=== PATIENT | female | born 1960 | race Caucasian/White ===

== ENCOUNTER 2020-04-07 13:11 | Outpatient (REF) | payer MEDICARE, MEDICAID, SELFPAY ==
--- NOTE | 2020-04-07 | US_ITS ---
EXAMINATION: US RETROPERITONEAL LIMITED (RENAL ONLY) CLINICAL INFORMATION: Acute kidney failure. COMPARISON: CT abdomen and pelvis dated 07/22/2019 TECHNIQUE: Real-time imaging of the kidneys. FINDINGS: RIGHT KIDNEY: 9.0 x 3.4 x 3.2 cm (SAG x AP x TRV). The kidney is normal in size, contour, and echogenicity. Renal cortical thickness is normal. No calculi or focal parenchymal lesions. No hydronephrosis. LEFT KIDNEY: 9.8 x 5.0 x 4.8 cm (SAG x AP x TRV). The kidney is normal in size, contour, and echogenicity. Renal cortical thickness is normal. No calculi or focal parenchymal lesions. No hydronephrosis. The liver is echogenic. US/US renal BI IMPRESSION: Normal renal ultrasound..
== END 2020-04-07 13:12 | disposition home or self-care (01) ==
LOC: HO.US 13:11
PROVIDERS: PCP Internal Medicine; Visit Provider Family Medicine
DX: N17.9 Acute kidney failure, unspecified (principal)
CPT/HCPCS: 76775

== ENCOUNTER → 2020-04-10 17:00 | Outpatient (BNVA) | payer MEDICARE, MEDICAID, SELFPAY | PROVIDERS: PCP Internal Medicine; Referring Provider Internal Medicine; Visit Provider Internal Medicine Gastroenterology | DX: K21.9 Gastro-esophageal reflux disease without esophagitis (principal); K59.00 Constipation, unspecified; Z79.899 Other long term (current) drug therapy | CPT/HCPCS: Q3014 ==

== ENCOUNTER 2020-05-06 10:56 | Outpatient (REF) | payer MEDICARE, MEDICAID, SELFPAY ==
--- NOTE | 2020-05-06 | MM_ITS ---
EXAMINATION: MM SCREENING DIGITAL BREAST TOMOSYNTHESIS, BILATERAL CLINICAL INFORMATION: Screening. Asymptomatic. The lifetime risk of breast cancer based on the Tyrer-Cuzick Model is 3%. COMPARISON: Mammography: 12/26/18, 07/30/16, 03/18/13 TECHNIQUE: Digital breast tomosynthesis is performed in both the craniocaudal and mediolateral oblique views along with computer-aided detection (CAD). Synthesized 2D images are generated from the tomosynthesis. FINDINGS: There are scattered areas of fibroglandular density (ACR BI-RADS breast composition Category b). There are no significant masses, abnormal calcifications, or other abnormalities. MM/MM tomosynthesis screening BI IMPRESSION: No mammographic evidence of malignancy. No suspicious interval change ASSESSMENT: BI-RADS 1: Negative RECOMMENDATION: Routine annual mammography screening. This patient's information was entered into a reminder system with a target due date for their next mammogram.
== END 2020-05-06 10:57 | disposition home or self-care (01) ==
LOC: HO.MAMMO 10:56
PROVIDERS: Visit Provider Internal Medicine
DX: Z12.31 Encounter for screening mammogram for malignant neoplasm of breast (principal)
CPT/HCPCS: 77063; 77067

== ENCOUNTER → 2020-06-13 09:22 | Outpatient (BNVA) | payer MEDICAID, SELFPAY | PROVIDERS: PCP Internal Medicine; Visit Provider Urology | DX: Z76.89 Persons encountering health services in other specified circumstances (principal) ==

== ENCOUNTER 2020-06-16 13:37 | Outpatient (REF) | payer MEDICARE, MEDICAID, SELFPAY | END 2020-06-16 13:38 | disposition home or self-care (01) | LOC: HO.LAB 13:37 | PROVIDERS: PCP Internal Medicine; Visit Provider Internal Medicine | DX: Z20.822 Contact with and (suspected) exposure to COVID-19 (principal) | CPT/HCPCS: 36415; C9803; U0003 ==

== ENCOUNTER 2020-07-23 13:37 | Outpatient (REF) | payer MEDICARE, MEDICAID, SELFPAY | END 2020-07-23 13:38 | disposition home or self-care (01) | LOC: HO.LAB 13:37 | PROVIDERS: Visit Provider Internal Medicine | DX: Z20.822 Contact with and (suspected) exposure to COVID-19 (principal) | CPT/HCPCS: 36415; C9803; U0003; U0005 ==

== ENCOUNTER → 2020-08-18 13:39 | Outpatient (BNVA) | payer MEDICARE, MEDICAID, SELFPAY | PROVIDERS: PCP Internal Medicine; Visit Provider Internal Medicine Gastroenterology | DX: Z13.89 Encounter for screening for other disorder (principal) | CPT/HCPCS: Q3014 ==

== ENCOUNTER 2020-10-03 12:44 | Outpatient (REF) | payer MEDICARE, MEDICAID, SELFPAY ==
--- NOTE | 2020-10-03 15:46 | MHC.AU.ANO ---
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 She feels her left ear is worse than the right ear. She has also been experiencing vertigo, accompanied by nausea. When she experiences an episode of vertigo, her tinnitus increases and her hearing decreases. Her tinnitus is also perceived as worse in the left ear. She also frequently experiences a sensation that something is moving in her ears. Does patient feel they have a hearing loss?: If Yes, Which Ear?: When Was Hearing Difficulty First Noticed?: Has hearing been tested previously?: No Hearing Handicap Inventory: HHIE SCORE: 40 Based on HHIE score, patient has: Severe perceived hearing handicap Ear History: Ear Deformity: None Reported Recent Ear Drainage: None Reported Recent Ear Pain: Both Ears Recent Ear Infections: None Reported Ear Infections in Childhood: None Reported Previous Ear Surgery: None Reported Bothersome Tinnitus/Ringing/Noises in Ears: Both, but worse in the left Ear used on the phone: Right Ear Blocked/Full Sensation in Ear(s): Both Ears History of occupational noise exposure?: Yes: Construction History: No Medical History: Medical History: Sinus/allergy problems, Migraine, Chronic Kidney Disease Otoscopy: Right Ear: Unremarkable Left Ear: Unremarkable Tympanometry: Tympanometry performed due to: To assess integrity of the middle ear system Right Ear: Normal Middle Ear System (Type A) Left Ear: Normal Middle Ear System (Type A) Hearing Evaluation: Transducer(s) Used: Insert Earphones Method: Conventional Audiometry Stimuli Used: Pure Tones Right Ear: Description of Hearing: Mild to moderate sensorineural hearing loss Left Ear: Description of Hearing: Moderate sensorineural hearing loss Speech Recognition Threshold (SRT): Method Used: Recorded Lists Right Ear: 45 dBHL Left Ear: 60 dBHL Word Discrimination: Method: Recorded Lists Word Lists Used: Lista Bisil?bica (Taiwanese) Right Ear: 88% at 85 dBHL Left Ear: 84% at 90 dBHL Recommendations: Audiological re-evaluation in one year. Trial with amplification is recommended. Medical clearance from a physician is required before fitting. See Hearing Aid Evaluation report for more information. Referral to Ear, Nose, and Throat is recommended to address asymmetrical sensorineural hearing loss, as well as episodes of vertigo that are accompanied by tinnitus and nausea. Diagnosis: Primary Diagnosis: H90.3 Bilateral Sensorineural Hearing Loss Services Performed: Comprehensive Audiological Evaluation (CPT 63445), Tympanometry (CPT 34604) Signature: Provider: Eirc Rojas, CCC-A
--- NOTE | 2020-10-03 15:47 | MHC.AU.HAS ---
Hearing Aid Evaluation Date of Visit: 10/03/20 Trolley Coach Driver Used: Luxembourgish- In Person Historical Information: Description of Hearing: Right: Mild to moderate sensorineural hearing loss Left: Moderate sensorineural hearing loss Summary: Patient was seen today for audiological evaluation (see report for details). Patient is interested in amplification. Options were discussed. Hearing Aid Prescription: Based on the individual?s shared listening needs, communication environments, dexterity, desire for connectivity, and personal preferences, the following prescription for amplification has been made: Right ear: Physical Chemistry Teacher: Phonak Model: Audeo P70-R Battery Size: Rechargeable Color: P1 Crystal Inspector: 1M Left ear: Left ear prescription to be same as Right Hearing Aid above: Physical Chemistry Teacher: Phonak Model: Audeo P70-R Battery Size: Rechargeable Color: P1 Crystal Inspector: 1M Action Taken/Action Needed: Medical Clearance to be requested from PCP/ENT Hearing Fitting to be scheduled when materials arrive Primary Diagnosis: H90.3 Bilateral Sensorineural Hearing Loss Signature: Provider: Eric Rojas, MIKE-A
--- NOTE | 2020-10-03 15:48 | MHC.AU.MED ---
Medical Clearance for Hearing Instrumentation Date: 10/03/20 Patient Name: Celestina Sullivan Date of : 1960 Primary Care Provider: Referring Provider: Lisa White MD We have seen your patient on 10/03/20 and have determined that they are a candidate for amplification (See accompanying report). Specifically, they would benefit from: Hearing aid use in both ears There is a statute that addresses Medical Evaluation Requirements prior to fitting a patient with a hearing aid. According to [place] statute 265 CMR:6.03(1), (a) General. Except as provided in 265 CMR 6.03(1)(b), a director of media shall not sell a hearing aid unless the prospective user has presented to the director of media a written statement signed by a licensed physician that states that the patient's hearing loss has been medically evaluated and the patient may be considered a candidate for a hearing aid. The medical evaluation must have taken place within the preceding six months. Please note: Due to the [place] Statute referenced above, we cannot accept a signature other than that of a licensed physician. SHANK THREADER and PA signatures cannot be accepted. I am in agreement with the above recommendation. There is no medical contraindication for hearing instrumentation. Physician Signature Date Physician Name (Printed)
== END 2020-10-03 12:45 | disposition home or self-care (01) ==
LOC: HO.SH 12:44
PROVIDERS: Visit Provider Internal Medicine
DX: Z46.1 Encounter for fitting and adjustment of hearing aid (principal); H90.3 Sensorineural hearing loss, bilateral
CPT/HCPCS: 92557; 92567; 92591

== ENCOUNTER 2020-11-12 14:20 | Outpatient (REF) | payer MEDICARE, MEDICAID, SELFPAY ==
--- NOTE | 2020-11-13 11:27 | MHC.AU.HFA ---
Hearing Instrument Fitting- Adult- Binaural Date of Visit: 11/12/20 Educational Institution Curator Used: Maori- In Person Hearing Instruments Dispensed: Right Ear: Records Management Technician: Phonak Model: Audeo P70-R Serial Number: [id number] Repair Warranty: 01/21/2024 Loss and Damage Warranty: 01/21/2024 Battery Size: Rechargeable Color: P1 Funeral Limousine Driver: 1M Type of Dome: Small Vented Type of Wax Guard: CeruShield Left Ear: Records Management Technician: Phonak Model: Audeo P70-R Serial Number: [id number] Repair Warranty: 01/21/2024 Loss and Damage Warranty: 01/21/2024 Battery Size: Rechargeable Color: P1 Funeral Limousine Driver: 1M Type of Dome: Small Vented Type of Wax Guard: CeruShield Summary of Fitting: Feedback manager financial planning run. Verifit performed and levels adjusted to better reach targets. Patient initially felt the sound echoed too much and there was a slight hiss. Lowered until patient reported echo was mostly gone- at 85% target. Increased occlusion compensation to medium, and patient reported the hiss had gone away. Patient was pleased with the sound of the instruments. Hearing aid care and maintenance were discussed and practiced. Hearing aids were paired to her phone. Recommendations: A hearing instrument follow-up was scheduled. Diagnosis Code(s): Primary Diagnosis: H90.3 Bilateral Sensorineural Hearing Loss Signature: Provider: Eric Rojas, [facility]
== END 2020-11-12 14:21 | disposition home or self-care (01) ==
LOC: HO.HAP 14:20
PROVIDERS: Visit Provider Internal Medicine
DX: Z46.1 Encounter for fitting and adjustment of hearing aid (principal); H90.3 Sensorineural hearing loss, bilateral
CPT/HCPCS: V5011; V5020; V5160; V5261

== ENCOUNTER → 2020-11-14 11:33 | Outpatient (BNVA) | payer MEDICARE, MEDICAID, SELFPAY | PROVIDERS: PCP Internal Medicine; Visit Provider Internal Medicine Gastroenterology | DX: Z13.89 Encounter for screening for other disorder (principal) | CPT/HCPCS: Q3014 ==

== ENCOUNTER 2020-11-26 14:00 | Outpatient (RCR) | payer MEDICARE, MEDICAID, SELFPAY ==
--- NOTE | 2020-11-13 14:21 | MHC.PT.EP ---
[facility] [place] Office [place] Office [place] Office [address] Fadumo Forrest [address] [phone] F: [phone] F: [phone] F: [phone] F: [phone] Physical Therapy Plan of Care Date of Evaluation: Date of Surgery: NA Diagnosis: CHRONIC LOW BACK PAIN Assessment: Celestina is a pleasant 60 yo female who presents with generalized low back and lower extremity pain of non-dermatomal nor myotomal pattern. Upon exam impairments inclde decreased LE and core strength, decreased LE and trunk ROM, altered posture and positioning and muscular length and strength imbalances leading to patterned movements and increased pain. Functionall limitations include decreased ability to perform ADLS and self care tasks, decreased ability to perform homemaking tasks, decreased ability to perform reaching, lifting, pushing and pulling. she reports decreased participation in community and recreational tasks and disrupted sleep. Frequency and Duration: The patient will be seen 2 x week for 5 weeks Short Term Goals: initiate HEP and promote self management of symptoms with evidence of learning in 2 visits. Director Goals: IN 5 WEEKS: TO DEMONSTRATE FULL LE ROM, EQUAL REE TO DEMONSTRATE FULL LE STRENGTH, EQUAL ERE TO ASCEND AND DESCEND STAIRS WITHOUT PAIN GREATER THAN 2/10 TO AMBULATE AD [place]A ON LEVEL AND UNEVEN SURFACES FOR FITNESS WITHOUT PAIN GREATER THAN 2/10 INDEPENDENT HEP AND SELF MANAGEMENT OF RIDU Treatment Plan: Modalities to reduce pain, spasms and effusion. Manual therapy to restore motion and function. Therapeutic exercise to improve strength and flexibility. Neuromuscular re-education for posture and balance. Therapeutic activities to return to functional activities of daily living. Electronically signed by: NANCY MICHAEL PT, DPT Please sign and return to therapist. Thank you for your referral.
--- NOTE | 2021-01-05 08:27 | MHC.PT.DC ---
[facility] [place] Office [place] Office [place] Office [address] Fadumo Forrest [address] [phone] F: [phone] F: [phone] F: [phone] F: [phone] Physical Therapy Discharge Report Diagnosis: CHRONIC LOW BACK PAIN Date of Surgery: NA Date of Evaluation: 11/10/20 Date of Discharge: 11/26/20 Treatments to Date: 5 Cancellations to Date: 0 No Shows to Date: 0 Discharge Status: Patient Elected to Stop Discharge Summary: At last attended visit, Celestina continued to subjectivly report pain as 7 1/2 unchanged since initial eval. Pain is reported to radiate into the lower extremity (non-dermatomal pattern). She demonstrates decreased muscle length in hamstrings, quads and piriformis and would benefit from continuing her home program for same. The patient elected to not schedule further visits in PT and will follow up with MD. Electronically signed by: Daya Serrano PT, DPT Please sign and return to therapist. Thank you for your referral.
== END 2021-01-05 08:32 | disposition home or self-care (01) ==
LOC: HO.PT 14:00
PROVIDERS: PCP Internal Medicine; Visit Provider Internal Medicine
DX: M54.5 Low back pain (principal)
CPT/HCPCS: 97110; 97140; 97163

== ENCOUNTER 2021-01-09 11:12 | Emergency (ER) | payer MEDICARE, MEDICAID, SELFPAY ==
--- NOTE | ~2021-01-09 | XR_ITS ---
EXAMINATION: RIGHT ANKLE, RIGHT FOOT RIGHT TIBIA AND FIBULA AND LEFT KNEE. CLINICAL INFORMATION: Trauma. Pain. COMPARISON: None TECHNIQUE: Left knee 4 views. Right foot 3 views. Right tibia and fibula 2 views and right ankle 3 views. FINDINGS: Left knee: There is no visible acute fracture, dislocation or subluxation. No visible acute fracture, dislocation or subluxation seen. There is mild suprapatellar joint effusion. Right foot: There is no visible acute fracture, dislocation or subluxation seen. The soft tissues are normal. Right ankle: There is a nondisplaced oblique distal fibular fracture. The ankle mortise and subtalar joints are normal. There is moderate lateral malleolar soft tissue swelling. Right tibia and fibula: There is an oblique fracture distal fibula. Rest of the visualized fibula and the tibia appears unremarkable. The soft tissues are normal. XR/XR ankle RT 2V IMPRESSION: Minimally displaced oblique fracture distal right fibula. There is moderate lateral malleolar soft tissue swelling. Rest of the right tibia and fibula is unremarkable. The ankle mortise and subtalar joints are normal. Right foot and the left kidney is unremarkable.
--- NOTE | ~2021-01-09 | XR_ITS ---
EXAMINATION: RIGHT ANKLE, RIGHT FOOT RIGHT TIBIA AND FIBULA AND LEFT KNEE. CLINICAL INFORMATION: Trauma. Pain. COMPARISON: None TECHNIQUE: Left knee 4 views. Right foot 3 views. Right tibia and fibula 2 views and right ankle 3 views. FINDINGS: Left knee: There is no visible acute fracture, dislocation or subluxation. No visible acute fracture, dislocation or subluxation seen. There is mild suprapatellar joint effusion. Right foot: There is no visible acute fracture, dislocation or subluxation seen. The soft tissues are normal. Right ankle: There is a nondisplaced oblique distal fibular fracture. The ankle mortise and subtalar joints are normal. There is moderate lateral malleolar soft tissue swelling. Right tibia and fibula: There is an oblique fracture distal fibula. Rest of the visualized fibula and the tibia appears unremarkable. The soft tissues are normal. XR/XR tibia fibula RT 2V IMPRESSION: Minimally displaced oblique fracture distal right fibula. There is moderate lateral malleolar soft tissue swelling. Rest of the right tibia and fibula is unremarkable. The ankle mortise and subtalar joints are normal. Right foot and the left kidney is unremarkable.
--- NOTE | ~2021-01-09 | XR_ITS ---
EXAMINATION: RIGHT ANKLE, RIGHT FOOT RIGHT TIBIA AND FIBULA AND LEFT KNEE. CLINICAL INFORMATION: Trauma. Pain. COMPARISON: None TECHNIQUE: Left knee 4 views. Right foot 3 views. Right tibia and fibula 2 views and right ankle 3 views. FINDINGS: Left knee: There is no visible acute fracture, dislocation or subluxation. No visible acute fracture, dislocation or subluxation seen. There is mild suprapatellar joint effusion. Right foot: There is no visible acute fracture, dislocation or subluxation seen. The soft tissues are normal. Right ankle: There is a nondisplaced oblique distal fibular fracture. The ankle mortise and subtalar joints are normal. There is moderate lateral malleolar soft tissue swelling. Right tibia and fibula: There is an oblique fracture distal fibula. Rest of the visualized fibula and the tibia appears unremarkable. The soft tissues are normal. XR/XR foot RT 2V IMPRESSION: Minimally displaced oblique fracture distal right fibula. There is moderate lateral malleolar soft tissue swelling. Rest of the right tibia and fibula is unremarkable. The ankle mortise and subtalar joints are normal. Right foot and the left kidney is unremarkable.
--- NOTE | ~2021-01-09 | XR_ITS ---
EXAMINATION: RIGHT ANKLE, RIGHT FOOT RIGHT TIBIA AND FIBULA AND LEFT KNEE. CLINICAL INFORMATION: Trauma. Pain. COMPARISON: None TECHNIQUE: Left knee 4 views. Right foot 3 views. Right tibia and fibula 2 views and right ankle 3 views. FINDINGS: Left knee: There is no visible acute fracture, dislocation or subluxation. No visible acute fracture, dislocation or subluxation seen. There is mild suprapatellar joint effusion. Right foot: There is no visible acute fracture, dislocation or subluxation seen. The soft tissues are normal. Right ankle: There is a nondisplaced oblique distal fibular fracture. The ankle mortise and subtalar joints are normal. There is moderate lateral malleolar soft tissue swelling. Right tibia and fibula: There is an oblique fracture distal fibula. Rest of the visualized fibula and the tibia appears unremarkable. The soft tissues are normal. XR/XR knee LT 3V IMPRESSION: Minimally displaced oblique fracture distal right fibula. There is moderate lateral malleolar soft tissue swelling. Rest of the right tibia and fibula is unremarkable. The ankle mortise and subtalar joints are normal. Right foot and the left kidney is unremarkable.
[2021-01-09 11:19] VITALS: BP 116/65; BP 136/74; PULSE 72; PULSE 74; RESP 20; TEMP 36.4; O2SAT 96; O2SAT 98; BMI 34.7
--- NOTE | 2021-01-09 11:20 | ED.GENADULT ---
HPI - General Adult General Chief complaint: Fall Stated complaint: fall, right ankle pain Time Seen by Provider: 01/09/21 11:19 Source: EMS and engagement engineer Mode of arrival: EMS Limitations: language barrier History of Present Illness HPI narrative: 60 yo female with past medical history of anxiety, depression, asthma, osteoarthritis, PTSD, pre diabetes, migraines, chronic kidney disease here s/p fall. Patient tells me she went to stand up from her chair when her left knee twisted causing her right ankle to have an eversion injury. Now having pain in her knee and ankle. Not on any anticoagulation Related Data Previous Rx's Medication Instructions Recorded famotidine 40 mg tablet 40 mg PO BEDTIME #30 tab 10/21/20 linaclotide 290 mcg capsule 290 mcg PO DAILY #90 cap 11/14/20 pantoprazole 40 mg tablet,delayed 40 mg PO DAILY #90 tab 11/14/20 release oxybutynin chloride 15 mg 15 mg PO DAILY 30 Days #30 tab 12/19/20 tablet,extended release 24 hr ibuprofen 600 mg tablet 600 mg PO Q8H PRN #20 tab 01/09/21 oxycodone 5 mg tablet 5 mg PO Q8H PRN #5 tab 01/09/21 Allergies Allergy/AdvReac Type Severity Reaction Status Date / Time Sulfa (Sulfonamide Allergy Mild UNKNOWN Verified 11/14/20 11:34 Antibiotics) [SULFA (SULFONAMIDE ANTIBIOTICS)] Review of Systems Review of Systems: Yes all other systems are reviewed and are negative Constitutional: Constitutional: Reports no additional constitutional complaints, Denies body ache(s), Denies chills, Denies fever(s), Denies headache(s) and Denies weakness Eyes: Eyes: Reports no additional eye complaints and Denies change in vision ENT: Reports system reviewed and no additional complaints, except as documented, Denies dizziness, Denies headache(s), Denies nasal congestion, Denies nasal discharge and Denies neck pain Cardiovascular: Cardiovascular: Reports no additional cardiovascular complaints, Denies chest pain, Denies leg edema and Denies dyspnea Respiratory: Respiratory: Reports no additional respiratory complaints, Denies cough and Denies dyspnea Gastrointestinal: Gastrointestinal: Reports no additional gastrointestinal complaints, Denies abdominal pain, Denies diarrhea, Denies nausea and Denies vomiting Genitourinary: Genitourinary: Reports no additional female genitourinary complaints and Denies urinary incontinence Musculoskeletal: Musculoskeletal: Reports no additional musculoskeletal complaints, Denies back pain, Reports arthralgias, Reports joint swelling, Reports limited range of motion, Denies neck pain, Denies numbness and Denies tingling Integumentary/Breasts: Skin/Breast: Reports system reviewed and no additional complaints, except as docu and Denies rash Neurologic: Reports system reviewed and no additional complaints, except as documented, Denies Abnormal speech present, Denies dizziness, Denies headache(s), Denies numbness, Denies tingling and Denies weakness [facility] Past Medical History Attestation statement: The following information was validated with the patient. Source: old records reviewed and nursing notes reviewed Medical History Urge incontinence Surgical History H/O colonoscopy History of esophagogastroduodenoscopy (EGD) Family History Family History Father History of intestinal surgery Paternal Uncle Diabetes Paternal Uncle Diabetes Social History Social History Household Members: None Alcohol intake: never Patient Tobacco Use Status: Never used Tobacco Use of substances other than those prescribed or required for medical reasons: No Advance Directives: No Advance Directives Information Provided: No Patient : No Physical Exam Vital Signs: Vital Signs: Last Vital Signs Temp 97.5 F 01/09/21 11:19 Pulse 72 01/09/21 13:40 Resp 20 01/09/21 11:19 BP 116/65 01/09/21 13:40 Pulse Ox 98 01/09/21 13:40 Body Mass Index 34.7 Const: General: cooperative, healthy appearing, comfortable and no acute distress Orientation/consciousness: patient oriented x3 Limitations: no limitations HENMT: Head: Yes normal to inspection Ears: hearing grossly normal bilaterally General nose exam: Normal external nose present Face and sinus: Yes normal facial exam Mouth: Normal oral and palatal mucosa present Throat: Yes posterior oropharynx normal Eyes: General: appearance normal, both eyes and all related structures Pupils: Equal, round and reactive pupils present Neck: Neck: Yes normal visual inspection Chest: Chest palpation & inspection: normal inspection of the chest Resp: Effort & Inspection: normal respiratory effort Auscultation: clear to auscultation bilaterally Cardio: Rate: regular rate Rhythm: regular rhythm Peripheral pulses: Peripheral pulses 2+ throughout GI: Inspection: Yes normal to inspection Palpation (GI): Soft to palpation and nontender Auscultation: normal bowel sounds Back/Spine/Pelvis: Thoracic/Lumbar Spine: thoracic and lumbar spine normal to inspection Skin: General skin exam: no rashes or lesions noted Neuro: General: patient oriented x3, no focal motor deficits and normal sensation to monofilament Cranial nerves: Yes Equal, round and reactive pupils present Cognition (Neuro): normal cognition Speech: No Abnormal speech present Gait exam (Neuro): Normal gait present Motor exam (neuro): 5/5 motor strength present throughout Extrem: Other: Tenderness to the right lateral ankle with no obvious deformity. Mild swelling. No ecchymosis. Patient able to flex and extend the foot with no difficulty. Palpable distal pulses noted Left lateral knee tenderness with no obvious deformity or swelling. Full range of motion. No ligamental laxity General: Yes normal to inspection Course Course Course Narrative: Mechanical fall now with right ankle and left knee pain. No head strike or loss of consciousness. No anticoagulation use. Will check x-rays 1230-x-ray shows right fibula fracture. Discussed with orthopedics ([facility]). Recommended posterior splint, nonweightbearing with crutches. Follow-up outpatient 1240-discussed with patient. Reviewed worrisome signs and symptoms of when to return to the emergency department. Comfortable discharge home. 1530-concern from nursing that patient may need physical therapy and case management for safe discharge. She was seen by Physical therapy and cleared for discharge home. She does live in an apartment but has access to an elevator. Case management will arrange for VNA services to come into the home and visit her. Procedures Procedure Narrative Procedure Narrative: Posterior splint Crutches Medical Decision Making Imaging Data right tibia/fibula/foot/ankle xray: Attestation: I personally reviewed and interpreted this imaging study as follows: Radiologist's impression: Right foot: There is no visible acute fracture, dislocation or subluxation seen. The soft tissues are normal.? Right ankle: There is a nondisplaced oblique distal fibular fracture. The ankle mortise and subtalar joints are normal. There is moderate lateral malleolar soft tissue swelling. Right tibia and fibula: There is an oblique fracture distal fibula. Rest of the visualized fibula and the tibia appears unremarkable. The soft tissues are normal. left knee x-ray: Attestation: I personally reviewed and interpreted this imaging study as follows: Radiologist's impression: Left knee: There is no visible acute fracture, dislocation or subluxation. No visible acute fracture, dislocation or subluxation seen. There is mild suprapatellar joint effusion. Discharge Plan Discharge Clinical Impression: Closed fibular fracture Qualifiers: Encounter type: initial encounter Fibula location: distal Fracture morphology: other fracture Laterality: right Qualified Code(s): S82.831A - Other fracture of upper and lower end of right fibula, initial encounter for closed fracture Patient Disposition: Home, Self-Care Instructions: Leg Fracture (ED) Additional Instructions: Splint stays on at all times Nonweightbearing with crutches Call orthopedics tomorrow for follow-up Ice, elevation Prescriptions: New ibuprofen 600 mg tablet 600 mg PO Q8H PRN (Reason: pain) Qty: 20 RF: 0 oxycodone 5 mg tablet 5 mg PO Q8H PRN (Reason: pain) Qty: 5 RF: 0 No Action famotidine 40 mg tablet 40 mg PO BEDTIME Qty: 30 RF: 3 oxybutynin chloride 15 mg tablet extended release 24 hr 15 mg PO DAILY 30 Days Qty: 30 RF: 3 pantoprazole 40 mg tablet,delayed release (DR/EC) 40 mg PO DAILY Qty: 90 RF: 2 linaclotide 290 mcg capsule 290 mcg PO DAILY Qty: 90 RF: 3 Referrals: [facility] [Outside] - 2 days Kobi Pena MD [Physician] - 2 days Interventions: ED Discharge Assessment Last Done: 01/09/21 16:24 Discharge Date/Time: 01/09/21 16:24
[2021-01-09 13:40] VITALS: BP 116/65; PULSE 72; O2SAT 98
--- NOTE | 2021-01-09 15:34 | MHC.CM.ED ---
Received case management consult from Lillian NAVA. Patient came to ER after a fall. Found to have an ankle fracture. Physical therapy eval completed. Home therapy is recommended. Met with patient and supervisor grain and yeast plants in regards to d/c planning. Patient lives alone, has a ASSOCIATE DIRECTOR FINANCIAL AID through [facility] and senior care through [facility]. Patient agreeable to returning home with ASSOCIATE DIRECTOR FINANCIAL AID and VNA. [facility] has been asked to add physical therapy to her services. Patient's ASSOCIATE DIRECTOR FINANCIAL AID will transport her home. Patient's apartment building has an elevator in it. Patient received 2 Moderna vaccines. Lillian NAVA aware of d/c plan. Continue to monitor for d/c needs.
--- NOTE | 2021-01-09 16:22 | PC.NURSE ---
PT REQUESTING TO GO HOME W DAUGHTER INSTEAD OF CASE MGMT FELICIANO, PT HAS RESOURCES AT HOME, IS ABLE TO HAVE DAUGHTER ASSIST W CARE AT HOME. PT ABLE TO PIVOT TO WHEELCHAIR USING ASSISTIVE DEVICE. DAUGHTER AGREEABLE AND UNDERSTANDING OF DC INSTRUCTIONS.
== END 2021-01-09 16:24 | disposition home or self-care (01) ==
PROVIDERS: Emergency Provider Emergency Medicine; PCP Internal Medicine
DX: S82.831A Other fracture of upper and lower end of right fibula, initial encounter for closed fracture (principal); M25.561 Pain in right knee; M25.571 Pain in right ankle and joints of right foot; W01.0XXA Fall on same level from slipping, tripping and stumbling without subsequent striking against object, initial encounter; Y93.9 Activity, unspecified; Y92.9 Unspecified place or not applicable; Y99.9 Unspecified external cause status; Z79.899 Other long term (current) drug therapy
CPT/HCPCS: 29505; 73562; 73590; 73600; 73620; 97162; 99284

== ENCOUNTER → 2021-01-16 14:53 | Outpatient (BNVA) | payer MEDICARE, MEDICAID, SELFPAY | PROVIDERS: Visit Provider Physician Assistant | DX: S82.831A Other fracture of upper and lower end of right fibula, initial encounter for closed fracture (principal) | CPT/HCPCS: 99202 ==

== ENCOUNTER → 2021-01-23 14:03 | Outpatient (BNVA) | payer MEDICARE, MEDICAID, SELFPAY | PROVIDERS: PCP Internal Medicine | DX: N39.41 Urge incontinence (principal); R73.03 Prediabetes | CPT/HCPCS: 99212 ==

== ENCOUNTER 2021-02-06 14:11 | Outpatient (REF) | payer MEDICARE, MEDICAID, SELFPAY ==
--- NOTE | ~2021-02-06 | XR_ITS ---
EXAMINATION: XR ANKLE, RIGHT CLINICAL INFORMATION: Pain in right ankle and joints of right foot COMPARISON: 01/09/2021 TECHNIQUE: AP, lateral, and mortise views of the right ankle. FINDINGS: Oblique distal fibular fracture again seen. The fracture line remains visible. There is bridging fracture callus. Alignment remains near-anatomic. No widening of the ankle mortise. There is overlying lateral soft tissue swelling. Talar dome intact. XR/XR ankle RT min 3V IMPRESSION: Healing oblique distal fibular fracture.
== END 2021-02-06 14:12 | disposition home or self-care (01) ==
LOC: HO.HOSX 14:11
PROVIDERS: Visit Provider Physician Assistant
DX: S82.831D Other fracture of upper and lower end of right fibula, subsequent encounter for closed fracture with routine healing (principal)
CPT/HCPCS: 73610; 99212

== ENCOUNTER → 2021-03-04 11:58 | Outpatient (BNVA) | payer MEDICARE, MEDICAID, SELFPAY | PROVIDERS: PCP Internal Medicine | DX: N39.41 Urge incontinence (principal) | CPT/HCPCS: Q3014 ==

== ENCOUNTER 2021-03-04 15:00 | Outpatient (RCR) | payer MEDICARE, MEDICAID, SELFPAY ==
--- NOTE | 2021-02-24 15:10 | MHC.PT.EP ---
[facility] [place] Office [place] Office [place] Office [address] [phone] F: [phone] F: [phone] F: [phone] F: [phone] Physical Therapy Plan of Care Date of Evaluation: Date of Surgery: n/a Diagnosis: closed fx of distal R fibula Assessment: Patient is a 60 year old female presenting to PT with complaints of pain in her R ankle. Pt reports onset of pain began 01/09/2021 due to falling resulting in a distal fibula fx. She presents today with impairments in pain, ankle ROM, ankle strength, and balance. Pt's current occupation is none, with baseline physical activities including ambulation and ADLs. Pt expresses jail goal of getting better, and is motivated to work towards this in PT. Clinical presentation today is most consistent with signs and sx associated with x-ray findings of healing distal fib fx and pt will benefit from skilled PT to address the following problems and impairments noted upon evaluation: pain, ankle ROM, ankle strength, and balance. These problems limit the patient with the following functional activities: ambulation and ADLS. The prescribed treatment plan of care is medically necessary. Co-morbidities of none were identified and taken into considerations of plan of care. Pt was educated on HEP, role of PT, prognosis, POC. Frequency and Duration: The patient will be seen 2x week x 4 weeks Short Term Goals: Pt will demonstrate R ankle figure 8 swelling within 1 cm of LLE in 2 weeks. Pt will demonstrate R ankle strength improved by 1/3 MMT for in 2 weeks. Pt will demonstrate ability to SLS x 30 sec with min to no sway in 2 weeks for improved balance with gait. Pt will demonstrate R ankle ROM equal B in 2 weeks. Assisted Goals: Pt will demonstrate ability to ambulate with good mechanics and no boot in 4 weeks to improve access to the community. Pt will demonstrate ability to complete all her ADLs with min to no pain in 4 weeks to allow return to PLOF. Treatment Plan: Modalities to reduce pain, spasms and effusion. Manual therapy to restore motion and function. Therapeutic exercise to improve strength and flexibility. Neuromuscular re-education for posture and balance. Therapeutic activities to return to functional activities of daily living. Electronically signed by: Ana Lilia Mosley, PT, DPT, ATC Please sign and return to therapist. Thank you for your referral.
--- NOTE | 2021-03-10 16:25 | MHC.PT.DC ---
[facility] [place] Office [place] Office [place] Office [address] [phone] F: [phone] F: [phone] F: [phone] F: [phone] Physical Therapy Discharge Report Diagnosis: closed fx of distal R fibula Date of Surgery: n/a Date of Evaluation: 02/24/21 Date of Discharge: Treatments to Date: 2 Cancellations to Date: No Shows to Date: 3 Discharge Status: Visit Non-compliance Discharge Summary: Pt has failed to comply with [facility] attendance policy and no showed 3 appointments since evaluation. Current status unknown. Electronically signed by: Ana Lilia Mosley, PT, DPT, ATC Please sign and return to therapist. Thank you for your referral.
== END 2021-03-10 16:26 | disposition home or self-care (01) ==
LOC: HO.PT 15:00
PROVIDERS: PCP Internal Medicine; Visit Provider Physician Assistant
DX: S82.831A Other fracture of upper and lower end of right fibula, initial encounter for closed fracture (principal)
CPT/HCPCS: 97110; 97161

== ENCOUNTER 2021-03-06 07:27 | Outpatient (REF) | payer MEDICARE, MEDICAID, SELFPAY ==
--- NOTE | ~2021-03-06 | XR_ITS ---
EXAMINATION: XR ANKLE, RIGHT CLINICAL INFORMATION: Pain. Fracture. COMPARISON: Previous x-rays most recent January 2021 TECHNIQUE: AP, lateral, and mortise views of the right ankle. FINDINGS: There is an oblique fracture of the distal fibular shaft. Fracture line appears more indistinct and there is increased bony callus formation suggestive of healing. Alignment is unchanged. No other fracture is seen. The ankle mortise is normal. Soft tissues are normal. XR/XR ankle RT min 3V IMPRESSION: Healing right distal fibular shaft fracture.
== END 2021-03-06 07:28 | disposition home or self-care (01) ==
LOC: HO.HOSX 07:27
PROVIDERS: Visit Provider Physician Assistant
DX: S82.831D Other fracture of upper and lower end of right fibula, subsequent encounter for closed fracture with routine healing (principal); X58.XXXD Exposure to other specified factors, subsequent encounter
CPT/HCPCS: 73610; 99212

== ENCOUNTER 2021-04-14 14:17 | Outpatient (REF) | payer MEDICARE, MEDICAID, SELFPAY ==
--- NOTE | ~2021-04-14 | XR_ITS ---
EXAMINATION: XR ANKLE, RIGHT CLINICAL INFORMATION: Pain COMPARISON: 03/06/2021 TECHNIQUE: AP, lateral, and mortise views of the right ankle. FINDINGS: Progression of healing of oblique fracture in the distal fibula with progression of bony remodeling. The fracture line is still visible. Alignment remains near-anatomic. The ankle mortise is preserved. Overlying soft tissues are intact. XR/XR ankle RT min 3V IMPRESSION: Progression of healing of oblique fracture of the distal fibula in stable near anatomic alignment.
== END 2021-04-14 14:18 | disposition home or self-care (01) ==
LOC: HO.HOSX 14:17
PROVIDERS: PCP Internal Medicine; Visit Provider Physician Assistant
DX: S82.831D Other fracture of upper and lower end of right fibula, subsequent encounter for closed fracture with routine healing (principal)
CPT/HCPCS: 73610; 99212

== ENCOUNTER → 2021-05-12 13:51 | Outpatient (BNVA) | payer MEDICARE, MEDICAID, SELFPAY | PROVIDERS: PCP Internal Medicine; Referring Provider Internal Medicine; Visit Provider Internal Medicine Gastroenterology | DX: K21.9 Gastro-esophageal reflux disease without esophagitis (principal); K59.00 Constipation, unspecified | CPT/HCPCS: Q3014 ==

== ENCOUNTER 2021-05-28 13:47 | Outpatient (REF) | payer MEDICARE, MEDICAID, SELFPAY ==
--- NOTE | ~2021-05-28 | MR_ITS ---
EXAMINATION: MR BRAIN WITHOUT CONTRAST CLINICAL INFORMATION: Migraines for years. Reports daily 3 month memory impairment. COMPARISON: Head CT 02/19/2020. TECHNIQUE: Multiplanar, multisequence imaging of the brain was performed without intravenous contrast. FINDINGS: There is no acute infarction, mass, hemorrhage, or extra-axial collection. The ventricles, sulci, and basilar cisterns are normal in size and configuration. Mild patchy foci of T2/FLAIR hyperintensity are seen within the cerebral white matter, a nonspecific finding. The cerebellar tonsils are normally positioned above the foramen magnum. The flow voids of the major intracranial arteries appear intact. The bones and extracranial soft tissues are unremarkable. MR/MR head/brain wo con IMPRESSION: No acute infarct, mass lesion, intracranial hemorrhage, or evidence of hydrocephalus. Mild nonspecific T2/FLAIR hyperintensity seen in the white matter. No unexpected brain parenchymal volume loss.
== END 2021-05-28 13:48 | disposition home or self-care (01) ==
LOC: HO.MRI 13:47
PROVIDERS: PCP Internal Medicine; Visit Provider Internal Medicine
DX: G43.009 Migraine without aura, not intractable, without status migrainosus (principal); R41.3 Other amnesia; R73.01 Impaired fasting glucose
CPT/HCPCS: 70551

== ENCOUNTER 2021-08-07 07:39 | Outpatient (REF) | payer MEDICARE, MEDICAID, SELFPAY ==
--- NOTE | ~2021-08-07 | XR_ITS ---
EXAMINATION: XR ANKLE, RIGHT CLINICAL INFORMATION: Pain COMPARISON: Previous x-ray most recent March 2021 TECHNIQUE: AP, lateral, and mortise views of the right ankle. FINDINGS: There is continued healing of the distal fibular shaft fracture. Fracture line no longer seen. No other fracture is seen. The ankle mortise is normal. Soft tissues are normal. XR/XR ankle RT min 3V IMPRESSION: Continued healing of the right distal femoral shaft fracture.
== END 2021-08-07 07:40 | disposition home or self-care (01) ==
LOC: HO.HOSX 07:39
PROVIDERS: Visit Provider Physician Assistant
DX: S82.831D Other fracture of upper and lower end of right fibula, subsequent encounter for closed fracture with routine healing (principal)
CPT/HCPCS: 73610; 99212

== ENCOUNTER → 2021-10-23 10:46 | Outpatient (BNVA) | payer MEDICARE, MEDICAID, SELFPAY | PROVIDERS: PCP Internal Medicine | DX: N39.41 Urge incontinence (principal) | CPT/HCPCS: 51798; 99202 ==

== ENCOUNTER → 2021-11-06 10:52 | Outpatient (BNVA) | payer MEDICARE, MEDICAID, SELFPAY | PROVIDERS: PCP Internal Medicine; Visit Provider Internal Medicine Gastroenterology | DX: K21.9 Gastro-esophageal reflux disease without esophagitis (principal); K59.00 Constipation, unspecified; R14.0 Abdominal distension (gaseous); Z79.899 Other long term (current) drug therapy | CPT/HCPCS: 99212 ==

== ENCOUNTER 2021-12-28 14:51 | Outpatient (REF) | payer MEDICARE, MEDICAID, SELFPAY ==
--- NOTE | ~2021-12-28 | MM_ITS ---
EXAMINATION: MM SCREENING DIGITAL BREAST TOMOSYNTHESIS, BILATERAL CLINICAL INFORMATION: Screening. Asymptomatic. The lifetime risk of breast cancer based on the Tyrer-Cuzick Model is 3%. COMPARISON: Mammography: 05/06/2020, 12/26/2018, 07/30/2016 TECHNIQUE: Digital breast tomosynthesis is performed in both the craniocaudal and mediolateral oblique views along with computer-aided detection (CAD). Synthesized 2D images are generated from the tomosynthesis. Additional left MLO view is provided. FINDINGS: There are scattered areas of fibroglandular density (ACR BI-RADS breast composition Category b). There are no significant masses, abnormal calcifications, or other abnormalities. There is fine fibronodular parenchymal pattern similar to prior studies. Intramammary node is again noted mid upper outer left breast and mid upper outer right breast. The bilateral axilla and skin contours are unremarkable. MM/MM tomosynthesis screening BI IMPRESSION: There are no significant changes from prior study. ASSESSMENT: BI-RADS 2: Benign RECOMMENDATION: Routine annual mammography screening. This patient's information was entered into a reminder system with a target due date for their next mammogram.
== END 2021-12-28 14:52 | disposition home or self-care (01) ==
LOC: HO.MAMMO 14:51
PROVIDERS: PCP Registered Nurse; Visit Provider Registered Nurse
DX: Z12.31 Encounter for screening mammogram for malignant neoplasm of breast (principal)
CPT/HCPCS: 77063; 77067

== ENCOUNTER 2022-03-05 | Outpatient (REF) | payer MEDICARE, MEDICAID, SELFPAY | END 2022-03-05 00:01 | disposition home or self-care (01) | LOC: HO.HOSX | PROVIDERS: Visit Provider Physician Assistant | DX: Z13.89 Encounter for screening for other disorder (principal) ==

== ENCOUNTER → 2022-04-05 09:43 | Outpatient (BNVA) | payer MEDICARE, MEDICAID, SELFPAY | PROVIDERS: PCP Registered Nurse; Visit Provider Internal Medicine Gastroenterology | DX: Z13.89 Encounter for screening for other disorder (principal) | CPT/HCPCS: Q3014 ==

== ENCOUNTER → 2022-06-21 09:43 | Outpatient (BNVA) | payer OTHER, SELFPAY | PROVIDERS: PCP Registered Nurse; Visit Provider Urology | DX: N32.81 Overactive bladder (principal); N39.41 Urge incontinence; R35.1 Nocturia | CPT/HCPCS: 51798; 99212 ==

== ENCOUNTER 2022-07-21 08:43 | Outpatient (REF) | payer OTHER, SELFPAY ==
--- NOTE | 2022-07-21 08:57 | EMG_ITS ---
Please see scanned EMG / Nerve Conduction Report. MTDD
== END 2022-07-21 08:44 | disposition home or self-care (01) ==
LOC: HO.NEURO 08:43
PROVIDERS: PCP Registered Nurse; Visit Provider Registered Nurse
DX: R20.2 Paresthesia of skin (principal)
CPT/HCPCS: 95885; 95913

== ENCOUNTER 2022-08-06 13:04 | Outpatient (REF) | payer OTHER, SELFPAY ==
--- NOTE | ~2022-08-06 | US_ITS ---
EXAMINATION: US RETROPERITONEAL LIMITED (RENAL ONLY) CLINICAL INFORMATION: Overactive bladder. COMPARISON: Renal ultrasound 04/07/2020. CT abdomen and pelvis 07/22/2019. Ultrasound abdomen complete 05/25/2019. TECHNIQUE: Real-time imaging of the kidneys. FINDINGS: RIGHT KIDNEY: 9.2 x 3.5 x 4.7 cm (SAG x AP x TRV). The kidney is normal in size, contour, and echogenicity. Renal cortical thickness is normal. No calculi or focal parenchymal lesions. No hydronephrosis. LEFT KIDNEY: 9.9 x 4.5 x 5.1 cm (SAG x AP x TRV). The kidney is normal in size, contour, and echogenicity. Renal cortical thickness is normal. No calculi or focal parenchymal lesions. No hydronephrosis. US/US renal BI IMPRESSION: Normal-appearing kidneys.
== END 2022-08-06 13:05 | disposition home or self-care (01) ==
LOC: HO.US 13:04
PROVIDERS: PCP Registered Nurse; Visit Provider Urology
DX: N32.81 Overactive bladder (principal)
CPT/HCPCS: 76775

== ENCOUNTER 2022-08-11 12:35 | Outpatient (REF) | payer OTHER, SELFPAY ==
--- NOTE | ~2022-08-11 | XR_ITS ---
X-RAY LEFT KNEE X-RAY STRANDING AP VIEW OF BOTH KNEES CLINICAL HISTORY: Pain in the left knee. COMPARISON: Radiograph of the left knee 01/09/2021. TECHNIQUE: 2 views of the left knee. Single AP standing view of both knees. FINDINGS: No acute fractures or malalignment. Mild joint space narrowing of the medial compartment in both knees. No erosions or chondrocalcinosis. No joint effusion in the left knee. XR/XR knee LT 2V IMPRESSION: 1. No acute fractures or malalignment. 2. Mild degenerative osteoarthritis of the medial compartment of both knees.
--- NOTE | ~2022-08-11 | XR_ITS ---
X-RAY LEFT KNEE X-RAY STRANDING AP VIEW OF BOTH KNEES CLINICAL HISTORY: Pain in the left knee. COMPARISON: Radiograph of the left knee 01/09/2021. TECHNIQUE: 2 views of the left knee. Single AP standing view of both knees. FINDINGS: No acute fractures or malalignment. Mild joint space narrowing of the medial compartment in both knees. No erosions or chondrocalcinosis. No joint effusion in the left knee. XR/XR knee standing BI IMPRESSION: 1. No acute fractures or malalignment. 2. Mild degenerative osteoarthritis of the medial compartment of both knees.
== END 2022-08-11 12:36 | disposition home or self-care (01) ==
LOC: HO.HOSX 12:35
PROVIDERS: Visit Provider Physician Assistant
DX: M25.562 Pain in left knee (principal); M25.561 Pain in right knee
CPT/HCPCS: 73560; 73565; 99202

== ENCOUNTER → 2022-08-23 14:15 | Outpatient (BNVA) | payer OTHER, SELFPAY | PROVIDERS: PCP Registered Nurse; Visit Provider Urology | DX: N39.3 Stress incontinence (female) (male) (principal); N81.89 Other female genital prolapse | CPT/HCPCS: 51798; 52000; 99212 ==

== ENCOUNTER 2023-01-06 14:05 | Outpatient (AMB) | payer OTHER, SELFPAY ==
--- NOTE | 2023-01-06 12:12 | A.OFFVIS_ITS ---
Intake Intake Visit Reasons: 4m follow up Intake Note: Patient presents today for a follow-up on AIME: Meds- Vesicare Allergies to Antibiotic- Sulfa Blood Thinner- None PVR- >75 ml Development Advisor Required: No Accompanied by: Self / Same As Patient Allergies Sulfa (Sulfonamide Antibiotics) [SULFA (SULFONAMIDE ANTIBIOTICS)] Allergy (Mild, Verified 01/06/23 14:43) UNKNOWN HPI HPI Comments History of Present Illness Details Celestina is a 62-year-old female who presents to the clinic for 4 month fu. 01/06/2023? Celestina is a 62-year-old female who presents today to the office for a 4 month follow up. She was last seen by me on 08/23/2022. 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 She is on Vesicare 10 mg with benefit. She states that she ran out of Vesicare one month ago. She reports urinary lekage associated with coughing and sneezing. She also reports urinary urgency improved. I discussed further evaluation with urodynamics Review of chart: OV?06/21/2022-- She complains of urinary urgency every hour and urge incontinence she wears diapers daily. She also complains of nocturia several times at night.? Greater than 4 times In review of the chart it is documented on previous progress notes that she had been prescribed oxybutynin 10 mg and Myrbetriq with minimal improvement in symptoms. Was documented progress notes that Vesicare 10 mg was loss medication ordered for her so I will re- prescribe this medication. Evaluation today urinalysis negative.? Bladder scan PVR 0 mL Plan prescribed Vesicare 10 mg daily, check kidneys with renal ultrasound, follow-up office cystoscopy.? 08/23/2022-- The patient is a [place]ic speaking female. The presented to the clinic with COOK APPRENTICE PASTRY who interpreted for her. Had symptoms of urgency and nocturia for which the patient was prescribed with Vesicare 10 mg. States having benefits with Vesicare 10 mg. Renal US results reviewed?08/06/2022-- Kidneys: WNL, no renal calculi visualized. The patient voids after every half to one hour depending upon the amount of fluid she is consuming. States having urinary leakage while coughing and laughing. Evaluation today: Bladder scan: 218 mL. Catheter bladder drainage was performed.? 08/23/22--Cystoscopy: No suspicious bladder leasion were found. Mild trabeculations were noted. Plan: Consent to perform cystoscopy was obtained. Continue with Vesicare 10 mg. Refer to Pelvic floor physical therapy? to strengthen the pelvic floor muscles. Follow-up after 4 months. 01/06/23--Evaluation today UA: leukocytes: negative; blood: negative; bladder scan PVR: 75 mL. Plan: Mixed urinary incontinence. Continue Vesicare 10 mg daily Schedule urodynamics. 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 Review of Systems Const Reports no additional complaints Eyes Reports no additional complaints ENT Reports no additional complaints Card Denies dyspnea Resp Denies cough and Denies dyspnea GI Reports no additional complaints Reports no additional complaints Musc Reports no additional complaints Skin/Breast Denies rash and Denies unusual bruising Neuro Reports no additional complaints Psych Reports no additional complaints Endo Reports no additional complaints Matthias/Lymph Reports no additional complaints Aller/Immun Reports no additional complaints Office Procedures Post Void Residual Post Residual Void Post Void Residual (PVR): 75 80514-Firw Void Residual by ultrasound Results AMB Urinalysis, Automated UA Leukoctes 0 Lisbeth/uL Last Edit by MITCH Cote on 01/06/23 15:15 UA Nitrite Negative Last Edit by Lore Villarreal A on 01/06/23 15:15 UA Urobilinogen 0.2 mg/dL Last Edit by Lore Villarreal, A on 01/06/23 15:1 5 UA Protein 0 mg/dL Last Edit by Lore Villarreal, A on 01/06/23 15:15 UA pH 6.0 Last Edit by Lore Villarreal, A on 01/06/23 15:15 UA Blood 0 Ciro/uL Last Edit by Lore Villarreal, RMA on 01/06/23 15:15 UA Specific Starbuck 1.015 Last Edit by Lore Villarreal, A on 01/06/23 15: 15 UA Ketone Last Edit by Lore Villarreal, A on 01/06/23 15:15 UA Bilirubin 0 mg/dL Last Edit by Lore Villarreal, A on 01/06/23 15:15 UA Glucose 250 mg/dL Last Edit by Lore Villarreal, A on 01/06/23 15:15 1+ Lore Villarreal 01/06/23 15:15 Results Reviewed Results Reviewed: Laboratory Last Values Urine pH (Auto) 6.0 01/06/23 14:51 Specific Starbuck (Auto) 1.015 01/06/23 14:51 Urine Protein (Auto) 0 mg/dL 01/06/23 14:51 Glucose (UA)(Auto) 250 mg/dL 01/06/23 14:51 Urine Blood (Auto) 0 Ciro/uL 01/06/23 14:51 Urine Nitrite (Auto) Negative 01/06/23 14:51 Urine Bilirubin (Auto) 0 mg/dL 01/06/23 14:51 Urine Urobilinogen (Auto) 0.2 mg/dL 01/06/23 14:51 Leukocyte Esterase (Auto) 0 Lisbeth/uL 01/06/23 14:51 Assessment & Plan Assessment & Plan (1) Pelvic floor weakness: Code(s): N81.89 - Other female genital prolapse (2) AIME (stress urinary incontinence, female): Code(s): N39.3 - Stress incontinence (female) (male) (3) OAB (overactive bladder): Code(s): N32.81 - Overactive bladder Plan Mixed urinary incontinence. Continue Vesicare 10 mg daily Schedule urodynamics. Orders: Orders AMB Urinalysis Automated 01/06/23 Z13.9 - Encounter for screening, unspecified AMB Post Void Residual by ultrasound 01/06/23 N39.8 - Other specified disorders of urinary system Medications: Refilled solifenacin 10 mg PO DAILY 90 tabs 2RF Patient Instructions: The patient had an opportunity to ask questions regarding treatment plan. All questions were answered. Imaging, Laboratory studies and physical exam results were discussed and reviewed in detail. No major barriers to understanding were identified. The patient expressed understanding and agreement with the above treatment plan.? ? ? The patient is aware they should contact our office by phone for worsening of their current condition or the appearance of new symptoms. Compliance is encouraged with any medications and followup testing that is ordered.? ? ? It is a privilege to be allowed the opportunity to participate in the urologic care of your patient. If you have any questions or concerns regarding treatment for the above conditions please do not hesitate to contact me. The office telephone contact is [phone].? ? ? This note is constructed in part using voice recognition software. While every effort has been made to ensure accuracy pretzel cooker errors may have been included.? ? ? Yours sincerely,? ? ? Alvina Penaloza MD? Coding Level of Care Code Est Pt Level 4 (33575) Diagnoses Pelvic floor weakness N81.89 AIME (stress urinary incontinence, female) N39.3 OAB (overactive bladder) N32.81 CPT Codes Post Residual Void - PVR CPT Code: 20752-Akiu Void Residual by ultrasound ([id number])
== END 2023-01-06 15:40 | disposition home or self-care (01) ==
PROVIDERS: Visit Provider Urology
DX: N81.89 Other female genital prolapse (principal); N39.3 Stress incontinence (female) (male); N32.81 Overactive bladder
CPT/HCPCS: 99214

== ENCOUNTER → 2023-01-06 14:05 | Outpatient (BNVA) | payer OTHER, SELFPAY | PROVIDERS: Visit Provider Urology | DX: N32.81 Overactive bladder (principal); N81.89 Other female genital prolapse; N39.3 Stress incontinence (female) (male); Z79.899 Other long term (current) drug therapy | CPT/HCPCS: 51798; 99212 ==

== ENCOUNTER 2023-01-07 13:55 | Outpatient (REF) | payer OTHER, SELFPAY ==
--- NOTE | ~2023-01-07 | MM_ITS ---
EXAMINATION: MM SCREENING DIGITAL BREAST TOMOSYNTHESIS, BILATERAL CLINICAL INFORMATION: Screening. Asymptomatic. COMPARISON: Mammography: This study is compared with prior exams dating back to 2017. TECHNIQUE: Digital breast tomosynthesis is performed in both the craniocaudal and mediolateral oblique views along with computer-aided detection (CAD). Synthesized 2D images are generated from the tomosynthesis. FINDINGS: The breasts are almost entirely fatty (ACR BI-RADS breast composition Category a). There are no significant masses, abnormal calcifications, or other abnormalities. MM/MM tomosynthesis screening BI IMPRESSION: No mammographic evidence of malignancy. ASSESSMENT: BI-RADS BI-RADS 1 - Negative RECOMMENDATION: Routine annual mammography screening. 1 year F/U This examination should not preclude the clinical evaluation of a suspicious palpable abnormality. This patient's information was entered into a reminder system with a target due date for their next mammogram.
== END 2023-01-07 13:56 | disposition home or self-care (01) ==
LOC: HO.MAMMO 13:55
PROVIDERS: PCP Registered Nurse; Visit Provider Registered Nurse
DX: Z12.31 Encounter for screening mammogram for malignant neoplasm of breast (principal)
CPT/HCPCS: 77063; 77067

== ENCOUNTER → 2023-01-07 14:00 | Outpatient (BNV) | payer OTHER, SELFPAY | PROVIDERS: PCP Registered Nurse; Visit Provider Radiology Diagnostic Radiology | DX: Z12.31 Encounter for screening mammogram for malignant neoplasm of breast (principal) | CPT/HCPCS: 77063; 77067 ==

== ENCOUNTER 2023-02-11 08:21 | Outpatient (AMB) | payer OTHER, SELFPAY ==
--- NOTE | 2023-02-11 08:37 | A.OFFVIS_ITS ---
Intake Vital Signs 02/11/23 08:40 Height 4 ft 11 in Weight 171 lb 15.369 oz BMI 34.7 Blood Pressure Location Lt brachial Position Sitting Intake Visit Reasons: follow up req by pt Intake Note: Celestina presents in the office as a follow up. CC: She states that she is having lots of acid reflux that she has been dealing with. She has a lot of pains in her chest - burning when she has the acid reflux. Gps Navigation Installer Required: Yes Gps Navigation Installer Name: Jaron [id number] Allergies Sulfa (Sulfonamide Antibiotics) [SULFA (SULFONAMIDE ANTIBIOTICS)] Allergy (Mild, Verified 02/11/23 08:41) UNKNOWN HPI follow up req by pt HPI Details 62 y/o f w/ hx of asthma, hemorrhoidecto my, cholecystectomy, and depression/ PTSD/anxiety being seen for f/u ? 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 Bad home circumstances, had been living with son, apparently AN ill tem pered individual, she had a stint at [facility] and was staying with daughter ? she says she feels like a hole in epigastrium, makes her want to bend over ? worse with food ? she has nausea and reflux sx, on protonix daily 40 mg ? she did have dysphagia to solids lower chest area ? she has chronic constipation, takes linaclotide and colace which usually helps, but lately maybe not helping so much ? appetite had been poor ? weight has been going down for 1 yr--160-->120 pounds ? last colonoscopy on file 2011--poor prep ? EGD 2013- antral gastritis. ? EGD/colonoscopy: 2019-- gastritis, colon normal apart from internal hemorrhoids ? she was doing well at visit 12/2018 ? At visit 06/04/2019: ? she felt worsening pain epigastrium, like sharp, tingling and running up wards ? sometimes feels it in the back ? and runs up to her jaw wiht lots of saliva ? wakes her up from sleep ? can be resting or exertion, but does involve the chest as well ? she was in ED last week and work up neg and told it was reflux disease ? she ran out of linaclotide but it was helping, constipation was worse w ithout it ? dysphagia to solids, gets coking wiht liquids and solids ? u/s 04/2019--unremarkable, labs unremarkable incl neg trop, ECG normal ? admitted 06/2019-- with left sided colitis, close to splenic flexure, rx with cef and met ? INTERIM: She has not gotten her PPI for a long time, GERD, nausea, waterbrash with nausea, finally got her meds yesterday! her constipation has also been playing up as well as hemorrhoids appetite has been good smoking 2 cigs daily due to stress EXAM: GENERAL: The patient is well developed and nontoxic. VITAL SIGNS:see workflow HEENT: Nonicteric sclerae, PERRLA, EOMI. Oropharynx clear. Moist mucous membranes. Conjunctivae appear well perfused. No thyroid mass. CHEST: Chest wall is nontender. HEART: Regular rate and rhythm without murmurs. LUNGS: Clear to auscultation bilaterally. ABDOMEN: Soft, positive bowel sounds, nontender, no organomegaly.no flank tenderness SKIN: No rash, no excessive bruising, petechiae, or purpura. NEUROLOGIC: Cranial nerves II-XII intact without motor/sensory deficit. PSYCH: nml affect Assessment & Plan 1/ constipation- maybe from medication u se e.g vesicare, risperidone 2/ reflux - maybe also related to polyph armacy,, obesity, gastroparesis--having ongoing sx and ran out of meds, just recently refilled, omeprazole BID PLAN: 1/ cont omeprazole 40 mg BID 2/ refilled linaclotide 3/ if ongoing sx then repeat EGD 4/ proctomed for hemorrhoids, if ongoing sx then colonoscopy and surgical referral 5/ advised on smoking cessation, see PCP for NRt otherwise I will send [facility] Medical History Urinary incontinence Urge incontinence Surgical History History of esophagogastroduodenoscopy (EGD) H/O colonoscopy Family History Father History of intestinal surgery Paternal Uncle Diabetes Paternal Uncle Diabetes Social History Household Members: None Alcohol intake: never Patient Tobacco Use Status: Never used Tobacco Current occupational status: disabled 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 Physical Exam Vital Signs: BMI result Body Mass Index 34.7 Assessment & Plan Assessment & Plan (1) GERD (gastroesophageal reflux disease): Code(s): K21.9 - Gastro-esophageal reflux disease without esophagitis Qualifiers: Esophagitis presence: esophagitis presence not specified Qualified Code(s): K21.9 - Gastro-esophageal reflux disease without esophagitis (2) Constipation by delayed colonic transit: Code(s): K59.01 - Slow transit constipation (3) Smoking: Code(s): F17.200 - Nicotine dependence, unspecified, uncomplicated Medications: New hydrocortisone 2.5% (Procto-Med HC) 1 appl [place] BID-QID PRN 30 grams 0RF hemorrhoids linaclotide 290 mcg PO DAILY 30 caps 2RF Refilled sucralfate (Carafate) 10 mL PO .before bed 400 mL 1RF Discontinued famotidine Discontinued Reason: Patient Completed Course 40 mg PO BEDTIME 90 tabs 1RF Coding Level of Care Code Est Pt Level 3 (85211) Diagnoses Gastroesophageal reflux disease, unspecified whether esophagitis present K21.9 Esophagitis presence: esophagitis presence not specified Constipation by delayed colonic transit K59.01 Smoking F17.200
[2023-02-11 08:40] VITALS: BMI 34.7
== END 2023-02-11 09:38 | disposition home or self-care (01) ==
PROVIDERS: Visit Provider Internal Medicine Gastroenterology
DX: K21.9 Gastro-esophageal reflux disease without esophagitis (principal); K59.01 Slow transit constipation; F17.200 Nicotine dependence, unspecified, uncomplicated
CPT/HCPCS: 99213

== ENCOUNTER → 2023-02-11 08:21 | Outpatient (BNVA) | payer OTHER, SELFPAY | PROVIDERS: Visit Provider Internal Medicine Gastroenterology | DX: K21.9 Gastro-esophageal reflux disease without esophagitis (principal); K59.01 Slow transit constipation; F17.200 Nicotine dependence, unspecified, uncomplicated | CPT/HCPCS: 99212 ==

== ENCOUNTER 2023-07-01 11:45 | Outpatient (AMB) | payer OTHER, SELFPAY ==
--- NOTE | 2023-07-01 11:49 | MHC.OFFVIS ---
Intake Vital Signs 07/01/23 11:51 Height 4 ft 11 in Weight 167 lb 8.821 oz BMI 33.8 BP 133/71 Blood Pressure Location Lt brachial Position Sitting Pulse 80 Intake Visit Reasons: 4 month follow up RS from 06/06 Intake Note: Celestina presents in the office as a 4 month follow up. CC: She states that she is having some concerns. She is dealing with constipation. 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 Bad home circumstances, had been living with son, apparently AN ill tempered individual, she had a stint at [facility] and was staying with daughter she says she feels like a hole in epigastrium, makes her want to bend over worse with food she has nausea and reflux sx, on protonix daily 40 mg she did have dysphagia to solids lower chest area she has chronic constipation, takes linaclotide and colace which usually helps, but lately maybe not helping so much appetite had been poor weight has been going down for 1 yr--160-->120 pounds last colonoscopy on file 2011--poor prep EGD 2012- antral gastritis. EGD/colonoscopy: 2019-- gastritis, colon normal apart from internal hemorrhoids she was doing well at visit 12/2018 At visit 06/04/2019: she felt worsening pain epigastrium, like sharp, tingling and running up wards sometimes feels it in the back and runs up to her jaw wiht lots of saliva wakes her up from sleep can be resting or exertion, but does involve the chest as well she was in ED last week and work up neg and told it was reflux disease she ran out of linaclotide but it was helping, constipation was worse without it dysphagia to solids, gets coking wiht liquids and solids u/s 04/2019--unremarkable, labs unremarkable incl neg trop, ECG normal admitted 06/2019-- with left sided colitis, close to splenic flexure, rx with cef and met INTERIM: she has ongoing issues with constipation and straining having bouts of bleeding gotten worse over last 3 years or so she has tenesmus as well she has not had linaclotide for long time not sure why taking PPi which helps her reflux has occ break thru at nights, takes carafate as well at night which helps her EXAM: GENERAL: The patient is well developed and nontoxic. VITAL SIGNS:see workflow HEENT: Nonicteric sclerae, PERRLA, EOMI. Oropharynx clear. Moist mucous membranes. Conjunctivae appear well perfused. No thyroid mass. CHEST: Chest wall is nontender. HEART: Regular rate and rhythm without murmurs. LUNGS: Clear to auscultation bilaterally. ABDOMEN: Soft, positive bowel sounds, nontender, no organomegaly.no flank tenderness SKIN: No rash, no excessive bruising, petechiae, or purpura. NEUROLOGIC: Cranial nerves II-XII intact without motor/sensory deficit. PSYCH: nml affect Assessment & Plan 1/ constipation- maybe from medication use e.g vesicare, risperidone, having worsening sx with tenesmus 2/ reflux - maybe also related to polypharmacy,, obesity, gastroparesis-- omeprazole BID--carafate for break thru PLAN: 1/ cont omeprazole 40 mg BID with carafate at night 2/ refilled linaclotide 3/colonoscopy for further assessment with PEG and zofran PFSH Medical History Urinary incontinence Urge incontinence Surgical History History of esophagogastroduodenoscopy (EGD) H/O colonoscopy Family History Father History of intestinal surgery Paternal Uncle Diabetes Paternal Uncle Diabetes Social History Household Members: None Alcohol intake: never Patient Tobacco Use Status: Never used Tobacco Current occupational status: disabled 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 Physical Exam Vital Signs: Last Vital Signs Pulse 80 07/01/23 11:51 BP 133/71 07/01/23 11:51 BMI result Body Mass Index 33.8 Assessment & Plan Assessment & Plan (1) Rectal bleeding: Code(s): K62.5 - Hemorrhage of anus and rectum Plan: Assessment & Plan 1/ constipation- maybe from medication use e.g vesicare, risperidone, having worsening sx with tenesmus 2/ reflux - maybe also related to polypharmacy,, obesity, gastroparesis-- omeprazole BID--carafate for break thru PLAN: 1/ cont omeprazole 40 mg BID with carafate at night 2/ refilled linaclotide 3/colonoscopy for further assessment with PEG and zofran Medications: New ondansetron 4 mg PO Q8H PRN 7 tabs 0RF nausea and vomiting peg-electrolyte soln 420 gram until fecal effluent is clear; 240 mL PO Q10M 4,000 mL 0RF linaclotide 290 mcg PO DAILY 30 caps 2RF Refilled hydrocortisone 2.5% (Procto-Med HC) 1 appl IN BID-QID PRN 30 grams 0RF hemorrhoids Coding Level of Care Code Est Pt Level 4 (47955) Diagnoses Rectal bleeding K62.5
[2023-07-01 11:51] VITALS: BP 133/71; PULSE 80; BMI 33.8
== END 2023-07-01 12:44 | disposition home or self-care (01) ==
PROVIDERS: PCP Registered Nurse; Visit Provider Internal Medicine Gastroenterology
DX: K62.5 Hemorrhage of anus and rectum (principal)
CPT/HCPCS: 99214

== ENCOUNTER → 2023-07-01 11:45 | Outpatient (BNVA) | payer OTHER, SELFPAY | PROVIDERS: PCP Registered Nurse; Visit Provider Internal Medicine Gastroenterology | DX: K62.5 Hemorrhage of anus and rectum (principal) | CPT/HCPCS: 99212 ==

== ENCOUNTER 2023-12-02 10:56 | Outpatient (AMB) | payer OTHER, SELFPAY ==
[2023-12-02 10:59] VITALS: BP 110/59; PULSE 82; BMI 31.5
--- NOTE | 2023-12-02 10:59 | MHC.OFFVIS ---
Vital Signs 12/02/23 10:59 Height 4 ft 11 in Weight 156 lb 1.396 oz BMI 31.5 BP 110/59 L Blood Pressure Location Lt brachial Position Sitting Pulse 82 Intake Visit Reasons: follow up rec bleeding Intake Note: Celestina presents in office today in follow up of rectal bleeding. CC: Patient states that she gets a lot of abdominal pain when she needs to have a BM and she has to strain. She reports seeing blood with BMs and abdominal bloating. Patient c/o nausea, and acid reflux. 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 Bad home circumstances, had been living with son, apparently AN ill tempered individual, she had a stint at [facility] and was staying with daughter she says she feels like a hole in epigastrium, makes her want to bend over worse with food she has nausea and reflux sx, on protonix daily 40 mg she did have dysphagia to solids lower chest area she has chronic constipation, takes linaclotide and colace which usually helps, but lately maybe not helping so much appetite had been poor weight has been going down for 1 yr--160-->120 pounds last colonoscopy on file 2011--poor prep EGD 2012- antral gastritis. EGD/colonoscopy: 2019-- gastritis, colon normal apart from internal hemorrhoids she was doing well at visit 12/2018 At visit 06/04/2019: she felt worsening pain epigastrium, like sharp, tingling and running up wards sometimes feels it in the back and runs up to her jaw wiht lots of saliva wakes her up from sleep can be resting or exertion, but does involve the chest as well she was in ED last week and work up neg and told it was reflux disease she ran out of linaclotide but it was helping, constipation was worse without it dysphagia to solids, gets coking wiht liquids and solids u/s 04/2019--unremarkable, labs unremarkable incl neg trop, ECG normal admitted 06/2019-- with left sided colitis, close to splenic flexure, rx with cef and met INTERIM: she has ongoing issues with constipation and straining stool is hard and blood comes out with it she feels her abdomen gets inflammed she feels linaclotide is not helping much she felt sucralfate helped her in the apst and would like refill EXAM: GENERAL: The patient is well developed and nontoxic. VITAL SIGNS:see workflow HEENT: Nonicteric sclerae, PERRLA, EOMI. Oropharynx clear. Moist mucous membranes. Conjunctivae appear well perfused. No thyroid mass. CHEST: Chest wall is nontender. HEART: Regular rate and rhythm without murmurs. LUNGS: Clear to auscultation bilaterally. ABDOMEN: Soft, positive bowel sounds, tender epigastrium, no organomegaly.no flank tenderness SKIN: No rash, no excessive bruising, petechiae, or purpura. NEUROLOGIC: Cranial nerves II-XII intact without motor/sensory deficit. PSYCH: nml affect Assessment & Plan 1/ constipation- maybe from medication use e.g vesicare, risperidone with rectal bleeding, prob hemorrhoidal 2/ reflux - maybe also related to polypharmacy,, obesity, gastroparesis-- omeprazole BID--carafate for break thru PLAN: 1/ cont omeprazole 40 mg BID with carafate at night 2/ try trulance instead 3/EGD/colonoscopy for further assessment with [facility] Medical History Migraines IBS (irritable bowel syndrome) Chronic renal insufficiency PTSD (post-traumatic stress disorder) Anxiety Depression Asthma Type 2 diabetes mellitus Osteoarthritis GERD (gastroesophageal reflux disease) Urinary incontinence Urge incontinence Surgical History Hx of arthroscopic knee surgery Hx of cholecystectomy Hx of hemorrhoidectomy History of esophagogastroduodenoscopy (EGD) H/O colonoscopy Family History Father History of intestinal surgery Colon cancer Paternal Uncle Diabetes Paternal Uncle Diabetes Social History Household Members: None Alcohol intake: never Patient Tobacco Use Status: Never used Tobacco Current occupational status: disabled 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 Physical Exam Vital Signs: Last Vital Signs Pulse 82 12/02/23 10:59 BP 110/59 L 12/02/23 10:59 BMI result Body Mass Index 31.5 Assessment & Plan Assessment & Plan (1) Rectal bleeding: Code(s): K62.5 - Hemorrhage of anus and rectum Category: Medical Plan: see above (2) Epigastric abdominal tenderness: Code(s): R10.816 - Epigastric abdominal tenderness Category: Medical Plan: see above Medications: New plecanatide (Trulance) 3 mg PO DAILY 30 tabs 3RF sodium,potassium,mag sulfates 17.5-3.13-1.6 gram (Suprep Bowel Prep Kit) DILUTE; drink 1/2 at 6-8 pm and half at 11 PM- 1AM 354 mL 0RF Refilled hydrocortisone 2.5% (Procto-Med HC) 1 appl [place] BID-QID PRN 30 grams 0RF hemorrhoids sucralfate 10 mL PO BEDTIME 400 mL 3RF Discontinued linaclotide Discontinued Reason: Doctor's Order 290 mcg PO DAILY 30 caps 2RF Coding Level of Care Code Est Pt Level 4 (28717) Diagnoses Rectal bleeding K62.5 Epigastric abdominal tenderness R10.816
== END 2023-12-02 12:24 | disposition home or self-care (01) ==
PROVIDERS: PCP Registered Nurse; Visit Provider Internal Medicine Gastroenterology
DX: K62.5 Hemorrhage of anus and rectum (principal); R10.816 Epigastric abdominal tenderness
CPT/HCPCS: 99214

== ENCOUNTER → 2023-12-02 10:56 | Outpatient (BNVA) | payer OTHER, SELFPAY | PROVIDERS: PCP Registered Nurse; Visit Provider Internal Medicine Gastroenterology | DX: K62.5 Hemorrhage of anus and rectum (principal); R10.816 Epigastric abdominal tenderness | CPT/HCPCS: 99212 ==

== ENCOUNTER 2023-12-21 07:39 | Day surgery (SDC) | payer OTHER, SELFPAY ==
--- NOTE | 2023-12-19 14:16 | HO.ANESPROP2 ---
Documented by User: Valarie Juan NP 12/19/23 14:16 HPI - Anesthesia Eval Consult details Narrative: 63yo F for Colonoscopy PMFSH Active Problems Active Problems: All Active Problems Epigastric abdominal tenderness (Acute) Rectal bleeding (Acute) Smoking (Acute) AIME (stress urinary incontinence, female) (Acute) Pelvic floor weakness (Acute) Osteoarthritis of left knee (Acute) Nocturia more than twice per night (Acute) OAB (overactive bladder) (Acute) Closed fracture of right distal fibula (Acute) Constipation by delayed colonic transit (Acute) GERD (gastroesophageal reflux disease) (Acute) Urinary incontinence (Acute) Urge incontinence (Acute) Past Medical History Medical History Migraines IBS (irritable bowel syndrome) Chronic renal insufficiency PTSD (post-traumatic stress disorder) Anxiety Depression Asthma Type 2 diabetes mellitus Osteoarthritis GERD (gastroesophageal reflux disease) Urinary incontinence Urge incontinence Family History Family History Father History of intestinal surgery Colon cancer Paternal Uncle Diabetes Paternal Uncle Diabetes Surgical History Surgical History Hx of arthroscopic knee surgery Hx of cholecystectomy Hx of hemorrhoidectomy History of esophagogastroduodenoscopy (EGD) H/O colonoscopy Social History Social History Household Members: None Alcohol intake: never Patient Tobacco Use Status: Current everyday Tobacco user Cigarettes Per Day: 5 Use of substances other than those prescribed or required for medical reasons: No Are you DNR?: No Advance Directives: No Advance Directives Information Provided: Yes Current occupational status: disabled 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 Allergies Allergy/AdvReac Type Severity Reaction Status Date / Time Sulfa (Sulfonamide Allergy Unknown Unknown Verified 12/02/23 11:03 Antibiotics) [SULFA (SULFONAMIDE ANTIBIOTICS)] Home Medications ?Medication ?Instructions ?Recorded ?Confirmed ?Last Taken ?Type buspirone 10 mg tablet 10 mg PO BID 02/06/21 07/11/23 Unknown History docusate sodium 100 mg capsule 100 mg PO BID 02/06/21 07/11/23 Unknown History blood sugar diagnostic (OneTouch #10 ea 10/23/21 08/23/22 Unknown History Verio test strips) blood-glucose meter (G2Linkuch #1 ea 10/23/21 08/23/22 Unknown History Verio Flex Meter) fluticasone propionate 110 2 puff PO BID 10/23/21 07/11/23 Unknown History mcg/actuation HFA aerosol inhaler (Flovent HFA) fluticasone propionate 50 1 spray intranasal DAILY 10/23/21 07/11/23 Unknown History mcg/actuation nasal spray,suspension lancets 33 gauge (G2Linkuch Delica #100 ea 10/23/21 08/23/22 Unknown History Plus Lancet) simethicone 125 mg capsule (Gas 125 mg PO DAILY 10/23/21 07/11/23 Unknown History Relief Extra Strength) loratadine 10 mg tablet 10 mg PO DAILY 11/06/21 07/11/23 Unknown History gabapentin 600 mg tablet 600 mg PO BID 12/07/21 07/11/23 Unknown History metformin 500 mg tablet 500 mg PO DAILY 04/05/22 07/11/23 Unknown History albuterol sulfate 90 mcg/actuation 90 mcg inhalation Q4H PRN 06/21/22 07/11/23 Unknown History aerosol inhaler Shortness Of Breath Or Wheezing tizanidine 2 mg tablet 2 - 4 mg PO Q12H PRN muscle spasm 06/21/22 07/11/23 Unknown History ammonium lactate 12 % lotion topical 07/01/23 Unknown History clotrimazole 1 % topical cream appl topical 07/01/23 Unknown History meloxicam 15 mg tablet 15 mg PO DAILY 07/01/23 07/11/23 Unknown History risperidone 0.5 mg tablet 0.5 mg PO BEDTIME 07/01/23 07/11/23 Unknown History trazodone 100 mg tablet 200 mg PO BEDTIME PRN Insomnia 07/01/23 07/11/23 Unknown History venlafaxine 150 mg 150 mg PO DAILY 07/01/23 07/11/23 Unknown History capsule,extended release 24 hr venlafaxine 75 mg capsule,extended 75 mg PO QAM 07/11/23 07/11/23 Unknown History release 24 hr meclizine 12.5 mg tablet 12.5 mg PO TID 12/02/23 Unknown History verapamil 120 mg tablet,extended 120 mg PO DAILY 12/02/23 Unknown History release Assessment and Plan Assessment Anesthesia Assessment: Chart Reviewed Documented by User: Jada Montilla MD 12/21/23 09:03 [facility] Past Medical History Medical History Migraines IBS (irritable bowel syndrome) Chronic renal insufficiency PTSD (post-traumatic stress disorder) Anxiety Depression Asthma Type 2 diabetes mellitus Osteoarthritis GERD (gastroesophageal reflux disease) Urinary incontinence Urge incontinence Family History Family History Father History of intestinal surgery Colon cancer Paternal Uncle Diabetes Paternal Uncle Diabetes Family history of problems with anesthesia: No Surgical History Surgical History Hx of arthroscopic knee surgery Hx of cholecystectomy Hx of hemorrhoidectomy History of esophagogastroduodenoscopy (EGD) H/O colonoscopy History of Problems with Anesthesia: No Social History Social History Household Members: None Alcohol intake: never Patient Tobacco Use Status: Current everyday Tobacco user Cigarettes Per Day: 5 Use of substances other than those prescribed or required for medical reasons: No Are you DNR?: No Advance Directives: No Advance Directives Information Provided: Yes Current occupational status: disabled 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 Allergies Allergy/AdvReac Type Severity Reaction Status Date / Time Sulfa (Sulfonamide Allergy Unknown Unknown Verified 12/02/23 11:03 Antibiotics) [SULFA (SULFONAMIDE ANTIBIOTICS)] Home Medications ?Medication ?Instructions ?Recorded ?Confirmed ?Last Taken ?Type buspirone 10 mg tablet 10 mg PO BID 02/06/21 07/11/23 Unknown History docusate sodium 100 mg capsule 100 mg PO BID 02/06/21 07/11/23 Unknown History blood sugar diagnostic (OneTouch #10 ea 10/23/21 08/23/22 Unknown History Verio test strips) blood-glucose meter (G2Linkuch #1 ea 10/23/21 08/23/22 Unknown History Verio Flex Meter) fluticasone propionate 110 2 puff PO BID 10/23/21 07/11/23 Unknown History mcg/actuation HFA aerosol inhaler (Flovent HFA) fluticasone propionate 50 1 spray intranasal DAILY 10/23/21 07/11/23 Unknown History mcg/actuation nasal spray,suspension lancets 33 gauge (G2LinkTouch Delica #100 ea 10/23/21 08/23/22 Unknown History Plus Lancet) simethicone 125 mg capsule (Gas 125 mg PO DAILY 10/23/21 07/11/23 Unknown History Relief Extra Strength) loratadine 10 mg tablet 10 mg PO DAILY 11/06/21 07/11/23 Unknown History gabapentin 600 mg tablet 600 mg PO BID 12/07/21 07/11/23 Unknown History metformin 500 mg tablet 500 mg PO DAILY 04/05/22 07/11/23 Unknown History albuterol sulfate 90 mcg/actuation 90 mcg inhalation Q4H PRN 06/21/22 07/11/23 Unknown History aerosol inhaler Shortness Of Breath Or Wheezing tizanidine 2 mg tablet 2 - 4 mg PO Q12H PRN muscle spasm 06/21/22 07/11/23 Unknown History ammonium lactate 12 % lotion topical 07/01/23 Unknown History clotrimazole 1 % topical cream appl topical 07/01/23 Unknown History meloxicam 15 mg tablet 15 mg PO DAILY 07/01/23 07/11/23 Unknown History risperidone 0.5 mg tablet 0.5 mg PO BEDTIME 07/01/23 07/11/23 Unknown History trazodone 100 mg tablet 200 mg PO BEDTIME PRN Insomnia 07/01/23 07/11/23 Unknown History venlafaxine 150 mg 150 mg PO DAILY 07/01/23 07/11/23 Unknown History capsule,extended release 24 hr venlafaxine 75 mg capsule,extended 75 mg PO QAM 07/11/23 07/11/23 Unknown History release 24 hr meclizine 12.5 mg tablet 12.5 mg PO TID 12/02/23 Unknown History verapamil 120 mg tablet,extended 120 mg PO DAILY 12/02/23 Unknown History release Exam Airway Mallampati Class: II TM Dist: >3cm Neck ROM: Full Heart: rrr Lungs: cta Assessment and Plan Assessment Anesthesia Assessment: Anesthesia Plan Discussed Final Anesthetic Review Family History of Problems with Anesthesia: No History of Problems with Anesthesia: No NPO: Yes ASA Class: III Final Preanesthetic Review: No Changes in Pt Med Stat, Meds/Allgs Chart Reviewed, Consent Obtained/Reviewed and Anes Risks/Benef Reviewed Patient Risk: Intermediate Procedure Risk: Low Anesthetic Plan Anesthetic Plan: MAC: Disposition: Standard PACU
--- NOTE | 2023-12-21 05:59 | P.HPSUR_ITS ---
Pre-Procedural Eval Section A - 24 Hr Update-Section A only Date of Service: 12/21/23 Section B - Complete if H&P > 30 days Chief Complaint: Hemorrhage of anus and rectum Relevant Family History (Specify if Yes): No Relevant Social History: None Present Medications: see Short Stay Collaborative assessment Medical History: Significant History (Migraines IBS (irritable bowel syndrome) Chronic renal insufficiency PTSD (post-traumatic stress disorder) Anxiety Depression Asthma Type 2 diabetes mellitus Osteoarthritis GERD (gastroesophageal reflux disease) Urinary incontinence Urge incontinence) History of Previous Operations: Relevant previous surgery/procedure and date(s) (Hx of arthroscopic knee surgery Hx of cholecystectomy Hx of hemorrhoidectomy History of esophagogastroduodenoscopy (EGD) H/O colonoscopy) Allergies: Allergies Allergy/AdvReac Type Severity Reaction Status Date / Time Sulfa (Sulfonamide Allergy Unknown Unknown Verified 12/02/23 11:03 Antibiotics) [SULFA (SULFONAMIDE ANTIBIOTICS)] Review of Systems Sugical H&P ROS: Negative: Constitution, Cardiovascular, Respiratory, Neurological, Psychiatric, Hem-Onc, Allergic/Immunologic, Gastrointestinal, Genitourinary, Musculoskeletal, Integumentary, Endocrine and Eyes/Ea rs/Nose/Throat Exam Surgical H&P Exam: Normal: HEENT, Normal: Heart, Normal: Lungs, Normal: Extremities, Normal: Abdomen, Normal: Skin and Normal: Neurological Plan Diagnosis/Plan: Unchanged I have reviewed the history and physical and performed a pertinent physical examination on my patient. No changes have occurred unless specified. Time Spent With Patient Time: Total time managing care of this patient today ____ minutes.
[2023-12-21 08:02] VITALS: BP 122/65; PULSE 78; RESP 16; TEMP 36.6; O2SAT 94
[2023-12-21 08:10] LABS: Glucose, Whole Blood 111 mg/dL (60-115)
[2023-12-21] MEDS: Lactated Ringers 1,000 ML 100 ML IVCONT (08:16)
[2023-12-21 08:23] VITALS: BMI 30.7
--- NOTE | 2023-12-21 09:33 | HO.OPN-COLON ---
Colonoscopy Operative Note Operative Note Date of Service: 12/21/23 Narrative: Operative Information Procedure Description: Colonoscopy Indication: rectal bleeding Anesthesia: MAC COLONOSCOPY Instrument: Olympus variable stiffness pediatric scope 190L Colonoscopy Monitoring: Vital signs and clinical assessment, continuous EKG monitoring, Pulse oximetry, Carbon Dioxide monitoring and blood pressure monitoring were done throughout the procedure. Colon withdrawal time was 10 minutes. Procedure: The patient was placed in the left lateral decubitis position and pre-procedure medications were administered. After a digital rectal examination of the ano-rectum, the video colonoscope was inserted into the rectum and advanced through the colon to the cecum/TI. The colonoscope was slowly withdrawn in a retrograde panoramic fashion and the colon mucosa was carefully examined including a retroflexed view of the rectum. Findings and interventions are described below. Procedure Difficulty: easy Findings: Terminal Ileum-normal Cecum:normal Right sided retorflexion- normal Ascending Colon: normal Transverse Colon -normal Descending Colon:normal Sigmoid Colon: normal Rectum: Retroflexion with small internal hemorrhoids seen, grade I, 4-6 mm sessile polyp removed with cold forceps Anorectum - normal Intervention: cold forceps Colon preparation: [place] Bowel Preparation Scale Right colon; 2 Transverse colon: 2 Left colon; 2 (0 = Unprepared colon segment with mucosa not seen due to solid stool that cannot be cleared. 1 = Portion of mucosa of the colon segment seen, but other areas of the colon segment not well seen due to staining, residual stool and/or opaque liquid. 2 = Minor amount of residual staining, small fragments of stool and/or opaque liquid, but mucosa of colon segment seen well. 3 = Entire mucosa of colon segment seen well with no residual staining, small fragments of stool or opaque liquid) Impression and Post Procedure Diagnosis: colon polyp internal hemorrhoids Plan: High fiber diet leaflet Avoid straining at stool, epsom salts and sitz bath, anusol supps or cream Repeat Colonoscopy in 5-7 years if adenomatous, 10 yrs if hyperplastic or earlier if clinically indicated Above findings were reviewed with the patient and relevant handouts were provided if indicated.
[2023-12-21 09:38] VITALS: BP 107/53; PULSE 67; RESP 18; TEMP 36.4; O2SAT 98
[2023-12-21 09:53] VITALS: BP 130/67; PULSE 64; RESP 16; TEMP 36.4; O2SAT 95
== END 2023-12-21 10:38 | disposition home or self-care (01) ==
PROVIDERS: PCP Registered Nurse; Visit Provider Internal Medicine Gastroenterology
PROC: 0DJD8ZZ Inspection of Lower Intestinal Tract, Via Natural or Artificial Opening Endoscopic (ICD-10-PCS; CPT 45378; principal; 2023-12-21 08:30)
DX: K62.5 Hemorrhage of anus and rectum (principal); K64.0 First degree hemorrhoids; D12.8 Benign neoplasm of rectum; K21.9 Gastro-esophageal reflux disease without esophagitis; E11.9 Type 2 diabetes mellitus without complications; N39.41 Urge incontinence; F32.A Depression, unspecified; F43.10 Post-traumatic stress disorder, unspecified; J45.909 Unspecified asthma, uncomplicated; Z79.51 Long term (current) use of inhaled steroids; Z79.84 Long term (current) use of oral hypoglycemic drugs; Z79.899 Other long term (current) drug therapy; Z88.2 Allergy status to sulfonamides; F17.210 Nicotine dependence, cigarettes, uncomplicated
CPT/HCPCS: 45380; 82947; 88305; J2704

== ENCOUNTER → 2023-12-21 07:39 | Outpatient (BNV) | payer OTHER, SELFPAY | PROVIDERS: PCP Registered Nurse; Visit Provider Internal Medicine Gastroenterology | DX: K62.5 Hemorrhage of anus and rectum (principal); D12.8 Benign neoplasm of rectum; K64.0 First degree hemorrhoids | CPT/HCPCS: 45380 ==

== ENCOUNTER 2024-02-10 14:42 | Emergency (ER) | payer OTHER, SELFPAY ==
--- NOTE | ~2024-02-10 | US_ITS ---
EXAMINATION: US TRIPLEX LOWER EXTREMITY, RIGHT CLINICAL INFORMATION: Pain, shortness of breath COMPARISON: None available. TECHNIQUE: Color-flow triplex imaging with spectral analysis and compression Doppler were performed on the right lower extremity. FINDINGS: Respiratory variation, normal compression and augmented flow are noted throughout the right lower extremity. The visualized common femoral vein, superficial femoral vein, profunda femoral vein, popliteal vein and midcalf peroneal and posterior tibial venous segments show no evidence of deep venous thrombosis. There is no Cadena's cyst. US/US venous duplex LE RT IMPRESSION: No evidence of deep venous thrombosis involving the right lower extremity. Electronically signed by: Marlene Rivers MD 02/10/2024 05:14 PM EDT
--- NOTE | ~2024-02-10 | XR_ITS ---
EXAMINATION: XR CHEST CLINICAL INFORMATION: Dyspnea. COMPARISON: Chest radiograph dated 05/25/2019. TECHNIQUE: Frontal view of the chest was obtained. FINDINGS: The heart is normal in size. There is a subtle opacity at the lateral left lower lung likely representing subsegmental atelectasis. Lungs are otherwise clear. No large pleural effusion. No pneumothorax. No acute osseous abnormality. XR/XR chest 1V IMPRESSION: Left lower lobe subsegmental atelectasis. The lungs are otherwise clear. Electronically signed by: Ramin Mendoza DO 02/10/2024 04:41 PM EDT
--- NOTE | 2024-02-10 14:49 | ECG_ITS ---
Test Reason : SOB Blood Pressure : / mmHG Vent. Rate : 065 BPM Atrial Rate : 065 BPM P-R Int : 156 ms QRS Dur : 082 ms QT Int : 410 ms P-R-T Axes : 025 003 016 degrees QTc Int : 426 ms Normal sinus rhythm Minimal voltage criteria for LVH, may be normal variant ( R in aVL ) Borderline ECG When compared with ECG of 22-JUL-2019 11:07, No significant change was found Referred By: Velma Garcia Electronically Signed By:MARVA ANG
--- NOTE | 2024-02-10 15:02 | ED.GENADULT ---
HPI - General Adult General Chief complaint: Extremity Injury, Lower Stated complaint: R leg pain SOb x2 days Time Seen by Provider: 02/10/24 14:52 Source: patient and EMS Mode of arrival: EMS Limitations: language barrier (Azeri-speaking auditor medical claims utilized) History of Present Illness HPI narrative: Patient is a 63 old female who presents emergency department for evaluation. Reports over the past 2 weeks she has been experiencing pain diffusely from her lower back radiating down her leg, intermittent numbness tingling and cold sensation to the foot. Increased pain with movement. Admits to a history of chronic arthritis with pain in her back and leg but states that this pain feels different. Reports that she feels like the muscles becomes stiff particularly in her knee and she has a hard time changing positions due to this. She denies any precipitating fall. She also states that she has been short of breath over the past 2 days which is not atypical for her as she reports a history of asthma, feels this to be consistent with her asthma she has previously experienced, used her inhaler with relief.. Denies having recent fevers, chills, dizziness, lightheadedness, headache, chest pain, abdominal pain, nausea vomiting, dysuria, or frequency/urgency/hesitancy. Related Data Home Medications ?Medication ?Instructions ?Recorded ?Confirmed buspirone 10 mg tablet 10 mg PO BID 02/06/21 07/11/23 docusate sodium 100 mg capsule 100 mg PO BID 02/06/21 07/11/23 blood sugar diagnostic ([employer] #10 ea 10/23/21 08/23/22 Verio test strips) blood-glucose meter ([employer] #1 ea 10/23/21 08/23/22 Verio Flex Meter) fluticasone propionate 110 2 puff PO BID 10/23/21 07/11/23 mcg/actuation HFA aerosol inhaler (Flovent HFA) fluticasone propionate 50 1 spray intranasal DAILY 10/23/21 07/11/23 mcg/actuation nasal spray,suspension lancets 33 gauge ([employer] #100 ea 10/23/21 08/23/22 Plus Lancet) simethicone 125 mg capsule (Gas 125 mg PO DAILY 10/23/21 07/11/23 Relief Extra Strength) loratadine 10 mg tablet 10 mg PO DAILY 11/06/21 07/11/23 gabapentin 600 mg tablet 600 mg PO BID 12/07/21 07/11/23 metformin 500 mg tablet 500 mg PO DAILY 04/05/22 07/11/23 albuterol sulfate 90 mcg/actuation 90 mcg inhalation Q4H PRN 06/21/22 07/11/23 aerosol inhaler Shortness Of Breath Or Wheezing tizanidine 2 mg tablet 2 - 4 mg PO Q12H PRN muscle spasm 06/21/22 07/11/23 ammonium lactate 12 % lotion topical 07/01/23 clotrimazole 1 % topical cream appl topical 07/01/23 meloxicam 15 mg tablet 15 mg PO DAILY 07/01/23 07/11/23 risperidone 0.5 mg tablet 0.5 mg PO BEDTIME 07/01/23 07/11/23 trazodone 100 mg tablet 200 mg PO BEDTIME PRN Insomnia 07/01/23 07/11/23 venlafaxine 150 mg 150 mg PO DAILY 07/01/23 07/11/23 capsule,extended release 24 hr venlafaxine 75 mg capsule,extended 75 mg PO QAM 07/11/23 07/11/23 release 24 hr meclizine 12.5 mg tablet 12.5 mg PO TID 12/02/23 verapamil 120 mg tablet,extended 120 mg PO DAILY 12/02/23 release Previous Rx's ?Medication ?Instructions ?Recorded ibuprofen 600 mg tablet 600 mg PO Q8H PRN pain #20 tabs 01/09/21 ondansetron 4 mg disintegrating 4 mg PO Q8H PRN nausea and 07/01/23 tablet vomiting #7 tabs peg-electrolyte solution 420 gram 240 ml PO Q10M #4,000 mL 07/01/23 oral solution solifenacin 10 mg tablet 10 mg PO DAILY #90 tabs 09/24/23 omeprazole 40 mg capsule,delayed 40 mg PO BID #90 caps 10/03/23 release hydrocortisone 2.5 % topical cream 1 appl LA BID-QID PRN hemorrhoids 12/02/23 with perineal applicator #30 grams (Procto-Med HC) plecanatide 3 mg tablet (Trulance) 3 mg PO DAILY #30 tabs 12/02/23 sodium,potassium,mag sulfates 17.5 See Rx Instructions PO .COMPLEX 12/02/23 gram-3.13 gram-1.6 gram oral soln #354 mL (Suprep Bowel Prep Kit) sucralfate 100 mg/mL oral 10 ml PO BEDTIME #400 mL 12/02/23 suspension azithromycin 250 mg tablet See Rx Instructions PO .COMPLEX #6 02/10/24 tabs prednisone 20 mg tablet 40 mg (2 x 20 mg) PO DAILY #8 tabs 02/10/24 Allergies Allergy/AdvReac Type Severity Reaction Status Date / Time Sulfa (Sulfonamide Allergy Unknown Unknown Verified 02/10/24 15:25 Antibiotics) [SULFA (SULFONAMIDE ANTIBIOTICS)] [facility] Past Medical History Medical History Migraines IBS (irritable bowel syndrome) Chronic renal insufficiency PTSD (post-traumatic stress disorder) Anxiety Depression Asthma Type 2 diabetes mellitus Osteoarthritis GERD (gastroesophageal reflux disease) Urinary incontinence Urge incontinence Surgical History Hx of arthroscopic knee surgery Hx of cholecystectomy Hx of hemorrhoidectomy History of esophagogastroduodenoscopy (EGD) H/O colonoscopy Family History Family History Father History of intestinal surgery Colon cancer Paternal Uncle Diabetes Paternal Uncle Diabetes Social History Social History Household Members: None Alcohol intake: never Patient Tobacco Use Status: Current everyday Tobacco user Cigarettes Per Day: 5 Smoked in Last 30 Days: No Advance Directives: No Advance Directives Information Provided: No Patient : No Current occupational status: disabled 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 As previously mentioned she initially reported no increase in her shortness of breath from baseline use of court interpreter. On re-evaluation she states in fact shortness of breath has been worse over the past week. Obtaining D-dimer to rule out pulmonary embolism as etiology for shortness of breath and atelectasis. Right lower extremity without evidence of DVT. Patient received her scheduled dose of gabapentin in addition to prednisone as I feel this will help her shortness of breath as well as possibly the pain to her back and lower extremity. This time suspect symptoms most likely secondary to radiculopathy. Time: 17:24 Reevaluation #2: Ambulatory with slow mildly antalgic gait in the use of her cane. Reports some improvement in pain after receiving gabapentin and prednisone. Urinalysis is without evidence of infection. D-dimer is negative atelectasis unlikely secondary to pulmonary embolism. Given her report of increased shortness of breath, concern possible early lower infection. Will treat with course of azithromycin, coupled with prednisone feel will help her respiratory status but may also provide additional relief from her LBP most consistent with lumbar radiculopathy. Extremity remains neurovascularly intact distally. Advised to continue taking her gabapentin as prescribed in addition to the prednisone, discussed gentle stretching exercises and outpatient follow up with the primary care doctor. Reviewed worrisome signs and symptoms that would warrant re-evaluation emergency department. All questions answered. Stable for discharge. Time: 19:26 Medications Administered Discontinued Medications Generic Name Dose Route Start Last Admin Trade Name Freq PRN Reason Stop Dose Admin Gabapentin 600 mg 02/10/24 17:21 02/10/24 18:06 Gabapentin 600 Mg Tablet PO 02/10/24 17:22 600 mg ONCE ONE Administration Prednisone 40 mg 02/10/24 17:21 02/10/24 18:06 Prednisone 20 Mg Tablet PO 02/10/24 17:22 40 mg ONCE ONE Administration Medical Decision Making Medical Decision Making MDM Narrative: Patient is a 63-year-old female past medical history of anxiety, depression, asthma, osteoarthritis, PTSD, prediabetic, migraines, CKD, GERD presenting for evaluation of right lower extremity pain as per HPI. Overall she appears well, nontoxic, afebrile. She is in no respiratory distress, speaking clear full sentences, LS CTA, no hypoxia or tachypnea. She has full range of motion to the right lower extremity, tenderness upon palpation to the right paraspinal muscles. Right lower extremities neurovascularly intact distally, does have mild calf tenderness, no overt swelling, no areas of redness or warmth. Will obtain CBC to evaluate for leukocytosis/ anemia, CMP and lipase to evaluate for abnormal electrolytes /abnormal renal function/ abnormal hepatic/biliary function, EKG and troponin to evaluate for ischemia/ACS. Chest x-ray to evaluate for consolidation/ infiltrate/ mass/ pulmonary congestion, venous duplex ultrasound of the right lower extremity Differential Diagnosis Differential Diagnoses: The differential diagnosis associated with the presentation includes Lumbar radiculopathy, DVT; mild calf tenderness upon palpation/ 2+ DP/PT pulse bilaterally, unlikely arterial occlusion or acute ischemic limb; neurovascularly intact distally/ no pallor pulselessness poikilothermia paralysis, chronic asthma, doubt acute exacerbation, lower suspicion for pulmonary embolism at this time. Unlikely ACS. No history of CHF. Admission/Observation Consideration of admission/observation: Escalation of care including admission/observation considered (See narrative above in course narrative for further detail) Lab Data MDM Lab Attestation statement: I reviewed the patient's lab results. CBC is without leukocytosis or anemia. Mild thrombocytopenia. No electrolyte derangement. No DON. LFTs within normal range. BNP within normal range on likely CHF exacerbation. High sensitive troponin below detectable limits. 02/10/24 16:14 02/10/24 16:14 Labs: Lab Results 02/10/24 02/10/24 02/10/24 Range/Units 16:14 17:40 18:33 WBC 8.2 (4.8-10.8) X10*3/uL RBC 4.03 L (4.20-5.50) X10*6/uL Hgb 12.8 (12.0-16.0) g/dl Hct 39.1 (37.0-47.0) % MCV 97.0 (80.0-98.0) fL MCH 31.8 (27.0-33.0) pg MCHC 32.7 (31.0-35.0) g/dl RDW 12.9 (11.0-16.0) % Plt Count 148 L (160-400) X10*3/uL MPV 11.5 (9.4-12.3) fL Immature Gran % (Auto) 0.2 (0.0-0.4) % Neut % (Auto) 59.7 (45-73) % Lymph % (Auto) 29.5 (20-40) % Mobile % (Auto) 6.8 (2-11) % Eos % (Auto) 3.4 (0-4) % Baso % (Auto) 0.4 (0-2) % Lymph # (Auto) 2.4 (1.2-4.9) X10*3/uL Mobile # (Auto) 0.6 (0.1-1.2) X10*3/uL Eos # (Auto) 0.3 (0.0-0.4) X10*3/uL Baso # (Auto) 0.0 (0.0-0.2) X10*3/uL Abs Immat Gran (auto) 0.02 (0.00-0.03) X10*3/uL Absolute Neuts (auto) 4.9 (2.0-8.3) x10*3/uL Absolute Nucleated RBC 0.000 (0.0-0.012) X10*3/uL Nucleated RBC % (auto) 0.0 (0.0-0.2) /100WBC D-Dimer High Sensitivty < 150 NG/ML Sodium 143 (135-145) mmol/L Potassium 5.1 (3.3-5.1) mmol/L Chloride 103 (96-108) mmol/L Carbon Dioxide 32 H (22-29) mmol/L Anion Gap 13 (12-20) BUN 11 (9-16) mg/dL Creatinine 1.00 (0.5-1.4) mg/dL Estim Creat Clear Calc 49.3 Estimated GFR 56 Random Glucose 79 (60-115) mg/dL Calcium 9.9 (8.4-10.2) mg/dL Magnesium 2.7 H (1.6-2.6) mg/dL Total Bilirubin 0.3 (0.0-1.0) mg/dL Direct Bilirubin 0.1 (0.0-0.5) mg/dL AST 17 (5-31) U/L ALT 17 (0-31) U/L Alkaline Phosphatase 92 (39-117) U/L Troponin I High Sens < 2.7 (<3.5-17.0) ng/L B-Natriuretic Peptide 50 (<100) pg/mL Total Protein 7.2 (6.5-8.0) g/dL Albumin 4.2 (3.5-5.0) g/dL Urine Color Yellow Urine Appearance Clear Urine pH 8.5 (5.0-9.0) Ur Specific [place] 1.010 (1.005-1.025) Urine Protein Negative (Neg-Trace) mg/dL Urine Glucose (UA) Negative (Negative) mg/dL Urine Ketones Negative (Negative) mg/dL Urine Blood Negative (Negative) Urine Nitrite Negative (Negative) Ur Leukocyte Esterase Negative (Negative) Independent Interpretation I performed an independent interpretation of an: EKG and Plain X-Ray Interpretation: Rate: 65 Rhythm:? Normal sinus rhythm Normal P waves.? Normal AMEE.?? Normal QRS complex.?? ST T wave :??No ST elevation, no ST depression. T-wave inversion lead III, V3 (as seen on prior) qTC: 426 prior studies:? January of 2024 The study has been interpreted contemporaneously by me. Radiology Impression Discussion of test interpretation with radiology: I have reviewed the radiologist's reading. Radiologist Impression: XR/XR chest 1V IMPRESSION: Left lower lobe subsegmental atelectasis. The lungs are otherwise clear. US/US venous duplex LE RT IMPRESSION: No evidence of deep venous thrombosis involving the right lower extremity. Independent Historian Clinical information obtained from an independent historian. History obtained from or confirmed by: EMS External Record Review External record reviewed: Outpatient record Discharge Plan Discharge Clinical Impression: Lumbar radiculopathy, right, Asthma exacerbation Instructions: Asthma (ED), Lumbar Radiculopathy (ED), Lower Back Exercises (ED) Additional Instructions: Prescription has been sent to your pharmacy including azithromycin which is an antibiotic and prednisone an oral steroid. The prednisone will help with your breathing as well as with your pain in the back. The pain you are experiencing in your leg is likely secondary to lumbar radiculopathy. I recommend continuing to take her gabapentin in addition to the prednisone. Engage in gentle stretching exercises of the lower back as this may also help to alleviate, the pain that you are experiencing. Ultrasound today does not show any evidence of blood clot in the leg which is very reassuring. Please follow-up with your primary care doctor. Prescriptions: New prednisone 20 mg tablet 40 mg PO DAILY Qty: 8 0RF azithromycin 250 mg tablet See Rx Instructions .ROUTE .COMPLEX Qty: 6 0RF Rx Instructions: For 250 mg dose pack: take 500 mg today (day 1), then 250 mg for 4 days (days 2-5) No Action solifenacin 10 mg tablet 10 mg PO DAILY Qty: 90 2RF omeprazole 40 mg capsule,delayed release(DR/EC) 40 mg PO BID Qty: 90 3RF ibuprofen 600 mg tablet 600 mg PO Q8H PRN (Reason: pain) Qty: 20 0RF venlafaxine 75 mg capsule,extended release 24hr 75 mg PO QAM buspirone 10 mg tablet 10 mg PO BID docusate sodium 100 mg capsule 100 mg PO BID loratadine 10 mg tablet 10 mg PO DAILY fluticasone propionate 50 mcg/actuation spray,suspension 1 spray intranasal DAILY Flovent HFA 110 mcg/actuation HFA aerosol inhaler 2 puff PO BID (DME) lancets [[employer] Delica Plus Lancet] 33 gauge misc See Rx Instructions Not Applicable BID Qty: 100 Rx Instructions: As directed (DME) [employer] Verio test strips Strip See Rx Instructions Not Applicable BID Qty: 10 Rx Instructions: As directed (DME) blood-glucose meter [[employer] Verio Flex meter] Misc See Rx Instructions Not Applicable BID Qty: 1 Rx Instructions: As directed simethicone [Gas Relief Extra Strength] 125 mg capsule 125 mg PO DAILY gabapentin 600 mg tablet 600 mg PO BID metformin 500 mg tablet 500 mg PO DAILY albuterol sulfate 90 mcg/actuation HFA aerosol inhaler 90 mcg inhalation Q4H PRN (Reason: Shortness Of Breath Or Wheezing) tizanidine 2 mg tablet 2 - 4 mg PO Q12H PRN (Reason: muscle spasm) trazodone 100 mg tablet 200 mg PO BEDTIME PRN (Reason: Insomnia) clotrimazole 1 % cream topical risperidone 0.5 mg tablet 0.5 mg PO BEDTIME ammonium lactate 12 % lotion topical meloxicam 15 mg tablet 15 mg PO DAILY venlafaxine 150 mg capsule,extended release 24hr 150 mg PO DAILY peg-electrolyte soln 420 gram recon soln 240 ml PO Q10M Qty: 4000 0RF Rx Instructions: until fecal effluent is clear; ondansetron 4 mg tablet,disintegrating 4 mg PO Q8H PRN (Reason: nausea and vomiting) Qty: 7 0RF verapamil 120 mg tablet extended release 120 mg PO DAILY meclizine 12.5 mg tablet 12.5 mg PO TID hydrocortisone [Procto-Med HC] 2.5 % cream with perineal applicator 1 appl LA BID-QID PRN (Reason: hemorrhoids) Qty: 30 0RF Trulance 3 mg tablet 3 mg PO DAILY Qty: 30 3RF sucralfate 100 mg/mL suspension 10 ml PO BEDTIME Qty: 400 3RF sodium,potassium,mag sulfates [Suprep Bowel Prep Kit] 17.5-3.13-1.6 gram recon soln See Rx Instructions PO .COMPLEX Qty: 354 0RF Rx Instructions: DILUTE; drink 1/2 at 6-8 pm and half at 11 PM- 1AM Referrals: Yajaira Lainez FNP [Primary Care Provider] - Print Language: Azeri
[2024-02-10 15:21] VITALS: BP 105/64; BP 141/77; PULSE 73; PULSE 74; RESP 16; O2SAT 94; O2SAT 96; BMI 32.4
[2024-02-10 15:50] VITALS: TEMP 36.8
[2024-02-10 16:24] LABS: MANUAL DIFF FLAG NO
[2024-02-10 16:27] LABS: Basophils Percent Auto 0.4 % (0-2); Eosinophils Absolute Auto 0.3 X10*3/uL (0.0-0.4); Eosinophils Percent Auto 3.4 % (0-4); Hematocrit 39.1 % (37.0-47.0); Hemoglobin 12.8 g/dl (12.0-16.0); Imm Gran Abs Auto 0.02 X10*3/uL (0.00-0.03); Imm Gran Pct Auto 0.2 % (0.0-0.4); Lymphocytes Absolute Auto 2.4 X10*3/uL (1.2-4.9); Lymphocytes Percent Auto 29.5 % (20-40); Mean Corpuscular HGB Conc 32.7 g/dl (31.0-35.0); Mean Corpuscular Hemoglobin 31.8 pg (27.0-33.0); Mean Platelet Volume 11.5 fL (9.4-12.3); Monocytes Absolute Auto 0.6 X10*3/uL (0.1-1.2); Monocytes Percent Auto 6.8 % (2-11); Neutrophils Absolute Auto 4.9 x10*3/uL (2.0-8.3); Neutrophils Percent Auto 59.7 % (45-73); Platelet Count 148 X10*3/uL (160-400); Red Blood Count 4.03 X10*6/uL (4.20-5.50); Red Cell Distribution Width 12.9 % (11.0-16.0); White Blood Count 8.2 X10*3/uL (4.8-10.8)
[2024-02-10 16:41] LABS: Alanine Aminotransferase 17 U/L (0-31); Albumin Level 4.2 g/dL (3.5-5.0); Alkaline Phosphatase 92 U/L (39-117); Anion Gap 13 (12-20); Aspartate Amino Transferase 17 U/L (5-31); Bilirubin Direct 0.1 mg/dL (0.0-0.5); Bilirubin Total 0.3 mg/dL (0.0-1.0); Blood Urea Nitrogen 11 mg/dL (9-16); Calcium 9.9 mg/dL (8.4-10.2); Carbon Dioxide 32 mmol/L (22-29); Chloride 103 mmol/L (96-108); Creatinine Clr Calc Pharmacy 49.3; Estimated Glomerular Filt Rate 56; Glucose Random 79 mg/dL (60-115); Magnesium 2.7 mg/dL (1.6-2.6); Potassium 5.1 mmol/L (3.3-5.1); Sodium 143 mmol/L (135-145); Total Protein 7.2 g/dL (6.5-8.0)
[2024-02-10 16:46] LABS: B Type Natriuretic Peptide 50 pg/mL (<100)
[2024-02-10 16:48] LABS: Troponin-I High Sensitivity < 2.7 ng/L (<3.5-17.0)
[2024-02-10 17:13] VITALS: BP 144/76; PULSE 66; RESP 20; TEMP 36.7; O2SAT 96
[2024-02-10 18:03] LABS: D Dimer High Sensitivity < 150 NG/ML
[2024-02-10] MEDS: predniSONE 20 MG TABLET 40 MG PO (18:06)
[2024-02-10] MEDS: Gabapentin 600 MG TABLET PO (18:06)
[2024-02-10 18:41] LABS: Appearance Urine Clear; Color Urine Yellow; Glucose Urine UA Negative (Negative); Leukocyte Esterase Urine Negative (Negative); Nitrite Urine Negative (Negative); PH 8.5 (5.0-9.0); Urine Blood Negative (Negative); Urine Ketones Negative (Negative); Urine Protein Negative (Neg-Trace)
[2024-02-10 20:12] VITALS: BP 144/76; PULSE 66; RESP 20; TEMP 36.7; O2SAT 96
== END 2024-02-10 20:12 | disposition home or self-care (01) ==
PROVIDERS: Nurse Practitioner Family; Emergency Provider Emergency Medicine; PCP Registered Nurse
DX: M54.16 Radiculopathy, lumbar region (principal); J45.901 Unspecified asthma with (acute) exacerbation; M79.605 Pain in left leg; R06.02 Shortness of breath; F17.210 Nicotine dependence, cigarettes, uncomplicated; Z79.899 Other long term (current) drug therapy
CPT/HCPCS: 36415; 71045; 80048; 80076; 81003; 83735; 83880; 84484; 85025; 85379; 93005; 93971; 99284

== ENCOUNTER 2024-03-27 12:30 | Outpatient (REF) | payer OTHER, SELFPAY ==
[2024-03-30 17:09] LABS: TS Negative Control Passed; TS Panel A 0; TS Panel B 1; TS Positive Control Passed; TSpotTB Negative (Negative)
== END 2024-03-27 12:31 | disposition home or self-care (01) ==
LOC: HO.LAB 12:30
PROVIDERS: PCP Registered Nurse; Visit Provider Registered Nurse
DX: Z02.89 Encounter for other administrative examinations (principal)
CPT/HCPCS: 36415; 86481

== ENCOUNTER 2024-09-04 17:34 | Outpatient (REF) | payer OTHER, SELFPAY ==
--- OUTSIDE RECORDS SUMMARY | 2024-09-04 19:18 | XMS_ITS | Clinical Summary ---
Author Organization [facility] Facility Address [address] [address] Care Team Providers Care Hat Model Name Role Phone Lisa White MD Primary Care Provider + [phone] Allergies Active Allergy Reactions Criticality Noted Date Comments Sulfa Antibiotics Other (see comments) 01/02/20 21 Medications busPIRone (BUSPAR) 10 MG tablet Take 10 mg by mouth 2 (two) times a day 1 Active Diclofenac Sodium 3 % gel APPLY BY TOPICAL ROUTE 2 TIMES EVERY DAY TO LESION AREAS 1 Active gabapentin (NEURONTIN) 800 MG tablet Take 800 mg by mouth 3 times a day 1 Active pantoprazole (PROTONIX) 40 MG EC tablet Take 40 mg by mouth 1 (one) time each day 1 Active risperiDONE (RisperDAL) 0.5 MG tablet Take 0.5 mg by mouth 2 (two) times a day 1 Active traZODone (DESYREL) 100 MG tablet Take 100 mg by mouth at night if needed 1 Active venlafaxine XR (EFFEXOR-XR) 75 MG 24 hr capsule Take 75 mg by mouth 1 (one) time each day Take with 150 for a total of 225 1 Active venlafaxine XR (EFFEXOR-XR) 150 MG 24 hr capsule Take 150 mg by mouth 1 (one) time each day Take with 75 for a total of 225 1 Active Acetaminophen 500 MG capsule Take by mouth 1 (one) time each day if needed for mild pain Active baclofen (LIORESAL) 10 MG tablet Take 10 mg by mouth 2 (two) times a day Active aspirin-acetami nophen-caffeine (EXCEDRIN MIGRAINE) 250-250-65 MG per tablet Take 1 tablet by mouth every 6 (six) hours if needed for headaches Active hydrOXYzine (ATARAX) 25 MG tablet Take 50 mg by mouth 2 (two) times a day if needed for itching Active SUMAtriptan (IMITREX) 25 MG tablet Take 25 mg by mouth 1 (one) time if needed for migraine May repeat dose once in 2 hours if no relief. Do not exceed 2 doses in 24 hours. Active Active Problems Problem Noted Date Diagnosed Date Hyperlipidemia 01/01/2021 Acute nontraumatic kidney injury 01/01/2021 Chronic kidney disease stage 3 01/01/2021 Resolved Problems Problem Noted Date Diagnosed Date Resolved Date Gastroesophageal reflux disease 01/01/2021 01/01/2021 Social History Tobacco Use Types Packs/Day Years Used Date Smoking Tobacco: Former Cigarettes 1 2018 Smokeless Tobacco: Never Comments Unknown Sex and Gender Information Value Date Recorded Sex Assigned at Not on file Legal Sex Female 5:07 PM EST Gender Identity Not on file Sexual Orientation Not on file Last Filed Vital Signs Vital Sign Reading Time Taken Comments Blood Pressure 90/60 01/01/2021 1:31 PM EDT Pulse 70 01/01/2021 1:31 PM EDT Temperature - - Respiratory Rate - - Oxygen Saturation 98% 01/01/2021 1:31 PM EDT Inhaled Oxygen Concentration - - Weight 79.8 kg (176 lb) 01/01/2021 1:31 PM EDT Height - - Body Mass Index - - Plan of Treatment Health Maintenance Due Date Last Done Comments Breast Cancer Screening 1960 Pneumococcal Vaccine: 65+ Ye ars (1 of 2 - PCV) 1965 Pneumococcal Vaccine: Pediat rics (0 to 5 Years) and At-Risk Patients (6 to 64 Years) (1 of 2 - PCV) 1965 Colorectal Cancer Screening: Annual FOBT 2008 Colorectal Cancer Screening: Colonoscopy 2008 Colorectal Cancer Screening: Sigmoidoscopy 2008 Influenza Vaccine (Season Ended) 2025 Hepatitis B Vaccine Aged Out No longe r eligible based on patient's age to complete this topic Insurance [place] Care Teams Hat Model Relationship Specialty Start Date End Date Lisa White MD [address] [place] [id number] PCP - General 06/09/20
[2024-09-10 14:41] LABS: HPV Genotype 16 Negative (Negative); HPV Genotype 18 Negative (Negative); HPV High Risk Positive (Negative)
== END 2024-09-04 17:35 | disposition home or self-care (01) ==
LOC: HO.HHCLNP 17:34
PROVIDERS: Visit Provider Advanced Practice Midwife
DX: Z12.4 Encounter for screening for malignant neoplasm of cervix (principal)
CPT/HCPCS: 87626; 88175

== ENCOUNTER 2024-10-02 09:56 | Outpatient (AMB) | payer OTHER, SELFPAY ==
--- NOTE | 2024-10-02 10:05 | MHC.OFFVIS ---
Intake Visit Reasons: follow up Intake Note: Patient presents today for a follow-up Urology Meds: Solifenacin Allergies to Antibiotic: Sulfa Blood Thinner:None PVR: 0ml Dual Rate Supervisor Required: No Accompanied by: Self / Same As Patient Allergies Sulfa (Sulfonamide Antibiotics) [SULFA (SULFONAMIDE ANTIBIOTICS)] Allergy (Unknown, Verified 10/02/24 10:57) Unknown HPI Comments Details: Celestina is a 62-year-old female who presents for fu. She is here with her daughter who interprets for her. LV 01/06/23. She is on Vesicare 10 mg with benefit. She states that she ran out of Vesicare. Denies irritative urinary symptoms, denies hematuria. She reports urinary leakage associated with urgency, and ocassionally with coughing and sneezing. 06/21/2022--She complains of urinary urgency every hour and urge incontinence she wears diapers daily. She also complains of nocturia several times at night.? Greater than 4 times In review of the chart it is documented on previous progress notes that she had been prescribed oxybutynin 10 mg and Myrbetriq with minimal improvement in symptoms. Was documented progress notes that Vesicare 10 mg was loss medication ordered for her so I will re- prescribe this medication. Evaluation today urinalysis negative.? Bladder scan PVR 0 mL Plan prescribed Vesicare 10 mg daily, check kidneys with renal ultrasound, follow-up office cystoscopy.? 08/23/2022--The patient is a [place] speaking female. The presented to the clinic with NETWORKING ENGINEER who interpreted for her. Had symptoms of urgency and nocturia for which the patient was prescribed with Vesicare 10 mg. States having benefits with Vesicare 10 mg. Renal US results reviewed?08/06/2022-- Kidneys: WNL, no renal calculi visualized. The patient voids after every half to one hour depending upon the amount of fluid she is consuming. States having urinary leakage while coughing and laughing. Evaluation today: Bladder scan: 218 mL. Catheter bladder drainage was performed.? 08/23/22--Cystoscopy: No suspicious bladder leasion were found. Mild trabeculations were noted. Plan: Consent to perform cystoscopy was obtained. Continue with Vesicare 10 mg. Refer to Pelvic floor physical therapy? to strengthen the pelvic floor muscles. Follow-up after 4 months. PFSH Medical History Migraines IBS (irritable bowel syndrome) Chronic renal insufficiency PTSD (post-traumatic stress disorder) Anxiety Depression Asthma Type 2 diabetes mellitus Osteoarthritis GERD (gastroesophageal reflux disease) Urinary incontinence Urge incontinence Surgical History Hx of arthroscopic knee surgery Hx of cholecystectomy Hx of hemorrhoidectomy History of esophagogastroduodenoscopy (EGD) H/O colonoscopy Family History Father History of intestinal surgery Colon cancer Paternal Uncle Diabetes Paternal Uncle Diabetes Social History Household Members: None Alcohol intake: never Patient Tobacco Use Status: Current everyday Tobacco user Cigarettes Per Day: 5 Current occupational status: disabled 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 Review of Systems Const All systems reviewed & are unremarkable except as noted in HPI and below Reports no additional complaints Eyes Reports no additional complaints ENT Reports no additional complaints Card Reports no additional complaints Resp Reports no additional complaints GI Reports no additional complaints Reports as per HPI Musc Reports no additional complaints Skin/Breast Reports system reviewed and no additional complaints, except as documented Neuro Reports no additional complaints Psych Reports no additional complaints Endo Reports no additional complaints Matthias/Lymph Reports no additional complaints Aller/Immun Reports no additional complaints Office Procedures Post Void Residual Post Residual Void Post Void Residual (PVR): 0 [id number] Void Residual by ultrasound Results AMB Urinalysis, Automated UA Leukoctes 0 Lisbeth/uL Last Edit by Lauren Salazar on 10/02/24 11:57 UA Nitrite Negative Last Edit by Lauren Salazar on 10/02/24 11:57 UA Urobilinogen 0.2 mg/dL Last Edit by Lauren Salazar on 10/02/24 11:57 UA Protein 15 mg/dL Last Edit by Lauren Salazar on 10/02/24 11:57 UA pH 6.0 Last Edit by Lauren Salazar on 10/02/24 11:57 UA Blood 0 Ciro/uL Last Edit by Lauren Salazar on 10/02/24 11:57 UA Specific [place] 1.025 Last Edit by Lauren Salazar on 10/02/24 11:57 UA Ketone Negative Last Edit by Lauren Salazar on 10/02/24 11:57 UA Bilirubin 0 mg/dL Last Edit by Lauren Salazar on 10/02/24 11:57 UA Glucose 0 mg/dL Last Edit by Lauren Salazar on 10/02/24 11:57 Results Reviewed Results Reviewed: Laboratory Last Values Urine pH (Auto) 6.0 10/02/24 11:53 Specific [place] (Auto) 1.025 10/02/24 11:53 Urine Protein (Auto) 15 mg/dL 10/02/24 11:53 Glucose (UA)(Auto) 0 mg/dL 10/02/24 11:53 Urine Ketones (Auto) Negative 10/02/24 11:53 Urine Blood (Auto) 0 Ciro/uL 10/02/24 11:53 Urine Nitrite (Auto) Negative 10/02/24 11:53 Urine Bilirubin (Auto) 0 mg/dL 10/02/24 11:53 Urine Urobilinogen (Auto) 0.2 mg/dL 10/02/24 11:53 Leukocyte Esterase (Auto) 0 Lisbeth/uL 10/02/24 11:53 Date of Service: 08/06/22 EXAMINATION: US RETROPERITONEAL LIMITED (RENAL ONLY) CLINICAL INFORMATION: Overactive bladder. COMPARISON: Renal ultrasound 04/07/2020. CT abdomen and pelvis 07/22/2019. Ultrasound abdomen complete 05/25/2019. TECHNIQUE: Real-time imaging of the kidneys. FINDINGS: RIGHT KIDNEY: 9.2 x 3.5 x 4.7 cm (SAG x AP x TRV). The kidney is normal in size, contour, and echogenicity. Renal cortical thickness is normal. No calculi or focal parenchymal lesions. No hydronephrosis. LEFT KIDNEY: 9.9 x 4.5 x 5.1 cm (SAG x AP x TRV). The kidney is normal in size, contour, and echogenicity. Renal cortical thickness is normal. No calculi or focal parenchymal lesions. No hydronephrosis. IMPRESSION: Normal-appearing kidneys. Assessment & Plan Assessment & Plan (1) AIME (stress urinary incontinence, female): Code(s): N39.3 - Stress incontinence (female) (male) Category: Medical (2) OAB (overactive bladder): Code(s): N32.81 - Overactive bladder Category: Medical Plan Mixed urinary incontinence. Pt has been off vesicare for a few months Resume Vesicare 10 mg daily. Reevaluate symptoms in 3 months to assess if further treatment options may be beneficial Orders: Orders AMB Urinalysis Automated 10/02/24 Z13.9 - Encounter for screening, unspecified Medications: Refilled solifenacin 10 mg PO DAILY 90 tabs 3RF Patient Instructions: The patient had an opportunity to ask questions regarding treatment plan. The patient expressed understanding and agreement with the above treatment plan. The patient is aware they should contact our office by phone for worsening of their current condition or the appearance of new symptoms. Compliance is encouraged with any medications and followup testing that is ordered. It is a privilege to be allowed the opportunity to participate in the urologic care of your patient. If you have any questions or concerns regarding treatment for the above conditions please do not hesitate to contact me. The office telephone contact is [phone]. This note is constructed in part using voice recognition software. While every effort has been made to ensure accuracy christian science healer errors may have been included. Yours sincerely, Alvina Penaloza MD Coding Level of Care Code Est Pt Level 4 (61276) Diagnoses AIME (stress urinary incontinence, female) N39.3 OAB (overactive bladder) N32.81 CPT Codes Post Residual Void - PVR CPT Code: 56460-[id number] Void Residual by ultrasound ([id number])
--- OUTSIDE RECORDS SUMMARY | 2024-10-02 11:16 | XMS_ITS | Clinical Summary ---
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 SCREENING DIGITAL BREAST TOMOSYNTHESIS, BILATERAL ? CLINICAL INFORMATION: ? Screening. Asymptomatic. ? COMPARISON: ?? Mammography: This study is compared with prior exams dating back to ?? 2017. ? TECHNIQUE: ?? Digital breast tomosynthesis is performed in both the craniocaudal and ?? mediolateral oblique views along with computer-aided detection (CAD). ?? Synthesized 2D images are generated from the tomosynthesis. ? FINDINGS: ?? The breasts are almost entirely fatty (ACR BI-RADS breast composition ?? Category a). ? There are no significant masses, abnormal calcifications, or other ?? abnormalities. ? MM/MM tomosynthesis screening BI ?? IMPRESSION: ?? No mammographic evidence of malignancy. ? ASSESSMENT: ? BI-RADS BI-RADS 1 - Negative ? RECOMMENDATION: ?? Routine annual mammography screening. ? 1 year F/U ? This examination should not preclude the clinical evaluation of a ?? suspicious palpable abnormality. ? This patient's information was entered into a reminder system with a ?? target due date for their next mammogram. ? Dictated By: ?Lisa Flores MD ? Signed By: ?<Electronically signed by Lisa Flores MD in OV> ? 01/07/23 1529 ? DD/ 1415 ? TD/TT: ? Manufacturing Worker: ? Procedure Note Claudia, Image - 01/07/2023 [facility] [address] [place] [address] Mammography Report Signed Patient: Celestina SullivanMR#: [id number] 0 : 9Acct:[id number] Age/Sex: 62 / FADM Date: 01/07/23 Loc: HO.MAMMO Attending Dr: Yajaira MALIK Ordering Physician: Yajaira LainezPResults: Date of Service: 01/07/23Follow Up: Procedure(s): MM tomosynthesis screening BI Accession Number(s): [id number] cc: Yajaira Lainez EXAMINATION: MM SCREENING DIGITAL BREAST TOMOSYNTHESIS, BILATERAL CLINICAL INFORMATION: Screening. Asymptomatic. COMPARISON: Mammography: This study is compared with prior exams dating back to 2017. TECHNIQUE: Digital breast tomosynthesis is performed in both the craniocaudal and mediolateral oblique views along with computer-aided detection (CAD). Synthesized 2D images are generated from the tomosynthesis. FINDINGS: The breasts are almost entirely fatty (ACR BI-RADS breast composition Category a). There are no significant masses, abnormal calcifications, or other abnormalities. MM/MM tomosynthesis screening BI IMPRESSION: No mammographic evidence of malignancy. ASSESSMENT: BI-RADS BI-RADS 1 - Negative RECOMMENDATION: Routine annual mammography screening. 1 year F/U This examination should not preclude the clinical evaluation of a suspicious palpable abnormality. This patient's information was entered into a reminder system with a target due date for their next mammogram. Dictated By: Lisa Flores MD Signed By: <Electronically signed by Lisa Flores MD in OV> 01/07/23 1529 DD/ 1415 TD/TT: Manufacturing Worker: Yajaira Lainez [facility] IMG BI PROCEDURES Final Result * ALBUMIN, RANDOM URINE W/CREATININE (12/02/2021 7:59 AM EDT) Microalbumin Urine 0.5 See Note: mg/dL [facility] Comment: Reference Range: ?? Reference Range Not established Microalb/Creat Ratio 4 <30 mcg/mg creat [facility] Comment: ?? The ADA defines abnormalities in albumin excretion as follows: ?? Albuminuria Category ?Result (mcg/mg creatinine) ?? Normal to Mildly increased ?? <30 Moderately increased ? 30-299 ?? Severely increased ? > OR = 300 ?? The ADA recommends that at least two of three specimens collected within a 3-6 month period be abnormal before considering a patient to be within a diagnostic category. Creatinine, Urine 124 20 - 275 mg/dL [facility] 12/02/2021 7:59 AM EDT [facility] LAB URINE ORDERABLES Final Res ult [facility] [address] * LIPID PANEL, STANDARD (12/02/2021 7:59 AM EDT) Chol/HDLC Ratio 3.3 <5.0 (calc) [facility] Cholesterol, Total 167 <200 mg/dL [facility] HDL Cholesterol 50 > OR = 50 mg/dL [facility] LDL Cholesterol 94 mg/dL (calc) [facility] Comment: Reference range: <100 ?? Desirable range <100 mg/dL for primary prevention; ?? <70 mg/dL for patients with CHD or diabetic patients ?? with > or = 2 CHD risk factors. ?? LDL-C is now calculated using the Bailey ?? calculation, which is a validated novel method providing ?? better accuracy than the Friedewald equation in the ?? estimation of LDL-C. ?? Keaton GONZÁLES et al. NASEEM. 2013;310(19): 6252-3798 ?? (http://education.SaveUp/faq/XBB204) Non-HDL Cholesterol 117 <130 mg/dL (calc) [facility] Comment: For patients with diabetes plus 1 major ASCVD risk ?? factor, treating to a non-HDL-C goal of <100 mg/dL ?? (LDL-C of <70 mg/dL) is considered a therapeutic ?? option. Triglycerides 135 <150 mg/dL [facility] 12/02/2021 7:59 AM EDT Yajaira Lainez FILM EXAMINER LAB BLOOD ORDERABLES Final Res ult [facility] [address] * Colonoscopy (01/17/2019) Colonoscopy Normal Normal Narrative Rosi Fernandez - 01/17/2019 Repeat in 10 years Historical Provider HEALTH MAINTENANCE Final Result from Last 3 Months or Most Recently Relevant to Health Maintenance Insurance [facility] ONE CARE < 65 Advance Directives Documents on File Type Date Recorded Patient Cognos Consultant Expl anation Advance Directives and Livin g Will 04/05/2024 3:00 PM HCP Care Teams Controls Technician Relationship Specialty Start Date End Date Yajaira Lainez FNP [address] [place] [address] PCP - General Family Medicine 12/15/21 [facility] 04/23/24
--- OUTSIDE RECORDS SUMMARY | 2024-10-02 11:16 | XMS_ITS | Encounter Summary ---
Author Organization [employer] Address [address] [facility] 7t [place] [address] Care Team Providers Care Correctional Probation Officer Name Role Phone Yajaira Lainez Primary Care Provider [phone] Encounter Details Date Type Department Care Team (Late st Contact Info) Description 06/16/2022 Orders Only [facility] CH[facility] MED & PEDS [address] [place], [place] [phone] Francoise Perez LPN Social History Tobacco Use Types Packs/Day Years Used Date Smoking Tobacco: Never Assessed Comments Unknown Sex and Gender Information Value Date Recorded Sex Assigned at Female 03/29/2022 10:17 AM EDT Legal Sex Female 10:17 AM EDT Gender Identity Female 03/29/2022 10:17 AM EDT Sexual Orientation Straight 03/29/2022 10 :17 AM EDT documented as of this encounter Plan of Treatment Upcoming Encounters Date Type Department Care Team (Late st Contact Info) Description 11/28/2024 11:15 AM EDT Office Visit [facility] MEDICINE [address] [place] [address] Yajaira Lainez FNP [address] [place] [address] documented as of this encounter Visit Diagnoses Not on filedocumented in this encounter Care Teams Correctional Probation Officer Relationship Specialty Start Date End Date Yajaira Lainez FNP [address] [place] [address] PCP - General Family Medicine 12/15/21 [facility] 04/23/24 documented as of this encounter
--- OUTSIDE RECORDS SUMMARY | 2024-10-02 11:16 | XMS_ITS | Encounter Summary ---
Author Organization [employer] Address [address] 7t [place] [address] Care Team Providers Care Studio Data Analyst Name Role Phone Yajaira Lainez Primary Care Provider [phone] Reason for Visit * Reason Comments Med Refill Encounter Details Date Type Department Care Team (Late st Contact Info) Description 12/16/2023 Refill [facility] MEDICINE [address] [place] [address] Yajaira Lainez FNP [address] [employer], [place] [phone] Pain Social History Tobacco Use Types Packs/Day Years Used Date Smoking Tobacco: Every Day Cigarettes Smokeless Tobacco: Never Alcohol Use Standard Drinks/Week Comments Never 0 (1 standard drink = 0.6 oz pur e alcohol) Depression Answer Date Recorded Patient Health Questionnaire-9 Score 0 01/14/2023 Housing Stability Answer Date Recorded What is your housing situation today? I have haley figueredo 03/17/[address] you li ve. Do you have problems with any of the following? None of the above 03/17/2023 Food Insecurity Answer Date Recorded Within the past 12 months, y ou worried that your food would run out before you got money to buy more: Never True 03/17/2023 Within the past 12 months,th e food you bought just didn't last and you didn't have enough money to get more: Never True Transportation Answer Date Recorded In the past 12 months, has l ack of transportation kept you from medical appts, meetings, work or from getting things needed for daily living? No 03/17/2023 Utilities Answer Date Recorded In the past 12 months, has t he electric, gas, oil or water company threatened to shut off services in your home? No 03/17/2023 Depression Answer Date Recorded Patient Health Questionnaire-2 Score 0 01/14/2023 Comments Unknown Sex and Gender Information Value [...] Description 11/28/2024 11:15 AM EDT Office Visit [facility] [address] [place] [address] Yajaira Lainez FNP [address] [place] [address] documented as of this encounter Visit Diagnoses Diagnosis Pain Generalized pain documented in this encounter Additional Health Concerns Assessment Noted Time PHQ-9 Depression Total Score: 0 01/15/20 23 3:37 PM EDT documented as of this encounter Care Teams Studio Data Analyst Relationship Specialty Start Date End Date Yajaira Lainez FNP [address] [place] [address] PCP - General Family Medicine 12/15/21 [facility] 04/23/24 documented as of this encounter
--- OUTSIDE RECORDS SUMMARY | 2024-10-02 11:16 | XMS_ITS | Encounter Summary ---
Author Organization [employer] Address [address] [facility] 7t [place] [address] Care Team Providers Care Ruby On Rails Software Developer Name Role Phone Yajaira Lainez Primary Care Provider [phone] Encounter Details Date Type Department Care Team (Late Contact Info) Description 07/29/2022 Orders Only [facility] MEDICINE [address] [place] [address] Yajaira Lainez FNP [address] [place], [place] [phone] Social History Tobacco Use Types Packs/Day Years Used Date Smoking Tobacco: Never Smokeless Tobacco: Never Alcohol Use Standard Drinks/Week Comments Never 0 (1 standard drink = 0.6 oz pur e alcohol) Comments Unknown Sex and Gender Information Value Date Recorded Sex Assigned at Female 03/29/2022 10:17 AM EDT Legal Sex Female 10:17 AM EDT Gender Identity Female 03/29/2022 10:17 AM EDT Sexual Orientation Straight 03/29/2022 10 :17 AM EDT COVID-19 Exposure Response Date Recorded In the last 10 days, have yo u been in contact with someone who was confirmed or suspected to have Coronavirus/COVID-19? No / Unsure 07/08/2022 8:30 AM EST documented as of this encounter Plan of Treatment Upcoming Encounters Date Type Department Care Team (Late Contact Info) Description 11/28/2024 11:15 AM EDT Office Visit [facility] MEDICINE [address] [place] [address] Yajaira Lainez FNP [address] [place], [place] [phone] documented as of this encounter Visit Diagnoses Not on filedocumented in this encounter Care Teams Ruby On Rails Software Developer Relationship Specialty Start Date End Date Yajaira Lainez FNP [address] [place] [address] PCP - General Family Medicine 12/15/21 [facility] 04/23/24 documented as of this encounter
--- OUTSIDE RECORDS SUMMARY | 2024-10-02 11:16 | XMS_ITS | Encounter Summary ---
Author Organization [employer] Address [address] 7[address] [place] [address] Care Team Providers Care Maritime Pilot Name Role Phone Yajaira Lainez LETTERPRESS PRINTING MACHINIST Primary Care Provider Encounter Details Date Type Department Care Team (Late st Contact Info) Description 04/14/2023 Abstract [facility] MEDICINE [address] [place], [place] [phone] Rosi Fernandez Social History Tobacco Use Types Packs/Day Years [...] Description 11/28/2024 11:15 AM EDT Office Visit [facility] MEDICINE [address] [place] [address] Yajaira Lainez FNP [address] [place] [address] documented as of this encounter Procedures Procedure Name Priority Date/Time Associated Diagnosis Comments COLONOSCOPY Routine 01/17/2019 documented in this encounter Results * Hm Colonoscopy (01/17/2019) Colonoscopy Normal Normal Narrative Rosi Fernandez - 01/17/2019 Repeat in 10 years us Historical Provider HEALTH MAINTENANCE Final Result documented in this encounter Visit Diagnoses Not on filedocumented in this encounter Additional Health Concerns Assessment Noted Time PHQ-9 Depression Total Score: 0 01/15/20 23 3:37 PM EDT documented as of this encounter Care Teams Maritime Pilot Relationship Specialty Start Date End Date Yajaira Lainez FNP [address] [place] [address] PCP - General Family Medicine 12/15/21 [facility] 04/23/24 documented as of this encounter
--- OUTSIDE RECORDS SUMMARY | 2024-10-02 11:16 | XMS_ITS | Encounter Summary ---
Author Organization [employer] Address [address] [facility] [address] 7[address] [place] [address] Care Team Providers Care Aws Software Development Engineer Name Role Phone Yajaira Lainez Primary Care Provider [phone] Reason for Visit * Reason Comments Med Refill Encounter Details Date Type Department Care Team (Late st Contact Info) Description 07/28/2023 Refill [facility] MED[facility]INE [address] [place] [address] Yajaira Lainez FNP [address] [place], [place] [phone] Social History Tobacco Use Types Packs/Day Years [...] Description 11/28/2024 11:15 AM EDT Office Visit [facility] [address] [place] [address] Yajaira Lainez FNP [address] [place] [address] documented as of this encounter Visit Diagnoses Not on filedocumented in this encounter Additional Health Concerns Assessment Noted Time PHQ-9 Depression Total Score: 0 01/15/20 23 3:37 PM EDT documented as of this encounter Care Teams Aws Software Development Engineer Relationship Specialty Start Date End Date Yajaira Lainez FNP [address] [place] [address] PCP - General Family Medicine 12/15/21 [facility] 04/23/24 documented as of this encounter
--- OUTSIDE RECORDS SUMMARY | 2024-10-02 11:16 | XMS_ITS | Encounter Summary ---
Author Organization [employer] Address [address] [place] [address] 7t [place] [address] Care Team Providers Care Behavioral Therapist Name Role Phone Yajaira Lainez Primary Care Provider [phone] Reason for Visit * Reason Comments Med Refill Encounter Details Date Type Department Care Team ([facility] Contact Info) Description 01/01/2023 Refill [facility] MEDICINE [address] [place] [address] Yajaira Lainez FNP [address] [place], [place] [phone] Social History Tobacco Use Types Packs/Day Years [...] Upcoming Encounters Date Type Department Care Team ([facility] Contact Info) Description 11/28/2024 11:15 AM EDT Office Visit [facility] MEDICINE [address] [place] [address] Yajaira Lainez FNP [address] [place] [address] documented as of this encounter Visit Diagnoses Not on filedocumented in this encounter Care Teams Behavioral Therapist Relationship Specialty Start Date End Date Yajaira Lainez FNP [address] [place] [address] PCP - General Family Medicine 12/15/21 [facility] 04/23/24 documented as of this encounter
--- OUTSIDE RECORDS SUMMARY | 2024-10-02 11:16 | XMS_ITS | Encounter Summary ---
Author Organization [employer] Address [address] [facility] 7t [place] [address] Care Team Providers Care Clinical Assessment Manager Name Role Phone Yajaira Lainez Primary Care Provider [phone] Encounter Details Date Type Department Care Team (Late Contact Info) Description 11/08/2022 Abstract [facility] MEDICINE [address] [place] [address] Yajaira Lainez FNP [address] [place] [address] Social History Tobacco Use Types Packs/Day Years [...] Description 11/28/2024 11:15 AM EDT Office Visit [facility] MEDICINE [address] [place] [address] Yajaira Lainez FNP [address] [place] [address] documented as of this encounter Visit Diagnoses Not on filedocumented in this encounter Care Teams Clinical Assessment Manager Relationship Specialty Start Date End Date Yajaira Lainez FNP [address] [place] [address] PCP - General Family Medicine 12/15/21 [facility] 04/23/24 documented as of this encounter
--- OUTSIDE RECORDS SUMMARY | 2024-10-02 11:16 | XMS_ITS | Clinical Summary ---
Author Organization [facility] Address [address] [address] Care Team Providers Care Dry Color Tester Name Role Phone Lisa White MD Primary Care Provider [phone] Allergies Active Allergy Reactions Criticality Noted Date [...] Years Used Date Smoking Tobacco: Former Cigarettes 2018 Smokeless Tobacco: Never Comments Unknown Sex [...] Comments Breast Cancer Screening 1960 Pneumococcal Vaccine: 50+ Ye ars (1 of 2 - PCV) 1978 Colorectal Cancer Screening: Annual FOBT 2008 Colorectal Cancer Screening: Colonoscopy 2008 Colorectal Cancer Screening: Sigmoidoscopy 2008 Influenza Vaccine (Season Ended) 2025 Hepatitis B Vaccine Aged Out No longe r eligible based on patient's age to complete this topic Insurance Medicare Medicaid [place] Medicare Medicaid [place] Care Teams Dry Color Tester Relationship Specialty Start Date End Date Lisa White MD [address] [place] [address] PCP - General 06/09/20
== END 2024-10-02 11:00 | disposition home or self-care (01) ==
LOC: HO.HUSH 09:57
PROVIDERS: PCP Internal Medicine; Visit Provider Urology
DX: N39.3 Stress incontinence (female) (male) (principal); N32.81 Overactive bladder
CPT/HCPCS: 99214

== ENCOUNTER → 2024-10-02 09:56 | Outpatient (BNVA) | payer OTHER, SELFPAY | PROVIDERS: PCP Internal Medicine; Visit Provider Urology | DX: N39.3 Stress incontinence (female) (male) (principal); N32.81 Overactive bladder | CPT/HCPCS: 51798; 81003; 99212 ==

== ENCOUNTER 2024-10-16 12:45 | Outpatient (REF) | payer OTHER, SELFPAY ==
--- NOTE | ~2024-10-16 | US_ITS ---
EXAMINATION: US PELVIS CLINICAL INFORMATION: 64-year-old female with pelvic pain. COMPARISON: None available. TECHNIQUE: Ultrasound of the pelvis is performed using both transabdominal and transvaginal transducers along with Doppler. Transvaginal imaging is performed due to inadequate visualization transabdominally. FINDINGS: Uterus: The uterus is anteverted and measures 5.4 x 2.4 x 3.2 cm. The cervix is normal with a few specular calcifications, nonspecific and of doubtful clinical significance. The double wall endometrial thickness is 4 mm. Trace fluid in the endometrial cavity is nonspecific. The uterus is smooth in contour and has mildly heterogeneous myometrial echogenicity. No visible fibroid. Adnexa: Both ovaries are visualized. There is normal color flow to the adnexa. There is no ovarian torsion. There is no pelvic ascites or fluid collection. Right ovary measures 1.4 x 0.8 x 1.1 cm. Volume = 0.6 mL. Normal sonographic appearance. Left ovary measures 1.5 x 0.8 x 1.1 cm. Volume = 0.7 mL. Normal sonographic appearance. US/US pelvic and transvaginal IMPRESSION: Essentially normal pelvic ultrasound. No imaging explanation for pelvic pain. Electronically signed by: Lokesh Damon MD 10/16/2024 01:45 PM EDT
--- OUTSIDE RECORDS SUMMARY | 2024-10-16 13:48 | XMS_ITS | Encounter Summary ---
Author Organization [employer] Address [address] [place] [address] 7t [place] [address] Care Team Providers Care Drapery Inspector Name Role Phone Yajaira Lainez Primary Care Provider [phone] Encounter Details Date Type Department Care Team (Late st Contact Info) Description 06/16/[address] Orders [address] [facility] CHC MED & PEDS [address] [place] [address] Francoise Perez LPN Social History Tobacco Use [...] Description 11/28/2024 11:15 AM EDT Office Visit [facility] MEDICINE [address] [place] [address] Yajaira Lainez FNP [address] [place] [address] documented as of this encounter Visit Diagnoses Not on filedocumented in this encounter Care Teams Drapery Inspector Relationship Specialty Start Date End Date Yajaira Lainez FNP [address] [place] [address] PCP - General Family Medicine 12/15/21 [facility] 11/25/24 documented as of this encounter
--- OUTSIDE RECORDS SUMMARY | 2024-10-16 13:48 | XMS_ITS | Encounter Summary ---
Author Organization [employer] Address [address] [facility] [address] 7[address] [place] [address] Care Team Providers Care Hoisting Machine Operator Name Role Phone Yajaira Lainez Primary Care Provider [phone] Reason for Visit * Reason Comments Med Refill Encounter Details Date Type Department Care Team (Late st Contact Info) Description 07/28/2023 Refill [facility] MEDICINE [address] [place] [address] Yajaira Lainez FNP [address] [place], [place] [phone] Social History Tobacco Use Types Packs/Day Years [...] Description 11/28/2024 11:15 AM EDT Office Visit [facility] MEDICINE [address] [place] [address] Yajaira Lainez FNP [address] [place] [address] documented as of this encounter Visit Diagnoses Not on filedocumented in this encounter Additional Health Concerns Assessment Noted Time PHQ-9 Depression Total Score: 0 01/15/20 23 3:37 PM EDT documented as of this encounter Care Teams Hoisting Machine Operator Relationship Specialty Start Date End Date Yajaira Lainez FNP [address] [place] [address] PCP - General Family Medicine 12/15/21 [facility] 04/23/24 documented as of this encounter
--- OUTSIDE RECORDS SUMMARY | 2024-10-16 13:48 | XMS_ITS | Encounter Summary ---
Author Organization [employer] Address [address] [place] [address] 7t [place] [address] Care Team Providers Care Staff Writer Name Role Phone Yajaira Lainez Primary Care Provider [phone] Encounter Details Date Type Department Care Team ([facility] Contact Info) Description 11/08/2022 Abstract [facility] MEDICINE [address] [place] [address] Yajaira Lainez FNP [address] [place] [address] Social History Tobacco Use Types Packs/Day Years [...] Description 11/28/2024 11:15 AM EDT Office Visit [facility] MEDICINE [address] [place] [address] Yajaira Lainez FNP [address] [place] [address] documented as of this encounter Visit Diagnoses Not on filedocumented in this encounter Care Teams Staff Writer Relationship Specialty Start Date End Date Yajaira Lainez FNP [address] [place] [address] PCP - General Family Medicine 12/15/21 [facility] 04/23/24 documented as of this encounter
--- OUTSIDE RECORDS SUMMARY | 2024-10-16 13:48 | XMS_ITS | Encounter Summary ---
Author Organization [employer] Address [address] [place] [address] 7t [place] [address] Care Team Providers Care Division Sales Manager Name Role Phone Yajaira Lainez Primary Care Provider [phone] Encounter Details Date Type Department Care Team ([facility] Contact Info) Description 07/29/[address] [facility] MEDICINE [address] [place] [address] Yajaira Lainez FNP [address] [place], [place] [phone] Social History Tobacco Use Types Packs/Day Years [...] Upcoming Encounters Date Type Department Care Team ([facility] Contact Info) Description 11/28/2024 11:15 AM EDT Office Visit [facility] MEDICINE [address] [place] [address] Yajaira Lainez FNP [address] [place], [place] [phone] documented as of this encounter Visit Diagnoses Not on filedocumented in this encounter Care Teams Division Sales Manager Relationship Specialty Start Date End Date Yajaira Lainez FNP [address] [place] [address] PCP - General Family Medicine 12/15/21 [facility] 04/23/24 documented as of this encounter
--- OUTSIDE RECORDS SUMMARY | 2024-10-16 13:48 | XMS_ITS | Encounter Summary ---
Author Organization [employer] Address [address] [place] [address] Care Team Providers Care Barge Hand Name Role Phone Yajaira Lainez HELENA Primary Care Provider [phone] Encounter Details Date Type Department Care Team (Late st Contact Info) Description 04/14/2023 Abstract [facility] [address] [place], [place] [phone] Rosi Fernandez Social History Tobacco Use Types [...] Description 11/28/2024 11:15 AM EDT Office Visit [facility] [address] [place] [address] Yajaira Lainez FNP [address] [place] [address] documented as of this encounter Procedures Procedure [...] documented as of this encounter Care Teams Barge Hand Relationship Specialty Start Date End Date Yajaira Lainez FNP [address] [place] [address] PCP - General Family Medicine 12/15/21 [facility] 04/23/24 documented as of this encounter
--- OUTSIDE RECORDS SUMMARY | 2024-10-16 13:48 | XMS_ITS | Encounter Summary ---
Author Organization [employer] Address [address] [place] [address] Care Team Providers Care Skein Inspector Name Role Phone Yajaira Lainez Primary Care Provider [phone] Reason for Visit * Reason Comments Med Refill Encounter Details Date Type Department Care Team (Late st Contact Info) Description 12/16/2023 Refill [facility] [address] [place] [address] Yajaira Lainez FNP [address] [place], [place] [phone] Pain Social History Tobacco Use Types Packs/Day [...] Description 11/28/2024 11:15 AM EDT Office Visit [facility] [address] [place] [address] Yajaira Lainez FNP [address] [place] [address] documented as of this encounter Visit Diagnoses Diagnosis Pain Generalized pain documented in this encounter Additional Health Concerns Assessment Noted Time PHQ-9 Depression Total Score: 0 01/15/20 23 3:37 PM EDT documented as of this encounter Care Teams Skein Inspector Relationship Specialty Start Date End Date Yajaira Lainez FNP [address] [place] [address] PCP - General Family Medicine 12/15/21 [facility] 04/23/24 documented as of this encounter
--- OUTSIDE RECORDS SUMMARY | 2024-10-16 13:48 | XMS_ITS | Clinical Summary ---
Author Organization [facility] Facility Address [address] [address] Care Team Providers Care Vault Person Name Role Phone Lisa White MD Primary Care Provider [phone] Allergies Active Allergy Reactions Criticality Noted Date [...] Medicaid [place] Medicare Medicaid [place] Care Teams Vault Person Relationship Specialty Start Date End Date Lisa White MD [address] [place] [address] PCP - General 06/09/20
--- OUTSIDE RECORDS SUMMARY | 2024-10-16 13:49 | XMS_ITS | Clinical Summary ---
Author Organization [employer] Address [address] [facility] 7t [place] [address] Care Team Providers Care Sexual Health Physician Name Role Phone Yajaira Lainez HELENA Primary Care Provider [phone] Allergies Active Allergy Reactions Criticality Noted Date Comments Sulfa Antibiotics Other 01/01/2021 Medications * This document contains information received from the source organization and may not represent a complete record from that organization. Skin Protectants, Misc. (eucerin) creamIndication s:Xerosis of skin Use twice daily on dry skin as needed 100 g 1 07/08/19 23 Active Blood Glucose Monitoring Suppl ([employer] Verio Flex System) w/Device kitIndications: Type 2 diabetes mellitus treated without insulin ([facility]) TEST BLOOD SUGAR TWICE DAILY 1 kit 07/09/19 23 Active Blood Glucose Monitoring Suppl deviceIndicatio ns:Type 2 diabetes mellitus without complication, without long-term current use of insulin ([facility]) Use as directed to check blood [...] 2 times daily. 07/26/19 23 Active Lancets (TalentSprint Educational ServicesTouch Delica Plus [id number]) misc Inject 1 each into the skin [...] tablet by mouth Once per day. Active [employer] Verio test strip USE DIRECTED TO TEST [...] 8 weeks. 72 patch 08/30/19 25 Active gabapentin (Neurontin) 600 MG tabletIndicatio ns:Pain TAKE 1 TABLET BY MOUTH TWICE DAILY 60 tablet 1 09/26/19 25 Active tiZANidine (Zanaflex) 2 MG tabletIndicatio ns:Muscle spasm TAKE 1 TO 2 TABLETS BY MOUTH EVERY TWELVE HOURS NEEDED FOR MUSCLE SPASMS 30 tablet 2 10/06/19 25 Active gabapentin (Neurontin) 600 MG tabletIndicatio ns:Pain TAKE 1 TABLET BY MOUTH TWICE DAILY 60 tablet 1 06/29/19 25 025 Discontinued tiZANidine (Zanaflex) 2 MG tabletIndicatio ns:Muscle spasm TAKE 1 TO 2 TABLETS BY MOUTH EVERY TWELVE HOURS NEEDED FOR MUSCLE SPASMS 30 tablet 2 08/30/19 25 025 Discontinued Active Problems Problem Noted Date Diagnosed Date Primary hypertension 08/30/2024 Overview (08/30/2024): [facility] Topete Amlodipine 5 mg daily Assessment & [...] BID. Palpitations 05/10/2024 Overview (05/10/2024): Following with [facility]- Dr. Efrem Ratliff completed approx Jun 2023 - demonstrated rare PACs and PVCs Nuclear stress test and echo WNL 2023 Plan: cont verapamil 120mg ER daily through Cards Assessment & Plan (05/10/2024 5:43 PM EST): Encouraged good hydration, reviewed follow up precautions Healthcare maintenance 10/03/2023 Overview (05/10/2024): Mammo: BIRADS 1 on 01/07/23 Pap: NILM/HPV neg Feb 2019 OPH: TRINO on 06/09/23. [facility] (Ana Levi MD). No evidence of diabetic retinopathy or macular edema. Colonoscopy: 12/21/23 ([facility] - Dr. Wilson). Repeat 5 years d/t tubular adenoma. Cigarette smoker 05/08/2023 Assessment & Plan (08/30/2024 7:29 PM EDT): -Currently smoking 3 cigg/day -Encouraged smoking cessation resources such as pharmacomtherapy, [facility] smoking cessation group, and [facility] pharmacy smoking cessation clinic -Start NRT patches -Eligibility for LDCT: discuss next appt Assessment & Plan (05/08/2023 2:23 PM EST): -Currently smoking 6 cigg/day -Encouraged smoking cessation resources such as pharmacomtherapy, [facility] smoking cessation group, and [facility] pharmacy smoking cessation clinic -Start NRT patches Type 2 diabetes mellitus wit h hypoglycemia, without long-term current use of insulin 07/11/2022 Overview (08/30/2024): Lab Results Component Value Date HGBA1C 6.5 (A) 08/29/2024 -Following with [facility] Endo - Dr. Granados - Referred to [facility] Flare Worker - Lani Winston - by Endo in Dec 2023 -Continues with metformin 500mg daily with evening meal -Encourage lifestyle interventions such as routine physical activity and healthy dietary habits -TRINO May 2023 ([facility]) -Statin: due for recheck of lipids. CARE TRANSITIONS MANAGER/pt to confirm if pt rx statin through [...] (06/19/2023): ?? Hearing aid eval 10/03/20 at [facility] Audiology - diagnosed with bilateral sensorineural hearing loss and prescription for hearing aids generated Assessment & Plan (06/19/2023 4:56 PM EST): Pt reports that her hearing aids have been misplaced and is in need of re-eval through Audiology for further amplification devices. Referral to [facility] Audiology placed 06/17/23 Tendinitis of right rotator cuff 07/07/2022 Stress incontinence of urine 07/07/2022 Hyperlipidemia 01/01/2021 Stage 3 chronic kidney disease 01/01/2021 Irritable bowel syndrome with constipation 12/16 Overview (05/10/2024): Followed by [facility] - Dr. Wilson Plan: cont linaclotide through GI Anxiety 11/23/2016 Degenerative joint disease of shoulder region Osteopenia 04/12/2012 Scoliosis deformity of spine 04/12/2012 Allergic rhinitis 11/11/2011 Asthma 11/11/2011 Gastroesophageal reflux disease 11/11/2011 Overview (05/10/2024): Followed by [facility] Chun Wilson Plan: cont omeprazole 40mg BID and [...] Encounters Date Type Department Care Team Description 10/05/2024 Refill [facility] [address] [place] [address] Yajaira Lainez FNP Muscle spasm 09/25/2024 10:00 AM EDT Office Visit [address] [address] Elisabeth Fan CNM High risk human papillomavirus (HPV) DNA test positive (Primary Dx) 09/25/2024 Travel 09/23/2024 Refill [facility] [address] [place] [address] Yajaira Lainez FNP Pain 09/20/2024 Orders Only [address] [address] Elisabeth Fan CNM Breast pain, right (Primary Dx) 09/10/[address] [address] Elisabeth Fan CNM Results 09/04/2024 11:15 AM EDT Procedure Visit [address] [address] Elisabeth Fan CNM Cervical cancer screening (Primary Dx); Menopausal and postmenopausal disorder; Pelvic pain; Mixed stress and urge urinary incontinence; Breast pain, right 09/04/2024 Travel 08/29/2024 10:00 AM EDT Office Visit [address] [address] Yajaira Lainez FNP Type 2 diabetes mellitus with hypoglycemia without coma, without long-term current use of insulin ([facility]) (Primary Dx); Skin lesion of left lower limb; Muscle spasm; Primary hypertension; Chronic bilateral low back pain, unspecified whether sciatica present; Cigarette smoker 08/29/2024 Travel 08/28/2024 Telephone [facility] [address] [place], [place] [phone] Yajaira Lainez FNP Chart Prep 08/24/2024 Refill [facility] [address] [place] [address] Yajaira Lainez FNP Smoking 08/20/2024 Patient Outreach [facility] [address] [place] [address] Yajaira Lainez FNP Pre-visit Planning (Pre-visit planning - LVM ) 07/31/2024 Telephone [facility] [address] [place] [address] Yajaira Lainez FNP from Last 3 Months Immunizations Immunization Administration Dates Next Due Influenza injectable quadriv [...] Description 11/28/2024 11:15 AM EDT Office Visit [facility] [address] [place] [address] Yajaira Lainez FNP [address] [place] [address] Health Maintenance Due Date Last Done Comments [...] Cancer Screening 01/17/2029 Zoster Vaccines Completed 02/05/2022, 10/2021, 12/15/2018 Influenza Vaccine Completed 04/17/2024, , [...] patient's age to complete this topic Meningococcal B Vaccine Aged Out No l onger eligible based on patient's age to complete [...] insulin ([facility]) POCT GLUCOSE Routine 08/29/2024 10:50 AM EDT Type 2 diabetes mellitus with hypoglycemia without coma, without long-term current use of insulin ([facility]) INTRAORAL - COMPLETE SERIES OF RADIOGRAPHIC [...] AM EDT) HPV High Risk Positive(A) Negative [facility] HPV Genotype 16 Negative Negative [facility] HPV Genotype 18 Negative Negative [facility] Comment:HPV testing performe d at [facility] (CLIA#[id number]), [address] [place] [address].Testing for HPV was performed using the Josué [...] detected. 09/04/2024 09/05/2024 6:0 0 AM EDT us Elisabeth Fan CNM LAB BLOOD ORDERABLES Melany welsh Result [facility] [address] [place] [phone] * Pap Smear (09/04/2024 12:00 AM EDT) Swab Cervix uteri structure / Unknown 09/04/2024 09/05/2024 6:00 AM EDT Narrative [facility] - 09/09/2024 10:37 AM EDT ----- ------- Name: Celestina Sullivan ?Age/Sex: 64/F ? : 1960 Unit#: [id number] ?? Attend Dr: ELISABETH FAN CNM ?Re09/04/24 ?Status: DEP REF ? Location: HO.HHCLNP ? Disch: ? ----- ------- SPEC : [id number] ? RECD: 09/05/24 ? STATUS: ??SOUT ? REQ NUM: [id number] ? SHAHAB: 09/04/24-0000 ? SUBM DR: ELISABETH FAN CNAstrid ? ENTERED: ??09/05/24 ?SP TYPE: Pap Smr ?OTHR : ? [...] ----- ------- ? END OF REPORT ? Elisabeth Fan [facility] CYTOLOGY ORDERABLES F inal Result [facility] [address] [place] [phone] * (ABNORMAL) POCT HGB A1C (08/29/2024 10:51 AM EDT) Hemoglobin A1C 6.5(A) 4.0 - 6.0 % QC Media Lot # [id number] Lot# Expiration Date Blood 08/29/2024 10:5 1 AM EDT Yajaira Lainez [facility] POINT OF CARE TEST ENTER/EDIT ORDERABLES Final Result * POCT Glucose (08/29/2024 10:50 AM EDT) Glucose Blood, POC 135 60 - 200 mg/dL QC Media Lot # [id number] Lot# Expiration Date Blood Capillary blood specimen / Unknown 08/29/2024 10:50 AM EDT Yajaira Lainez [facility] POINT OF CARE TEST ENTER/EDIT ORDERABLES Final Result * Referral to Ophthalmology (03/13/2024) us Sol Harrell OD OUTPATIENT REFERRAL ORDERABLE S Final Result * BI Mammogram Screening Tomosynthesis Bilateral (01/07/2023 2:15 PM EDT) Anatomical Region Laterality Modality Breast Bilateral Mammography 01/07/2023 2:15 PM EDT Narrative 01/07/2023 3:31 PM EDT ? [facility] ? [address] ?[place] [address] ? Mammography Report ? Signed ? Patient: Sullivan,Celestina ?MR#: [id number] ?? 0 ? : 1960 ?Acct:[id number] ? Age/Sex: 62 / F ?ADM Date: 01/07/23 ? Loc: HO.MAMMO ? Attending Dr: Yajaira Lainez FINANCIAL AUDITOR ? Ordering Physician: Fatou,Yajaira FINANCIAL AUDITOR ?Results: ? Date of Service: 01/07/23 ?Follow Up: ? Procedure(s): MM tomosynthesis screening BI ?? Accession Number(s): [id number] ? cc: Yajaira Lainez FINANCIAL AUDITOR ? EXAMINATION: ?? MM SCREENING DIGITAL BREAST [...] 1529 ? DD/ 1415 ? TD/TT: ? Coin Dealer: ? Procedure Note Claudia, Image - 01/07/2023 [facility] [address] [place] [address] Mammography Report Signed Patient: Celestina SullivanMR#: [id number] 0 : 9Acct:[id number] Age/Sex: 62 / FADM Date: 01/07/23 Loc: HO.MAMMO Attending Dr: Yajaira Lainez FINANCIAL AUDITOR Ordering Physician: Yajaira Lainez FNPResults: Date of Service: 01/07/23Follow Up: Procedure(s): MM tomosynthesis screening BI Accession Number(s): [id number] cc: Yajaira Lainez EXAMINATION: MM SCREENING DIGITAL [...] in OV> 01/07/23 1529 DD/ 1415 TD/TT: Coin Dealer: Yajaira MALIK IMG BI PROCEDURES Final Result * ALBUMIN, RANDOM URINE W/CREATININE (12/02/2021 7:59 AM EDT) Microalbumin Urine 0.5 See Note: mg/dL [facility] Comment: Reference Range: ?? Reference Range Not established Microalb/Creat Ratio 4 <30 mcg/mg creat [facility] Comment: ?? The ADA defines [...] Creatinine, Urine 124 20 - 275 mg/dL [facility] 12/02/2021 7:59 AM EDT Yajaira Lainez [facility] URINE ORDERABLES Final Res ult [facility] [address] [place] [address], [place] * LIPID PANEL, STANDARD (12/02/2021 7:59 AM EDT) Chol/HDLC Ratio 3.3 <5.0 (calc) [facility] Cholesterol, Total 167 <200 mg/dL [facility] HDL Cholesterol 50 > OR = 50 mg/dL [facility] LDL Cholesterol 94 mg/dL (calc) [facility] Comment: Reference range: <100 ?? [...] ?? Keaton GONZÁLES et al. NASEEM. 2013;310(19): 0057-9646 ?? (http://education.[employer]/faq/UTB137) Non-HDL Cholesterol 117 <130 mg/dL (calc) [facility] Comment: For patients with diabetes plus 1 major ASCVD risk ?? factor, treating to a non-HDL-C goal of <100 mg/dL ?? (LDL-C of <70 mg/dL) is considered a therapeutic ?? option. Triglycerides 135 <150 mg/dL [facility] 12/02/2021 7:59 AM EDT Yajaira Lainez FINANCIAL AUDITOR LAB BLOOD ORDERABLES Final Res ult [facility] [address] * Colonoscopy (01/17/2019) Colonoscopy Normal Normal Narrative Rosi Fernandez - 01/17/2019 Repeat in 10 years Historical Provider HEALTH MAINTENANCE Final Result from Last 3 Months or Most Recently Relevant to Health Maintenance Insurance [facility] < [address] [place] [id number] Advance Directives Documents on File Type Date Recorded Patient Director Of Vital Statistics Expl anation Advance Directives and Livin g Will 04/05/2024 3:00 PM HCP Care Teams Sexual Health Physician Relationship Specialty Start Date End Date Yajaira Lainez FNP [address] [place] [address] PCP - General Family Medicine 12/15/21 [facility] 04/23/24
--- OUTSIDE RECORDS SUMMARY | 2024-10-16 13:49 | XMS_ITS | Encounter Summary ---
Author Organization [facility] Address [address] [place] [address] 7t [place] [address] Care Team Providers Care Director Of Corporate Communications Name Role Phone Yajaira Lainez Primary Care Provider [phone] Reason for Visit * Reason Comments Med Refill Encounter Details Date Type Department Care Team ([facility] Contact Info) Description 01/01/2023 Refill [facility] [address] [place] [address] Yajaira Lainez FNP [address] [place], [place] [phone] Social History Tobacco Use Types Packs/Day Years [...] Upcoming Encounters Date Type Department Care Team ([facility] Contact Info) Description 11/28/2024 11:15 AM EDT Office Visit [facility] [address] [place] [address] Yajaira Lainez FNP [address] [place], [place] [phone] documented as of this encounter Visit Diagnoses Not on filedocumented in this encounter Care Teams Director Of Corporate Communications Relationship Specialty Start Date End Date Yajaira Lainez FNP [address] [place] [phone] PCP - General Family Medicine 12/15/21 [facility] 04/23/24 documented as of this encounter
== END 2024-10-16 12:46 | disposition home or self-care (01) ==
LOC: HO.US 12:45
PROVIDERS: PCP Registered Nurse; Visit Provider Advanced Practice Midwife
DX: R10.2 Pelvic and perineal pain (principal)
CPT/HCPCS: 76830; 76856

== ENCOUNTER → 2024-10-16 12:47 | Outpatient (BNV) | payer OTHER, SELFPAY | PROVIDERS: PCP Registered Nurse; Visit Provider Radiology Diagnostic Radiology | DX: R10.2 Pelvic and perineal pain (principal) | CPT/HCPCS: 76830; 76856 ==

== ENCOUNTER 2024-10-30 13:32 | Outpatient (REF) | payer OTHER, SELFPAY ==
--- NOTE | ~2024-10-30 | MM_ITS ---
EXAMINATION: DXA BONE DENSITY AXIAL HISTORY: N95.9 TECHNIQUE: Atilekt Dual energy absorptiometry (DEXA) of the lumbar spine, total left hip, and femoral neck was performed. COMPARISON: Comparison is made with the prior examination dated 03/13/2010. FINDINGS: The bone mineral density of the lumbar spine is 1.090, corresponding to a T-score of -0.7, and a Z-score of 0.6. This is indicative of normal bone mineral density. This represents a BMD change of -5.5% compared to the prior exam. This is statistically significant. The bone mineral density of the left total hip is 0.897, corresponding to a T-score of -0.9, and a Z-score of 0.1. This is indicative of normal bone mineral density. This represents a BMD change of -7.6% compared to the prior exam. This is statistically significant. The bone mineral density of the left femoral neck is 0.770, corresponding to a T-score of -1.9, and a Z-score of -0.7. This is indicative of osteopenia.- This represents a BMD change of 7.7% compared to the prior exam. FRACTURE RISK: The FRAX index suggests a ten year probability of major osteoporotic fracture of 9.5%, and of hip fracture 2.2%. MM/XR DEXA axial skeleton IMPRESSION: Based on bone mineral density, and according to World Health Organization (WHO) criteria, the diagnosis is consistent with osteopenia. All bone density values are in grams per centimeter squared (g/cm2). Statistically, 68% of repeat scans fall within 1 SD (+/- 0.010 g/cm2 for AP spine L1-L4) and 1 SD (+/- 0.012 g/cm2 for femur total) FRAX is a trademark of the [employer] [place] for Metabolic Bone Disease, a World Health Organization (WHO) Collaborating Center. Electronically signed by: Shashi Covarrubias MD 10/30/2024 02:27 PM EDT
--- OUTSIDE RECORDS SUMMARY | 2024-10-30 15:11 | XMS_ITS | Clinical Summary ---
Author Organization [facility] Address [address] [place] [address] Phone Care Team Providers Care Edge Dyer Name Role Phone Unavailable Primary Care Provider Unavailabl e Social History Tobacco Use Types Packs/Day Years Used Date Smoking Tobacco: Never Assessed Comments Unknown Sex and Gender Information Value Date Recorded Sex Assigned at Not on file Legal Sex Female 12:21 AM EST Gender Identity Not on file Sexual Orientation Not on file Plan of Treatment Upcoming Encounters Date Type Department Care Team ([facility] Contact Info) Description 12/13/2024 10:45 AM EDT Consult Orthopedic Surgery - [place] [address] [phone] Torsten Leahy, DPM [address] [address] Health Maintenance Due Date Last Done Comments Breast Cancer Screening 1960 DTaP,Tdap,and Td Vaccines (1 - Tdap) 1978 Cervical Cancer Screening: P ap Smear 1980 Pneumococcal Vaccine: 50+ Ye ars (1 of 1 - PCV) 2009 Zoster Vaccines (1 of 2) 2009 COVID-19 Vaccine ( - 2023-2 5 season) 2024 Colorectal Cancer Screening: Colonoscopy 10/05/2024 Depression Screening 10/05/2024 Falls Risk Assessment 10/05/2024 Hepatitis C Screening 10/05/2024 Osteoporosis Screening (Bone Density Screening) 10/05/2024 Social Influencers of Health Screening 10/05/2024 Influenza Vaccine (Season Ended) 2025 RSV Immunization Adult Patie nts (1 - 1-dose 75+ series) 2034 HIB Vaccines Aged Out No longer eligi [...] on patient's age to complete this topic MMR Vaccines Aged Out No longer eligi ble based on patient's age to complete this topic Meningococcal ACWY Vaccine Aged Out N o longer eligible based on patient's age to complete this topic Meningococcal B Vaccine Aged Out No l onger eligible based on patient's age to complete this topic Pneumococcal Vaccine: Pediat rics (0 to 5 Years) and At-Risk Patients (6 to 64 Years) Aged Out No longer eligible b ased on patient's age to complete this topic RSV Immunization Patients Un jordyn 20 months Aged Out No longer eligible b ased on patient's age to complete this topic Varicella Vaccines Aged Out No longer eligible based on patient's age to complete this topic Insurance , Apr [address] [place] [address] MEDICAID - [place] [facility] Member Subscriber Plan / Payer (Ef fective 2022-Present) Name:Renee Sullivanana Relation to Subscriber:Self Name:Celestina Sullivan Payer ID:[id number] Group ID:[id number] Type:Not on file Address: [address] [place] [id number]
== END 2024-10-30 13:33 | disposition home or self-care (01) ==
LOC: HO.MAMMO 13:32
PROVIDERS: PCP Internal Medicine; Visit Provider Advanced Practice Midwife
DX: Z13.820 Encounter for screening for osteoporosis (principal); Z78.0 Asymptomatic menopausal state
CPT/HCPCS: 77080

== ENCOUNTER → 2024-10-30 14:00 | Outpatient (BNV) | payer OTHER, SELFPAY | PROVIDERS: PCP Internal Medicine; Visit Provider Radiology Diagnostic Radiology | DX: E28.39 Other primary ovarian failure (principal) | CPT/HCPCS: 77080 ==

== ENCOUNTER 2024-11-08 11:48 | Outpatient (REF) | payer OTHER, SELFPAY ==
--- NOTE | ~2024-11-08 | MM_ITS ---
EXAMINATION: MM DIAGNOSTIC DIGITAL BREAST TOMOSYNTHESIS, BILATERAL Bilateral Limited ultrasound. CLINICAL INFORMATION: Bilateral breast pain far posterior depth. COMPARISON: Mammography: Comparison is made with relevant prior exams. TECHNIQUE: Digital breast mammography with tomosynthesis is performed in both the craniocaudal and mediolateral oblique views along with computer-aided detection (CAD). FINDINGS: There are scattered areas of fibroglandular density (ACR BI-RADS breast composition Category b). [place] marker upper inner left breast at site of patient's pain without underlying abnormality. The right marker site of patient's pain is off of the breast far posteriorly and not seen on mammography. There are no significant masses, abnormal calcifications, or other abnormalities. Targeted color Doppler ultrasound scanning in the bilateral areas of patient's pain right breast from 6-9 o'clock demonstrates normal follicular breast tissue. Targeted color Doppler ultrasound scanning from 2-4 o'clock in the left breast demonstrates normal follicular breast tissue. There is no sonographic abnormality bilateral breasts and areas of patient's pain. Results are provided to the patient at time of visit by the technologist. MM/MM tomosynthesis diagnostic BI IMPRESSION: No mammographic or sonographic abnormal findings to account for the patient's bilateral breast pain. Recommend clinical evaluation and follow-up. ASSESSMENT: BI-RADS BI-RADS 1 - Negative RECOMMENDATION: 1 year F/U This patient's information was entered into a reminder system with a target due date for their next mammogram. Electronically signed by: Gabbi Herrmann DO 11/08/2024 12:58 PM EDT
--- OUTSIDE RECORDS SUMMARY | 2024-11-08 13:57 | XMS_ITS | Clinical Summary ---
Author Organization [facility] Facility Address [address] [address] Care Team Providers Care Youth Manager Name Role Phone Lisa White MD Primary Care Provider [phone] Allergies Active Allergy Reactions Criticality Noted Date [...] Medicaid [place] Medicare Medicaid [place] Care Teams Youth Manager Relationship Specialty Start Date End Date Lisa White MD [address] [place] [phone] PCP - General 06/09/20
== END 2024-11-08 11:49 | disposition home or self-care (01) ==
LOC: HO.MAMMO 11:48
PROVIDERS: PCP Internal Medicine; Visit Provider Internal Medicine
DX: N64.4 Mastodynia (principal)
CPT/HCPCS: 76642; 77062; 77066

== ENCOUNTER → 2024-11-08 11:53 | Outpatient (BNV) | payer OTHER, SELFPAY | PROVIDERS: PCP Internal Medicine; Visit Provider Internal Medicine | DX: N64.4 Mastodynia (principal) | CPT/HCPCS: 76642; 77066; G0279 ==

== ENCOUNTER 2025-01-03 10:14 | Outpatient (AMB) | payer OTHER, SELFPAY ==
--- NOTE | 2025-01-03 10:15 | MHC.OFFVIS ---
Intake Visit Reasons: 3M follow up Intake Note: Patient is present for 3M F/U Urology Medication:SOLIFENACIN Antibiotic Allergy:SULFA Blood Thinner:NONE Medical Observer Required: No Medical Observer Name: YUDY YEH Allergies Sulfa (Sulfonamide Antibiotics) (SULFA (SULFONAMIDE ANTIBIOTICS)) Allergy (Unknown, Verified 01/03/25 10:48) Unknown Medication List - Last Reconciled 01/03/25 by HELENA Wild- albuterol sulfate 90 mcg/actuation 90 mcg inhalation Q4H PRN blood sugar diagnostic ([facility] Verio test strips) As directed blood-glucose meter ([employer] Verio Flex Meter) As directed buspirone 10 mg PO BID fluticasone propionate 110 mcg/actuation (Flovent HFA) 2 puffs PO BID gabapentin 600 mg PO BID lancets ([employer] Delica Plus Lancet) As directed loratadine 10 mg PO DAILY metformin 500 mg PO DAILY omeprazole 40 mg PO BID plecanatide (Trulance) 3 mg PO DAILY risperidone 0.5 mg PO BEDTIME simethicone (Gas Relief Extra Strength) 125 mg PO DAILY solifenacin 10 mg PO DAILY trazodone 200 mg PO BEDTIME PRN venlafaxine ER 75 mg PO QAM verapamil ER 120 mg PO DAILY HPI Comments Details: Celestina is a 64 year old Cambodian-speaking female patient of Dr. Lainez. She has a past medical history of migraines, IBS, chronic renal insufficiency stage II, PTSD, anxiety, depression, asthma, type 2 diabetes, osteoarthritis, GERD, and urinary incontinence. She is being followed up on today via telehealth for her lower urinary tract symptoms. In discussion with the patient today she reports compliance with VESIcare 10 mg daily in discusses how helpful she feels this has been in irritative symptoms she had been experiencing however she does continue to experience episodes of mixed urinary incontinence. She reports having followed up with uro corporate claims examiner at [facility] and will be undergoing sling procedure February 26. She currently denies any bothersome urinary issues or concerns. She denies hematuria, dysuria, foul smelling urine, changes to urinary stream, flank pain, fever, and or chills. Previous workup has included a renal ultrasound 08/19 noting kidneys within normal limits, no renal calculi visualized. In office cystoscopy with Dr. Jake Fisher 08/19 noted no suspicious bladder lesions were found. Mild trabeculations were noted. In review of patient's chart it appears patient previously trialed Myrbetriq and oxybutynin without improvement. She otherwise offers no other issues or concerns. All questions were answered. [facility] Medical History Migraines IBS (irritable bowel syndrome) Chronic renal insufficiency PTSD (post-traumatic stress disorder) Anxiety Depression Asthma Type 2 diabetes mellitus Osteoarthritis GERD (gastroesophageal reflux disease) Urinary incontinence Urge incontinence Surgical History Hx of arthroscopic knee surgery Hx of cholecystectomy Hx of hemorrhoidectomy History of esophagogastroduodenoscopy (EGD) H/O colonoscopy Family History Father History of intestinal surgery Colon cancer Paternal Uncle Diabetes Paternal Uncle Diabetes Social History Household Members: None Alcohol intake: never Patient Tobacco Use Status: Current everyday Tobacco user Cigarettes Per Day: 5 Current occupational status: disabled 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 Review of Systems Const All systems reviewed & are unremarkable except as noted in HPI and below Physical Exam Const General: cooperative Orientation/consciousness: patient oriented x3 Resp Effort & Inspection: able to speak in complete sentences Neuro General: patient oriented x3 Psych Speech and movement: Clear speech present Attitude: cooperative Thought content: Normal thought content present Insight: Fair insight present (Psych) Judgement: Fair judgement present (Psych) Telehealth Telehealth Telehealth Platform: Telephone Location of provider rendering services: practice address Location of patient: address on file Patient Identification confirmed using: Name, : Yes Telehealth method: voice only Patient verbally consented to treatment: Yes Patient verbally consented to billing insurance company: Yes Patient informed of any privacy concerns related to visit: Yes Minutes spent on Phone/Video with Pt.: 20 Assessment & Plan Assessment & Plan (1) Urge incontinence: Code(s): N39.41 - Urge incontinence Category: Medical (2) OAB (overactive bladder): Code(s): N32.81 - Overactive bladder Category: Medical (3) Nocturia more than twice per night: Code(s): R35.1 - Nocturia Category: Medical (4) AIME (stress urinary incontinence, female): Code(s): N39.3 - Stress incontinence (female) (male) Category: Medical Plan Will continue with surveillance monitoring Continue VESIcare as discussed and prescribed. Continue follow-up with uro corporate claims examiner as planned. She currently denies any bothersome urinary issues or concerns. All questions were answered. Follow-up in 6 months with [facility]; or sooner with any issues, concerns, and or questions. Patient Instructions: The patient had an opportunity to ask questions regarding the treatment plan. All questions were answered. Physical exam, labs, and imaging were discussed and reviewed in detail. As well as risks, benefits, and discussion of treatment choices. No major barriers to understanding were identified. The patient expressed understanding and agreement with the above treatment plan. The patient was made aware they should contact our office by phone for worsening of their current condition, the appearance of new symptoms, or with any questions or concerns. Compliance is encouraged with any medications and follow up testing that is ordered. It is a privilege to be allowed the opportunity to participate in? your urological care.? Again, if you have any questions or concerns If you have any questions or concerns please do not hesitate to contact me. The office is [phone]. This note is constructed using voice recognition software. While every effort has been made to ensure accuracy child nutrition manager errors may have been included. Yours sincerely, ALEISHA Wild Coding Level of Care Code Tele Est Pt Level 3 (47643) Diagnoses Urge incontinence N39.41 OAB (overactive bladder) N32.81 Nocturia more than twice per night R35.1 AIME (stress urinary incontinence, female) N39.3
--- OUTSIDE RECORDS SUMMARY | 2025-01-03 10:44 | XMS_ITS | Clinical Summary ---
Author Organization [facility] Address [address] [place] [address] Phone Care Team Providers Care Validation Leader Name Role Phone Physician, Pcp Unknown Primary Care Provider Asha vailable Encounters Date Type Department Care Team Description 12/13/2024 10:45 AM EDT Consult Orthopedic [place] [address] [phone] Torsten Leahy DPM Diabetic mononeuropathy simplex (CMS/HCC V24, CMS/HCC V28) (Primary Dx); Skin lesion; Verruca plantaris from Last 3 Months Social History Tobacco Use Types Packs/Day Years Used Date Smoking Tobacco: Never Assessed Comments Unknown Sex and Gender Information Value Date Recorded Sex Assigned at Not on file Legal Sex Female 12:21 AM EST Gender Identity Not on file Sexual Orientation Not on file Plan of Treatment Upcoming Encounters Date Type Department Care Team ([facility] st Contact Info) Description 01/31/2025 10:30 AM EDT Office Visit Orthopedic [place] [address] [phone] Torsten Leahy DPM [address] [address] Health Maintenance Due Date Last Done Comments Breast Cancer Screening 1959 Diabetes: Annual Foot Exam 1969 Diabetes: Annual Retina Eye Exam 1969 RSV Immunization Adult Patients (1 - Risk 60-74 years 1-dose series) 2019 COVID-19 Vaccine ( season) 2024 06/02/2021, 08/28/2020, 07/31/2020 Depression Screening 05/30/2024 Diabetes: Annual GFR (Glomerular Filtration Rate) 10/02/2024 10/03/2023 Colorectal Cancer Screening: Colonoscopy 10/05/2024 Falls Risk Assessment 10/05/2024 Hepatitis C Screening 10/05/2024 Medicare Annual Wellness Visit 10/05/2024 Social Influencers of Health Screening 10/05/2024 Diabetes: Annual Urine Albumin-Creatinine Ratio (uACR) 12/13/2024 Hypertension/CHF/CAD Annual BMP Blood Test 12/13/2024 10/03/2023 Pneumococcal Vaccine: 50+ Years (3 of 3 - PCV20 or PCV21) 01/23/2025 01/24/2020, 07/05/2019, 06/03/2011 Influenza Vaccine (#1) 2025 , 05/06/2023, 02/25/2022, Additional history exists Diabetes: Blood Sugar Control Test (HGBA1C) 05/31/2025 11/28/2024, 01/04/2024 DTaP,Tdap,and Td Vaccines (3 - Td or Tdap) 06/01/2026 06/01/2016, 02/04/2003 Cholesterol Screening (Lipid Panel) 12/02/2026 12/02/2021 Cervical Cancer Screening: Pap Smear 09/05/2027 09/04/2024 Osteoporosis Screening (Bone Density Screening) 10/30/2034 10/30/2024 Zoster Vaccines Completed 02/05/2022, 0710/2021, 12/15/2018 HIB Vaccines Aged Out No longer eligi [...] to complete this topic RSV Immunization Patients Under 20 months Aged Out No longer eligible based on patient's age to complete this topic Varicella Vaccines Aged Out No longer eligible based on patient's age to complete this topic Insurance [place] - [place] Member Subscriber Plan / Payer (Ef fective 2024-Present) Name:CELESTINA STEEN Relation to Subscriber:Self Name:Celestina Steen Payer ID:[id number] Group ID:Not on file Type:Not on file Address: [facility] [employer] ATTN:CLAIMS [address] [place] [address] [facility] Member Subscriber Plan / Payer (Ef fective 2022-Present) Name:CELESTINA STEEN Relation to Subscriber:Self Name:Celestina Steen Payer ID:[id number] Group ID:[id number] Type:Not on file Address: [address] [place] [address] [employer] MEDICARE Member Subscriber Plan / Payer ( fective 2022-Present) Name:CELESTINA STEEN Relation to Subscriber:Self Name:Celestina Steen Payer ID:[id number] Group ID:[id number] Type:Not on file Address: [address] [place] [address] Care Teams Validation Leader Relationship Specialty Start Date End Date Physician, Pcp Unknown PCP - General 12/13/24
--- OUTSIDE RECORDS SUMMARY | 2025-01-03 10:44 | XMS_ITS | Encounter Summary ---
Author Organization [employer] Address [address] [place] [address] [address] [place] [address] Care Team Providers Care Cement Fittings Maker Name Role Phone Yajaira Lainez Primary Care Provider [phone] Encounter Details Date Type Department Care Team (Late st Contact Info) Description 06/16/2022 Orders Only [facility] MED & PEDS [address] [place] [address] Francoise Perez LPN Social History Tobacco Use [...] Care Team (Late st Contact Info) Description 02/11/2025 10:00 AM EDT Office Visit [facility] MED & PEDS [address] [place] [address] Yajaira Lainez FNP [address] [place] [address] documented as of this encounter Visit Diagnoses Not on filedocumented in this encounter Care Teams Cement Fittings Maker Relationship Specialty Start Date End Date Yajaira Lainez FNP [address] [place] [address] PCP - General Family Medicine 12/15/21 [facility] 04/23/24 documented as of this encounter
--- OUTSIDE RECORDS SUMMARY | 2025-01-03 10:44 | XMS_ITS | Clinical Summary ---
Author Organization [facility] Address [address] [address] Care Team Providers Care Cut To Length Operator Name Role Phone Lisa White MD Primary Care Provider [phone] Allergies Active Allergy Reactions Criticality Noted Date [...] Colorectal Cancer Screening: Sigmoidoscopy 2008 Influenza Vaccine (#1) 2025 Hepatitis B Vaccine Aged Out No longe r eligible based on patient's age to complete this topic Insurance Medicare Medicaid [place] Care Teams Cut To Length Operator Relationship Specialty Start Date End Date Lisa White MD [address] [place] [address] PCP - General 06/09/20
== END 2025-01-03 11:33 | disposition home or self-care (01) ==
LOC: HO.HUSH 10:14
PROVIDERS: PCP Registered Nurse; Visit Provider Nurse Practitioner Family
DX: N39.41 Urge incontinence (principal); N32.81 Overactive bladder; R35.1 Nocturia; N39.3 Stress incontinence (female) (male)
CPT/HCPCS: 99213

== ENCOUNTER → 2025-01-07 09:41 | Outpatient (BNV) | payer OTHER, SELFPAY | PROVIDERS: PCP Registered Nurse; Visit Provider Radiology Diagnostic Radiology | DX: R41.3 Other amnesia (principal) | CPT/HCPCS: 70551 ==

== ENCOUNTER 2025-01-07 09:46 | Outpatient (REF) | payer OTHER, SELFPAY ==
--- NOTE | ~2025-01-07 | MR_ITS ---
EXAMINATION: MR BRAIN WITHOUT IV CONTRAST HISTORY: amnesia TECHNIQUE: Sagittal T1 and FLAIR, coronal FLAIR, and axial T1, FLAIR, T2, gradient echo, and diffusion weighted MR images of the brain were obtained. COMPARISON: Comparison is made with the prior examination dated 05/28/2021. FINDINGS: The pituitary is normal in size. The cerebellar tonsils are normally located. Again seen are periventricular and subcortical white matter hyperintensities on the FLAIR and T2-weighted images which are nonspecific, but often seen in the setting of small vessel ischemic disease. There is no mass effect or midline shift. The ventricular system is normal in size and configuration. No intra or extra-axial fluid collections are identified. There are no foci of restricted diffusion. Normal vascular flow voids are noted in the basilar and carotid arteries. The visualized paranasal sinuses are clear. MR/MR head/brain wo con IMPRESSION: No acute intracranial abnormality. Electronically signed by: Shashi Covarrubias MD 01/07/2025 10:43 AM EDT
--- OUTSIDE RECORDS SUMMARY | 2025-01-07 10:17 | XMS_ITS | Clinical Summary ---
Author Organization [facility] Address [address] [place] [address] Phone Care Team Providers Care Level Glass Forming Machine Operator Name Role Phone Physician, Pcp Unknown Primary Care Provider Asha vailable Encounters Date Type Department Care Team Description 12/13/2024 10:45 AM EDT Consult Orthopedic [place] [address] [phone] Torsten Leahy DPM Diabetic mononeuropathy [...] Upcoming Encounters Date Type Department Care Team ([facility] st Contact Info) Description 01/31/2025 10:30 AM EDT Office Visit Orthopedic [place] [address] [phone] Torsten Leahy DPM [address] [address] Health Maintenance Due Date Last Done Comments [...] complete this topic Insurance [place] - [place] [facility] Member Subscriber Plan / Payer (Ef fective 2022-Present) Name:CELESTINA STEEN Relation to Subscriber:Self Name:Celestina Steen Payer ID:[id number] Group ID:[id number] Type:Not on file Address: [address] [place] [address] [employer] MEDICARE Member Subscriber Plan / Payer ( fective 2022-Present) Name:CELESTINA STEEN Relation to Subscriber:Self Name:Celestina Steen Payer ID:[id number] Group ID:[id number] Type:Not on file Address: [address] [place] [address] Care Teams Level Glass Forming Machine Operator Relationship Specialty Start Date End Date Physician, Pcp Unknown PCP - General 12/13/24
--- OUTSIDE RECORDS SUMMARY | 2025-01-07 10:17 | XMS_ITS | Encounter Summary ---
Author Organization [employer] Address [address] [place] [address] 7[address] [place] [address] Care Team Providers Care De Icer Installer Name Role Phone Yajaira Lainez Primary Care Provider [phone] Encounter Details Date Type Department Care Team (Late st Contact Info) Description 06/16/2022 Orders Only [facility] MED & PEDS [address] [place] [address] Francoise Perez LPN Social History Tobacco Use [...] Description 02/11/2025 10:00 AM EDT Office Visit [facility] MED [facility] PED[facility] [address] [place] [address] Yajaira Lainez FNP [address] [place] [address] documented as of this encounter Visit Diagnoses Not on filedocumented in this encounter Care Teams De Icer Installer Relationship Specialty Start Date End Date Yajaira Lainez FNP [address] [place] [address] PCP - General Family Medicine 12/15/21 [facility] 04/23/24 documented as of this encounter
--- OUTSIDE RECORDS SUMMARY | 2025-01-07 10:17 | XMS_ITS | Encounter Summary ---
Author Organization [facility] Address [address] [place] [address] Phone Care Team Providers Care Innersole Maker Name Role Phone Yajaira Lainez HELENA Primary Care Provider [phone] Reason for Visit * Reason Onset Date Comments [facility] Call 01/04/2025 Encounter Details Date Type Department Care Team (Late st Contact Info) Description 01/04/2025 Telephone [facility] [address] [place] [address] [phone] Palomo Granados DO [address] [place] [phone] [email or web address] [facility]NA Call Social History Tobacco Use Types Packs/Day Years Used Date Smoking Tobacco: Former Cigarettes 1 15 Smokeless Tobacco: Never Alcohol Use Standard Drinks/Week Comments Never 0 (1 standard drink = 0.6 oz pur e alcohol) Education Answer Date Recorded Are you interested in more education? Not on rolando e 06/29/2023 Are you concerned about learning? Not on file 06/29/2023 No 06/29/2023 No 06/29/2023 Digital Access Answer Date Recorded No 06/29/2023 No 06/29/2023 Reliable internet access at home? Not on file 06/29/2023 Device with a working camera? Not on file Comments Unknown Sex and Gender Information Value Date Recorded Sex Assigned at Not on file Legal Sex Female 12:12 PM EST Gender Identity Not on file Sexual Orientation Not on file documented as of this encounter Progress Notes * Lyndsay Garsia MA - 01/04/2025 2:03 PM EDT STEPHANIE * Clarice Baker - 01/04/2025 1:33 PM EDT PT armandoa Frieda called too update . that pt has been non compliant with metformin PT is also going for a MRI next week as dementia is worsening. FYI Will call back with bs readings. Central Support Councilman (Please do not reply to this user; this inbox is not monitored.) Thank you. documented in this encounter Plan of Treatment Upcoming Encounters Date Type Department Care Team (Late st Contact Info) Description 02/28/2025 11:10 AM EDT Office Visit [facility] [address] [place] [address] Palomo Granados DO [address] [place] [address] [email or web address] documented as of this encounter Visit Diagnoses Not on filedocumented in this encounter Care Teams Innersole Maker Relationship Specialty Start Date End Date Yajaira Lainez FNP [address] [place] [address] PCP - General Nurse Practitioner 08/31/23 documented as of this encounter Additional Source Comments The information contained in this document represents components of the legal health record. It is not the complete legal health record.[facility]
--- OUTSIDE RECORDS SUMMARY | 2025-01-07 10:17 | XMS_ITS | Clinical Summary ---
Author Organization [facility] Address [address] [address] Care Team Providers Care Territory Outside Sales Manager Name Role Phone Lisa White MD Primary Care Provider [phone] Allergies Active Allergy Reactions Criticality Noted Date [...] Medicaid [place] Care Teams Territory Outside Sales Manager Relationship Specialty Start Date End Date Lisa White MD [address] [place] [address] PCP - General 06/09/20
[2025-01-07 10:45] LABS: MANUAL DIFF FLAG NO
[2025-01-07 10:58] LABS: Hematocrit 39.4 % (37.0-47.0); Hemoglobin 12.7 g/dl (12.0-16.0); Imm Gran Abs Auto 0.04 X10*3/uL (0.00-0.03); Imm Gran Pct Auto 0.7 % (0.0-0.4); Lymphocytes Absolute Auto 1.2 X10*3/uL (1.2-4.9); Mean Corpuscular HGB Conc 32.2 g/dl (31.0-35.0); Mean Corpuscular Hemoglobin 31.0 pg (27.0-33.0); Mean Corpuscular Volume 96.1 fL (80.0-98.0); NRBC Abs Auto 0.000 X10*3/uL (0.0-0.012); NRBC Pct Auto 0.0 /100WBC (0.0-0.2); Platelet Count 221 X10*3/uL (160-400); Red Blood Count 4.10 X10*6/uL (4.20-5.50); White Blood Count 5.8 X10*3/uL (4.8-10.8)
[2025-01-07 11:47] LABS: Alanine Aminotransferase 23 U/L (0-31); Albumin Level 4.4 g/dL (3.5-5.0); Alkaline Phosphatase 107 U/L (39-117); Anion Gap 11 (12-20); Aspartate Amino Transferase 25 U/L (5-31); Blood Urea Nitrogen 10 mg/dL (9-16); Calcium 9.2 mg/dL (8.4-10.2); Carbon Dioxide 30 mmol/L (22-29); Chloride 106 mmol/L (96-108); Cholesterol 184 mg/dL (<200); Estimated Glomerular Filt Rate > 60; HDL Cholesterol 45 mg/dL (>40); Potassium 3.8 mmol/L (3.3-5.1); Sodium 143 mmol/L (135-145); Total Protein 7.0 g/dL (6.5-8.0); Triglycerides 127 mg/dL (<150)
[2025-01-07 11:50] LABS: HIV Num 1 0.05 S/CO (0.00-0.99)
[2025-01-07 11:58] LABS: Vitamin B12 178 pg/mL (200-900)
[2025-01-08 16:18] LABS: HCV Log PCR <1.18 NOT DETECTED Log IU/mL (NOT DETECTED); HepC Viral Load <15 NOT DETECTED IU/mL (NOT DETECTED)
== END 2025-01-07 09:47 | disposition home or self-care (01) ==
LOC: HO.MRI 09:46
PROVIDERS: Internal Medicine; PCP Registered Nurse; Visit Provider Registered Nurse
DX: Z00.00 Encounter for general adult medical examination without abnormal findings (principal); R41.3 Other amnesia; E78.2 Mixed hyperlipidemia; E11.649 Type 2 diabetes mellitus with hypoglycemia without coma; Z11.4 Encounter for screening for human immunodeficiency virus [HIV]; Z11.3 Encounter for screening for infections with a predominantly sexual mode of transmission; Z11.59 Encounter for screening for other viral diseases
CPT/HCPCS: 36415; 70551; 80053; 80061; 82043; 82570; 82607; 84443; 85025; 86592; 87389; 87522

== ENCOUNTER 2025-01-29 09:41 | Outpatient (REF) | payer OTHER, SELFPAY ==
--- NOTE | 2025-01-29 09:44 | EMG_ITS ---
Right median and ulnar motor and sensory studies were performed, right radial sensory study was performed, right median and lateral antecubital brachial sensory studies were performed an EMG needle examination was performed. Impression: 1. Mild right median neuropathy across carpal tunnel 2. Mild right ulnar neuropathy across cubital tunnel MTDD
--- OUTSIDE RECORDS SUMMARY | 2025-01-29 10:49 | XMS_ITS | Encounter Summary ---
Author Organization [employer] Address [address] [facility] 7[address] [place] [address] Care Team Providers Care Apprentice Name Role Phone Yajaira Lainez Primary Care Provider Reason for Visit * Reason Onset Date Comments Nurse Triage 11/07/2024 Encounter Details Date Type Department Care Team ([facility] st Contact Info) Description 11/07/2024 Telephone [facility] MEDICINE [address] [place] [address] Yajaira Lainez FNP [address] [place] [address] Nurse Triage Social History Tobacco Use Types Packs/Day Years [...] AM EDT documented as of this encounter Miscellaneous Notes * Telephone Encounter - Nia Chang RN - 11/07/2024 4:59 PM EDT Triage call Pt didn't answer . Left voice message to call the [facility] triage line at [phone] * Telephone Encounter - Kristi Bell - 11/07/2024 4:36 PM EDT Symptoms: Back Pain - Not From Injury, Abdominal Pain - Female - Not Outcome: Schedule an urgent appointment (within 4 hours) or talk to a nurse or provider soon Reason: Started within the past 3 days The caller accepted this outcome. documented in this encounter Plan of Treatment Upcoming Encounters Date Type Department Care Team (Late st Contact Info) Description 02/11/2025 10:00 AM EDT Office Visit [facility] MED & PEDS [address] [place] [address] Yajaira Lainez FNP [address] [place] [address] documented as of this encounter Visit Diagnoses Not on filedocumented in this encounter Additional Health Concerns Assessment Noted Time PHQ-9 Depression Total Score: 16 024 3:03 PM EST documented as of this encounter Care Teams Apprentice Relationship Specialty Start Date End Date Yajaira Lainez FNP [address] [place] [address] PCP - General Family Medicine 12/15/21 [facility] 04/23/24 documented as of this encounter
--- OUTSIDE RECORDS SUMMARY | 2025-01-29 10:49 | XMS_ITS | Encounter Summary ---
Author Organization [employer] Address [address] [facility] [address] [place] [address] Care Team Providers Care Nursing Specialist Name Role Phone Yajaira Lainez Primary Care Provider [phone] Reason for Visit * Reason Comments Med Refill Encounter Details Date Type Department Care Team ([facility] Contact Info) Description 01/01/2023 Refill [facility] [address] [place], [place] [phone] Yajaira Lainez FNP [address] [place], [place] [phone] Social History Tobacco Use Types Packs/Day Years [...] Upcoming Encounters Date Type Department Care Team ([facility] Contact Info) Description 02/11/2025 10:00 AM EDT Office Visit [facility] MED & PEDS [address] [place], [place] [phone] Yajaira Lainez FNP [address] [place], [place] [phone] documented as of this encounter Visit Diagnoses Not on filedocumented in this encounter Care Teams Nursing Specialist Relationship Specialty Start Date End Date Yajaira Lainez FNP [address] [place] [address] PCP - General Family Medicine 12/15/21 [facility] 04/23/24 documented as of this encounter
--- OUTSIDE RECORDS SUMMARY | 2025-01-29 10:49 | XMS_ITS | Clinical Summary ---
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 01/07/25 Loc: HO.MRI Attending Dr: Yajaira MALIK Ordering Physician: Yajaira Lainez Date of Service: 01/07/25 Procedure(s): MR head/brain wo con Accession Number(s): [id number] cc: Yajaira Lainez EXAMINATION: MR BRAIN WITHOUT IV CONTRAST HISTORY: amnesia TECHNIQUE: Sagittal T1 and FLAIR, coronal FLAIR, and axial T1, FLAIR, T2, gradient echo, and diffusion weighted MR images of the brain were obtained. COMPARISON: Comparison is made with the prior examination dated 05/28/2021. FINDINGS: The pituitary is normal in size. The cerebellar tonsils are normally located. Again seen are periventricular and subcortical white matter hyperintensities on the FLAIR and T2-weighted images which are nonspecific, but often seen in the setting of small vessel ischemic disease. There is no mass effect or midline shift. The ventricular system is normal in size and configuration. No intra or extra-axial fluid collections are identified. There are no foci of restricted diffusion. Normal vascular flow voids are noted in the basilar and carotid arteries. The visualized paranasal sinuses are clear. MR/MR head/brain wo con IMPRESSION: No acute intracranial abnormality. Electronically signed by: Shashi Covarrubias MD 01/07/2025 10:43 AM EDT Dictated By: Shashi Covarrubias MD Signed By: <Electronically signed by Shashi Covarrubias MD in OV> 01/07/25 1043 DD/ TD/TT: 01/07/25 1025 Senior Data Modeler: Procedure Note Donotuseinterpreter, Image - 01/07/[address] [address] Magnetic Resonance Report Signed Patient: Celestina SullivanMR#: [id number] 0 : 1960cct:[id number] Age/Sex: 64 / FADM Date: 01/07/25 Loc: HO.MRI Attending Dr: Yajaira MALIK Ordering Physician: Yajaira Lainez Date of Service: 01/07/25 Procedure(s): MR head/brain wo con Accession Number(s): [id number] cc: Yajaira Lainez EXAMINATION: MR BRAIN WITHOUT IV CONTRAST HISTORY: amnesia TECHNIQUE: Sagittal T1 and FLAIR, coronal FLAIR, and axial T1, FLAIR, T2, gradient echo, and diffusion weighted MR images of the brain were obtained. COMPARISON: Comparison is made with the prior examination dated 05/28/2021. FINDINGS: The pituitary is normal in size. The cerebellar tonsils are normally located. Again seen are periventricular and subcortical white matter hyperintensities on the FLAIR and T2-weighted images which are nonspecific, but often seen in the setting of small vessel ischemic disease. There is no mass effect or midline shift. The ventricular system is normal in size and configuration. No intra or extra-axial fluid collections are identified. There are no foci of restricted diffusion. Normal vascular flow voids are noted in the basilar and carotid arteries. The visualized paranasal sinuses are clear. MR/MR head/brain wo con IMPRESSION: No acute intracranial abnormality. Electronically signed by: Shashi Covarrubias MD 01/07/2025 10:43 AM EDT Dictated By: Shashi Covarrubias MD Signed By: <Electronically signed by Shashi Covarrubias MD in OV> 01/07/25 104 DD/ TD/TT: 01/07/25 1025 Senior Data Modeler: us Yajaira Lainez DENTAL BILLING SPECIALIST IMG MRI PROCEDURES Final Resul t * (ABNORMAL) POCT HGB A1C (11/28/2024 11:52 AM EDT) Hemoglobin A1C 6.4(A) 4.0 - 5.7 % QC Media Lot # [id number] Lot# Expiration Date Blood 11/28/2024 11:5 2 AM EDT us Yajaira Phaldevyn DENTAL BILLING SPECIALIST POINT OF CARE TEST ENTER/EDIT ORDERABLES Final Result * POCT Glucose (11/28/2024 11:42 AM EDT) Glucose Blood, POC 172 60 - 200 mg/dL QC Media Lot # [id number] Lot# Expiration Date Blood Capillary blood specimen / Unknown 11/28/2024 11:42 AM EDT us Yajaira Phalen DENTAL BILLING SPECIALIST POINT OF CARE TEST ENTER/EDIT ORDERABLES Final Result * BI US Breast Limited Bilateral (11/08/2024 12:00 PM EDT) Anatomical Region Laterality Modality Breast Bilateral Ultrasound 11/08/2024 12:0 0 PM EDT Narrative 11/08/2024 1:01 PM EDT [facility] [address] [place] [address] Ultrasound Report Signed Patient: Celestina Sullivan MR#: [id number] 0 : 1960 Acct:[id number] Age/Sex: 64 / F ADM Date: 11/08/24 Loc: HO.MAMMO Attending Dr: Tyler Ortiz MD Ordering Physician: Tyler Ortiz MD Date of Service: 11/08/24 Procedure(s): US breast BI limited mamm only Accession Number(s): [id number] cc: Tyler Ortiz MD EXAMINATION: MM DIAGNOSTIC DIGITAL BREAST TOMOSYNTHESIS, BILATERAL Bilateral Limited ultrasound. CLINICAL INFORMATION: Bilateral breast pain far posterior depth. COMPARISON: Mammography: Comparison is made with relevant prior exams. TECHNIQUE: Digital breast mammography with tomosynthesis is performed in both the craniocaudal and mediolateral oblique views along with computer-aided detection (CAD). FINDINGS: There are scattered areas of fibroglandular density (ACR BI-RADS breast composition Category b). [place] marker upper inner left breast at site of patient's pain without underlying abnormality. The right marker site of patient's pain is off of the breast far posteriorly and not seen on mammography. There are no significant masses, abnormal calcifications, or other abnormalities. Targeted color Doppler ultrasound scanning in the bilateral areas of patient's pain right breast from 6-9 o'clock demonstrates normal follicular breast tissue. Targeted color Doppler ultrasound scanning from 2-4 o'clock in the left breast demonstrates normal follicular breast tissue. There is no sonographic abnormality bilateral breasts and areas of patient's pain. Results are provided to the patient at time of visit by the technologist. US/US breast BI limited mamm only IMPRESSION: No mammographic or sonographic abnormal findings to account for the patient's bilateral breast pain. Recommend clinical evaluation and follow-up. ASSESSMENT: BI-RADS BI-RADS 1 - Negative RECOMMENDATION: 1 year F/U This patient's information was entered into a reminder system with a target due date for their next mammogram. Electronically signed by: Gabbi Herrmann DO 11/08/2024 12:58 PM EDT Dictated By: Gabbi Herrmann DO Signed By: <Electronically signed by Gabbi Herrmann DO in OV> 11/08/24 1258 DD/ 1200 TD/TT: 11/08/24 1222 Senior Data Modeler: Procedure Note Donotuseinterpreter, Image - 11/08/2024 [facility] [address] [place] [address] Ultrasound Report Signed Patient: Celestina Sullivan#: [id number] 0 : 9Acct:[id number] Age/Sex: 64 / FADM Date: 11/08/24 Loc: HO.MAMMO Attending Dr: Tyler Ortiz MD Ordering Physician: Tyler Ortiz MD Date of Service: 11/08/24 Procedure(s): US breast BI limited mamm only Accession Number(s): [id number] cc: Tyler Ortiz MD EXAMINATION: MM DIAGNOSTIC DIGITAL BREAST TOMOSYNTHESIS, BILATERAL Bilateral Limited ultrasound. CLINICAL INFORMATION: Bilateral breast pain far posterior depth. COMPARISON: Mammography: Comparison is made with relevant prior exams. TECHNIQUE: Digital breast mammography with tomosynthesis is performed in both the craniocaudal and mediolateral oblique views along with computer-aided detection (CAD). FINDINGS: There are scattered areas of fibroglandular density (ACR BI-RADS breast composition Category b). [place] marker upper inner left breast at site of patient's pain without underlying abnormality. The right marker site of patient's pain is off of the breast far posteriorly and not seen on mammography. There are no significant masses, abnormal calcifications, or other abnormalities. Targeted color Doppler ultrasound scanning in the bilateral areas of patient's pain right breast from 6-9 o'clock demonstrates normal follicular breast tissue. Targeted color Doppler ultrasound scanning from 2-4 o'clock in the left breast demonstrates normal follicular breast tissue. There is no sonographic abnormality bilateral breasts and areas of patient's pain. Results are provided to the patient at time of visit by the technologist. US/US breast BI limited mamm only IMPRESSION: No mammographic or sonographic abnormal findings to account for the patient's bilateral breast pain. Recommend clinical evaluation and follow-up. ASSESSMENT: BI-RADS BI-RADS 1 - Negative RECOMMENDATION: 1 year F/U This patient's information was entered into a reminder system with a target due date for their next mammogram. Electronically signed by: Gabbi Herrmann DO 11/08/2024 12:58 PM EDT Dictated By: Gabbi Herrmann DO Signed By: <Electronically signed by Gabbi Herrmann DO in OV> 11/08/24 1258 DD/ 1200 TD/TT: 11/08/24 1222 Senior Data Modeler: us Tyler Ortiz MD IMG US PROCEDURES Edited Re sult - Final * BI Mammogram Diagnostic Tomosynthesis Bilateral (11/08/2024 12:00 PM EDT) Anatomical Region Laterality Modality Breast Bilateral Mammography 11/08/2024 12:0 0 PM EDT Narrative 11/08/2024 1:01 PM EDT [facility] [address] [place] [address] Mammography Report Signed Patient: Celestina Sullivan MR#: [id number] 0 : 1960 Acct:[id number] Age/Sex: 64 / F ADM Date: 11/08/24 Loc: HO.MAMMO Attending Dr: Tyler Ortiz MD Ordering Physician: ELISABETH FAN CNM Results: 1 Negative Date of Service: 11/08/24 Follow Up: 1 Year From Orig ina Mammogram Procedure(s): MM tomosynthesis diagnostic BI Accession Number(s): [id number] cc: Tyler Ortiz MD; ELISABETH FAN CNM EXAMINATION: MM DIAGNOSTIC DIGITAL BREAST TOMOSYNTHESIS, BILATERAL Bilateral Limited ultrasound. CLINICAL INFORMATION: Bilateral breast pain far posterior depth. COMPARISON: Mammography: Comparison is made with relevant prior exams. TECHNIQUE: Digital breast mammography with tomosynthesis is performed in both the craniocaudal and mediolateral oblique views along with computer-aided detection (CAD). FINDINGS: There are scattered areas of fibroglandular density (ACR BI-RADS breast composition Category b). [place] marker upper inner left breast at site of patient's pain without underlying abnormality. The right marker site of patient's pain is off of the breast far posteriorly and not seen on mammography. There are no significant masses, abnormal calcifications, or other abnormalities. Targeted color Doppler ultrasound scanning in the bilateral areas of patient's pain right breast from 6-9 o'clock demonstrates normal follicular breast tissue. Targeted color Doppler ultrasound scanning from 2-4 o'clock in the left breast demonstrates normal follicular breast tissue. There is no sonographic abnormality bilateral breasts and areas of patient's pain. Results are provided to the patient at time of visit by the technologist. MM/MM tomosynthesis diagnostic BI IMPRESSION: No mammographic or sonographic abnormal findings to account for the patient's bilateral breast pain. Recommend clinical evaluation and follow-up. ASSESSMENT: BI-RADS BI-RADS 1 - Negative RECOMMENDATION: 1 year F/U This patient's information was entered into a reminder system with a target due date for their next mammogram. Electronically signed by: Gabbi Herrmann DO 11/08/2024 12:58 PM EDT Dictated By: Gabbi Herrmann DO Signed By: <Electronically signed by Gabbi Herrmann DO in OV> 11/08/24 1258 DD/ 1200 TD/TT: 11/08/24 1222 Senior Data Modeler: Procedure Note Donotuseinterpreter, Image - 11/08/2024 [facility] [address] [place] [address] Mammography Report Signed Patient: Celestina SullivanMR#: [id number] 0 : 9Acct:[id number] Age/Sex: 64 / FADM Date: 11/08/24 Loc: HO.MAMMO Attending Dr: Tyler Ortiz MD Ordering Physician: ELISABETH FANesults: 1 Negative Date of Service: 11/08/24Follow Up: 1 Year From [facility] Mammogram Procedure(s): MM tomosynthesis diagnostic BI Accession Number(s): [id number] cc: Tyler Ortiz MD; ELISABETH FAN CNM EXAMINATION: MM DIAGNOSTIC DIGITAL BREAST TOMOSYNTHESIS, BILATERAL Bilateral Limited ultrasound. CLINICAL INFORMATION: Bilateral breast pain far posterior depth. COMPARISON: Mammography: Comparison is made with relevant prior exams. TECHNIQUE: Digital breast mammography with tomosynthesis is performed in both the craniocaudal and mediolateral oblique views along with computer-aided detection (CAD). FINDINGS: There are scattered areas of fibroglandular density (ACR BI-RADS breast composition Category b). [place] marker upper inner left breast at site of patient's pain without underlying abnormality. The right marker site of patient's pain is off of the breast far posteriorly and not seen on mammography. There are no significant masses, abnormal calcifications, or other abnormalities. Targeted color Doppler ultrasound scanning in the bilateral areas of patient's pain right breast from 6-9 o'clock demonstrates normal follicular breast tissue. Targeted color Doppler ultrasound scanning from 2-4 o'clock in the left breast demonstrates normal follicular breast tissue. There is no sonographic abnormality bilateral breasts and areas of patient's pain. Results are provided to the patient at time of visit by the technologist. MM/MM tomosynthesis diagnostic BI IMPRESSION: No mammographic or sonographic abnormal findings to account for the patient's bilateral breast pain. Recommend clinical evaluation and follow-up. ASSESSMENT: BI-RADS BI-RADS 1 - Negative RECOMMENDATION: 1 year F/U This patient's information was entered into a reminder system with a target due date for their next mammogram. Electronically signed by: Gabbi Herrmann DO 11/08/2024 12:58 PM EDT Dictated By: Gabbi Herrmann DO Signed By: <Electronically signed by Gabbi Herrmann DO in OV> 11/08/24 1258 DD/ 1200 TD/TT: 11/08/24 1222 Senior Data Modeler: Elisabeth Fan CNM IMG BI PROCEDURES Edited Result - Final * BD DEXA Axial (10/30/2024 1:45 PM EDT) Anatomical Region Laterality Modality Body Radiographic Bouchra ging 10/30/2024 1:45 PM EDT Narrative 10/30/2024 2:30 PM EDT [facility] [address] [place] [address] [place] [address] Mammography Report Signed Patient: Celestina Sullivan MR#: [id number] 0 : 1960 Acct:[id number] Age/Sex: 64 / F ADM Date: 10/30/24 Loc: HO.MAMMO Attending Dr: Elisabeth Fan CNM Ordering Physician: ELISABETH FAN CNM Results: Date of Service: 10/30/24 Follow Up: Procedure(s): XR DEXA axial skeleton Accession Number(s): [id number] cc: Tyler Ortiz MD; ELISABETH FAN CNM EXAMINATION: DXA BONE DENSITY AXIAL HISTORY: N95.9 TECHNIQUE: Askem Dual energy absorptiometry (DEXA) of the lumbar spine, total left hip, and femoral neck was performed. COMPARISON: Comparison is made with the prior examination dated 03/13/2010. FINDINGS: The bone mineral density of the lumbar spine is 1.090, corresponding to a T-score of -0.7, and a Z-score of 0.6. This is indicative of normal bone mineral density. This represents a BMD change of -5.5% compared to the prior exam. This is statistically significant. The bone mineral density of the left total hip is 0.897, corresponding to a T-score of -0.9, and a Z-score of 0.1. This is indicative of normal bone mineral density. This represents a BMD change of -7.6% compared to the prior exam. This is statistically significant. The bone mineral density of the left femoral neck is 0.770, corresponding to a T-score of -1.9, and a Z-score of -0.7. This is indicative of osteopenia.- This represents a BMD change of 7.7% compared to the prior exam. FRACTURE RISK: The FRAX index suggests a ten year probability of major osteoporotic fracture of 9.5%, and of hip fracture 2.2%. MM/XR DEXA axial skeleton IMPRESSION: Based on bone mineral density, and according to World Health Organization (WHO) criteria, the diagnosis is consistent with osteopenia. All bone density values are in grams per centimeter squared (g/cm2). Statistically, 68% of repeat scans fall within 1 SD (+/- 0.010 g/cm2 for AP spine L1-L4) and 1 SD (+/- 0.012 g/cm2 for femur total) FRAX is a trademark of the [employer] [place] for Metabolic Bone Disease, a World Health Organization (WHO) Collaborating Center. Electronically signed by: Shashi Covarrubias MD 10/30/2024 02:27 PM EDT RP Dictated By: Shashi Covarrubias MD Signed By: <Electronically signed by Shashi Covarrubias MD in OV> 10/30/24 1427 DD/ 1345 TD/TT: 10/30/24 1412 Senior Data Modeler: Procedure Note Donotuseinterpreter, Image - 10/30/2024 [place] [facility] [address] [place] [address] Mammography Report Signed Patient: Sundeep Sullivan#: [id number] 0 : 1960cct:[id number] Age/Sex: 64 / FADM Date: 10/30/24 Loc: MAMMO Attending Dr: Elisabeth Fan CNM Ordering Physician: ELISABETH FANesults: Date of Service: 10/30/24Follow Up: Procedure(s): XR DEXA axial skeleton Accession Number(s): [id number] cc: Tyler Ortiz MD; ELISABETH FAN CNM EXAMINATION: DXA BONE DENSITY AXIAL HISTORY: N95.9 TECHNIQUE: Askem Dual energy absorptiometry (DEXA) of the lumbar spine, total left hip, and femoral neck was performed. COMPARISON: Comparison is made with the prior examination dated 03/13/2010. FINDINGS: The bone mineral density of the lumbar spine is 1.090, corresponding to a T-score of -0.7, and a Z-score of 0.6. This is indicative of normal bone mineral density. This represents a BMD change of -5.5% compared to the prior exam. This is statistically significant. The bone mineral density of the left total hip is 0.897, corresponding to a T-score of -0.9, and a Z-score of 0.1. This is indicative of normal bone mineral density. This represents a BMD change of -7.6% compared to the prior exam. This is statistically significant. The bone mineral density of the left femoral neck is 0.770, corresponding to a T-score of -1.9, and a Z-score of -0.7. This is indicative of osteopenia.- This represents a BMD change of 7.7% compared to the prior exam. FRACTURE RISK: The FRAX index suggests a ten year probability of major osteoporotic fracture of 9.5%, and of hip fracture 2.2%. MM/XR DEXA axial skeleton IMPRESSION: Based on bone mineral density, and according to World Health Organization (WHO) criteria, the diagnosis is consistent with osteopenia. All bone density values are in grams per centimeter squared (g/cm2). Statistically, 68% of repeat scans fall within 1 SD (+/- 0.010 g/cm2 for AP spine L1-L4) and 1 SD (+/- 0.012 g/cm2 for femur total) FRAX is a trademark of the [employer] for Metabolic Bone Disease, a World Health Organization (WHO) Collaborating Center. Electronically signed by: Shashi Covarrubias MD 10/30/2024 02:27 PM EDT RP Dictated By: Shashi Covarrubias MD Signed By: <Electronically signed by Shashi Covarrubias MD in OV> 10/30/24 1427 DD/ 1345 TD/TT: 10/30/24 1412 Senior Data Modeler: Elisabeth Fan [facility] DXA PROCEDURES Final Result * (ABNORMAL) HPV DNA, Low/High Risk (09/04/2024 12:00 AM EDT) HPV High Risk Positive(A) Negative [facility] HPV Genotype 16 Negative Negative [facility] HPV Genotype 18 Negative Negative [facility] Comment:HPV testing performe d at [facility] (CLIA#[id number]), [address] [place] [address].Testing for HPV was performed using the [employer]system. The presence of HPV in the female [...] Elisabeth Fan CNM LAB BLOOD ORDERABLES Melany l Result [facility] [address] [place] [phone] * Pap Smear (09/04/2024 12:00 AM EDT) Swab Cervix uteri structure / Unknown 09/04/2024 09/05/2024 6:00 AM EDT [facility] - 09/09/2024 10:37 AM EDT ----- ------- Name: Celestina Sullivan Age/Sex: 64/F : 1960 Unit#: [id number] Attend Dr: ELISABETH FAN CNM Re09/04/24 Status: DEP [facility] Disch: ----- ------- SPEC : [id number] RECD: 09/05/24 STATUS: LESLIE OZUNA NUM: [id number] SHAHAB: 09/04/24-[address]: ELISABETH FAN CNM ENTERED: 09/05/24 SP TYPE: Pap Smr OTHR DR: ORDERED: Pap Smear, PAP path review Interpretation General Category: Negative for intraepithelial lesion/malignancy. Adequacy: No endocervical component present. Interpretation: Inflammation with associated cellular changes. HPV High Risk: Positive HPV Genotyping 16: Negative HPV Genotyping 18: Negative Clinical Information LMP:post menopausal Previous PAP test:2019 NIL/HPV neg Material Received ThinPrep-Cervical ----- ------- Signed (signature on file) Gee Chaparro MD 09/09/24 1037 ----- ------- END OF REPORT Elisabeth Fan CNM LAB CYTOLOGY ORDERABLES F inal Result [facility] [address] [place] [phone] * Referral to Ophthalmology (03/13/2024) Sol Harrell OD OUTPATIENT REFERRAL ORDERABLE S Final Result * Hm Colonoscopy (01/17/2019) Colonoscopy Normal Normal Narrative Rosi Fernandez - 01/17/2019 Repeat in 10 years us Historical Provider MD HEALTH MAINTENANCE Final Result from Last 3 Months or Most Recently Relevant to Health Maintenance Insurance [facility] [address] [id number] [address] [place] [place] [id number] 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
--- OUTSIDE RECORDS SUMMARY | 2025-01-29 10:49 | XMS_ITS | Encounter Summary ---
Author Organization [employer] Address [address] [place] [address] 7t [place] [address] Care Team Providers Care Weapons System Instrument Mechanic Name Role Phone Yajaira Lainez Primary Care Provider [phone] Encounter Details Date Type Department Care Team (Late st Contact Info) Description 06/16/2022 Orders Only [facility] [address] [place] [address] Francoise Perez LPN Social History Tobacco Use [...] Description 02/11/2025 10:00 AM EDT Office Visit [facility] [address] [place] [address] Yajaira Lainez FNP 505 [place] [address] documented as of this encounter Visit Diagnoses Not on filedocumented in this encounter Care Teams Weapons System Instrument Mechanic Relationship Specialty Start Date End Date Yajaira Lainez FNP [address] [place] [address] PCP - General Family Medicine 12/15/21 [facility] 04/23/24 documented as of this encounter
--- OUTSIDE RECORDS SUMMARY | 2025-01-29 10:49 | XMS_ITS | Encounter Summary ---
Author Organization [employer] Address [address] [facility] 7t [place] [address] Care Team Providers Care Chief Of Harbor Patrol Name Role Phone Yajaira Lainez Primary Care Provider [phone] Reason for Visit * Reason Comments Med Refill Encounter Details Date Type Department Care Team (Late st Contact Info) Description 01/25/2025 Refill [facility] MED[facility] [address] [place] [address] Yajaira Lainez FNP [address] [place], [place] [phone] Social History Tobacco Use Types Packs/Day Years Used Date Smoking Tobacco: Every Day Cigarettes Passive Smoke Exposure: Current Smokeless Tobacco: Never Alcohol Use Standard Drinks/Week [...] Upcoming Encounters Date Type Department Care Team ([facility] st Contact Info) Description 02/11/2025 10:00 AM EDT Office Visit [facility] MED & PEDS [address] [place] [address] Yajaira Lainez FNP [address] [place] [address] documented as of this encounter Visit Diagnoses Not on filedocumented in this encounter Additional Health Concerns Assessment Noted Time PHQ-9 Depression Total Score: 16 024 3:03 PM EST documented as of this encounter Care Teams Chief Of Harbor Patrol Relationship Specialty Start Date End Date Yajaira Lainez FNP [address] [place] [address] PCP - General Family Medicine 12/15/21 [facility] 04/23/24 documented as of this encounter
--- OUTSIDE RECORDS SUMMARY | 2025-01-29 10:49 | XMS_ITS | Encounter Summary ---
Author Organization [facility] Address [address] [place] [address] Phone Care Team Providers Care Mine Inspector Federal Name Role Phone Yajaira Lainez HELENA Primary Care Provider Reason for Visit * Reason Onset Date Comments [facility] Call 01/04/2025 Encounter Details Date Type Department Care Team (Late st Contact Info) Description 01/04/2025 Telephone [facility] [address] [place] [address] [phone] Palomo Granados DO [address] [place] [address] [email or web address] Call Social History Tobacco Use Types [...] call back with bs readings. Central Support Director Risk (Please do not reply to this user; this inbox is not monitored.) Thank you. documented in this encounter Plan of Treatment Upcoming Encounters Date Type Department Care Team (Late st Contact Info) Description 02/28/2025 11:10 AM EDT Office Visit [facility] [address] [place] [address] Palomo Granados DO [address] [place] [address] [email or web address] documented as of this encounter Visit Diagnoses Not on filedocumented in this encounter Care Teams Mine Inspector Federal Relationship Specialty Start Date End Date Yajaira Lainez FNP [address] [place] [address] PCP - General Nurse Practitioner 08/31/23 documented as of this encounter Additional Source Comments The information contained in this document represents components of the legal health record. It is not the complete legal health record.[facility]
--- OUTSIDE RECORDS SUMMARY | 2025-01-29 10:49 | XMS_ITS | Encounter Summary ---
Author Organization [employer] Address [address] [facility] [address] 7t [place] [address] Care Team Providers Care Caretaker Grounds Name Role Phone Yajaira Lainez HELENA Primary Care Provider [phone] Encounter Details Date Type Department Care Team (Late st Contact Info) Description 04/14/2023 Abstract [facility] MEDICINE [address] [place], [place] [phone] Rosi Fernandez Social History Tobacco Use Types [...] 02/11/2025 10:00 AM EDT Office Visit [facility] [address] [place] [address] Yajaira Lainez FNP [address] [place] [address] documented as of this encounter Procedures Procedure [...] documented as of this encounter Care Teams Caretaker Grounds Relationship Specialty Start Date End Date Yajaira Lainez FNP [address] [place] [address] PCP - General Family Medicine 12/15/21 [facility] 04/23/24 documented as of this encounter
--- OUTSIDE RECORDS SUMMARY | 2025-01-29 10:49 | XMS_ITS | Encounter Summary ---
Author Organization [employer] Address [address] [facility] 7t [place] [address] Care Team Providers Care Flour Blender Name Role Phone Yajaira Lainez Primary Care Provider [phone] Reason for Visit * Reason Comments Med Refill Encounter Details Date Type Department Care Team (Late st Contact Info) Description 12/16/2023 Refill [facility] MEDICINE [address] [place] [address] Yajaira Lainez FNP [address] [place], [place] [phone] Pain Social History Tobacco Use Types Packs/Day [...] Description 02/11/2025 10:00 AM EDT Office Visit [facility] MED & PEDS 505 [place], [place] [phone] Yajaira Lainez FNP 505 [place] [address] documented as of this encounter Visit Diagnoses Diagnosis Pain Generalized pain documented in this encounter Additional Health Concerns Assessment Noted Time PHQ-9 Depression Total Score: 0 01/15/20 23 3:37 PM EDT documented as of this encounter Care Teams Flour Blender Relationship Specialty Start Date End Date Yajaira Lainez FNP [address] [place] [address] PCP - General Family Medicine 12/15/21 [facility] 04/23/24 documented as of this encounter
--- OUTSIDE RECORDS SUMMARY | 2025-01-29 10:49 | XMS_ITS | Clinical Summary ---
Author Organization [facility] Address 175 [place] [address] Phone Care Team Providers Care Imaging Center Manager Name Role Phone Physician, Pcp Unknown Primary Care Provider Asha vailable Encounters Date Type Department Care Team Description 12/13/2024 10:45 AM EDT Consult [facility] [place] [address] [address] Torsten Leahy DPM Diabetic mononeuropathy [...] Upcoming Encounters Date Type Department Care Team ([facility] st Contact Info) Description 01/31/2025 10:30 AM EDT Office Visit [facility] [place] [address] [address] Torsten Leahy DPM [address] [address] Health Maintenance Due Date Last Done Comments Breast Cancer Screening 1959 Diabetes: Annual Foot Exam 1969 Diabetes: Annual Retina Eye Exam 1969 RSV Immunization Adult Patients (1 - Risk 60-74 years 1-dose series) 2019 Depression Screening 05/30/2024 Diabetes: Annual GFR (Glomerular [...] PCV21) 01/23/2025 01/24/2020, 07/05/2019, 06/03/2011 COVID-19 Vaccine (4 - season) 2025 06/02/2021, 08/28/2020, 07/31/2020 Influenza Vaccine (#1) 2025 , 05/06/2023, 02/25/2022, [...] complete this topic Insurance [place]ICAID - [place] [facility] Member Subscriber Plan / Payer ( fective 2022-Present) Name:CELESTINA STEEN Relation to Subscriber:Self Name:Celestina Steen Payer ID:[id number] Group ID:[id number] Type:Not on file Address: [address] [place] [address] [employer] MEDICARE Member Subscriber Plan / Payer ( fective 2022-Present) Name:CELESTINA STEEN Relation to Subscriber:Self Name:Celestina Steen Payer ID:[id number] Group ID:[id number] Type:Not on file Address: [address] [place] [address] Care Teams Imaging Center Manager Relationship Specialty Start Date End Date Physician, Pcp Unknown PCP - General 12/13/24
--- OUTSIDE RECORDS SUMMARY | 2025-01-29 10:49 | XMS_ITS | Clinical Summary ---
Author Organization [facility] Address [address] [address] Care Team Providers Care Banquet Pilot Name Role Phone Lisa White MD Primary Care Provider [phone] Allergies Active Allergy Reactions Criticality Noted Date [...] Medicaid [place] Medicare Medicaid [place] Care Teams Banquet Pilot Relationship Specialty Start Date End Date Lisa White MD [address] [place] [address] PCP - General 06/09/20
--- OUTSIDE RECORDS SUMMARY | 2025-01-29 10:49 | XMS_ITS | Encounter Summary ---
Author Organization [employer] Address [address] [place] [address] 7t [place] [address] Care Team Providers Care Hand Hardener Name Role Phone Yajaira Lainez Primary Care Provider [phone] Encounter Details Date Type Department Care Team ([facility] Contact Info) Description 11/08/2022 Abstract [facility] MEDIC[facility] [address] [place] [address] Yajaira Lainez FNP [address] [place], [place] [phone] Social History Tobacco Use Types Packs/Day Years [...] Department Care Team (Late Contact Info) Description 02/11/2025 10:00 AM EDT Office Visit [facility] [address] [place], [place] [phone] Yajaira Lainez FNP 505 [place] [address] documented as of this encounter Visit Diagnoses Not on filedocumented in this encounter Care Teams Hand Hardener Relationship Specialty Start Date End Date Yajaira Lainez FNP [address] [place] [address] PCP - General Family Medicine 12/15/21 [facility] 04/23/24 documented as of this encounter
--- OUTSIDE RECORDS SUMMARY | 2025-01-29 10:49 | XMS_ITS | Encounter Summary ---
Author Organization [employer] Address [address] [facility] 7t [place] [address] Care Team Providers Care Correctional Case Manager Name Role Phone Yajaira Lainez Primary Care Provider [phone] Encounter Details Date Type Department Care Team ([facility] Contact Info) Description 07/29/2022 Orders Only [facility] MEDICINE [address] [place], [place] [phone] Yajaira Laniez FNP [address] [place], [place] [phone] Social History Tobacco Use Types Packs/Day Years [...] Upcoming Encounters Date Type Department Care Team ([facility] Contact Info) Description 02/11/2025 10:00 AM EDT Office Visit [facility] [address] [place], [place] [phone] Yajaira Lainez FNP [address] [place], [place] [phone] documented as of this encounter Visit Diagnoses Not on filedocumented in this encounter Care Teams Correctional Case Manager Relationship Specialty Start Date End Date Yajaira Lainez FNP [address] [place] [address] PCP - General Family Medicine 12/15/21 [facility] 04/23/24 documented as of this encounter
--- OUTSIDE RECORDS SUMMARY | 2025-01-29 10:49 | XMS_ITS | Encounter Summary ---
Author Organization [employer] Address [address] [facility] 7t [place] [address] Care Team Providers Care Test Hole Driller Name Role Phone Yajaira Lainez Primary Care Provider [phone] Reason for Visit * Reason Comments Med Refill Encounter Details Date Type Department Care Team (Late st Contact Info) Description 07/28/2023 Refill [facility] MEDICINE 230 [place] [address] Yajaira Lainez FNP [address] [place], [place] [phone] Social History Tobacco Use Types Packs/Day Years [...] 10:00 AM EDT Office Visit [facility] MED & PEDS 505 [place] [address] Yajaira Lainez FNP 505 [place] [address] documented as of this encounter Visit Diagnoses Not on filedocumented in this encounter Additional Health Concerns Assessment Noted Time PHQ-9 Depression Total Score: 0 01/15/20 23 3:37 PM EDT documented as of this encounter Care Teams Test Hole Driller Relationship Specialty Start Date End Date Yajaira Lainez FNP [address] [place] [address] PCP - General Family Medicine 12/15/21 [facility] 04/23/24 documented as of this encounter
--- OUTSIDE RECORDS SUMMARY | 2025-01-29 10:49 | XMS_ITS | Clinical Summary ---
Author Organization [facility] Address [address] [place] [address] Phone Care Team Providers Care Group Managing Director Name Role Phone Yajaira Lainez HELENA Primary Care Provider Allergies No known active allergies Medications albuterol 90 mcg/actuation inhaler Take 2 puffs by mouth every 4 (four) hours as needed. 10/07/19 23 Active albuterol 2.5 mg /3 mL (0.083 %) nebulizer solution USE 1 VIAL IN NEBULIZER EVERY 4 TO 6 HOURS - and as needed 12/09/19 23 Active verapamiL (CALAN-SR) 120 MG CR tablet Take 120 mg by mouth every morning. 08/11/19 24 Active traZODone (DESYREL) 100 MG tablet Take 100 mg by mouth nightly at bedtime. Active tiZANidine (ZANAFLEX) 2 MG tablet Take by mouth every 6 (six) hours as needed. 07/13/19 24 Active SUMAtriptan (IMITREX) 25 MG tablet Take 25 mg by mouth. Active busPIRone (BUSPAR) 10 MG tablet Take 10 mg by mouth 2 (two) times a day. Active baclofen (LIORESAL) 10 MG tablet Take 10 mg by mouth 2 (two) times a day. Active fluticasone propionate (FLOVENT HFA) 110 mcg/actuation inhaler Inhale 2 puffs into the lungs 2 (two) times a day. 07/26/19 23 Active gabapentin (NEURONTIN) 600 MG tablet Take 600 mg by mouth 2 (two) times a day. Active hydrOXYzine (ATARAX) 25 MG tablet Take 50 mg by mouth 2 (two) times a day as needed. Active LINZESS 290 mcg Cap capsule Take 1 capsule by mouth every morning. 09/02/19 24 Active loratadine (CLARITIN) 10 mg tablet TAKE 1 TABLET BY MOUTH ONCE DAILY IN THE MORNING NEEDED FOR ALLERGIES Active nicotine (NICODERM CQ) 14 mg/24 hr Apply 1 patch on the skin (one) time each day at the same time x 6 weeks. 05/06/20 23 Active omeprazole (PRILOSEC) 40 MG capsule Take 40 mg by mouth 2 (two) times a day. Active ondansetron (ZOFRAN-ODT) 4 MG disintegrating tablet DISSOLVE 1 TABLET ON TONGUE EVERY 8 HOURS NEEDED FOR NAUSEA AND VOMITING 07/01/19 24 Active ONETOUCH DELICA PLUS LANCET 33 gauge MiscIndications:Ty pe 2 diabetes mellitus with diabetic polyneuropathy, without long-term current use of insulin Inject 1 each into the skin 3 (three) times a day before meals. 400 each 3 10/03/19 24 Active ALCOHOL PREP PADS PadMIndications:Ty pe 2 diabetes mellitus with diabetic polyneuropathy, without long-term current use of insulin Apply 1 Swab topically 3 (three) times a day. 400 each 3 10/03/19 24 Active venlafaxine (EFFEXOR-XR) 75 MG 24 hr capsule Take 75 mg by mouth every morning. Active venlafaxine (EFFEXOR-XR) 150 MG 24 hr capsule Take 150 mg by mouth daily. Active sucralfate (CARAFATE) 100 mg/mL suspension Take 10 mL by mouth daily. 01/02/20 24 Active solifenacin (VESICARE) 10 MG tablet Take 10 mg by mouth daily. Active risperiDONE (RISPERDAL) 0.5 MG tablet Take 0.5 mg by mouth nightly at bedtime. Active TRULANCE 3 mg tablet Take 1 tablet by mouth every morning. 01/02/20 24 Active ondansetron (ZOFRAN) 4 MG tablet Take 4 mg by mouth every 8 (eight) hours as needed. 11/15/19 24 Active meclizine (ANTIVERT) 12.5 mg tablet Take 12.5 mg by mouth 3 (three) times a day as needed. Active ibuprofen (ADVIL,MOTRIN) 600 MG tablet TAKE 1 TABLET BY MOUTH EVERY 6 HOURS WITH FOOD NEEDED FOR PAIN 12/20/19 24 Active amLODIPine (NORVASC) 5 MG tablet Take 1 tablet by mouth every morning. 08/16/19 25 Active bromfenac (BROMDAY) 0.09 % ophthalmic solution 08/25/19 25 Active clotrimazole (LOTRIMIN) 1 % cream APPLY 1/2 GRAM TOPICALLY TO AFFECTED AREA(S) TWICE DAILY FOR 28 DAYS Active ketorolac (ACULAR) 0.5 % ophthalmic solution 08/25/19 25 Active metFORMIN (GLUCOPHAGE-XR) 500 MG 24 hr tabletIndications: Type 2 diabetes mellitus with diabetic polyneuropathy, without long-term current use of insulin Take 1 tablet (500 mg total) by mouth daily with dinner. 90 tablet 1 08/30/19 25 Active ONETOUCH VERIO Strp stripsIndications: Type 2 diabetes mellitus with diabetic polyneuropathy, without long-term current use of insulin 1 each by Miscellaneous route 3 (three) times a day before meals. 400 strip 3 08/30/19 Active Active Problems Problem Noted Date Diagnosed Date Type 2 diabetes mellitus wit h diabetic polyneuropathy, without long-term current use of insulin 10/03/2023 Assessment & Plan (08/29/2024 3:04 PM EDT): Controlled based on hemoglobin A1c of 6.5%. But she states that she has highs and lows and has the same symptoms. If she skips meals sometimes it makes her feel poorly. She does not know whether a low glucose or high glucose level is for her. She states that she does not check the glucose levels or self that the nurse checks it. But at the same time she tells me that she checks her glucose 3 times a day but based on the meter download she is only checking once a day. Then she gave me the meter for me to review and it only shows once a day monitoring. But she swears that she is checking it 3 times a day I do not know what to say. At this point if she is symptomatic and she is having low glucose then she does not need to take metformin and she can just continue diet and exercise. But then she states that she has also has elevated glucose levels is really hard for me to say how she should manage herself when she is somewhat contradictory. So at this point I will say she should just continue the metformin and not skip meals and she needs to learn more about what her numbers mean. She also states that she has a problem with her ear and she may be experiencing vertigo so it may not be related to her glucose at all. Assessment & Plan (01/04/2024 2:15 PM EDT): Based on hemoglobin A1c she is controlled 5.9% and she may actually be having hypoglycemia but this may be due to prolonging times before meals. At the same time she states that she has elevated glucose levels. But I suspect she may be checking after eating. She was advised not to check glucose unless it is 2 hours after meal and primarily she should check before the meals. I asked her to bring in her meter on the next visit and also to bring in the log sheet she should be checking glucose fasting and a second alternating between lunch, dinner, bedtime. But she needs to improve her diet in general. She needs to see a dietitian I suggest that she go to [facility] and see registered dietitian Lani Winston. Assessment & Plan (10/03/2023 2:36 PM EDT): Appears to be controlled based on hemoglobin A1c of 6.4%. Unfortunately she complains of neuropathic pain which seems to be disproportionate to her glycemic control. I suspect that this is not necessarily fully diabetes. She informs me that she has seen a neurologist. Continues on gabapentin 600 mg twice a day but finds it is insufficient. I will suggest that she continue following with neurology for management of neuropathic pain. As for diabetes she states that her glucose levels can be quite variable and may wake up with elevated fasting glucose levels. Unfortunately she did not bring in her meter and she is monitoring 3 times a day that must be a lot of information that we can review. So for now I just have to go by the hemoglobin A1c. She needs to repeat all lab work because what I saw was from 2021. She will benefit from seeing motor vehicle parts interpreter for nutrition counseling for diabetes. We do not have Guyanese-speaking dietitian in this office. So I asked her to speak to her primary regarding a [place]yanese-speaking motor vehicle parts interpreter near her. In the meantime she should continue metformin at the current dose. She should follow in 3 months time. Encounters Date Type Department Care Team Description 01/04/2025 Telephone [facility] [address] [place] [address] Palomo Granados DO [facility] Call from Last 3 Months Family History Medical History Relation Comments Cancer Father Diabetes Mother Kidney disease Mother Relation Status Comments Father Mother Social History Tobacco Use Types Packs/Day Years Used Date Smoking Tobacco: Former Cigarettes 1 15 Smokeless Tobacco: Never Tobacco Cessation:Counseling Given: Not Answered Alcohol Use Standard Drinks/Week [...] Sign Reading Time Taken Comments Blood Pressure 115/60 08/29/2024 2:19 PM EDT Pulse 70 08/29/2024 2:19 PM EDT Temperature - - Respiratory Rate - - Oxygen Saturation 98% 08/29/2024 2:19 PM EDT Inhaled Oxygen Concentration - - Weight 72.8 kg (160 lb 6.4 oz) 08/29/2024 2:19 P M EDT Height 145.8 cm (4' 9.4 ) 01/04/2024 1:20 PM EDT Body Mass Index 34.23 01/04/2024 1:20 PM EDT Plan of Treatment Upcoming Encounters Date Type Department Care Team (Late st Contact Info) Description 02/28/2025 11:10 AM EDT Office Visit [facility] [address] [place] [address] Palomo Granados DO [address] [place] [phone] [email or web address] Health Maintenance Due Date Last Done Comments DEPRESSION SCREENING 1971 SMOKING Hx and SMOKELESS TOBACCO SCREENING 1972 HEPATITIS C SCREENING 1977 HIV ONE-TIME SCREENING (18-65 YEARS) 1977 COLOGUARD 2004 COLONOSCOPY 2004 COLORECTAL CANCER SCREENING 2004 FIT TEST 2004 FOBT 2004 SIGMOIDOSCOPY 2004 VIRTUAL COLONOSCOPY 2004 ZOSTER VACCINES (1 of 2) 2009 RSV VACCINE (1 - Risk 60-74 years 1-dose series) 2019 PNEUMOCOCCAL VACCINES (50+ years) (2 of 2 - PCV) 07/05/2020 07/05/2019, 06/03/2011 LIPID PANEL 12/02/2022 12/02/2021 DIABETIC EYE EXAM 10/03/2023 URINE MICROALBUMIN/CREATININE RATIO 10/03/2023 COVID-19 VACCINE ( - season) 2024 OSTEOPOROSIS SCREENING INITIAL (ONE-TIME) 2024 CREATININE LEVEL 10/02/2024 10/03/2023 HEMOGLOBIN A1C 11/05/2024 05/07/2024, 08/0 11/2023, 11/15/2023, Additional history exists INFLUENZA VACCINE (#1) 2024 MAMMOGRAM 01/07/2025 01/07/2023, 12/27/2018 BLOOD PRESSURE 02/28/2025 08/29/2024 Adult Td,Tdap Booster 06/01/2026 06/01/2016 HEPATITIS A VACCINES Aged Out No long er eligible based on patient's age to complete this topic HIB VACCINES Aged Out No longer eligi ble based on patient's age to complete this topic MENINGOCOCCAL VACCINES (ACWY) Aged Out No longer eligible based on patient's age to complete this topic MENINGOCOCCAL VACCINES (B) Aged Out N o longer eligible based on patient's age to complete this topic Medical Devices Not on file Procedures Procedure Name Priority Date/Time Associated Diagnosis Comments POCT HEMOGLOBIN A1C Routine 01/04/2024 1 :35 PM EDT Type 2 diabetes mellitus with diabetic polyneuropathy, without long-term current use of insulin COMPREHENSIVE METABOLIC PANEL Routine 10/03/2023 2:46 PM EDT Type 2 diabetes mellitus with diabetic polyneuropathy, without long-term current use of insulin from Last 3 Months or Most Recently Relevant to Health Maintenance Results * (ABNORMAL) POCT Hemoglobin A1c (01/04/2024 1:35 PM EDT) Hemoglobin A1c 5.9(A) 4.2 - 5.8 % Other 01/04/2024 1:35 PM EDT Palomo Granados DO POINT OF CARE TEST ORDERABLES Fi nal Result * Comprehensive metabolic panel (10/03/2023 2:46 PM EDT) SODIUM 142 133 - 146 mmol/L [facility] POTASSIUM 4.3 3.3 - 5.1 mmol/L [facility] CHLORIDE 104 96 - 108 mmol/L [facility] CO2 27 21 - 35 mmol/L [facility] BUN 10 6 - 19 mg/dL [facility] CREATININE 0.80 0.5 - 1.5 mg/dL [facility] GLUCOSE 90 70 - 99 mg/dL [facility] ALBUMIN 4.3 3.9 - 4.8 g/dL [facility] TOTAL PROTEIN 7.4 6.5 - 8.0 g/dL [facility] CALCIUM 9.4 8.4 - 10.3 mg/dL [facility] ALKALINE PHOSPHATASE 108 39 - 117 U/L [facility] TOTAL BILIRUBIN <0.2 0.0 - 1.2 mg/dL [facility] AST 36 0 - 37 U/L [facility] ALT 24 0 - 40 U/L [facility] GLOBULIN 3.1 1 - 4.8 g/dL [facility] EGFR 82 >59 mL/min/1.7 3m2 [facility] Comment:Estimated glomerular filtration rate calculated using the CKD-EPI refit equation. ANION GAP 15 10 - 20 mmol/L [facility] Blood 10/03/2023 2:46 PM EDT 10/03/2023 2:50 PM EDT Palomo Granados DO LAB BLOOD ORDERABLES Final Resul t [facility] [address] [place] [address] from Last 3 Months or Most Recently Relevant to Health Maintenance Insurance ONE CARE MEDICARE REPLACEMENT [place] [address] MEDICARE PART A & B [place] [address] MEDICARE PART A & B [facility] MEDICARE REPLACEMENT MEDICARE PART A & B [facility] MEDICARE REPLACEMENT MEDICARE PART A & B Member Subscriber Plan / Payer ( fective 2019-Present) Name:Celestina Sullivan Member ID:[id number] Relation to Subscriber:Self Name:Celestina Sullivan Subscriber ID:[id number] Payer ID:[id number] Group ID:Not on file Type:Medicare Address: [employer] [address] [place] [address] MEDICARE PART A & B [address] [place] [phone] [employer] ONE CARE MEDICARE REPLACEMENT MEDICARE PART A & B Care Teams Group Managing Director Relationship Specialty Start Date End Date Yajaira Lainez FNP [address] [place] [id number] PCP - General Nurse Practitioner 08/31/23 Additional Source Comments The information contained in this document represents components of the legal health record. It is not the complete legal health record.[facility]
== END 2025-01-29 09:42 | disposition home or self-care (01) ==
LOC: HO.NEURO 09:41
PROVIDERS: PCP Registered Nurse; Visit Provider Registered Nurse
DX: R20.0 Anesthesia of skin (principal); R20.2 Paresthesia of skin
CPT/HCPCS: 95886; 95910

== ENCOUNTER → 2025-01-29 09:44 | Outpatient (BNV) | payer OTHER, SELFPAY | PROVIDERS: PCP Registered Nurse; Visit Provider Psychiatry & Neurology Neurology | DX: G56.01 Carpal tunnel syndrome, right upper limb (principal); G56.21 Lesion of ulnar nerve, right upper limb | CPT/HCPCS: 95886; 95909 ==

== ENCOUNTER 2025-03-25 16:34 | Outpatient (REF) | payer OTHER, SELFPAY ==
--- OUTSIDE RECORDS SUMMARY | 2025-03-25 13:20 | XMS_ITS | Encounter Summary ---
Author Organization [employer] Address [address] [place] [address] Care Team Providers Care Vice President Of Consulting Services Name Role Phone Yajaira Lainez SUPERVISING BAILIFF Primary Care Provider Torsten Leahy DPM Unavailable [phone] Tana Grider TISSUE RECOVERY TECHNICIAN Unavailable Reason for Visit * Reason Comments Chills Fatigue Difficulty Urinating Cough Encounter Details Date Type Department Care Team ([facility] st Contact Info) Description 03/25/2025 1:20 PM EDT Office Visit [facility] [address] [place], [place] [phone] Name, MD Griffin [address] [place], [place] [phone] Urinary tract infection with hematuria, site unspecified (Primary Dx); Cough, unspecified type; Chills Social History Tobacco Use Types Packs/Day Years Used Date Smoking Tobacco: Every Day Cigarettes Passive Smoke Exposure: Current Smokeless Tobacco: Never Tobacco Cessation:Ready to Q uit: Not Asked; Counseling Given: Not Answered Alcohol Use Standard Drinks/Week Comments Never 0 (1 standard drink = 0.6 oz pur e alcohol) Depression Answer Date Recorded Patient Health Questionnaire-9 Score 8 02/11/2025 Patient Health Questionnaire-9 Score 8 02/11/2025 Last PHQ-9: Questionnaire Data Not on file 0 02/11/2025 Housing Stability Answer Date Recorded What is [...] Answer Date Recorded Patient Health Questionnaire-2 Score 2 02/11/2025 Internet Access Answer Date Recorded Internet Access Q1 Yes 05/07/2024 Internet Access Q2 Not on file 05/07/2024 Comments Unknown Sex and Gender Information Value Date Recorded Sex Assigned at Female 03/29/2022 10:17 AM EDT Legal Sex Female 10:17 AM EDT Gender Identity Female 03/29/2022 10:17 AM EDT Sexual Orientation Straight 03/29/2022 10 :17 AM EDT documented as of this encounter Last Filed Vital Signs Vital Sign Reading Time Taken Comments Blood Pressure 135/79 03/25/2025 1:22 PM EDT Pulse 99 03/25/2025 1:22 PM EDT Temperature 36.5 C (97.7 F) 03/25/2025 1:22 PM EDT Respiratory Rate 12 03/25/2025 1:22 PM EDT Oxygen Saturation 96% 03/25/2025 1:22 PM EDT Inhaled Oxygen Concentration - - Weight 71.1 kg (156 lb 12.8 oz) 03/25/2025 1:22 PM EDT Height 147.3 cm (4' 10 ) 03/25/2025 1:22 PM EDT Body Mass Index 32.77 03/25/2025 1:22 PM EDT documented in this encounter Progress Notes * Griffin Vera MD - 03/25/2025 1:20 PM EDT Subjective Patient ID: Celestina Sullivan is a 64 y.o. female who presents for Chills, Fatigue, Difficulty Urinating, and Cough. Patient comes accompanied by her daughter for multiple symptoms. She describes chills, headaches, dysuria, CV angle discomfort and occasional cough for the past week. Her daughter explains to me thatrandy had a bladder surgery on February 26. She has a history of UTIs in the past. She is allergic to Bactrim. She is prescribed Risperdal by her psychiatrist. Review of Systems Constitutional: Positive for chills and fatigue. Negative for fever. HENT: Negative for sore throat. Respiratory: Positive for cough. Negative for shortness of breath and wheezing. Cardiovascular: Negative for chest pain, palpitations and leg swelling. Gastrointestinal: Negative for abdominal pain. Genitourinary: Positive for dysuria. See HPI Objective Vitals: 03/25/25 1322 BP: 135/79 BP Location: Left arm Patient Position: Sitting BP Cuff Size: Adult Pulse: 99 Resp: 12 Temp: 97.7 ??F (36.5 ??C) TempSrc: Temporal SpO2: 96% Weight: 156 lb 12.8 oz (71.1 kg) Height: 4' 10 (1.473 m) Physical Exam Constitutional: Appearance: Normal appearance. Cardiovascular: Rate and Rhythm: Normal rate and regular rhythm. Heart sounds: No murmur heard. No gallop. Pulmonary: Effort: Pulmonary effort is normal. No respiratory distress. Breath sounds: Normal breath sounds. No wheezing. Neurological: Mental Status: She is alert. Latest Reference Range & Units 03/25/25 13:31 Rapid Strep A Screen Negative, None Detected Negative Color, UA Dark Stephanie Specific [place], UA 1.010 pH, UA 7.0 Ketones, UA Negative Protein, UA Trace Nitrite, UA Negative, None Detected Positive ! RBC, UA Negative, None Detected Positive ! Clarity, UA Cloudy Glucose, UA Negative Leukocytes, UA Negative, Rare, Trace Trace Bilirubin UA Negative Urobilinogen, UA 0.2 Influenza A Negative, Indeterminate Negative Influenza B Negative, Indeterminate Negative Appearance, UA cloudy !: Data is abnormal Assessment/Plan Diagnoses and all orders for this visit: Urinary tract infection with hematuria, site unspecified Comments: Patient lung exam is unremarkable. She tested negative for COVID, flu and strep. Patient has symptoms and urine dipstick consistent with UTI. I am concerned about complicated UTI given her chills, fatigue, CV angle discomfort, history of bladder surgery. I recommended to drink plenty of fluids, rest, acetaminophen as needed, 7-day course of cefixime, she is recommended to contact her urologist call or come back if she does not feel much better in the next 48 hours. Orders: - POCT Urinalysis Cough, unspecified type - POCT Rapid Covid-19 BinaxNOW - POCT Rapid Influenza A CARDENAS ID NOW - POCT Rapid Influenza B CARDENAS ID NOW - POCT Rapid Strep A CARDENAS ID NOW Chills Other orders - cefixime (Suprax) capsule; Take 1 capsule (400 mg) by mouth Once per day for 7 days. Future Appointments Date Time Provider Department Center 05/27/2025 11:15 AM HELENA Giron [facility] 06/28/2025 1:30 PM Aileen Marx [facility] documented in this encounter Miscellaneous Notes * Addendum Note - Karen Ellington MA - 03/25/2025 1:20 PM EDTAddended by: KAREN ELLINGTON on: 03/25/2025 02:00 PM Modules accepted: Orders documented in this encounter Plan of Treatment Upcoming Encounters Date Type Department Care Team (Late st Contact Info) Description 05/27/2025 11:15 AM EST Office Visit [facility] [address] [place] [address] Yajaira Lainez FNP [address] [place] [address] 06/28/2025 1:30 PM EST Office Visit [facility] [address] [place] [address] Aileen Marx [address] [place] [address] Pending Results Name Type Priority Associated Diagnoses Date /Time Urinalysis, Complete, with Reflex to Culture Lab Routine Urinary tract infection with hematuria, site unspecified 03/25/2025 12:00 AM EDT documented as of this encounter Procedures Procedure Name Priority Date/Time Associated Diagnosis Comments POCT RAPID COVID ANTIGEN Routine 03/25/2025 1:50 PM EDT Cough, unspecified type POCT INFLUENZA B (ID NOW RAPID MOLECULAR) Routine 03/25/2025 1:31 PM EDT Cough, unspecified type POCT INFLUENZA A (ID NOW RAPID MOLECULAR) Routine 03/25/2025 1:31 PM EDT Cough, unspecified type POC CARDENAS ID NOW STREP A Routine 03/25/2025 1:31 PM EDT Cough, unspecified type POCT URINALYSIS DIPSTICK Routine 03/25/2025 1:31 PM EDT Urinary tract infection with hematuria, site unspecified URINALYSIS, COMPLETE, WITH REFLEX TO CULTURE Routine 03/25/2025 12:00 AM EDT Urinary tract infection with hematuria, site unspecified documented in this encounter Results * POCT Rapid Covid-19 BinaxNOW (03/25/2025 1:50 PM EDT) Rapid COVID Ag Negative QC Media Lot # [id number] Lot# Expiration Date [id number] Swab 03/25/2025 1:50 PM EDT Griffin Name POINT OF CARE TEST ENTER/EDIT OR DERABLES Final Result * (ABNORMAL) POCT Urinalysis (03/25/2025 1:31 PM EDT) Color, UA Dark Stephanie Clarity, UA Cloudy Glucose, UA Negative Bilirubin, UA Negative Ketones, UA Negative Spec Grav, UA 1.010 Blood, UA Positive(A) Negative, None Detected Comment:small pH, UA 7.0 Protein, UA Trace Comment:30mg/dL Urobilinogen, UA 0.2 Leukocytes, UA Trace Negative, Rare, Trace Comment:large Nitrite, UA Positive(A) Negative, None Detected Appearance, UA cloudy QC Media Lot # [id number] Lot# Expiration Date 63,026 Urine (Urine, Random) 03/25/2025 1:31 PM EDT us Griffin Vera MD POINT OF CARE TEST ENTER/EDIT OR DERABLES Final Result * POCT Rapid Strep A CARDENAS ID NOW (03/25/2025 1:31 PM EDT) Rapid Strep A Screen Negative Negative, None Detected QC Media Lot # [id number] Lot# Expiration Date Swab 03/25/2025 1:31 PM EDT us Griffin Vera MD POINT OF CARE TEST ENTER/EDIT OR DERABLES Final Result * POCT Rapid Influenza B CARDENAS ID NOW (03/25/2025 1:31 PM EDT) Influenza B Negative Negative, Indeterminate [facility] QC Media Lot # [id number] [facility] Lot# Expiration Date [facility] Swab 03/25/2025 1:31 PM EDT us Griffin Vera MD POINT OF CARE TEST ENTER/EDIT OR DERABLES Final Result Performing Organization Address [facility]/ZIP Co de Phone Number [facility] [address] [place] [phone] * POCT Rapid Influenza A CARDENAS ID NOW (03/25/2025 1:31 PM EDT) Influenza A Negative Negative, Indeterminate [facility] QC Media Lot # [id number] [facility] Lot# Expiration Date [facility] Swab 03/25/2025 1:31 PM EDT us Griffin Vera MD POINT OF CARE TEST ENTER/EDIT OR DERABLES Final Result Performing Organization Address City/[facility]/ZIP Co de Phone Number [facility] [address] [place] [phone] documented in this encounter Visit Diagnoses Diagnosis Urinary tract infection with hematuria, site unspecified- Primary Cough, unspecified type Chills Chills (without fever) documented in this encounter Additional Health Concerns Assessment Noted Time PHQ-9 Depression Total Score: 8 02/12/20 25 10:08 AM EDT documented as of this encounter Care Teams Vice President Of Consulting Services Relationship Specialty Start Date End Date Yajaira Lainez FNP [address] [place] [address] PCP - General Family Medicine 12/15/21 Torsten Leahy DPM [address] [facility] [address] [place] [address] Podiatry 02/12/25 Tana Grider NP [address] [place] [address] Urology 02/12/25 [facility] 04/23/24 documented as of this encounter
[2025-03-25 17:50] LABS: Appearance Urine Turbid; Glucose Urine UA Negative (Negative); PH 7.0 (5.0-9.0); Specific Gravity - Urine 1.010 (1.005-1.025); UMIC TRIGGER UACC YES
--- OUTSIDE RECORDS SUMMARY | 2025-03-25 19:16 | XMS_ITS | Encounter Summary ---
Author Organization [facility] Address [address] [place] [address] Phone Care Team Providers Care Side Laster Staple Name Role Phone Yajaira Lainez HELENA Primary Care Provider [phone] Reason for Visit * Reason Onset Date Comments VNA Call 01/04/2025 Encounter Details Date Type Department Care Team (Late st Contact Info) Description 01/04/2025 Telephone [facility] [address] [place] [address] [phone] Palomo Granados DO [address] [place] [phone] [email or web address] Call Social History Tobacco Use Types [...] call back with bs readings. Central Support Radio Broadcaster (Please do not reply to this user; this inbox is not monitored.) Thank you. documented in this encounter Plan of Treatment Upcoming Encounters Date Type Department Care Team (Late st Contact Info) Description 06/13/2025 12:10 PM EST Office Visit [facility] [address] [place] [phone] Palomo Granados DO [address] [place] [phone] [email or web address] documented as of this encounter Visit Diagnoses Not on filedocumented in this encounter Care Teams Side Laster Staple Relationship Specialty Start Date End Date Yajaira Lainez FNP [address] [place] [address] PCP - General Nurse Practitioner 08/31/23 documented as of this encounter Additional Source Comments The information contained in this document represents components of the legal health record. It is not the complete legal health record.[facility]
--- OUTSIDE RECORDS SUMMARY | 2025-03-25 19:16 | XMS_ITS | Encounter Summary ---
Author Organization [employer] Address [address] [place] [address] [address] [place] [address] Care Team Providers Care Grinder Mill Operator Name Role Phone Yajaira Lainez Primary Care Provider [phone] Torsten Leahy DPM Unavailable [phone] Tana Grider LABORER Unavailable Encounter Details Date Type Department Care Team (Late st Contact Info) Description 06/16/2022 Orders Only [facility] MED & PEDS [address] [place] [address] Francoise Perez LPN Social History Tobacco Use [...] Description 05/27/2025 11:15 AM EST Office Visit [facility] [address] [place], [place] [phone] Yajaira Lainez FNP [address] [place] [address] 06/28/2025 1:30 PM EST Office Visit [facility] ADULT DENTAL [address] [place], [place] [phone] Aileen Marx [address] [place] [address] documented as of this encounter Visit Diagnoses Not on filedocumented in this encounter Care Teams Grinder Mill Operator Relationship Specialty Start Date End Date Yajaira Lainez FNP [address] [place] [address] PCP - General Family Medicine 12/15/21 Torsten Leahy DPM [address] [facility] [address] [place] [address] Podiatry 02/12/25 Tana Grider NP [address] [facility] [address] [place] [address] Urology 02/12/25 [facility] Care 04/23/24 documented as of this encounter
--- OUTSIDE RECORDS SUMMARY | 2025-03-25 19:16 | XMS_ITS | Clinical Summary ---
Author Organization [facility] Facility Address [address] [address] Care Team Providers Care Wharf Labourer Name Role Phone Lisa White MD Primary Care Provider [phone] Allergies Active Allergy Reactions Criticality Noted Date [...] Medicaid [place] Medicare Medicaid [place] Care Teams Wharf Labourer Relationship Specialty Start Date End Date Lisa White MD [address] [place] [address] PCP - General 06/09/20
--- OUTSIDE RECORDS SUMMARY | 2025-03-25 19:17 | XMS_ITS | Encounter Summary ---
Author Organization [employer] Address [address] 7[address] [place] [address] Care Team Providers Care Marine Safety Officer Name Role Phone Yajaira Lainez PRE K SPECIAL EDUCATION TEACHER Primary Care Provider [phone] Torsten Leahy DPM Unavailable [phone] Tana Grider BARREL HEADER Unavailable Encounter Details Date Type Department Care Team (Late st Contact Info) Description 04/14/2023 Abstract [facility] MEDICINE [address] [place] [address] Rosi Fernandez Social History Tobacco Use Types [...] the past 12 months, has t he [employer], gas, oil or water company threatened to [...] Description 05/27/2025 11:15 AM EST Office Visit [facility] MED & PEDS [address] [place], [place] [phone] Yajaira Lainez FNP [address] [place] [address] 06/28/2025 1:30 PM EST Office Visit [facility] ADULT DENTAL [address] [place] [address] Francisco J, Aileen [address] [place] [address] documented as of this encounter Procedures Procedure Name Priority Date/Time Associated Diagnosis Comments COLONOSCOPY Routine 01/17/2019 documented in this encounter Results * Colonoscopy (01/17/2019) Colonoscopy Normal Normal Narrative Rosi Fernandez - 01/17/2019 Repeat in 10 years us Historical Provider HEALTH MAINTENANCE Final Result documented in this encounter Visit Diagnoses Not on filedocumented in this encounter Additional Health Concerns Assessment Noted Time PHQ-9 Depression Total Score: 0 01/15/20 23 3:37 PM EDT documented as of this encounter Care Teams Marine Safety Officer Relationship Specialty Start Date End Date Yajaira Lainez FNP [address] [place] [address] PCP - General Family Medicine 12/15/21 Torsten Leahy DPM [address] [place] [address] [place] [address] Podiatry 02/12/25 Tana Grider NP [address] [place] [address] Urology 02/12/25 [facility] 04/23/24 documented as of this encounter
--- OUTSIDE RECORDS SUMMARY | 2025-03-25 19:17 | XMS_ITS | Clinical Summary ---
Author Organization [address] [facility] Address [address] [place] [address] Phone Care Team Providers Care Harness Inspector Name Role Phone Physician, Pcp Unknown Primary Care Provider Asha vailable Allergies Active Allergy Reactions Criticality Noted Date Comments Sulfa (Sulfonamide Antibiotics) Other 09/2020 Medications acetaminophen (TYLENOL) 500 mg capsule Take by mouth. Activ e albuterol 2.5 mg /3 mL (0.083 %) nebulizer solution USE 1 VIAL IN NEBULIZER EVERY 4 TO 6 HOURS - and as needed 12/09/19 23 Active Alcohol Prep Pads pads, medicated Apply 1 Swab topically 3 times daily. 10/03/19 24 Active amLODIPine (NORVASC) 5 mg tablet Take 1 tablet (5 mg total) by mouth 1 (one) time each day. Active ammonium lactate (LAC-HYDRIN) 12 % lotion APPLY TO THE AFFECTED AREA(S) 4 GRAMS TWICE DAILY IN THE MORNING AND AT BEDTIME NEEDED FOR DRY SKIN Active amoxicillin (AMOXIL) 500 mg capsule Take 1 capsule (500 mg total) by mouth every 8 (eight) hours. for 7 days 10/30/19 25 Active aspirin-acetaminop hen-caffeine (EXCEDRIN MIGRAINE) 250-250-65 mg per tablet Take 1 tablet by mouth every 6 hours as needed. Active azithromycin (ZITHROMAX) 250 mg tablet TAKE 2 TABLETS BY MOUTH TODAY, THEN TAKE 1 TABLET DAILY FOR 4 DAYS DIRECTED 02/10/20 24 Active baclofen (LIORESAL) 10 mg tablet Take 1 tablet (10 mg total) by mouth 2 times daily. Active bisacodyL (Dulcolax, bisacodyl,) 5 mg EC tablet Take 1 tablet (5 mg total) by mouth. 11/05/19 20 Active blood sugar diagnostic (OneTouch Verio test strips) test strip USE DIRECTED TO TEST BLOOD SUGAR THREE TIMES DAILY BEFORE MEALS Active bromfenac (XIBROM) 0.09 % ophthalmic solution INSTILL 1 DROP INTO THE AFFECTED EYE(S) EVERY DAY Active busPIRone (BUSPAR) 10 mg tablet Take 1 tablet (10 mg total) by mouth 2 (two) times a day. Active clotrimazole (LOTRIMIN) 1 % cream APPLY 1/2 GRAM TOPICALLY TO AFFECTED AREA(S) TWICE DAILY FOR 28 DAYS Active cyanocobalamin (VITAMIN B-12) 1,000 mcg tablet Take 1 tablet (1,000 mcg total) by mouth 1 (one) time each day. 01/18/20 25 Active diclofenac sodium 3 % gel APPLY BY TOPICAL ROUTE 2 TIMES EVERY DAY TO LESION AREAS 10/04/19 Active docusate sodium (COLACE) 100 mg capsule Take 1 capsule (100 mg total) by mouth 2 times daily. 10/29/19 22 Active Estrace 0.01 % (0.1 mg/gram) vaginal cream See Instructions, 0.5 Gm Vaginally Daily at bedtime for 2 weeks and then three times a week after that, # 42.5 Gm, 0 Refills, Maintenance, 10/17/24 1:09:00 PM EDT, [facility], Partial fill upon patient request if the prescription is for a schedule II opioid drug. 10/18/19 25 Active famotidine (PEPCID) 40 mg tablet Take 1 tablet (40 mg total) by mouth at bedtime. 08/17/19 22 Active fluticasone propionate (FLONASE) 50 mcg/actuation nasal spray INSTILL 1-2 SPRAYS IN EACH NOSTRIL ONCE DAILY NEEDED 10/31/19 22 Active gabapentin (NEURONTIN) 800 mg tablet Take 1 tablet (800 mg total) by mouth 3 times daily. 12/01/19 21 Active hydrOXYzine HCL (ATARAX) 25 mg tablet Take 2 tablets (50 mg total) by mouth 2 times daily as needed. Active ibuprofen (ADVIL,MOTRIN) 600 mg tablet Take 1 tablet (600 mg total) by mouth every 6 (six) hours if needed. for mild pain Active ketorolac (ACULAR) 0.5 % ophthalmic solution PLACE 1 DROP IN THE AFFECTED EYE THREE TIMES DAILY. START 2 DAYS BEFORE SURGERY AND CONTINUE DIRECTED Active ketotifen fumarate (ZADITOR) 0.035 % ophthalmic solution Administer 1 drop into affected eye(s) 3 (three) times a day. 10/29/19 22 Active lancets (OneTouch Delica Plus Lancet) 33 gauge Inject 1 each into the skin. 10/03/19 24 Active Minerin Creme cream APPLY TOPICALLY TO THE AFFECTED AREA(S) NEEDED FOR DRY SKIN 05/04/20 24 Active lidocaine (LIDODERM) 5 % patch Apply 1 patch topically daily. 05/06/20 23 Active linaclotide (LINZESS ORAL) Take by mouth. 11/05/19 20 Active loratadine (CLARITIN) 10 mg tablet TAKE 1 TABLET BY MOUTH ONCE DAILY IN THE MORNING NEEDED FOR ALLERGIES 07/13/19 25 Active meclizine (ANTIVERT) 12.5 mg tablet TAKE 1 TABLET BY MOUTH EVERY 8 HOURS NEEDED FOR DIZZINESS Active metFORMIN XR (GLUCOPHAGE-XR) 500 mg 24 hr tablet Take 1 tablet (500 mg total) by mouth 1 (one) time each day with dinner. Active nicotine (NICODERM CQ) 14 mg/24 hr After completion of 21mg/day patch: Apply 1 patch on the skin (one) time each day at the same time x 2 weeks. 05/06/20 23 Active nicotine polacrilex (COMMIT) 2 mg lozenge DISSOLVE 1 LOZENGE BY MOUTH EVERY 1 TO 2 HOURS FOR 6 WEEKS, THEN 1 LOZENGE EVERY 2 TO 4 HOURS FOR 3 WEEKS, THEN 1 LOZENGE EVERY 4 TO 8 HOURS FOR 2 WEEKS, DO NOT EXCEED 5 IN 6 HOURS OR 20 PER 24 HOURS 12/18/19 25 Active omeprazole (PriLOSEC) [address] capsule Take 1 capsule (40 mg total) by mouth 2 (two) times a day. Active ondansetron ODT (ZOFRAN-ODT) 4 mg disintegrating tablet Dissolve 1 tablet (4 mg total) on top of the tongue every 8 (eight) hours if needed. 07/01/19 24 Active ondansetron (ZOFRAN) 4 mg tablet Take 1 tablet (4 mg total) by mouth every 8 hours as needed. 11/15/19 24 Active oxyBUTYnin XL (DITROPAN-XL) 15 mg 24 hr tablet Take 1 tablet (15 mg total) by mouth. 11/05/19 20 Active pantoprazole (PROTONIX) 40 mg EC tablet Take 1 tablet (40 mg total) by mouth 1 (one) time each day. 11/05/19 20 Active white petrolatum 61 % cream Apply by topical route as needed for dry skin 07/08/19 23 Active Trulance 3 mg tablet Take 1 tablet (3 mg total) by mouth 1 (one) time each day. Active polyvinyl alcohol (ARTIFICIAL TEARS) 1.4 % ophthalmic solution PLACE 1 DROP INTO THE AFFECTED EYE(S) UP TO FOUR TIMES DAILY NEEDED FOR DRY EYES 06/01/19 23 Active predniSONE (DELTASONE) 20 mg tablet Take 2 tablets (40 mg total) by mouth 1 (one) time each day. 02/10/20 24 Active risperiDONE (RisperDAL) 0.5 mg tablet Take 1 tablet (0.5 mg total) by mouth daily. 12/09/19 21 Active solifenacin (VESICARE) 10 mg tablet Take 1 tablet (10 mg total) by mouth 1 (one) time each day. Active sucralfate (CARAFATE) 100 mg/mL suspension Take 10 mL (1 g total) by mouth daily. 03/23/20 22 Active SUMAtriptan (IMITREX) 25 mg tablet Take 1 tablet (25 mg total) by mouth. Active tiZANidine (ZANAFLEX) 2 mg tablet TAKE 1 TO 2 TABLETS BY MOUTH EVERY TWELVE HOURS NEEDED FOR MUSCLE SPASMS Active traZODone (DESYREL) 100 mg tablet TAKE 2 TABLETS BY MOUTH EVERY DAY IN THE EVENING NEEDED Active venlafaxine XR (EFFEXOR-XR) 150 mg 24 hr capsule Take 1 capsule (150 mg total) by mouth daily. 12/20/19 21 Active verapamil SR (CALAN-SR) 120 mg CR tablet Take 1 tablet (120 mg total) by mouth 1 (one) time each day. Active ammonium lactate (AMLACTIN) 12 % cream Apply topically if needed for dry skin. 560 g 3 02/01/20 25 025 Active Encounters Date Type Department Care Team Description 01/31/2025 10:30 AM EDT Office Visit [facility] [address] [place] [phone] Torsten Leahy, DPM Xerosis of skin (Primary Dx); Diabetic mononeuropathy simplex ([facility]/HCC V24, CMS/HCC V28); Verruca plantaris from Last 3 Months Social History Tobacco Use Types Packs/Day Years Used Date Smoking Tobacco: Never Assessed Comments Unknown Sex and Gender Information Value Date Recorded Sex Assigned at Not on file Legal Sex Female 12:21 AM EST Gender Identity Not on file Sexual Orientation Not on file Plan of Treatment Health Maintenance Due Date Last Done Comments Breast Cancer Screening 1959 Colorectal Cancer Screening: Colonoscopy 1959 Diabetes: Annual Foot Exam 1969 Diabetes: Annual Retina Eye Exam 1969 RSV Immunization Adult Patients (1 - Risk 50-74 years 1-dose series) 2009 Depression Screening 05/30/2024 Falls Risk Assessment 10/05/2024 Hepatitis C Screening 10/05/2024 Medicare Annual Wellness Visit 10/05/2024 Social Influencers of Health Screening 10/05/2024 Diabetes: Annual Urine Albumin-Creatinine Ratio (uACR) 12/13/2024 Pneumococcal Vaccine: 50+ Years (3 of 3 - PCV20 or PCV21) 01/23/2025 01/24/2020, 07/05/2019, 06/03/2011 COVID-19 Vaccine ( - season) 2025 06/02/2021, 08/28/2020, 07/31/2020 Influenza Vaccine (#1) 2025 , 05/06/2023, 02/25/2022, Additional history exists Diabetes: Blood Sugar Control Test (HGBA1C) 05/31/2025 11/28/2024, 01/04/2024 Diabetes: Annual GFR (Glomerular Filtration Rate) 01/07/2026 01/07/2025, 10/03/2023 Hypertension/CHF/CAD Annual BMP Blood Test 01/07/2026 01/07/2025, 10/03/2023 DTaP,Tdap,and Td Vaccines (3 - Td or Tdap) 06/01/2026 06/01/2016, 02/04/2003 Cervical Cancer Screening: Pap Smear 09/05/2027 09/04/2024 Cholesterol Screening (Lipid Panel) 01/07/2030 01/07/2025, 12/02/2021 Osteoporosis Screening (Bone Density Screening) 10/30/2034 10/30/2024 Zoster Vaccines Completed 02/05/2022, 10/2021, 12/15/2018 HIB Vaccines Aged Out No longer [...] age to complete this topic Insurance , [address] [address] [place]ID [place] [facility] Member Subscriber Plan / Payer (Ef fective 2022-Present) Name:JAN STEENANA Relation to Subscriber:Self Name:Celestina Steen Payer ID:[id number] Group ID:[id number] Type:Not on file Address: [address] [place] [address] [employer] MEDICARE Member Subscriber Plan / Payer (Ef fective 2022-Present) Name:CELESTINA STEEN Relation to Subscriber:Self Name:Celestina Steen Payer ID:[id number] Group ID:[id number] Type:Not on file Address: [address] [place] [phone] Care Teams Harness Inspector Relationship Specialty Start Date End Date Physician, Pcp Unknown PCP - General 12/13/24
--- OUTSIDE RECORDS SUMMARY | 2025-03-25 19:17 | XMS_ITS | Encounter Summary ---
Author Organization [employer] Address [address] [facility] 7t [place] [address] Care Team Providers Care Fire Officer Name Role Phone Yajaira Lainez Primary Care Provider [phone] Torsten Leahy DPM Unavailable [phone] Tana Grider CORN GRINDER Unavailable Reason for Visit * Reason Comments Med Refill Encounter Details Date Type Department Care Team (Late st Contact Info) Description 12/16/2023 Refill [facility] MEDICINE [address] [place] [address] Yajaira Lainez FNP [address] [place], [place] [phone] Pain Social History Tobacco Use Types Packs/Day [...] Description 05/27/2025 11:15 AM EST Office Visit [facility] MED & PEDS [address] [place] [address] Yajaira Lainez FNP [address] [place] [address] 06/28/2025 1:30 PM EST Office Visit [facility] ADULT DENTAL [address] [place] [address] Francisco J, Aileen [address] [place] [address] documented as of this encounter Visit Diagnoses Diagnosis Pain Generalized pain documented in this encounter Additional Health Concerns Assessment Noted Time PHQ-9 Depression Total Score: 0 01/15/20 23 3:37 PM EDT documented as of this encounter Care Teams Fire Officer Relationship Specialty Start Date End Date Yajaira Lainez FNP [address] [place] [address] PCP - General Family Medicine 12/15/21 Torsten Leahy DPM 175 [facility] 250 [place] [address] Podiatry 02/12/25 Tana Grider NP [address] [place] [address] Urology 02/12/25 [facility] 04/23/24 documented as of this encounter
--- OUTSIDE RECORDS SUMMARY | 2025-03-25 19:17 | XMS_ITS | Clinical Summary ---
Author Organization [facility] Address [address] [place] [address] Phone Care Team Providers Care Director Of Sales Name Role Phone Yajaira Lainez HELENA Primary Care Provider [phone] Allergies No known active allergies Medications albuterol 90 mcg/actuation inhaler Take 2 puffs by mouth every 4 (four) hours as needed. 023 Active albuterol 2.5 mg /3 mL (0.083 %) nebulizer solution USE 1 VIAL IN NEBULIZER EVERY 4 TO 6 HOURS - and as needed Active verapamiL (CALAN-SR) 120 MG CR tablet Take 120 mg by mouth every morning. 024 Active traZODone (DESYREL) 100 MG tablet Take 100 mg by mouth nightly at bedtime. Active tiZANidine (ZANAFLEX) 2 MG tablet Take by mouth every 6 (six) hours as needed. 024 Active SUMAtriptan (IMITREX) 25 MG tablet Take 25 mg by mouth. Active busPIRone (BUSPAR) 10 MG tablet Take 10 mg by mouth 2 (two) times a day. Active baclofen (LIORESAL) 10 MG tablet Take 10 mg by mouth 2 (two) times a day. Active fluticasone propionate (FLOVENT HFA) 110 mcg/actuation inhaler Inhale 2 puffs into the lungs 2 (two) times a day. 023 Active gabapentin (NEURONTIN) 600 MG tablet Take 600 mg by mouth 2 (two) times a day. Active hydrOXYzine (ATARAX) 25 MG tablet Take 50 mg by mouth 2 (two) times a day as needed. Active LINZESS 290 mcg Cap capsule Take 1 capsule by mouth every morning. Active loratadine (CLARITIN) 10 mg tablet TAKE 1 TABLET BY MOUTH ONCE DAILY IN THE MORNING NEEDED FOR ALLERGIES Active nicotine (NICODERM CQ) 14 mg/24 hr Apply 1 patch on the skin (one) time each day at the same time x 6 weeks. 023 Active omeprazole (PRILOSEC) 40 MG capsule Take 40 mg by mouth 2 (two) times a day. Active ondansetron (ZOFRAN-ODT) 4 MG disintegrating tablet DISSOLVE 1 TABLET ON TONGUE EVERY 8 HOURS NEEDED FOR NAUSEA AND VOMITING Active ONETOUCH DELICA PLUS LANCET 33 gauge MiscIndications:T ype 2 diabetes mellitus with diabetic polyneuropathy, without long-term current use of insulin Inject 1 each into the skin 3 (three) times a day before meals. 400 each 3 024 Active ALCOHOL PREP PADS PadMIndications:T ype 2 diabetes mellitus with diabetic polyneuropathy, without long-term current use of insulin Apply 1 Swab topically 3 (three) times a day. 400 each 3 024 Active venlafaxine (EFFEXOR-XR) 75 MG 24 hr capsule Take 75 mg by mouth every morning. Active venlafaxine (EFFEXOR-XR) 150 MG 24 hr capsule Take 150 mg by mouth daily. Active sucralfate (CARAFATE) 100 mg/mL suspension Take 10 mL by mouth daily. Active solifenacin (VESICARE) 10 MG tablet Take 10 mg by mouth daily. Active risperiDONE (RISPERDAL) 0.5 MG tablet Take 0.5 mg by mouth nightly at bedtime. Active TRULANCE 3 mg tablet Take 1 tablet by mouth every morning. Active ondansetron (ZOFRAN) 4 MG tablet Take 4 mg by mouth every 8 (eight) hours as needed. 024 Active meclizine (ANTIVERT) 12.5 mg tablet Take 12.5 mg by mouth 3 (three) times a day as needed. Active ibuprofen (ADVIL,MOTRIN) 600 MG tablet TAKE 1 TABLET BY MOUTH EVERY 6 HOURS WITH FOOD NEEDED FOR PAIN 024 Active amLODIPine (NORVASC) 5 MG tablet Take 1 tablet by mouth every morning. 025 Active bromfenac (BROMDAY) 0.09 % ophthalmic solution 025 Active clotrimazole (LOTRIMIN) 1 % cream APPLY 1/2 GRAM TOPICALLY TO AFFECTED AREA(S) TWICE DAILY FOR 28 DAYS Active ketorolac (ACULAR) 0.5 % ophthalmic solution 025 Active ONETOUCH VERIO Strp stripsIndications :Type 2 diabetes mellitus with diabetic polyneuropathy, without long-term current use of insulin 1 each by Miscellaneous route 3 (three) times a day before meals. 400 strip 3 025 Active metFORMIN (GLUCOPHAGE-XR) 500 MG 24 hr tabletIndications :Type 2 diabetes mellitus with diabetic polyneuropathy, without long-term current use of insulin TAKE 1 TABLET BY MOUTH EVERY DAY WITH DINNER 90 tablet 1 025 Active metFORMIN (GLUCOPHAGE-XR) 500 MG 24 hr tabletIndications :Type 2 diabetes mellitus with diabetic polyneuropathy, without long-term current use of insulin Take 1 tablet (500 mg total) by mouth daily with dinner. 90 tablet 1 025 2024 Discontinued Active Problems Problem Noted Date Diagnosed [...] dietitian I suggest that she go to [facility] and see registered dietitian Lani Winston. Assessment [...] from 2021. She will benefit from seeing statement processor for nutrition counseling for diabetes. We do not have [place]ian-speaking dietitian in this office. So I asked her to speak to her primary regarding a [place]-speaking statement processor near her. In the meantime she should continue metformin at the current dose. She should follow in 3 months time. Encounters Date Type Department Care Team Description 03/10/2025 Refill [facility] [address] [place] [address] Palomo Granados DO Medication Refill 01/04/2025 Telephone [facility] [address] [place] [address] Palomo Granados DO [facility] Call from Last [...] 12:10 PM EST Office Visit [facility] [address] [place] [id number] Paolmo Granados DO [address] [place] [address] [email or web address] Health Maintenance Due Date Last Done Comments DEPRESSION SCREENING 1971 SMOKING Hx and SMOKELESS TOBACCO SCREENING 1972 HEPATITIS C SCREENING 1977 HIV ONE-TIME SCREENING (18-65 YEARS) 1977 COLOGUARD 2004 COLONOSCOPY 2004 COLORECTAL CANCER SCREENING 2004 FIT TEST 2004 FOBT 2004 SIGMOIDOSCOPY 2004 VIRTUAL COLONOSCOPY 2004 RSV VACCINE (1 - Risk 50-74 years 1-dose series) 2009 ZOSTER VACCINES (1 of 2) 2009 PNEUMOCOCCAL VACCINES (50+ years) (2 of 2 - PCV) 07/05/2020 07/05/2019, 06/03/2011 LIPID PANEL 12/02/2022 12/02/2021 DIABETIC EYE EXAM 10/03/2023 URINE MICROALBUMIN/CREATININE RATIO 10/03/2023 OSTEOPOROSIS SCREENING INITIAL (ONE-TIME) 2024 CREATININE LEVEL 10/02/2024 10/03/2023 HEMOGLOBIN A1C 11/05/2024 05/07/2024, 08/0 11/2023, 11/15/2023, Additional history exists INFLUENZA VACCINE (#1) 2024 MAMMOGRAM 01/07/2025 01/07/2023, 12/27/2018 COVID-19 VACCINE ( season) 2025 BLOOD PRESSURE 02/28/2025 08/29/2024 Adult Td,Tdap Booster [...] EDT) SODIUM 142 133 - 146 mmol/L [facility] POTASSIUM 4.3 3.3 - 5.1 mmol/L [facility] CHLORIDE 104 96 - 108 mmol/L [facility] CO2 27 21 - 35 mmol/L [facility] BUN 10 6 - 19 mg/dL [facility] CREATININE 0.80 0.5 - 1.5 mg/dL [facility] GLUCOSE 90 70 - 99 mg/dL [facility] ALBUMIN 4.3 3.9 - 4.8 g/dL [facility] TOTAL PROTEIN 7.4 6.5 - 8.0 g/dL [facility] CALCIUM 9.4 8.4 - 10.3 mg/dL [facility] ALKALINE PHOSPHATASE 108 39 - 117 U/L [facility] TOTAL BILIRUBIN <0.2 0.0 - 1.2 mg/dL [facility] AST 36 0 - 37 U/L [facility] ALT 24 0 - 40 U/L [facility] GLOBULIN 3.1 1 - 4.8 g/dL [facility] EGFR 82 >59 mL/min/1.7 3m2 [facility] Comment:Estimated glomerular filtration rate calculated using the CKD-EPI refit equation. ANION GAP 15 10 - 20 mmol/L [facility] Blood 10/03/2023 2:46 PM EDT 10/03/2023 2:50 PM EDT Palomo Granados DO LAB BLOOD ORDERABLES Final Resul t [address] [address] from Last 3 Months or Most Recently Relevant to Health Maintenance Insurance [facility] MEDICARE REPLACEMENT MEDICARE PART A & B [address] [place] [id number] [facility] MEDICARE REPLACEMENT MEDICARE PART A & B [facility] MEDICARE REPLACEMENT MEDICARE PART A & B MEDICARE PART A & B MEDICARE PART A & B [facility] MEDICARE REPLACEMENT MEDICARE PART A & B Care Teams Director Of Sales Relationship Specialty Start Date End Date Yajaira Lainez FNP [address] [place] [id number] PCP - General Nurse Practitioner 08/31/23 Additional Source Comments The information contained in this document represents components of the legal health record. It is not the complete legal health record.[facility]
--- OUTSIDE RECORDS SUMMARY | 2025-03-25 19:17 | XMS_ITS | Clinical Summary ---
Author Organization [email or web address] Address [address] [place] [address] Care Team Providers Care Compounding And Finishing Supervisor Name Role Phone Yajaira Lainez ANALYSIS TESTER Primary Care Provider [phone] Torsten Leahy DPM Unavailable [phone] Tana Grider GROUND SUPPORT EQUIPMENT ASSEMBLER Unavailable Allergies Active Allergy Reactions Criticality Noted Date Comments Sulfa Antibiotics Other 01/01/2021 Medications * This document contains information received from the source organization and may not represent a complete record from that organization. Skin Protectants, Misc. (eucerin) creamIndications :Xerosis of skin Use twice daily on dry skin as needed 100 g 1 3 Active Blood Glucose Monitoring Suppl ([place] Verio Flex System) w/Device kitIndications:T ype 2 diabetes mellitus treated without insulin (HCC) TEST BLOOD SUGAR TWICE DAILY 1 kit 3 Active Blood Glucose Monitoring Suppl deviceIndication s:Type 2 diabetes mellitus without complication, without long-term current use of insulin (HCC) Use as directed to check blood glucose. 1 each 3 Active acetaminophen (Tylenol 8 Hour) 650 MG ER tablet Take 1 tablet by mouth every 8 (eight) hours. 2 Active busPIRone (Buspar) 10 MG tablet Take 10 mg by mouth 2 times daily. 3 Active docusate sodium (Colace) 100 MG capsule Take 100 mg by mouth 2 times daily. 2 Active famotidine (Pepcid) 40 MG tablet Take 40 mg by mouth at bedtime. 2 Active fluticasone (Flonase) 50 MCG/ACT nasal spray INSTILL 1-2 SPRAYS IN EACH NOSTRIL ONCE DAILY NEEDED 2 Active ketotifen (Zaditor) 0.025 % ophthalmic solution INSTILL 1 DROP INTO AFFECTED EYE 3 TIMES A DAY 2 Active omeprazole (PriLOSEC) [address] capsule Take 40 mg by mouth 2 times daily. 3 Active Continuous Blood Gluc Sensor (FreeStyle Farzana 2 Sensor) misc Activ e polyvinyl alcohol (Liquifilm Tears) 1.4 % ophthalmic solution PLACE 1 DROP INTO THE AFFECTED EYE(S) UP TO FOUR TIMES DAILY NEEDED FOR DRY EYES 3 Active risperiDONE (RisperDAL) 0.5 MG tablet Take 1 tablet by mouth twice daily 3 Active solifenacin (VESIcare) 10 MG tablet TAKE 1 TABLET BY MOUTH DAILY 3 Active sucralfate (Carafate) 1 GM/10ML suspension TAKE 10 ML BY MOUTH DAILY BEFORE BEDTIME 2 Active traZODone (Desyrel) 100 MG tablet Take 2 tablets by mouth every night as needed 3 Active venlafaxine XR (Effexor XR) 150 MG 24 hr capsule Take 1 capsule by mouth everyday 3 Active venlafaxine XR (Effexor XR) 75 MG 24 hr capsule Take 1 capsule by mouth every morning with 150mg capsule 3 Active lidocaine (Lidoderm) 5 % patchIndications :Muscle spasm Apply 1 patch topically in the morning. Remove & discard patch within 12 hours or as directed by MD. 30 patch 3 3 Active Skin Protectants, Misc. (eucerin) cream Apply by topical route as needed for dry skin 100 g 3 4 Active ibuprofen 600 MG tablet TAKE 1 TABLET BY MOUTH EVERY 6 HOURS WITH FOOD NEEDED FOR PAIN 100 tablet 3 4 Active Alcohol Swabs (Alcohol Prep) 70 % pads Apply 1 Swab topically 3 times daily. 4 Active fluticasone (Flovent) 110 MCG/ACT inhaler Inhale 2 puffs 2 times daily. 3 Active Lancets (OneTouch Delica Plus [id number]) misc Inject 1 each into the skin before breakfast, before lunch, and before evening meal. 4 Active linaCLOtide (Linzess) 290 MCG capsule Take 1 capsule by mouth in the morning. 4 Active metFORMIN XR (Glucophage-XR) 500 MG 24 hr tablet Take 500 mg by mouth with evening meal. Active verapamil SR (Calan SR) 120 MG ER tablet Take 120 mg by mouth Once per day. 4 Active SUMAtriptan (Imitrex) 25 MG tablet Take 25 mg by mouth. Active Trulance tablet tablet Take 1 tablet by mouth Once per day. Active OneTouch Verio test strip USE DIRECTED TO TEST BLOOD SUGAR THREE TIMES DAILY BEFORE MEALS Active clotrimazole (Lotrimin) 1 % cream APPLY 1/2 GRAM TOPICALLY TO AFFECTED AREA(S) TWICE DAILY FOR 28 DAYS Active albuterol 108 (90 Base) MCG/ACT inhaler Inhale 2 puffs every 4 (four) hours if needed for wheezing or shortness of breath. 18 g 3 4 Active ammonium lactate (Lac-Hydrin) 12 % lotionIndication s:Xerosis of skin APPLY 4 GRAMS TOPICALLY TO AFFECTED AREA(S) TWICE DAILY IN THE MORNING AND AT BEDTIME NEEDED DRY SKIN 225 g 3 4 Active loratadine (Claritin) 10 MG tabletIndication s:Allergic rhinitis, unspecified seasonality, unspecified trigger TAKE 1 TABLET BY MOUTH ONCE DAILY IN THE MORNING NEEDED FOR ALLERGIES 90 tablet 3 5 Active cyanocobalamin (Vitamin B-12) 1000 MCG tablet Take 1 tablet (1,000 mcg) by mouth Once per day. 90 tablet 5 01/18/20 26 Active meclizine (Antivert) 12.5 MG tablet TAKE 1 TABLET BY MOUTH EVERY 8 HOURS NEEDED FOR DIZZINESS 30 tablet 3 5 Active cyclobenzaprine (Flexeril) 10 MG tabletIndication s:Ear pain, bilateral Take 1 tablet (10 mg) by mouth at bedtime for 10 days. 10 tablet 5 Active Additional Information Patient not taking.Reported on 02/25/2025 nicotine (Nicoderm CQ) 7 MG/24HR patch After completion of 14mg/day patch: Apply 1 patch on the skin (one) time each day at the same time x 8 weeks. 72 patch Active Diclofenac Sodium 1 % gel Apply thin layer by topical route (quantity as directed on package insert) to affected area of pain 3 times daily as needed. 50 g 3 5 Active gabapentin (Neurontin) 600 MG tabletIndication s:Pain TAKE 1 TABLET BY MOUTH TWICE DAILY 60 tablet 1 Active cefixime (Suprax) capsule Take 1 capsule (400 mg) by mouth Once per day for 7 days. 7 capsule 04/01/20 Active Active Problems Problem Noted Date Diagnosed Date Cubital tunnel syndrome on right 02/12/2025 Overview (02/12/2025): EMG/NCS 01/29/25: demonstrated mild right median neuropathy across carpal tunnel, and mild right ulnar neuropathy across cubital tunnel TMJ dysfunction 02/02/2025 Assessment & Plan (02/02/2025 10:08 AM EDT): Reassurance that he may be a self-limited condition. Take Tylenol and naproxen twice daily + Flexeril nightly + diclofenac gel as needed Recommended to avoid constant chewing, favor soft diet Advised regarding proper neck and head support while sleeping Will refer to maxillofacial surgeon for further evaluation, patient advised to reach out to dentist for an appointment as well Dental caries 12/03/2024 Open fracture of tooth 12/03/2024 Urinary incontinence, mixed 11/29/2024 Overview (02/12/2025): Following with [facility] [place] Dr. Jake Fisher, as well as [facility] Continues with Vesicare 10mg daily Assessment & Plan (02/12/2025 10:11 AM EDT): - Upcoming sling procedure scheduled with [facility] [facility] [facility] on 02/26/25 Assessment & Plan (11/29/2024 9:02 AM EDT): - Cont current therapy (Last consult note September 2024) Primary hypertension 08/30/2024 Overview (11/29/2024): Following with [facility]-Dr. Topete Amlodipine 5 mg daily Verapamil 120mg daily Assessment & Plan (02/12/2025 10:21 AM EDT): Slightly elevated in office, reports well controlled per home readings Continue with current plan (last specialist consult September 2024) Assessment & Plan (11/29/2024 9:02 AM EDT): [...] BID. Palpitations 05/10/2024 Overview (05/10/2024): Following with [facility]- Dr. Efrem Ratliff completed approx Jun 2023 - demonstrated rare PACs and PVCs Nuclear stress test and echo WNL 2023 Plan: cont verapamil 120mg ER daily through Cards Assessment & Plan (05/10/2024 5:43 PM EST): Encouraged good hydration, reviewed follow up precautions Healthcare maintenance 10/03/2023 Overview (11/29/2024): Mammo: BIRADS 1 on 11/08/24 Pap: NILM/HPV neg Feb 2019 OPH: TRINO on 06/09/23. [facility] (Ana Levi MD). No evidence of diabetic retinopathy or macular edema. Colonoscopy: 12/21/23 ([facility] - Dr. Wilson). Repeat 5 years d/t tubular adenoma. Cigarette smoker 05/08/2023 Assessment & Plan (02/12/2025 10:28 AM EDT): -Currently smoking 2-3 cigg/day -Age started smokin y.o -Encouraged smoking cessation resources such as pharmacomtherapy, [facility] smoking cessation group, and [facility] smoking cessation [facility] -Start NRT patches -Eligibility for LDCT: not eligible, less than 20 pack years Assessment & Plan (08/30/2024 7:29 PM EDT): -Currently smoking 3 cigg/day -Encouraged smoking cessation resources such as pharmacomtherapy, [facility] smoking cessation group, and [facility] smoking cessation clinic -Start NRT patches -Eligibility for LDCT: discuss next appt Assessment & Plan (05/08/2023 2:23 PM EST): -Currently smoking 6 cigg/day -Encouraged smoking cessation resources such as pharmacomtherapy, [facility] smoking cessation group, and [facility] smoking cessation clinic -Start NRT patches Type 2 diabetes mellitus wit h hypoglycemia, without long-term current use of insulin 07/11/2022 Overview (02/12/2025): Lab Results Component Value Date HGBA1C 6.4 (A) 11/28/2024 -Following with [facility] Endo - Dr. Granados - Referred to [facility] Principal Account Clerk - Lani Winston - by Kenji in Dec 2023 -Continues with metformin 500mg daily with evening meal -Encourage lifestyle interventions such as routine physical activity and healthy dietary habits -TRINO May 2023 ([facility]) -Statin: due for recheck of lipids. GEOGRAPHIC INFORMATION SYSTEMS ENGINEER/pt to confirm if pt rx statin through Endo -Podiatry: following with Dr. Leahy Assessment & Plan (02/12/2025 10:26 AM EDT): Continue monitoring blood glucose levels. Maintain dietary modifications to stabilize glycemic control Assessment & Plan (11/29/2024 9:01 AM EDT): [...] EDT): -Refill meclizine Carpal tunnel syndrome 07/07/2022 Overview (02/12/2025): EMG/NCS 01/29/25: demonstrated mild right median neuropathy across carpal tunnel, and mild right ulnar neuropathy across cubital tunnel Assessment & Plan (02/12/2025 10:05 AM EDT): - Discussed treatment options, she would like to proceed with conservative initial management including wrist brace and topical analgesic - DME request for wrist brace sent 02/12/25 Cobalamin deficiency 07/07/2022 Major depression with psychotic features (CMS/HC C) 07/07/2022 Memory impairment 07/07/2022 Overview (02/12/2025): MRI Brain 01/07/25: The pituitary is normal in size. The [...] carotid arteries. The visualized paranasal sinuses are clear Assessment & Plan (02/12/2025 10:26 AM EDT): MOCA screen pos mod cognitive impairment November 2024 Labs revealed low Vit B12, initiated on supplementation Maintain cognitive stimulation and daily activities. Referral to [facility] on 02/12/25 Assessment & Plan (11/29/2024 9:17 AM EDT): Psych hospitalization 2018 with possible dx of early dementia per daughter. Encouraged to request records for review. Plan: initial eval with MOCA with team RN. F/up after testing for review with PCP and further eval PRN. Migraine without aura, not refractory 07/07/2022 Posttraumatic stress disorder 07/07/2022 Primary osteoarthritis of both hips 07/07/2022 Sensorineural hearing loss, bilateral 07/07/2022 Overview (06/19/2023): Hearing aid eval 10/03/20 at [facility] - diagnosed with bilateral sensorineural hearing loss and prescription for hearing aids generated Assessment & Plan (06/19/2023 4:56 PM EST): Pt reports that her hearing aids have been misplaced and is in need of re-eval through Audiology for further amplification devices. Referral to [facility] placed 06/17/23 Tendinitis of right rotator cuff 07/07/2022 Hyperlipidemia 01/01/2021 Stage 3 chronic kidney disease (CMS/HCC) 021 Irritable bowel syndrome with constipation 12/16 Overview (05/10/2024): Followed by [facility] - [place]. Wilson Plan: cont linaclotide through GI Anxiety 11/23/2016 Degenerative joint disease of shoulder region Osteopenia 04/12/2012 Overview (11/29/2024): October 2024: DXA demonstrated osteopenia Encourage lifestyle recs - including calcium intake 1200 mg daily and Vit D 800 units daily (dietary intake plus supplements and weight bearing exercises Assessment & Plan (02/12/2025 10:27 AM EDT): - Encourage weight-bearing exercise (walking at least three times per week). Maintain adequate calcium and vitamin D intake through diet. Monitor for progression to osteoporosis. Scoliosis deformity of spine 04/12/2012 Allergic rhinitis 11/11/2011 Asthma 11/11/2011 Gastroesophageal reflux disease 11/11/2011 Overview (05/10/2024): Followed by [facility] - Dr. Wilson Plan: cont omeprazole [...] Encounters Date Type Department Care Team Description 03/25/2025 1:20 PM EDT Office Visit [facility] [address] [address] Name, MD Griffin Urinary tract infection with hematuria, site unspecified (Primary Dx); Cough, unspecified type; Chills 03/25/2025 Travel 03/15/2025 Results Follow-Up [facility] [address] [place] [address] Yajaira Lainez FNP Referral to Neurology 02/25/2025 11:00 AM EDT Office Visit [facility] [address] [place] [phone] Francisco J, Aileen Periodontal disease (Primary Dx); Dental calculus 02/18/2025 11:00 AM EDT Office Visit [facility] [address] [place] [phone] Francisco J, Aileen Dental calculus (Primary Dx); Periodontal disease 02/15/2025 Refill [facility] [address] [place] [phone] Kim Babin FNP Pain 02/12/2025 Telephone [facility] [address] [place] [address] Yajaira Lainez FNP 02/11/2025 10:00 AM EDT Office Visit [facility] [address] [place] [address] Yajaira Lainez FNP Carpal tunnel syndrome of right wrist (Primary Dx); Type 2 diabetes mellitus with hypoglycemia without coma, without long-term current use of insulin ([facility]); Cubital tunnel syndrome on right; Dietary counseling; Exercise counseling; Urinary incontinence, mixed; Memory impairment; Primary hypertension; Osteopenia, unspecified location; Chronic pain of right ankle; Cigarette smoker 02/11/2025 Travel 02/08/2025 Telephone [facility] [address] [place] [address] Yajaira aLinez FNP Chart Prep 02/02/2025 10:00 AM EDT Office Visit [facility] [address] [place] [phone] Lisa White MD TMJ dysfunction (Primary Dx); Ear pain, bilateral; Contact with and (suspected) exposure to covid-19 02/02/2025 Refill [facility] [address] [place] [phone] Lisa White MD 02/02/2025 Travel 01/25/2025 Refill [facility] [address] [place] [address] Yajaira Lainez, ANALYSIS TESTER 01/17/2025 Results Follow-Up [facility] [address] [place] [address] Phalen, Yajaira, ANALYSIS TESTER Hepatitis C Viral RNA, Quantitative, Real-Time PCR, RPR (Monitor) with Reflex to Titer, HIV-1/2 Antigen and Antibodies, Fourth Generation, with Reflexes, Additional followed-up results: 5 01/10/2025 Refill [facility] [address] [place] [address] Jose Lainezle, ANALYSIS TESTER Muscle spasm 12/24/2024 2:00 PM EDT Office Visit [facility] [address] [place] [address] Marilin Copeland Encounter for dental examination (Primary Dx); Teeth missing; Dental plaque 12/24/2024 Refill [facility] [address] [place] [address] Jose Lainezle, ANALYSIS TESTER Pain from Last 3 Months Immunizations Immunization Administration [...] Mass Index 32.77 03/25/2025 1:22 PM EDT Plan of Treatment Upcoming Encounters Date Type Department Care Team (Late st Contact Info) Description 05/27/2025 11:15 AM EST Office Visit [facility] [address] [place] [address] Yajaira Lainez, ANALYSIS TESTER [address] [place], [place] [phone] 06/28/2025 1:30 PM EST Office Visit [facility] [address] [place] [address] Francisco J, Aileen [address] [place] [address] Health Maintenance Due Date Last Done Comments CT Colonography 1959 FIT DNA/Cologuard 1959 FIT 1959 FOBT 1959 Sigmoidoscopy 1959 RSV Patients and Patients Aged 60 years or older (1 - Risk 60-74 years 1-dose series) 2019 Pneumococcal Vaccine: 50+ Years (3 of 3 - PCV20 or PCV21) 01/23/2025 01/24/2020, 07/05/2019, 06/03/2011 COVID-19 Vaccine ( - season) 2025 06/02/2021, 08/28/2020, 07/31/2020 Influenza Vaccine (#1) 2025 4, 05/06/2023, 02/25/2022, Additional history exists Diabetes: Hemoglobin A1C 02/28/2025 072 025, 08/29/2024, 05/07/2024, Additional history exists Diabetes: [...] Dental X-Ray: Bitewings 11/28/2025 11/28/19, 05/16/2024, 03/18/2015 Diabetes: Urine Protein Screening 01/07/2026 01/07/2025, 12/02/2021 Lipid Panel 01/07/2026 01/07/2025, 070 10/2021, 02/16/2021 Depression Screening 02/11/2026 02/11/2025, 02/12/20 Eye Exam 03/13/2026 03/13/2024, 01/28, 02/13/2024, Additional history exists Tobacco Screening 03/25/2026 03/25/2025 DTaP/Tdap/Td Vaccines (2 - Td or Tdap) [...] 1:50 PM EDT Cough, unspecified type POCT URINALYSIS DIPSTICK Routine 03/25/2025 1:31 PM EDT Urinary tract infection with hematuria, site unspecified POC CARDENAS ID NOW STREP A Routine 03/25/2025 1:31 PM EDT Cough, unspecified type POCT INFLUENZA B (ID NOW RAPID MOLECULAR) Routine 03/25/2025 1:31 PM EDT Cough, unspecified type POCT INFLUENZA A (ID NOW RAPID MOLECULAR) Routine 03/25/2025 1:31 PM EDT Cough, unspecified type URINALYSIS, COMPLETE, WITH REFLEX TO CULTURE Routine 03/25/2025 12:00 AM EDT Urinary tract infection with hematuria, site unspecified LR PERIODONTAL SCALING AND ROOT PLANING - 1 TO 3 TEETH PER QUADRANT Routine 02/25/2025 11:00 AM EDT Periodontal disease Dental calculus UR PERIODONTAL SCALING AND ROOT PLANING - 1 TO 3 TEETH PER QUADRANT Routine 02/25/2025 11:00 AM EDT Periodontal disease Dental calculus CASE PRESENTATION, DETAILED AND EXTENSIVE TREATMENT PLANNING Routine 02/25/2025 11:00 AM EDT Periodontal disease Dental calculus LL PERIODONTAL SCALING AND ROOT PLANING - 1 TO 3 TEETH PER QUADRANT Routine 02/18/2025 11:00 AM EDT Dental calculus Periodontal disease UL PERIODONTAL SCALING AND ROOT PLANING - 1 TO 3 TEETH PER QUADRANT Routine 02/18/2025 11:00 AM EDT Dental calculus Periodontal disease CASE PRESENTATION, DETAILED AND EXTENSIVE TREATMENT PLANNING Routine 02/18/2025 11:00 AM EDT Dental calculus Periodontal disease POCT GLUCOSE Routine 02/11/2025 10:05 AM EDT Type 2 diabetes mellitus with hypoglycemia without coma, without long-term current use of insulin (CMS/HCC) POCT RAPID COVID ANTIGEN Routine 02/02/2025 9:59 AM EDT Contact with and (suspected) exposure to covid-19 AMB REFERRAL TO NEUROLOGY Routine 02/01/2025 Memory impairment VITAMIN B12 Routine 01/07/2025 10:43 AM EDT Memory impairment Healthcare maintenance Type 2 diabetes mellitus with hypoglycemia without coma, without long-term current use of insulin (CMS/HCC) CBC WITH AUTO DIFFERENTIAL Routine 01/07/2025 10:43 AM EDT Healthcare maintenance COMPREHENSIVE METABOLIC PANEL Routine 01/07/2025 10:43 AM EDT Healthcare maintenance Type 2 diabetes mellitus with hypoglycemia without coma, without long-term current use of insulin (CMS/HCC) TSH W/REFLEX TO FT4 Routine 01/07/2025 1 [...] ADULT Routine 12/24/2024 2 :00 PM EDT POCT GLYCATED HEMOGLOBIN, TOTAL Routine 11/28/2024 11:52 AM EDT Type 2 diabetes mellitus with hypoglycemia without coma, without long-term current use of insulin ([facility]) BITEWING - SINGLE RADIOGRAPHIC IMAGE Routine 11/27/2024 1:30 PM EDT BI US BREAST LIMITED BILATERAL Routine 11/08/2024 12:00 PM EDT HPV DNA, LOW/HIGH RISK Routine 09/04/2024 12:00 [...] Recently Relevant to Health Maintenance Results * POCT Rapid Covid-19 BinaxNOW (03/25/2025 1:50 PM EDT) Only the most recent of2 resultswithin the time period is included. Rapid COVID Ag Negative QC Media Lot # [id number] Lot# Expiration Date [id number] Swab 03/25/2025 1:50 PM EDT Griffin Name POINT OF CARE TEST ENTER/EDIT OR DERABLES Final Result * POCT Rapid Influenza B CARDENAS ID NOW (03/25/2025 1:31 PM EDT) Influenza B Negative Negative, Indeterminate [facility] QC Media Lot # [id number] [facility] Lot# Expiration Date [facility] Swab 03/25/2025 1:31 PM EDT us Griffin Vera MD POINT OF CARE TEST ENTER/EDIT OR DERABLES Final Result Performing Organization Address [facility] [address]/[facility] Co de Phone Number [facility] [address] [place] [phone] * POCT Rapid Influenza A CARDENAS ID NOW (03/25/2025 1:31 PM EDT) Influenza A Negative Negative, Indeterminate [facility] QC Media Lot # [id number] [facility] Lot# Expiration Date [facility] Swab 03/25/2025 1:31 PM EDT us Griffin Vera MD POINT OF CARE TEST ENTER/EDIT OR DERABLES Final Result Performing Organization Address [facility] [address]/[facility] de Phone Number [facility] [address] [place] [phone] * POCT Rapid Strep A CARDENAS ID NOW (03/25/2025 1:31 PM EDT) Rapid Strep A Screen Negative Negative, None Detected QC Media Lot # [id number] Lot# Expiration Date Swab 03/25/2025 1:31 PM [...] Urine (Urine, Random) 03/25/2025 1:31 PM EDT Griffin Vera MD POINT OF CARE TEST ENTER/EDIT OR DERABLES Final Result * (ABNORMAL) POCT glucose manually resulted (02/11/2025 10:05 AM EDT) Glucose Blood, POC 196 60 - 200 mg/dL QC Media Lot # Comment:[id number] Lot# Expiration Date Comment:05/18/2025 Blood Capillary blood specimen / Unknown 02/11/2025 10:05 AM EDT Result [facility] Yajaira Lainez [facility] POINT OF CARE TEST ENTER/EDIT ORDERABLES Final Result * Referral to Neurology (02/01/2025) Yajaira Fatou [facility] OUTPATIENT REFERRAL ORDERABLES Final Result * TSH with Reflex to Free T4 (01/07/2025 10:43 AM EDT) TSH reflex Free T4 1.04 0.32 - 4.0 uIU/mL [facility] Blood 01/07/2025 10:4 3 AM EDT 01/07/2025 10:43 AM EDT Yajaira Lainez [facility] LAB BLOOD ORDERABLES Final Res ult [facility] [address] [place] [address] [phone] * Hepatitis C Viral RNA, Quantitative, Real-Time PCR (01/07/2025 10:43 AM EDT) Pathologist [facility] Hepatitis C Viral Load <15 NOT DETECTED NOT DETECTED IU/mL [facility] HCV Log PCR <1.18 NOT DETECTED NOT DETECTED Log IU/mL [facility] Comment:For additional infor mation, please refer [email or web address](This link is being provided for informational/educational purposes only.)THIS TEST WAS PERFORMED AT:[facility] [place] [phone] SEALS MD Blood 01/07/2025 10:4 3 AM EDT 01/07/2025 10:43 AM EDT Yajaira Lainez ANALYSIS TESTER LAB BLOOD ORDERABLES Final Res ult [facility] [address] [place] [phone] * (ABNORMAL) CBC auto differential (01/07/2025 10:43 AM EDT) Pathologist [facility] White Blood Count 5.8 4.8 - 10.8 X10*3/uL [facility] Red Blood Count 4.10(L) 4.20 - 5.50 X10*6/uL [facility] Hemoglobin 12.7 12.0 - 16.0 g/dl [facility] Hematocrit 39.4 37.0 - 47.0 % [facility] Mean Corpuscular Volume 96.1 80.0 - 98.0 fL [facility] Mean Corpuscular Hemoglobin 31.0 27.0 - 33.0 pg [facility] Mean Corpuscular HGB Conc 32.2 31.0 - 35.0 g/dl [facility] Red Cell Distribution Width 12.8 11.0 - 16.0 % [facility] Platelet Count 221 160 - 400 X10*3/uL [facility] Mean Platelet Volume 11.0 9.4 - 12.3 fL [facility] Neutrophils Percent Auto 63.0 45 - 73 % [facility] Imm Gran Pct Auto 0.7(H) 0.0 - 0.4 % [facility] Lymphocytes Percent Auto 21.1 20 - 40 % [facility] Monocytes Percent Auto 7.2 2 - 11 % [facility] Eosinophils Percent Auto 7.5(H) 0 - 4 % [facility] Basophils Percent Auto 0.5 0 - 2 % [facility] NRBC Pct Auto 0.0 0.0 - 0.2 /100WBC [facility] Neutrophils Absolute Auto 3.7 2.0 - 8.3 x10*3/uL [facility] Imm Gran Abs Auto 0.04(H) 0.00 - 0.03 X10*3/uL [facility] Lymphocytes Absolute Auto 1.2 1.2 - 4.9 X10*3/uL [facility] Monocytes Absolute Auto 0.4 0.1 - 1.2 X10*3/uL [facility] Eosinophils Absolute Auto 0.4 0.0 - 0.4 X10*3/uL [facility] Basophils Absolute Auto 0.0 0.0 - 0.2 X10*3/uL [facility] NRBC Abs Auto 0.000 0.0 - 0.012 X10*3/uL [facility] Blood Venous blood specimen / Unknown 01/07/2025 10:43 AM EDT 01/07/2025 10:43 AM EDT us Yajaira Lainez ANALYSIS TESTER LAB BLOOD ORDERABLES Final Res ult [facility] [address], [place] [phone] * RPR (Monitor) with Reflex to??Titer (01/07/2025 10:43 AM EDT) RPR (Monitor) w/Refl Titer NON-REACTI VE NON-REACT ANTWON [facility] Comment:THIS TEST WAS PERFOR MED AT:[facility] [place] [phone] SEALS MD Rapid Plasma Reagin Ab Titer TNP [facility] Blood Venous blood specimen / Unknown 01/07/2025 10:43 AM EDT 01/07/2025 10:43 AM EDT Yajaira Lainez [facility] LAB BLOOD ORDERABLES Final Res ult Performing Organization Address [facility] [address]/ZIP Co de Phone Number [facility] [address] [place] [address] [phone] * HIV-1/2 Antigen and Antibodies, Fourth Generation, with Reflexes (01/07/2025 10:43 AM EDT) Pathologist [facility] HIV AB/AG Nonreactive Nonreactive [facility] Comment:HIV-1 p24 Ag and/or HIV-1/HIV-2 Ab not detected.A test result that is nonreactive does not exclude thepossibility of exposure to or infection with HIV-1 and/orHIV-2. Nonreactive results in this assay for individualswith prior exposure to HIV-1 and/or HIV-2 may be due toantigen and antibody levels that are below the limit ofdetection of this assay.The [employer] HIV Ag/Ab Combo assay result andsupplemental assay results should be interpreted inconjunction with the patient's clinical presentation,history and other laboratory results. If the results areinconsistent with clinical evidence, additional testing issuggested to confirm the result. Blood Venous blood specimen / Unknown 01/07/2025 10:43 AM EDT 01/07/2025 10:43 AM EDT us Yajaira Lainez [facility] LAB BLOOD ORDERABLES Final Res ult Performing Organization Address [facility] [address]/ZIP Co de Phone Number [facility] [address] [place] [address] [phone] * (ABNORMAL) Vitamin B12 (01/07/2025 10:43 AM EDT) Pathologist [facility] Vitamin B12 178(L) 200 - 900 pg/mL [facility] Comment:NORMAL 200-900 PG/ML INDETERMINATE 160-199 PG/ML DEFICIENT < 160 PG/ML Blood Venous blood specimen / Unknown 01/07/2025 10:43 AM EDT 01/07/2025 10:43 AM EDT us Yajaira Lainez ANALYSIS TESTER LAB BLOOD ORDERABLES Final Res ult Performing Organization Address [facility] [address]/ZIP Co de Phone Number [facility] [address] [place] [phone] * (ABNORMAL) Lipid Panel, Standard (01/07/2025 10:43 AM EDT) Triglycerides 127 <150 mg/dL [facility] Comment:Desirable Triglyceri de: less than 150 mg/dLBorderline High Triglyceride 150-199 mg/dLHigh Triglyceride: 200-499 mg/dLVery High Triglyceride: greater than or equal to 5OO mg/dL Cholesterol 184 <200 mg/dL [facility] Comment:Desirable Cholestero l: less than 200 mg/dLBorderline High Cholesterol: 200-239 mg/dLHigh Cholesterol: greater than 239 mg/dL LDL Cholesterol Calculated 114(H) <100 mg/dL [facility] Comment:Desirable LDL: less than 100 mg/dLNear Optimal/Above Optimal LDL: 110- 129 mg/dLBorderline High LDL: 130-159 mg/dLHigh LDL: 160-189 mg/dLVery High LDL: greater than or equal to 190 mg/dL HDL Cholesterol 45 >40 mg/dL [facility] Comment:Desirable HDL: great er than 40 mg/dL Note: This HDL assay may give artificially low results in patients with liver disease. Blood Venous blood specimen / Unknown 01/07/2025 10:43 AM EDT 01/07/2025 10:43 AM EDT us Tyler Ortiz MD LAB BLOOD ORDERABLES Final Result Performing Organization Address [facility] [address]/ZIP Co de Phone Number [facility] [address] [place] [address] [phone] * (ABNORMAL) Comprehensive Metabolic Panel (01/07/2025 10:43 AM EDT) Pathologist [facility] Sodium 143 135 - 145 mmol/L [facility] Potassium 3.8 3.3 - 5.1 mmol/L [facility] Chloride 106 96 - 108 mmol/L [facility] Carbon Dioxide 30(H) 22 - 29 mmol/L [facility] Anion Gap 11(L) 12 - 20 [facility] Urea Nitrogen (BUN) 10 9 - 16 mg/dL [facility] Creatinine, Serum 0.91 0.5 - 1.4 mg/dL [facility] Estimated Glomerular Filt Rate >60 [facility] Comment:Chronic Kidney Disea se: Estimated GFR < 60 mL/min/1.17g3Igokdc Kidney Disease: Estimated GFR < 15 mL/min/1.73m2 Glucose 191(H) 60 - 115 mg/dL [facility] Calcium 9.2 8.4 - 10.2 mg/dL [facility] Bilirubin, Total 0.4 0.0 - 1.0 mg/dL [facility] Aspartate Amino Transferase 25 5 - 31 U/L [facility] Alanine Aminotransferase 23 0 - 31 U/L [facility] Total Protein 7.0 6.5 - 8.0 g/dL [facility] Albumin Level 4.4 3.5 - 5.0 g/dL [facility] Alkaline Phosphatase 107 39 - 117 U/L [facility] Blood Venous blood specimen / Unknown 01/07/2025 10:43 AM EDT 01/07/2025 10:43 AM EDT us Yajaira Lainez ANALYSIS TESTER LAB BLOOD ORDERABLES Final Res ult [facility] [address] [place] [address] [phone] * Albumin, Random Urine W/Creatinine (01/07/2025 10:34 AM EDT) Pathologist [facility] Creatinine, Urine 61.04 mg/dL [facility] Microalbumin Urine <5.0 mg/L [facility] Microalbum Creatinine Ratio Ur TNP <30 ug/mg cr [facility] Comment:Unable to calculate albumin/creatinine ratio due to lowmicroalbumin or creatinine result. Urine 01/07/2025 10:3 4 AM EDT 01/07/2025 11:24 AM EDT us Yajaira MALIK LAB URINE ORDERABLES Final Res ult [facility] [address] [place] [phone] * MR Brain w/o Contrast (01/07/2025 9:45 AM EDT) Anatomical Region Laterality Modality Brain Magnetic Resonan ce 01/07/2025 9:45 AM EDT Narrative 01/07/2025 10:46 AM EDT [address] [address] Magnetic Resonance Report Signed Patient: Celestina Sullivan MR#: [id number] 0 : 1960 Acct:[id number] Age/Sex: 64 / F ADM Date: 01/07/25 Loc: .MRI Attending Dr: Yajaira MALIK Ordering Physician: Yajaira Lainez Date of Service: 01/07/25 Procedure(s): MR head/brain wo con Accession Number(s): [id number] cc: Yajaira Lainez EXAMINATION: MR BRAIN WITHOUT [...] Shashi Covarrubias MD 01/07/2025 10:43 AM EDT RP Dictated By: Shashi Covarrubias MD Signed By: <Electronically signed by Shashi Covarrubias MD in OV> 01/07/25 1043 DD/ 0945 TD/TT: 01/07/25 1025 Water Valve Repairer: Procedure Note Donotuseinterpreter, Image - 01/07/2025 [place] [address] Magnetic Resonance Report Signed Patient: Celestina Sullivan#: [id number] 0 : 9Acct:[id number] Age/Sex: 64 / FADM Date: 01/07/25 Loc: .MRI Attending Dr: Yajaira MALIK Ordering Physician: Yajaira Lainez Date of Service: 01/07/25 Procedure(s): MR head/brain wo con Accession Number(s): [id number] cc: Yajaira Lainez EXAMINATION: MR BRAIN WITHOUT [...] Shashi Covarrubias MD 01/07/2025 10:43 AM EDT RP Dictated By: Shashi Covarrubias MD Signed By: <Electronically signed by Shashi Covarrubias MD in OV> 01/07/25 1043 DD/ 0945 TD/TT: 01/07/25 1025 Water Valve Repairer: us Yajaira Fatou ANALYSIS TESTER IMG MRI PROCEDURES Final Resul t * (ABNORMAL) POCT HGB A1C (11/28/2024 11:52 AM EDT) Hemoglobin A1C 6.4(A) 4.0 - 5.7 % QC Media Lot # [id number] Lot# Expiration Date , Blood 11/28/2024 11:5 2 AM EDT us Yajaira Lorriedevyn ANALYSIS TESTER POINT OF CARE TEST ENTER/EDIT ORDERABLES Final Result * BI US Breast Limited Bilateral (11/08/2024 12:00 PM EDT) Anatomical Region Laterality Modality Breast Bilateral Ultrasound 11/08/2024 12:0 0 PM EDT Narrative 11/08/2024 1:01 PM EDT [place] [facility] [address] [place] [address] Ultrasound Report Signed Patient: Celestina Sullivan MR#: [id number] 0 : 1960 Acct:[id number] Age/Sex: 64 / F ADM Date: 11/08/24 Loc: HO.MAMMO Attending Dr: Tyler Ortiz MD Ordering Physician: Tyler Ortiz MD Date of Service: 11/08/24 Procedure(s): US breast BI limited mamm only Accession Number(s): [id number] cc: Tyler Ortiz MD EXAMINATION: MM DIAGNOSTIC [...] density (ACR BI-RADS breast composition Category b). Irwin marker upper inner left breast at site [...] 11/08/24 1258 DD/ 1200 TD/TT: 11/08/24 1222 Water Valve Repairer: Procedure Note Donotuseinterpreter, Image - 11/08/2024 [facility]'s [address] [place], [place] [address] Ultrasound Report Signed Patient: Celestina Sullivan#: [id number] 0 : 9Acct:[id number] Age/Sex: 64 / FADM Date: 11/08/24 Loc: HO.MAMMO Attending Dr: Tyler Ortiz MD Ordering Physician: Tyler Ortiz MD Date of Service: 11/08/24 Procedure(s): US breast BI limited mamm only Accession Number(s): [id number] cc: Tyler Ortiz MD EXAMINATION: MM DIAGNOSTIC [...] density (ACR BI-RADS breast composition Category b). Irwin marker upper inner left breast at site [...] 11/08/24 1258 DD/ 1200 TD/TT: 11/08/24 1222 Water Valve Repairer: Tyler Ortiz MD [facility] [place] PROCEDURES Edited Re sult - Final * (ABNORMAL) HPV DNA, Low/High Risk (09/04/2024 12:00 AM EDT) HPV High Risk Positive(A) Negative [facility] HPV Genotype 16 Negative Negative [facility] HPV Genotype 18 Negative Negative [facility] Comment:HPV testing performe d at [facility] (IA#[id number]), [address] [place] [address].Testing for HPV was performed using the Josué [...] 09/04/2024 09/05/2024 6:0 0 AM EDT Elisabeth ISRAEL LAB BLOOD ORDERABLES Melany l Result [facility] [address] [place] [phone] * Pap Smear (09/04/2024 12:00 AM EDT) Swab Cervix uteri structure / Unknown 09/04/2024 09/05/2024 6:00 AM EDT Narrative [facility] - 09/09/2024 10:37 AM EDT ----- ------- Name: Celestina Sullivan Age/Sex: 64/F : 1960 Unit#: [id number] Attend Dr: [facility] Re09/04/24 Status: DEP [facility]: ----- ------- SPEC : [id number] RECD: 09/05/24 STATUS: LESLIE NOVAJuancho NUM: [id number] SHAHAB: 09/04/24-[address]: [facility] ENTERED: 09/05/24 SP TYPE: Pap Smr OT DR: ORDERED: Pap Smear, PAP path review [...] ----- ------- END OF REPORT Elisabeth [facility] LAB CYTOLOGY ORDERABLES F inal Result [facility] [address] [place] [address] [phone] * Referral to Ophthalmology (03/13/2024) Sol Julio Cesar OD OUTPATIENT REFERRAL ORDERABLE S Final Result * Colonoscopy (01/17/2019) Colonoscopy Normal Normal Narrative Rosi Fernandez - 01/17/2019 Repeat in 10 years Historical Provider HEALTH MAINTENANCE Final Result from Last 3 Months or Most Recently Relevant to Health Maintenance Insurance [facility] < [address] [place] [id number] [facility] Advance Directives Documents on File Type Date Recorded Patient Slip Sheeter Expl anation Advance Directives and Livin g Will 04/05/2024 3:00 PM HCP Care Teams Compounding And Finishing Supervisor Relationship Specialty Start Date End Date Yajaira Lainez FNP [address] [place] [address] PCP - General Family Medicine 12/15/21 Torsten Leahy DPM [address] [facility] [address] [place] [address] Podiatry 02/12/25 Tana Grider NP [address] [place] [address] Urology 02/12/25 [facility] 04/23/24
--- OUTSIDE RECORDS SUMMARY | 2025-03-25 19:17 | XMS_ITS | Encounter Summary ---
Author Organization [employer] Address [address] 7[address] [place] [address] Care Team Providers Care Water Treatment Plant Operator Name Role Phone Yajaira Lainez Primary Care Provider [phone] Torsten Leahy DPM Unavailable [phone] Tana Grider VISUAL MERCHANDISING COORDINATOR Unavailable Reason for Visit * Reason Comments Med Refill Encounter Details Date Type Department Care Team (Late st Contact Info) Description 07/28/2023 Refill [facility] [address] [place] [address] Yajaira Lainez FNP [address] [place], [place] [phone] Social History Tobacco Use Types Packs/Day Years [...] Description 05/27/2025 11:15 AM EST Office Visit [facility] [address] [place] [address] Yajaira Lainez FNP [address] [place] [address] 06/28/2025 1:30 PM EST Office Visit [facility] ADULT DENTAL [address] [place] [address] Francisco J, Aileen [address] [place] [address] documented as of this encounter Visit Diagnoses Not on filedocumented in this encounter Additional Health Concerns Assessment Noted Time PHQ-9 Depression Total Score: 0 01/15/20 23 3:37 PM EDT documented as of this encounter Care Teams Water Treatment Plant Operator Relationship Specialty Start Date End Date Yajaira Lainez FNP [address] [place] [address] PCP - General Family Medicine 12/15/21 Torsten Leahy DPM [address] [facility] [address] [place] [address] Podiatry 02/12/25 Tana Grider NP [address] [place] [address] Urology 02/12/25 [facility] 04/23/24 documented as of this encounter
--- OUTSIDE RECORDS SUMMARY | 2025-03-25 19:17 | XMS_ITS | Encounter Summary ---
Author Organization [employer] Address [address] [place] [address] 7t [place] [address] Care Team Providers Care Ornamental Machine Operator Name Role Phone Yajaira Lainez Primary Care Provider [phone] Torsten Leahy DPM Unavailable [phone] Tana Grider AUTOMOTIVE HEAVY MECHANIC Unavailable Reason for Visit * Reason Comments Med Refill Encounter Details Date Type Department Care Team (Late Contact Info) Description 01/01/2023 Refill [facility] [address] [place] [address] Yajaira Lainez FNP [address] [place], [place] [phone] Social History Tobacco Use Types Packs/Day Years [...] Department Care Team (Late Contact Info) Description 05/27/2025 11:15 AM EST Office Visit [facility] PEDS [address] [place], [place] [phone] Yajaira Lainez FNP [address] [place], [place] [phone] 06/28/2025 1:30 PM EST Office Visit [facility] ADULT DENTAL [address] [place] [address] Aileen Marx [address] [place] [address] documented as of this encounter Visit Diagnoses Not on filedocumented in this encounter Care Teams Ornamental Machine Operator Relationship Specialty Start Date End Date Yajaira Lainez FNP [address] [place] [address] PCP - General Family Medicine 12/15/21 Torsten Leahy DPM [address] [address] Podiatry 02/12/25 Tana Grider NP [address] [place] [address] Urology 02/12/25 [facility] 04/23/24 documented as of this encounter
--- OUTSIDE RECORDS SUMMARY | 2025-03-25 19:17 | XMS_ITS | Encounter Summary ---
Author Organization [employer] Address [address] [facility] 7t [place] [address] Care Team Providers Care Production Generalist Name Role Phone Yajaira Lainez Primary Care Provider [phone] Torsten Leahy DPM Unavailable [phone] Tana Grider DRAMATIC CRITIC Unavailable Encounter Details Date Type Department Care Team (Late st Contact Info) Description 11/08/2022 Abstract [facility] [address] [place] [address] Yajaira Lainez FNP [address] [place], [place] [phone] Social History Tobacco Use Types Packs/Day Years [...] Description 05/27/2025 11:15 AM EST Office Visit [facility]EDS [address] [place], [place] [phone] Yajaira Lainez FNP [address] [place], [place] [phone] 06/28/2025 1:30 PM EST Office Visit [facility] ADULT DENTAL [address] [place] [address] Aileen Marx [address] [place] [address] documented as of this encounter Visit Diagnoses Not on filedocumented in this encounter Care Teams Production Generalist Relationship Specialty Start Date End Date Yajaira Lainez FNP [address] [place] [address] PCP - General Family Medicine 12/15/21 Torsten Leahy DPM 175 [facility] [address] [place] [address] Podiatry 02/12/25 Tana Grider NP [address] [place] [address] Urology 02/12/25 [facility] 04/23/24 documented as of this encounter
--- OUTSIDE RECORDS SUMMARY | 2025-03-25 19:17 | XMS_ITS | Encounter Summary ---
Author Organization [employer] Address [address] [facility] 7t [place] [address] Care Team Providers Care Building Equipment Inspector Name Role Phone Yajaira Lainez PHARMACY LABORATORY TECHNICIAN Primary Care Provider [phone] Torsten Leahy DPM Unavailable [phone] RADIO INSTALLER Unavailable Encounter Details Date Type Department Care Team (Latest Contact Info) Description 03/25/2025 Travel Social History Tobacco Use Types Packs/Day Years [...] Description 05/27/2025 11:15 AM EST Office Visit [facility] CH[facility] MED & PEDS [address] [place] [address] Yajaira Lainez FNP [address] [place] [address] 06/28/2025 1:30 PM EST Office Visit [facility] ADULT DENTAL [address] [place] [address] Francisco J, Aileen [address] [place] [address] documented as of this encounter Visit Diagnoses Not on filedocumented in this encounter Additional Health Concerns Assessment Noted Time PHQ-9 Depression Total Score: 8 02/12/20 25 10:08 AM EDT documented as of this encounter Care Teams Building Equipment Inspector Relationship Specialty Start Date End Date Yajaira Lainez FNP [address] [place] [address] PCP - General Family Medicine 12/15/21 Torsten Laehy DPM [address] [address] Podiatry 02/12/25 Tana Grider NP [address] [place] [address] Urology 02/12/25 [facility] 04/23/24 documented as of this encounter
--- OUTSIDE RECORDS SUMMARY | 2025-03-25 19:17 | XMS_ITS | Encounter Summary ---
Author Organization [employer] Address [address] [place] [address] 7t [place] [address] Care Team Providers Care Sizer Hand Name Role Phone Yajaira Lainez Primary Care Provider Torsten Leahy DPM Unavailable [phone] Tana Grider SKI LIFT ATTENDANT Unavailable Encounter Details Date Type Department Care Team ([facility] Contact Info) Description 07/29/2022 Orders Only [facility] [address] [place], [place] [phone] Yajaira Lainez FNP [address] [place], [place] [phone] Social History Tobacco Use Types Packs/Day Years [...] Upcoming Encounters Date Type Department Care Team ([facility] Contact Info) Description 05/27/2025 11:15 AM EST Office Visit [facility] MED & PEDS [address] [place] [address] Yajaira Lainez FNP [address] [place] [address] 06/28/2025 1:30 PM EST Office Visit [facility] ADULT DENTAL [address] [place] [address] Aileen Marx [address] [place] [address] documented as of this encounter Visit Diagnoses Not on filedocumented in this encounter Care Teams Sizer Hand Relationship Specialty Start Date End Date Yajaira Lainez FNP [address] [place] [address] PCP - General Family Medicine 12/15/21 Torsten Leahy DPM [address] [place] [address] [address] [place] [address] Podiatry 02/12/25 Tana Grider NP [address] [place] [address] Urology 02/12/25 [facility] 04/23/24 documented as of this encounter
--- OUTSIDE RECORDS SUMMARY | 2025-03-25 19:17 | XMS_ITS | Encounter Summary ---
Author Organization [employer] Address [address] [facility] 7t [place] [address] Care Team Providers Care Seed District Sales Manager Name Role Phone Yajaira Lainez Primary Care Provider [phone] Torsten Leahy DPM Unavailable [phone] Tana Grider REVERSING MILL ROLLER Unavailable Encounter Details Date Type Department Care Team ([facility] st Contact Info) Description 03/15/2025 Results Follow-Up [facility] [address] [place], [place] [phone] Yajaira Lainez FNP [address] [place], [place] [phone] Referral to Neurology Social History Tobacco Use Types Packs/Day Years [...] Description 05/27/2025 11:15 AM EST Office Visit [facility] MED & PEDS [address] [place] [address] Yajaira Lainez FNP [address] [place] [address] 06/28/2025 1:30 PM EST Office Visit [facility] ADULT DENTAL [address] [place] [address] Francisco J, Aileen [address] [place] [address] documented as of this encounter Visit Diagnoses Not on filedocumented in this encounter Additional Health Concerns Assessment Noted Time PHQ-9 Depression Total Score: 8 02/12/20 25 10:08 AM EDT documented as of this encounter Care Teams Seed District Sales Manager Relationship Specialty Start Date End Date Yajaira Lainez FNP [address] [place] [address] PCP - General Family Medicine 12/15/21 Torsten Leahy DPM [address] [place] [address] Podiatry 02/12/25 Tana Grider NP [address] [place] [address] Urology 02/12/25 [facility] 04/23/24 documented as of this encounter
[2025-03-25 20:36] LABS: UACC Culture Trigger YES
== END 2025-03-25 16:35 | disposition home or self-care (01) ==
LOC: HO.LNP 16:34
PROVIDERS: Visit Provider Internal Medicine Geriatric Medicine
DX: N39.0 Urinary tract infection, site not specified (principal); R31.9 Hematuria, unspecified
CPT/HCPCS: 81001; 87086; 87088; 87186

== ENCOUNTER 2025-04-01 | Outpatient (REF) | payer OTHER, SELFPAY ==
--- OUTSIDE RECORDS SUMMARY | 2025-04-01 14:40 | XMS_ITS | Encounter Summary ---
Author Organization [employer] Address [address] [place] [address] Care Team Providers Care Industrial Registered Nurse Name Role Phone Yajaira Lainez CANTEEN OPERATOR Primary Care Provider [phone] Torsten Leahy DPM Unavailable [phone] Tana Grider ENGINE BUILDUP MECHANIC Unavailable Encounter Details Date Type Department Care Team ([facility] st Contact Info) Description 04/01/2025 2:40 PM EST Office Visit [facility] [address] [place] [address] Lisa White MD [address] [place] [address] Acute cystitis with hematuria (Primary Dx) Social History Tobacco Use Types Packs/Day Years Used Date Smoking Tobacco: Former Cigarettes Passive Smoke Exposure: Current Smokeless Tobacco: Never Tobacco Cessation:Counseling Given: Not [...] Sign Reading Time Taken Comments Blood Pressure 138/91 04/01/2025 2:51 PM EST Pulse 74 04/01/2025 2:51 PM EST Temperature - - Respiratory Rate 18 04/01/2025 2:51 PM EST Oxygen Saturation 94% 04/01/2025 2:51 PM EST Inhaled Oxygen Concentration - - Weight - - Height - - Body Mass Index - - documented in this encounter Progress Notes * Lisa White MD - 04/01/2025 2:40 PM EST Celestina Sullivan is a 64 y.o. year old female who presents for Walk In Center/hot flashes. Denies recent illness, injury, or hospitalization. Acute Concerns: Pat had a urinary tract infection last week and was prescribed Cefexime but symptoms persist, including chills and mild lower abdominal pain + sweating excessively for the past three days. She also reports feeling weak and experiencing lightheadedness. Continues with minimal dysuria. Urine cx freomlast week showed E.Coli, weakly sensitive to Cephalosporin (less than 1 S) 2. Respiratory Symptoms She reports mild cough residual from URI 2w ago. Covid test last week is NEG. Social History Social History Narrative Living: Lives alone in an apartment, [facility] (daughter) from 10am-2pm Tue- Tuesday. [facility]. Substances: Smoking 3cigg/day. Denies use of alcohol, marijuana, opioids, or other substances Sexual activity: Reports she has not been sexually active in > 20 years. HIV neg Feb 2020 Problem List[1] Family History[2] Review of Systems Constitutional: Positive for chills. Negative for fatigue and fever. HENT: Negative for congestion, ear pain, nosebleeds, rhinorrhea, sinus pressure, sore throat and trouble swallowing. Eyes: Negative for pain and discharge. Respiratory: Positive for cough. Negative for chest tightness and shortness of breath. Cardiovascular: Negative for chest pain, palpitations and leg swelling. Gastrointestinal: Negative for abdominal pain, blood in stool, constipation, diarrhea and nausea. Endocrine: Positive for heat intolerance. Negative for polydipsia and polyuria. Genitourinary: Negative for dysuria, frequency, genital sores, pelvic pain and vaginal discharge. Musculoskeletal: Negative for back pain and neck pain. Skin: Negative for rash. Allergic/Immunologic: Negative for environmental allergies. Neurological: Negative for dizziness, seizures, weakness, light-headedness and headaches. Hematological: Negative for adenopathy. Psychiatric/Behavioral: Negative for agitation, behavioral problems, self-injury and suicidal ideas. OBJECTIVE: Vitals: 04/01/25 1451 BP: (!) 138/91 Pulse: 74 Resp: 18 SpO2: 94% Physical Exam HENT: Right Ear: Tympanic membrane and ear canal normal. Left Ear: Tympanic membrane and ear canal normal. Mouth/Throat: Mouth: Mucous membranes are moist. Pharynx: No oropharyngeal exudate or posterior oropharyngeal erythema. Eyes: Pupils: Pupils are equal, round, and reactive to light. Cardiovascular: Rate and Rhythm: Regular rhythm. Pulses: Normal pulses. Heart sounds: Normal heart sounds. No murmur heard. Pulmonary: Breath sounds: Normal breath sounds. Abdominal: General: Bowel sounds are normal. Palpations: Abdomen is soft. Tenderness: There is no abdominal tenderness. Musculoskeletal: General: Normal range of motion. Cervical back: Neck supple. Skin: General: Skin is warm. Neurological: General: No focal deficit present. Mental Status: She is alert and oriented to person, place, and time. Psychiatric: Mood and Affect: Mood normal. Behavior: Behavior normal. Office Visit on 04/01/2025 Component Date Value Ref Range Status Color, UA 04/01/2025 Yellow Final Clarity, UA 04/01/2025 Clear Final Glucose, UA 04/01/2025 Negative Final Bilirubin, UA 04/01/2025 Negative Final Ketones, UA 04/01/2025 Negative Final Spec Grav, UA 04/01/2025 1.015 Final Blood, UA 04/01/2025 Negative Negative, None Detected Final pH, UA 04/01/2025 6.0 Final Protein, UA 04/01/2025 Negative Final Urobilinogen, UA 04/01/2025 0.2 Final Leukocytes, UA 04/01/2025 Trace Negative, Rare, Trace Final small Nitrite, UA 04/01/2025 Negative Negative, None Detected Final Appearance, UA 04/01/2025 yellow Final QC Media Lot # 04/01/2025 [id number] Final Lot# Expiration Date 04/01/[id number] Final Problem List Items Addressed This Visit Acute cystitis with hematuria - Primary - Persistent urinary tract infection with incomplete resolution due to low sensitivity to Rx Cefepime. - Prescribed Macrobid (S >16) for seven days - Advised increased fluid intake. Monitor for improvement over the next three to four days, reconsult PRN no improvement of sxs Relevant Orders POCT Urinalysis (Completed) Culture, Urine, Routine This note was drafted using Ambient (AI) technology. The patient/patient's guardian has been informed and has consented to the use of this technology: Yes Follow Up: Medications Ordered Prior to Encounter[3] [1] Patient Active Problem List Diagnosis Allergic rhinitis Anxiety Osteoarthritis of knees, bilateral Asthma Benign paroxysmal positional vertigo Carpal tunnel syndrome Cobalamin deficiency Degenerative joint disease of shoulder region Gastroesophageal reflux disease Hyperlipidemia Irritable bowel syndrome with constipation Major depression with psychotic features ([facility]) ([facility]) Memory impairment Migraine without aura, not refractory Osteopenia Posttraumatic stress disorder Primary osteoarthritis of both hips Scoliosis deformity of spine Sensorineural hearing loss, bilateral Stage 3 chronic kidney disease ([facility]) ([facility]) Tendinitis of right rotator cuff Type 2 diabetes mellitus with hypoglycemia, without long-term current use of insulin ([facility]) Cigarette smoker Healthcare maintenance Palpitations Primary hypertension Chronic bilateral low back pain Urinary incontinence, mixed Dental caries Open fracture of tooth TMJ dysfunction Cubital tunnel syndrome on right Acute cystitis with hematuria [2] No family history on file. [3] Current Outpatient Medications on File Prior to Visit Medication Sig Dispense Refill acetaminophen (Tylenol 8 Hour) 650 MG ER tablet Take 1 tablet by mouth every 8 (eight) hours. albuterol 108 (90 Base) MCG/ACT inhaler Inhale 2 puffs every 4 (four) hours if needed for wheezing or shortness of breath. 18 g 3 Alcohol Swabs (Alcohol Prep) 70 % pads Apply 1 Swab topically 3 times daily. ammonium lactate (Lac-Hydrin) 12 % lotion APPLY 4 GRAMS TOPICALLY TO AFFECTED AREA(S) TWICE DAILY IN THE MORNING AND AT BEDTIME NEEDED DRY SKIN 225 g 3 Blood Glucose Monitoring Suppl (Favorite Wordsio Flex System) w/Device kit TEST BLOOD SUGAR TWICE DAILY 1 kit 0 Blood Glucose Monitoring Suppl device Use as directed to check blood glucose. 1 each 0 busPIRone (Buspar) 10 MG tablet Take 10 mg by mouth 2 times daily. cefixime (Suprax) capsule Take 1 capsule (400 mg) by mouth Once per day for 7 days. 7 capsule 0 clotrimazole (Lotrimin) 1 % cream APPLY 1/2 GRAM TOPICALLY TO AFFECTED AREA(S) TWICE DAILY FOR 28 DAYS Continuous Blood Gluc Sensor (FreeStyle Farzana 2 Sensor) misc cyanocobalamin (Vitamin B-12) 1000 MCG tablet Take 1 tablet (1,000 mcg) by mouth Once per day. 90 tablet 0 cyclobenzaprine (Flexeril) 10 MG tablet Take 1 tablet (10 mg) by mouth at bedtime for 10 days. 10 tablet 0 Diclofenac Sodium 1 % gel Apply thin layer by topical route (quantity as directed on package insert) to affected area of pain 3 times daily as needed. 50 g 3 docusate sodium (Colace) 100 MG capsule Take 100 mg by mouth 2 times daily. famotidine (Pepcid) 40 MG tablet Take 40 mg by mouth at bedtime. fluticasone (Flonase) 50 MCG/ACT nasal spray INSTILL 1-2 SPRAYS IN EACH NOSTRIL ONCE DAILY NEEDED fluticasone (Flovent) 110 MCG/ACT inhaler Inhale 2 puffs 2 times daily. gabapentin (Neurontin) 600 MG tablet TAKE 1 TABLET BY MOUTH TWICE DAILY 60 tablet 1 ibuprofen 600 MG tablet TAKE 1 TABLET BY MOUTH EVERY 6 HOURS WITH FOOD NEEDED FOR PAIN 100 tablet 3 ketotifen (Zaditor) 0.025 % ophthalmic solution INSTILL 1 DROP INTO AFFECTED EYE 3 TIMES A DAY Lancets (OneTouch Delica Plus [id number]) misc Inject 1 each into the skin before breakfast, before lunch, and before evening meal. lidocaine (Lidoderm) 5 % patch Apply 1 patch topically in the morning. Remove & discard patch within 12 hours or as directed by MD. 30 patch 3 linaCLOtide (Linzess) 290 MCG capsule Take 1 capsule by mouth in the morning. loratadine (Claritin) 10 MG tablet TAKE 1 TABLET BY MOUTH ONCE DAILY IN THE MORNING NEEDED FOR ALLERGIES 90 tablet 3 meclizine (Antivert) 12.5 MG tablet TAKE 1 TABLET BY MOUTH EVERY 8 HOURS NEEDED FOR DIZZINESS 30tablet 3 metFORMIN XR (Glucophage-XR) 500 MG 24 hr tablet Take 500 mg by mouth with evening meal. nicotine (Nicoderm CQ) 7 MG/24HR patch After completion of 14mg/day patch: Apply 1 patch on the skin (one) time each day at the same time x 8 weeks. 72 patch 0 omeprazole (PriLOSEC) [address] capsule Take 40 mg by mouth 2 times daily. Dipexium Pharmaceuticals[employer]INWEBT[employer] Limited Verio test strip USE DIRECTED TO TEST BLOOD SUGAR THREE TIMES DAILY BEFORE MEALS polyvinyl alcohol (Liquifilm Tears) 1.4 % ophthalmic solution PLACE 1 DROP INTO THE AFFECTED EYE(S)UP TO FOUR TIMES DAILY NEEDED FOR DRY EYES risperiDONE (RisperDAL) 0.5 MG tablet Take 1 tablet by mouth twice daily Skin Protectants, Misc. (eucerin) cream Use twice daily on dry skin as needed 100 g 1 Skin Protectants, Misc. (eucerin) cream Apply by topical route as needed for dry skin 100 g 3 solifenacin (VESIcare) 10 MG tablet TAKE 1 TABLET BY MOUTH DAILY sucralfate (Carafate) 1 GM/10ML suspension TAKE 10 ML BY MOUTH DAILY BEFORE BEDTIME SUMAtriptan (Imitrex) 25 MG tablet Take 25 mg by mouth. traZODone (Desyrel) 100 MG tablet Take 2 tablets by mouth every night as needed Trulance tablet tablet Take 1 tablet by mouth Once per day. venlafaxine XR (Effexor XR) 150 MG 24 hr capsule Take 1 capsule by mouth everyday venlafaxine XR (Effexor XR) 75 MG 24 hr capsule Take 1 capsule by mouth every morning with 150mg capsule verapamil SR (Calan SR) 120 MG ER tablet Take 120 mg by mouth Once per day. No current facility-administered medications on file prior to visit. documented in this encounter Miscellaneous Notes * Assessment & Plan Note - Lisa White MD - 04/01/2025 4:40 PM EST Associated Problem(s): Acute cystitis with hematuria - Persistent urinary tract infection with incomplete resolution due to low sensitivity to Rx Cefepime. - Prescribed Macrobid (S >16) for seven days - Advised increased fluid intake. Monitor for improvement over the next three to four days, reconsult PRN no improvement of sxs documented in this encounter Plan of Treatment Upcoming Encounters Date Type Department Care Team (Late st Contact Info) Description 05/27/2025 11:15 AM EST Office Visit [facility] CH[facility] MED & PEDS [address] [place] [address] Yajaira Lainez FNP [address] [place] [address] 06/28/2025 1:30 PM EST Office Visit [facility] ADULT DENTAL [address] [place] [address] Francisco J, Aileen [address] [place] [address] Scheduled Orders Name Type Priority Associated Diagnoses Orde r Schedule Culture, Urine, Routine Microbiology Routine Acute cystitis with hematuria Expected: 04/01/2025 (Approximate), Expires: 04/01/2026 documented as of this encounter Procedures Procedure Name Priority Date/Time Associated Diagnosis Comments POCT URINALYSIS DIPSTICK Routine 04/01/2025 3:15 PM EST Acute cystitis with hematuria documented in this encounter Results * POCT Urinalysis (04/01/2025 3:15 PM EST) Color, UA Yellow Clarity, UA Clear Glucose, UA Negative Bilirubin, UA Negative Ketones, UA Negative Spec Grav, UA 1.015 Blood, UA Negative Negative, None Detected pH, UA 6.0 Protein, UA Negative Urobilinogen, UA 0.2 Leukocytes, UA Trace Negative, Rare, Trace Comment:small Nitrite, UA Negative Negative, None Detected Appearance, UA yellow QC Media Lot # [id number] Lot# Expiration Date Urine (Urine, Random) 04/01/2025 3:15 PM EST Lisa White MD POINT OF CARE TEST ENTER /EDIT ORDERABLES Final Result documented in this encounter Visit Diagnoses Diagnosis Acute cystitis with hematuria- Primary documented in this encounter Additional Health Concerns Assessment Noted Time PHQ-9 Depression Total Score: 8 02/12/20 25 10:08 AM EDT documented as of this encounter Care Teams Industrial Registered Nurse Relationship Specialty Start Date End Date Yajaira Lainez FNP [address] [place] [address] PCP - General Family Medicine 12/15/21 Torsten Leahy DPM [address] [facility] [address] [place] [address] Podiatry 02/12/25 Tana Grider NP [address] [facility] [place] [address] Urology 02/12/25 [facility] 04/23/24 documented as of this encounter
--- OUTSIDE RECORDS SUMMARY | 2025-04-02 14:44 | XMS_ITS | Clinical Summary ---
Author Organization [facility] Facility Address [address] [address] Care Team Providers Care Act English Tutor Name Role Phone Lisa White MD Primary Care Provider [phone] Allergies Active Allergy Reactions Criticality Noted Date [...] Medicaid [place] Medicare Medicaid [place] Care Teams Act English Tutor Relationship Specialty Start Date End Date Lisa White MD [address] [place] [id number] PCP - General 06/09/20
--- OUTSIDE RECORDS SUMMARY | 2025-04-02 14:45 | XMS_ITS | Clinical Summary ---
Author Organization [employer] Address [address] [facility] [address] [place] [address] Care Team Providers Care Foundry Worker General Name Role Phone Yajaira Lainez [employer] Primary Care Provider [phone] Torsten Leahy DPM Unavailable [phone] Tana Grider BOILER OPERATOR Unavailable Allergies Active Allergy Reactions Criticality Noted Date Comments Sulfa Antibiotics Other 01/01/2021 Medications * This document contains information received from the source organization and may not represent a complete record from that organization. Skin Protectants, Misc. (eucerin) creamIndications :Xerosis of skin Use twice daily on dry skin as needed 100 g 1 3 Active Blood Glucose Monitoring Suppl (Inbox Healthuch Verio Flex System) w/Device kitIndications:T ype 2 [...] daily. 3 Active Lancets (OneTouch Delica Plus [id number]) misc Inject 1 each into the skin [...] for 10 days. 10 tablet 5 Active nicotine (Nicoderm CQ) 7 MG/24HR patch After completion of 14mg/day patch: Apply 1 patch on the skin (one) time each day at the same time x 8 weeks. 72 patch 5 Active Diclofenac Sodium 1 % gel Apply thin layer by topical route (quantity as directed on package insert) to affected area of pain 3 times daily as needed. 50 g 3 Active gabapentin (Neurontin) 600 MG tabletIndication s:Pain TAKE 1 TABLET BY MOUTH TWICE DAILY 60 tablet 1 Active nitrofurantoin, macrocrystal-mon ohydrate, (Macrobid) 100 MG capsule Take 1 capsule (100 mg) by mouth 2 times daily for 7 days. 14 capsule 5 04/08/20 Active cefixime (Suprax) capsule Take 1 capsule (400 mg) by mouth Once per day for 7 days. 7 capsule 5 04/01/20 Active Problems Problem Noted Date Diagnosed Date Acute cystitis with hematuria 04/01/2025 Assessment & Plan (04/01/2025 4:40 PM EST): - Persistent urinary tract infection with incomplete resolution due to low sensitivity to Rx Cefepime. - Prescribed Macrobid (S >16) for seven days - Advised increased fluid intake. Monitor for improvement over the next three to four days, reconsult PRN no improvement of sxs Cubital tunnel syndrome on right 02/12/2025 Overview [...] incontinence, mixed 11/29/2024 Overview (02/12/2025): Following with [facility] Urology - Dr. Jake Fisher, as well as [facility] Continues with Vesicare 10mg daily Assessment & Plan (02/12/2025 10:11 AM EDT): - Upcoming sling procedure scheduled with [facility] on 02/26/25 Assessment & Plan (11/29/2024 9:02 AM EDT): - Cont current therapy (Last consult note September 2024) Primary hypertension 08/30/2024 Overview (11/29/2024): Following with [facility]-Dr. Topete Amlodipine 5 mg daily Verapamil 120mg [...] BID. Palpitations 05/10/2024 Overview (05/10/2024): Following with [facility]- Dr. Efrem Ratliff completed approx Jun 2023 - demonstrated rare PACs and PVCs Nuclear stress test and echo WNL 2023 Plan: cont verapamil 120mg ER daily through Cards Assessment & Plan (05/10/2024 5:43 PM EST): Encouraged good hydration, reviewed follow up precautions Healthcare maintenance 10/03/2023 Overview (11/29/2024): Mammo: BIRADS 1 on 11/08/24 Pap: NILM/HPV neg Feb 2019 OPH: TRINO on 06/09/23. [facility] (Ana Levi MD). No evidence of diabetic retinopathy or macular edema. Colonoscopy: 12/21/23 ([facility] - Dr. Wilson). Repeat 5 years d/t tubular adenoma. Cigarette smoker 05/08/2023 Assessment & Plan (02/12/2025 10:28 AM EDT): -Currently smoking 2-3 cigg/day -Age started smokin y.o -Encouraged smoking cessation resources such as pharmacomtherapy, [facility] smoking cessation group, and [facility] pharmacy smoking cessation clinic -Start NRT patches -Eligibility for LDCT: not eligible, less than 20 pack years Assessment & Plan (08/30/2024 7:29 PM EDT): -Currently smoking 3 cigg/day -Encouraged smoking cessation resources such as pharmacomtherapy, [facility] smoking cessation group, and [facility] pharmacy smoking cessation clinic -Start NRT patches -Eligibility for LDCT: discuss next appt Assessment & Plan (05/08/2023 2:23 PM EST): -Currently smoking 6 cigg/day -Encouraged smoking cessation resources such as pharmacomtherapy, [facility] smoking cessation group, and [facility] pharmacy smoking cessation clinic -Start NRT patches Type 2 diabetes mellitus wit h hypoglycemia, without long-term current use of insulin 07/11/2022 Overview (02/12/2025): Lab Results Component Value Date HGBA1C 6.4 (A) 11/28/2024 -Following with [facility] - Dr. Granados - Referred to [facility] Television Program Director - Lani Winston - by [facility] in Dec 2023 -Continues with metformin 500mg daily with evening meal -Encourage lifestyle interventions such as routine physical activity and healthy dietary habits -TRINO May 2023 ([facility]) -Statin: due for recheck of lipids. NET DEVELOPER WITH [facility]/pt to confirm if pt rx statin through [...] cognitive stimulation and daily activities. Referral to [facility] on 02/12/25 Assessment & [...] Overview (06/19/2023): Hearing aid eval 10/03/20 at [facility] Audiology - diagnosed with bilateral sensorineural hearing loss and prescription for hearing aids generated Assessment & Plan (06/19/2023 4:56 PM EST): Pt reports that her hearing aids have been misplaced and is in need of re-eval through Audiology for further amplification devices. Referral to [facility] Audiology placed 06/17/23 Tendinitis of right rotator cuff 07/07/2022 Hyperlipidemia 01/01/2021 Stage 3 chronic kidney disease (CMS/HCC) 021 Irritable bowel syndrome with constipation 12/16 Overview (05/10/2024): Followed by [facility] GI - Dr. Wilson Plan: cont linaclotide [...] reflux disease 11/11/2011 Overview (05/10/2024): Followed by [facility] ZAIRA Wilson Plan: cont omeprazole 40mg BID and [...] Encounters Date Type Department Care Team Description 04/01/2025 2:40 PM EST Office Visit [facility] [address] [address] Lisa White MD Acute cystitis with hematuria (Primary Dx) 04/01/2025 Travel 04/01/[address] [address] Adamaris Alejandre, [place] Nurse Triage 03/28/2025 Results Follow-Up [address] [address] Griffin Vera MD Culture, Urine, Routine 03/25/2025 1:20 PM EDT [facility] [address] [address] Griffin Vear MD Urinary tract infection with hematuria, site unspecified (Primary Dx); Cough, unspecified type; Chills 03/25/2025 Orders Only [address] [address] Griffin Vera MD 03/25/2025 Travel 03/15/2025 Results Follow-Up [facility] [address] [place], [place] [phone] Yajaira Lainez FNP Referral to Neurology 02/25/2025 11:00 AM EDT Office Visit [facility] [address] [place] [phone] Francisco JAileen Periodontal disease (Primary Dx); Dental calculus 02/18/2025 11:00 AM EDT Office Visit [facility] [address] [place] [phone] Francisco J Aileen Dental calculus (Primary Dx); Periodontal disease 02/15/[address] [address] Kim Babin FNP Pain 02/12/2025 Telephone [facility] [address] [place] [address] Yajaira Lainez FNP 02/11/2025 10:00 AM EDT Office Visit [facility] [address] [place] [address] Yajaira Lainez, [employer] Carpal tunnel syndrome of right wrist (Primary Dx); Type 2 diabetes mellitus with hypoglycemia without coma, without long-term current use of insulin ([facility]); Cubital tunnel syndrome on right; Dietary counseling; Exercise counseling; Urinary incontinence, mixed; Memory impairment; Primary hypertension; Osteopenia, unspecified location; Chronic pain of right ankle; Cigarette smoker 02/11/2025 Travel 02/08/2025 Telephone [facility] [address] [place] [address] Yajaira Lainez FNP Chart Prep 02/02/2025 10:00 AM EDT Office Visit [facility] [address] [place] [phone] Lisa White MD TMJ dysfunction (Primary Dx); Ear pain, bilateral; Contact with and (suspected) exposure to covid-19 02/02/2025 Refill [facility] [address] [place] [phone] Lisa White MD 02/02/2025 Travel 01/25/2025 Refill [facility] [address] [place] [phone] Yajaira Lainez FNP 01/17/2025 Results Follow-Up [facility] [address] [place] [address] Yajaira Lainez, [employer] Hepatitis C Viral RNA, Quantitative, Real-Time PCR, RPR (Monitor) with Reflex to Titer, HIV-1/2 Antigen and Antibodies, Fourth Generation, with Reflexes, Additional followed-up results: 5 01/10/2025 Refill [facility] [address] [place] [phone] Yajaira Lainez, [employer] Muscle spasm from Last 3 Months Immunizations Immunization Administration Dates Next Due Influenza injectable quadriv alent IIV4 with preservative 02/27/2018,04/11/2017 Influenza injectable quadriv alent preservative free 05/06/2023,02/25/2022,02/26/2021,04/22,03/05/2019,06/01/2016 Influenza, IIV3, injectable 03/01/2014, 1 Influenza, Split (incl. rebeakh fied surface antigen) 03/06/2013,02/11/2012 Influenza, seasonal, injecta [...] Pulse 74 04/01/2025 2:51 PM EST Temperature 36.5 C (97.7 F) 03/25/2025 1:22 PM EDT Respiratory Rate 18 04/01/2025 2:51 PM EST Oxygen Saturation 94% 04/01/2025 2:51 PM EST Inhaled Oxygen Concentration - - Weight 71.1 kg (156 lb 12.8 oz) 03/25/2025 1:22 PM EDT Height 147.3 cm (4' 10 ) 03/25/2025 1:22 PM EDT Body Mass Index 32.77 03/25/2025 1:22 PM EDT Plan of Treatment Upcoming Encounters Date Type Department Care Team (Late st Contact Info) Description 05/27/2025 11:15 AM EST Office Visit [facility] [address] [place] [address] Yajaira Lainez, [employer]OWER [address] [place] [address] 06/28/2025 1:30 PM EST Office Visit [facility] [address] [place] [address] Francisco J, Aileen [address] [place] [address] Health Maintenance Due Date Last Done Comments [...] , 05/06/2023, 02/25/2022, Additional history exists Diabetes: Hemoglobin [...] 01/07/2026 01/07/2025, 12/02/2021 Lipid Panel 01/07/2026 01/07/2025, 0710/2021, 02/16/2021 Depression Screening 02/11/2026 02/11/2025, 02/12/20 Eye Exam 03/13/2026 03/13/2024, 01/28, 02/13/2024, Additional history exists Tobacco Screening 04/01/2026 04/01/2025 DTaP/Tdap/Td Vaccines (2 - Td or Tdap) 06/01/2026 06/01/2016, 02/04/2003 Dental X-Ray: Full Mouth 05/17/202718/2 024, 03/18/2015, 06/06/2012 Colonoscopy 01/17/2029 01/17/2019 Colorectal Cancer Screening 01/17/2029 Zoster Vaccines Completed 02/05/2022, 0710/2021, 12/15/2018 Hepatitis C Screening Completed 01/07/2025 HIB [...] 3:15 PM EST Acute cystitis with hematuria CULTURE, URINE, ROUTINE Routine 03/25/2025 8:47 PM EDT POCT RAPID COVID ANTIGEN Routine 03/25/2025 1:50 [...] Routine 01/07/2025 9:45 AM EDT Memory impairment PROPHYLAXIS - ADULT Routine 12/24/2024 2 :00 PM EDT PERIODIC ORAL EVALUATION - ESTABLISHED PATIENT Routine 12/24/2024 2:00 PM EDT Encounter for dental examination Teeth missing Dental plaque POCT GLYCATED HEMOGLOBIN, TOTAL Routine 11/28/2024 11:52 AM EDT Type 2 diabetes mellitus with hypoglycemia without coma, without long-term current use of insulin (CMS/HCC) BITEWING - SINGLE RADIOGRAPHIC IMAGE Routine 11/27/2024 [...] Relevant to Health Maintenance Results * POCT Urinalysis (04/01/2025 3:15 PM EST) Only the most recent of2 resultswithin the time period is included. Color, UA Yellow Clarity, UA Clear Glucose, UA Negative Bilirubin, UA Negative Ketones, UA Negative Spec Grav, UA 1.015 Blood, UA Negative Negative, None Detected pH, UA 6.0 Protein, UA Negative Urobilinogen, UA 0.2 Leukocytes, UA Trace Negative, Rare, Trace Comment:small Nitrite, UA Negative Negative, None Detected Appearance, UA yellow QC Media Lot # [id number] Lot# Expiration Date [id number] Urine (Urine, Random) 04/01/2025 3:15 PM EST Lisa White MD POINT OF CARE TEST ENTER /EDIT ORDERABLES Final Result * Culture, Urine, Routine (03/25/2025 8:47 PM EDT) Urine Urine specimen obtained by clean catch procedure / Unknown 03/25/2025 8:47 PM EDT 03/25/2025 8:47 PM EDT Comment:[facility] Narrative [facility] - 03/28/2025 7:45 AM EDT Escherichia coli Quant > 100,000 cfu/mL Escherichia coli: Ampicillin 4(S) Escherichia coli: Cefazolin (Urine) <=1(S) Escherichia coli: Cefepime <=0.12(S) Escherichia coli: Ceftriaxone <=0.25(S) Escherichia coli: Ciprofloxacin <=0.06(S) Escherichia coli: Gentamicin <=1(S) Escherichia coli: Nitrofurantoin <=16(S) Escherichia coli: Trimethoprim/Sulfamethoxazole <=20(S) Specimen Source: Urine clean catch us Griffin Vera MD LAB MICROBIOLOGY - GENERAL ORDER WILFREDO Final Result Performing Organization Address [facility] Co de Phone Number [facility] [address] [place] [phone] * POCT Rapid Covid-19 BinaxNOW (03/25/2025 1:50 PM EDT) Only the most recent of2 resultswithin the time period is included. Rapid COVID Ag Negative QC Media Lot # [id number] Lot# Expiration Date [id number] Swab 03/25/2025 1:50 PM EDT us Griffin Vera MD POINT OF CARE TEST ENTER/EDIT OR DERABLES Final Result * POCT Rapid Influenza B CARDENAS ID NOW (03/25/2025 1:31 PM EDT) [facility] Influenza B Negative Negative, Indeterminate [facility] QC Media Lot # [id number] [facility] Lot# Expiration Date [facility] Swab 03/25/2025 1:31 PM EDT us Griffin Vera MD POINT OF CARE TEST ENTER/EDIT OR DERABLES Final Result Performing Organization Address [facility] Co de Phone Number [facility] [address] [place] [phone] * POCT Rapid Influenza A CARDENAS ID NOW (03/25/2025 1:31 PM EDT) Influenza A Negative Negative, Indeterminate [facility] QC Media Lot # [id number] [facility] Lot# Expiration Date [facility] Swab 03/25/2025 1:31 PM EDT us Griffin Vera MD POINT OF CARE TEST ENTER/EDIT OR DERABLES Final Result [facility] [address] [place] [address] [phone] * POCT Rapid Strep A CARDENAS ID NOW (03/25/2025 1:31 PM EDT) Rapid Strep A Screen Negative Negative, None Detected QC Media Lot # [id number] Lot# Expiration Date Swab 03/25/2025 1:31 PM EDT us Griffin Name POINT OF CARE TEST ENTER/EDIT OR DERABLES Final Result * (ABNORMAL) Urinalysis, Complete, with Reflex to Culture (03/25/2025 12:00 AM EDT) Color Urine Yellow [facility] Appearance Urine Turbid [facility] PH 7.0 5.0 - 9.0 [facility] Glucose Urine UA Negative Negative mg/dL [facility] Urine Blood Small (1+)(A) Negative [facility] Specific [place] - Urine 1.010 1.005 - 1.025 [facility] Urine Protein 30 (1+)(A) Neg-Trace mg/dL [facility] Urine Ketones Negative Negative mg/dL [facility] Nitrite Urine Positive(A) Negative [facility] Leukocyte Esterase Urine Large (3+)(A) Negative [facility] RBC Urine 0-2 0 - 2 /HPF [facility] Urine WBC >50(A) 0 - 5 /HPF [facility] WBC CLUMPS, UR Present [facility] Urine Squamous Epithelial Cell 0-2 0 - 2 /HPF [facility] Urine Bacteria 4+ None Seen [facility] Hyaline Casts, Urine 3-5 0 - 2 /LPF [facility] Urine 03/25/2025 03/25/2025 Narrative [facility] - 03/25/2025 8:38 PM EDT Urine, Clean Catch Griffin Vera MD LAB URINE ORDERABLES Final Resul t Performing Organization Address [facility] Co de Phone Number [facility] [address] [place] [phone] * (ABNORMAL) POCT glucose manually resulted (02/11/2025 10:05 AM EDT) Pathologist [facility] Glucose Blood, POC 196 60 - 200 mg/dL QC Media Lot # Comment:[id number] Lot# Expiration Date Comment:05/18/2025 Blood Capillary blood specimen / Unknown 02/11/2025 10:05 AM EDT Result [facility] Yajaira Fatou SMITHP POINT OF CARE TEST ENTER/EDIT ORDERABLES Final Result * Referral to Neurology (02/01/2025) Yajaira Fatou [employer] OUTPATIENT REFERRAL ORDERABLES Final Result * TSH with Reflex to Free T4 (01/07/2025 10:43 AM EDT) [facility] TSH reflex Free T4 1.04 0.32 - 4.0 uIU/mL [facility] Blood 01/07/2025 10:4 3 AM EDT 01/07/2025 10:43 AM EDT Yajaira Fatou [facility] LAB BLOOD ORDERABLES Final Res ult Performing Organization Address [facility]/ZIP Co de Phone Number [facility] [address] [place] [phone] * Hepatitis C Viral RNA, Quantitative, Real-Time PCR (01/07/2025 10:43 AM EDT) [facility] Hepatitis C Viral Load <15 NOT DETECTED NOT DETECTED IU/mL [facility] HCV Log PCR <1.18 NOT DETECTED NOT DETECTED Log IU/mL [facility] Comment:For additional infor yarely, please refer [email or web address](This link is being provided for informational/educational purposes only.)THIS TEST WAS PERFORMED AT:[employer] [place] [phone] SEALS MD Blood 01/07/2025 10:4 3 AM EDT 01/07/2025 10:43 AM EDT Yajaira Lainez [employer] LAB BLOOD ORDERABLES Final Res ult [facility] [address] [place] [address] [phone] * (ABNORMAL) CBC auto differential (01/07/2025 10:43 AM EDT) White Blood Count 5.8 4.8 - 10.8 X10*3/uL [facility] Red Blood Count 4.10(L) 4.20 - 5.50 X10*6/uL [facility] Hemoglobin 12.7 12.0 - 16.0 g/dl [facility] Hematocrit 39.4 37.0 - 47.0 % [facility] Mean Corpuscular Volume 96.1 80.0 - 98.0 fL [facility] Mean Corpuscular Hemoglobin 31.0 27.0 - 33.0 pg [facility] Mean Corpuscular HGB Conc 32.2 31.0 - 35.0 g/dl [facility] Red Cell Distribution Width 12.8 11.0 - 16.0 % [facility] Platelet Count 221 160 - 400 X10*3/uL [facility] Mean Platelet Volume 11.0 9.4 - 12.3 fL [facility] Neutrophils Percent Auto 63.0 45 - 73 % [facility] Imm Gran Pct Auto 0.7(H) 0.0 - 0.4 % [facility] Lymphocytes Percent Auto 21.1 20 - 40 % [facility] Monocytes Percent Auto 7.2 2 - 11 % [facility] Eosinophils Percent Auto 7.5(H) 0 - 4 % [facility] Basophils Percent Auto 0.5 0 - 2 % [facility] NRBC Pct Auto 0.0 0.0 - 0.2 /100WBC [facility] Neutrophils Absolute Auto 3.7 2.0 - 8.3 x10*3/uL [facility] Imm Gran Abs Auto 0.04(H) 0.00 - 0.03 X10*3/uL [facility] Lymphocytes Absolute Auto 1.2 1.2 - 4.9 X10*3/uL [facility] Monocytes Absolute Auto 0.4 0.1 - 1.2 X10*3/uL [facility] Eosinophils Absolute Auto 0.4 0.0 - 0.4 X10*3/uL [facility] Basophils Absolute Auto 0.0 0.0 - 0.2 X10*3/uL [facility] NRBC Abs Auto 0.000 0.0 - 0.012 X10*3/uL [facility] Blood Venous blood specimen / Unknown 01/07/2025 10:43 AM EDT 01/07/2025 10:43 AM EDT us Yajaira Lainez [employer] LAB BLOOD ORDERABLES Final Res ult [facility] [address] [place] [phone] * RPR (Monitor) with Reflex to??Titer (01/07/2025 10:43 AM EDT) RPR (Monitor) w/Refl Titer NON-REACTI VE NON-REACT ANTWON [facility] Comment:THIS TEST WAS PERFOR MED AT:[employer] [place] [phone] SEALS MD Rapid Plasma Reagin Ab Titer TNP [facility] Blood Venous blood specimen / Unknown 01/07/2025 10:43 AM EDT 01/07/2025 10:43 AM EDT us Yajaira Lainez [facility] LAB BLOOD ORDERABLES Final Res ult Performing Organization Address [facility]/ZIP Co de Phone Number [facility] [address] [place] [phone] * HIV-1/2 Antigen and Antibodies, Fourth Generation, with Reflexes (01/07/2025 10:43 AM EDT) HIV AB/AG Nonreactive Nonreactive [facility] Comment:HIV-1 p24 Ag and/or HIV-1/HIV-2 Ab not detected.A test result that is nonreactive does not exclude thepossibility of exposure to or infection with HIV-1 and/orHIV-2. Nonreactive results in this assay for individualswith prior exposure to HIV-1 and/or HIV-2 may be due toantigen and antibody levels that are below the limit ofdetection of this assay.The [employer] HIV Ag/Ab Combo assay result andsupplemental assay results should be interpreted inconjunction with the patient's clinical presentation,history and other laboratory results. If the results areinconsistent with clinical evidence, additional testing issuggested to confirm the result. Blood Venous blood specimen / Unknown 01/07/2025 10:43 AM EDT 01/07/2025 10:43 AM EDT Yajaira Lainez [facility] LAB BLOOD ORDERABLES Final Res ult Performing Organization Address [facility]/ZIP Co de Phone Number [facility] [address] [place] [phone] [phone] * (ABNORMAL) Vitamin B12 (01/07/2025 10:43 AM EDT) Vitamin B12 178(L) 200 - 900 pg/mL [facility] Comment:NORMAL 200-900 PG/ML INDETERMINATE 160-199 PG/ML DEFICIENT < 160 PG/ML Blood Venous blood specimen / Unknown 01/07/2025 10:43 AM EDT 01/07/2025 10:43 AM EDT Yajaira Lainez [employer] [facility] LAB BLOOD ORDERABLES Final Res ult Performing Organization Address City/[facility]/ZIP Co de Phone Number [facility] [address] [place] [address] [phone] * (ABNORMAL) Lipid Panel, Standard (01/07/2025 10:43 AM EDT) Triglycerides 127 <150 mg/dL [facility] Comment:Desirable Triglyceri de: less than 150 mg/dLBorderline High Triglyceride 150-199 mg/dLHigh Triglyceride: 200-499 mg/dLVery High Triglyceride: greater than or equal to 5OO mg/dL Cholesterol 184 <200 mg/dL [facility] Comment:Desirable Cholestero l: less than 200 mg/dLBorderline High Cholesterol: 200-239 mg/dLHigh Cholesterol: greater than 239 mg/dL LDL Cholesterol Calculated 114(H) <100 mg/dL [facility] Comment:Desirable LDL: less than 100 mg/dLNear Optimal/Above Optimal LDL: 110- 129 mg/dLBorderline High LDL: 130-159 mg/dLHigh LDL: 160-189 mg/dLVery High LDL: greater than or equal to 190 mg/dL HDL Cholesterol 45 >40 mg/dL [facility] Comment:Desirable HDL: great er than 40 mg/dL Note: This HDL assay may give artificially low results in patients with liver disease. Blood Venous blood specimen / Unknown 01/07/2025 10:43 AM EDT 01/07/2025 10:43 AM EDT us Tyler Ortiz MD LAB BLOOD ORDERABLES Final Result Performing Organization Address City/[facility]/ZIP Co de Phone Number [facility] [address] [place] [address] [phone] * (ABNORMAL) Comprehensive Metabolic Panel (01/07/2025 10:43 AM EDT) Sodium 143 135 - 145 mmol/L [facility] Potassium 3.8 3.3 - 5.1 mmol/L [facility] Chloride 106 96 - 108 mmol/L [facility] Carbon Dioxide 30(H) 22 - 29 mmol/L [facility] Anion Gap 11(L) 12 - 20 [facility] Urea Nitrogen (BUN) 10 9 - 16 mg/dL [facility] Creatinine, Serum 0.91 0.5 - 1.4 mg/dL [facility] Estimated Glomerular Filt Rate >60 [facility] Comment:Chronic Kidney Disea se: Estimated GFR < 60 mL/min/1.68u1Bbvwpc Kidney Disease: Estimated GFR < 15 mL/min/1.73m2 Glucose 191(H) 60 - 115 mg/dL [facility] Calcium 9.2 8.4 - 10.2 mg/dL [facility] Bilirubin, Total 0.4 0.0 - 1.0 mg/dL [facility] Aspartate Amino Transferase 25 5 - 31 U/L [facility] Alanine Aminotransferase 23 0 - 31 U/L [facility] Total Protein 7.0 6.5 - 8.0 g/dL [facility] Albumin Level 4.4 3.5 - 5.0 g/dL [facility] Alkaline Phosphatase 107 39 - 117 U/L [facility] Blood Venous blood specimen / Unknown 01/07/2025 10:43 AM EDT 01/07/2025 10:43 AM EDT us Yajaira Lainez [facility] LAB BLOOD ORDERABLES Final Res ult [facility] [address] [place] [phone] * Albumin, Random Urine W/Creatinine (01/07/2025 10:34 AM EDT) Creatinine, Urine 61.04 mg/dL [facility] Microalbumin Urine <5.0 mg/L [facility] Microalbum Creatinine Ratio Ur TNP <30 ug/mg cr [facility] Comment:Unable to calculate albumin/creatinine ratio due to lowmicroalbumin or creatinine result. Urine 01/07/2025 10:3 4 AM EDT 01/07/2025 11:24 AM EDT Yajaira SMITHP LAB URINE ORDERABLES Final Res ult [facility] [address] [place] [phone] * MR Brain w/o Contrast (01/07/2025 9:45 AM EDT) Anatomical Region Laterality Modality Brain Magnetic Resonan ce 01/07/2025 9:45 AM EDT Narrative 01/07/2025 10:46 AM EDT [address] [address] Magnetic Resonance Report Signed Patient: Celestina Sullivan MR#: [id number] 0 : 1960 Acct:[id number] Age/Sex: 64 / F ADM Date: 01/07/25 Loc: HO.MRI Attending Dr: Yajaira MALIK Ordering Physician: Yajaira Lainez Date of Service: 01/07/25 Procedure(s): MR head/brain wo con Accession Number(s): [id number] cc: Yajaira Lainez EXAMINATION: MR BRAIN WITHOUT [...] 01/07/25 1043 DD/ 0945 TD/TT: 01/07/25 1025 [place] Marshal: Procedure Note Donotuseinterpreter, Image - 01/07/2025 [place] [address] Magnetic Resonance Report Signed Patient: Sundeep Sullivan#: [id number] 0 : 9Acct:[id number] Age/Sex: 64 / FADM Date: 01/07/25 Loc: HO.MRI Attending Dr: Yajaira MALIK Ordering Physician: Yajaira Lainez Date of Service: 01/07/25 Procedure(s): MR head/brain wo con Accession Number(s): [id number] cc: Yajaira Lainez EXAMINATION: MR BRAIN WITHOUT [...] 01/07/25 1043 DD/ 0945 TD/TT: 01/07/25 1025 [place] Marshal: us Yajaira Phalen [facility] IMG MRI PROCEDURES Final Resul t * (ABNORMAL) POCT HGB A1C (11/28/2024 11:52 AM EDT) Hemoglobin A1C 6.4(A) 4.0 - 5.7 % QC Media Lot # [id number] Lot# Expiration Date Blood 11/28/2024 11:5 2 AM EDT us Yajaira Phalen [facility] POINT OF CARE TEST ENTER/EDIT ORDERABLES Final Result * BI US Breast Limited Bilateral (11/08/2024 12:00 PM EDT) Anatomical Region Laterality Modality Breast Bilateral Ultrasound 11/08/2024 12:0 0 PM EDT Narrative 11/08/2024 1:[address] [facility] [address] [place] [address] Ultrasound Report Signed Patient: Celestina Sullivan MR#: [id number] 0 : 1960 Acct:[id number] Age/Sex: 64 / F ADM Date: 11/08/24 Loc: HO.MAMMO Attending Dr: Tyler Ortiz MD Ordering Physician: Tyler Ortiz MD Date of Service: 11/08/24 Procedure(s): US breast BI limited mamm only Accession Number(s): [id number] cc: Tyler Ortiz MD EXAMINATION: MM DIAGNOSTIC [...] density (ACR BI-RADS breast composition Category b). [place] marker upper inner left breast at site [...] 11/08/24 1258 DD/ 1200 TD/TT: 11/08/24 1222 [place] Marshal: Procedure Note Donotuseinterpreter, Image - 11/08/2024 [facility] [address] [place] [address] Ultrasound Report Signed Patient: Celestina Sullivan#: [id number] 0 : 9Acct:[id number] Age/Sex: 64 / FADM Date: 11/08/24 Loc: HOKaiserMAMMO Attending Dr: Tyler Ortiz MD Ordering Physician: Tyler Ortiz MD Date of Service: 11/08/24 Procedure(s): US breast BI limited mamm only Accession Number(s): [id number] cc: Tyler Ortiz MD EXAMINATION: MM DIAGNOSTIC [...] density (ACR BI-RADS breast composition Category b). [place] marker upper inner left breast at site [...] 11/08/24 1258 DD/ 1200 TD/TT: 11/08/24 1222 [place] Marshal: us Tyler Ortiz MD IMG US PROCEDURES Edited Re sult - Final * (ABNORMAL) HPV DNA, Low/High Risk (09/04/2024 12:00 AM EDT) HPV High Risk Positive(A) Negative [facility] HPV Genotype 16 Negative Negative [facility] HPV Genotype 18 Negative Negative [facility] Comment:HPV testing performe d at [facility] (CLIA#[id number]), [address] [place] [address].Testing for HPV was performed using the [employer] DEVAUGHN 6800system. The presence of HPV in [...] 6:0 0 AM EDT us Elisabeth Fan [facility] BLOOD ORDERABLES Melany welsh Result [facility] [address] [place] [phone] * Pap Smear (09/04/2024 12:00 AM EDT) Swab Cervix uteri structure / Unknown 09/04/2024 09/05/2024 6:00 AM EDT Narrative [facility] - 09/09/2024 10:37 AM EDT ----- ------- Name: Celestina Sullivan Age/Sex: 64/F : 1960 Unit#: [id number] Attend Dr: ELIASBETH [facility]AN [facility] Re09/04/24 Status: DEP REF Location: HO.HHCLNP Disch: ----- ------- SPEC : [id number] RECD: 09/05/24 STATUS: LESLIE OZUNA NUM: [id number] SHAHAB: 09/04/24-[address]: ELISABETH [facility] ENTERED: 09/05/24 SP TYPE: Pap Smr OTHR [...] 1037 ----- ------- END OF REPORT Elisabeth [facility] LAB CYTOLOGY ORDERABLES F inal Result [facility] [address] [place] [address] [phone] * Referral to Ophthalmology (03/13/2024) Sol Keenefo OD OUTPATIENT REFERRAL ORDERABLE S Final Result * Hm Colonoscopy (01/17/2019) Colonoscopy Normal Normal Narrative Rosi Fernandez - 01/17/2019 Repeat in 10 years Historical Provider HEALTH MAINTENANCE Final Result from Last 3 Months or Most Recently Relevant to Health Maintenance Insurance [facility] < 65 IVANNA MESSINA [id number] [facility] Advance Directives Documents on File Type Date Recorded Patient Fertilizer Supervisor Expl anation Advance Directives and Livin g Will 04/05/2024 3:00 PM HCP Care Teams Foundry Worker General Relationship Specialty Start Date End Date Yajaira Lainez FNP [address] [place] [address] PCP - General Family Medicine 12/15/21 Torsten Leahy DPM [address] [place] [address] [address] [place] [address] Podiatry 02/12/25 Taan Grider NP [address] [facility] [address] [place] [address] Urology 02/12/25 [facility] 04/23/24
--- OUTSIDE RECORDS SUMMARY | 2025-04-02 14:45 | XMS_ITS | Encounter Summary ---
Author Organization [employer] Address [address] 7t [place] [address] Care Team Providers Care Msw Name Role Phone Yajaira Lainez Primary Care Provider [phone] Torsten Leahy DPM Unavailable [phone] Tana Grider MEDIA RELATIONS SPECIALIST Unavailable Reason for Visit * Reason Comments Med Refill Encounter Details Date Type Department Care Team ([facility] st Contact Info) Description 07/28/2023 Refill [facility] MEDICINE [address] [place] [address] Yajaira Lainez FNP [address] [place], [place] [phone] Social History Tobacco Use Types Packs/Day Years [...] Description 05/27/2025 11:15 AM EST Office Visit [facility] CHC MED & PEDS [address] [place] [address] Yajaira Lainez FNP [address] [place] [address] 06/28/2025 1:30 PM EST Office Visit [facility] ADULT DENTAL [address] [place] [address] Francisco J, Aileen [address] [place] [address] documented as of this encounter Visit Diagnoses Not on filedocumented in this encounter Additional Health Concerns Assessment Noted Time PHQ-9 Depression Total Score: 0 01/15/20 23 3:37 PM EDT documented as of this encounter Care Teams Msw Relationship Specialty Start Date End Date Yajaira Lainez FNP [address] [place] [address] PCP - General Family Medicine 12/15/21 Torsten Leahy DPM [address] [address] Podiatry 02/12/25 Tana Grider NP [address] [place] [address] Urology 02/12/25 [facility] 04/23/24 documented as of this encounter
--- OUTSIDE RECORDS SUMMARY | 2025-04-02 14:45 | XMS_ITS | Encounter Summary ---
Author Organization [facility] Address [address] [facility] 7t [place] [address] Care Team Providers Care Dental Patient Coordinator Name Role Phone Yajaira Lainez Primary Care Provider [phone] Torsten Leahy DPM Unavailable [phone] Tana Grider RETAIL BANKING MANAGER Unavailable Encounter Details Date Type Department Care Team (Late st Contact Info) Description 06/16/2022 Orders Only [facility] MED & PEDS [address] [place] [address] Francoise Perez LPN Social History Tobacco Use [...] Description 05/27/2025 11:15 AM EST Office Visit [facility] MED & PEDS [address] [place] [address] Yajaira Lainez FNP 505 [place] [address] 06/28/2025 1:30 PM EST Office Visit [facility] ADULT DENTAL [address] [place] [address] Cale Marxaris [address] [place] [address] documented as of this encounter Visit Diagnoses Not on filedocumented in this encounter Care Teams Dental Patient Coordinator Relationship Specialty Start Date End Date Yajaira Lainez FNP [address] [place] [address] PCP - General Family Medicine 12/15/21 Torsten Leahy DPM 175 [facility] [address] [place] [address] Podiatry 02/12/25 Tana Grider NP [address] [facility] [address] [place] [address] Urology 02/12/25 [facility] 04/23/24 documented as of this encounter
--- OUTSIDE RECORDS SUMMARY | 2025-04-02 14:45 | XMS_ITS | Encounter Summary ---
Author Organization [employer] Address [address] [facility] 7t [place] [address] Care Team Providers Care Indigo Mixer Name Role Phone Yajaira Lainez Primary Care Provider [phone] Torsten Leahy DPM Unavailable [phone] Tana Grider FAGOT HEATER HELPER Unavailable Reason for Visit * Reason Comments Med Refill Encounter Details Date Type Department Care Team (Late Contact Info) Description 01/01/2023 Refill [facility] MED[facility]INE [address] [place] [address] Yajaira Lainez FNP [address] [place], [place] [phone] Social History Tobacco Use Types Packs/Day Years [...] Description 05/27/2025 11:15 AM EST Office Visit [facility] CHC MED & PEDS [address] [place], [place] [phone] Yajaira Lainez FNP [address] [place], [place] [phone] 06/28/2025 1:30 PM EST Office Visit [facility] ADULT DENTAL [address] [place] [address] Aileen Marx [address] [place] [address] documented as of this encounter Visit Diagnoses Not on filedocumented in this encounter Care Teams Indigo Mixer Relationship Specialty Start Date End Date Yajaira Lainez FNP [address] [place] [address] PCP - General Family Medicine 12/15/21 Torsten Leahy DPM 175 [facility] 250 [place] [address] Podiatry 02/12/25 Tana Grider NP [address] [place] [address] Urology 02/12/25 [facility] 04/23/24 documented as of this encounter
--- OUTSIDE RECORDS SUMMARY | 2025-04-02 14:45 | XMS_ITS | Encounter Summary ---
Author Organization [employer] Address [address] [facility] 7t [place] [address] Care Team Providers Care Animal Health Technician Name Role Phone Yajaira Lainez RACING SECRETARY Primary Care Provider [phone] Torsten Leahy DPM Unavailable [phone] Tana Grider TRUCK SALES REPRESENTATIVE Unavailable Reason for Visit * Reason Onset Date Comments Nurse Triage 04/01/2025 Encounter Details Date Type Department Care Team ([facility] st Contact Info) Description 04/01/2025 Telephone [facility] MED[facility]INE [address] [place] [address] Adamaris Alejandre, RN [address] [place] [address] Nurse Triage Social History Tobacco Use Types [...] encounter Miscellaneous Notes * Telephone Encounter - Adamaris Alejandre RN - 04/01/2025 12:56 PM EST Assessment: Patient [facility] c/o hot flashes and dizziness x 3days. Pt is here with her daughter Rayne who reports that she went to see pt this morning and saw pt wasn't looking well. Pt was sweating, she took a cool shower and used cool rags but it didn't help. Pt went to go drink water and hand was shaking. Pt reports has been like this all weekend. Pt was seen in [facility] 03/25/25 for UTIand was given cefixime daily x7 days. Daughter reports pt just took last pill. Pt reporting ongoingburning with urination. Pt last had coffee with sugar ~ 1hr ago. Hasn't had breakfast yet. Last night for dinner she had beef and broccoli with rice yoruba food. RBG checked: 228mg/dL. Pt reports that she has not taken any of her medications yet today. VS as follows (if applicable): Temp 98.1 F orally HR 78 regular rate and rhythm Resp 18 none BP 117/80 left Arm; Device: Automatic Cuff Size: regular O2 sat 100 % on room air Hgt 4'10 Wgt 153.4lb Allergies[1] Current Medications[2] Patient Active Problem List Diagnosis Date Noted Cubital tunnel syndrome on right 02/12/2025 TMJ dysfunction 02/02/2025 Dental caries 12/03/2024 Open fracture of tooth 12/03/2024 Urinary incontinence, mixed 11/29/2024 Primary hypertension 08/30/2024 Chronic bilateral low back pain 08/30/2024 Palpitations 05/10/2024 Healthcare maintenance 10/03/2023 Cigarette smoker 05/08/2023 Type 2 diabetes mellitus with hypoglycemia, without long-term current use of insulin ([facility]) 07/11/2022 Osteoarthritis of knees, bilateral 07/07/2022 Benign paroxysmal positional vertigo 07/07/2022 Carpal tunnel syndrome 07/07/2022 Cobalamin deficiency 07/07/2022 Major depression with psychotic features ([facility]) ([facility]) 07/07/2022 Memory impairment 07/07/2022 Migraine without aura, not refractory 07/07/2022 Posttraumatic stress disorder 07/07/2022 Primary osteoarthritis of both hips 07/07/2022 Sensorineural hearing loss, bilateral 07/07/2022 Tendinitis of right rotator cuff 07/07/2022 Hyperlipidemia 01/01/2021 Stage 3 chronic kidney disease ([facility]) ([facility]) 01/01/2021 Irritable bowel syndrome with constipation 12/16/2017 Anxiety 11/23/2016 Degenerative joint disease of shoulder region 11/23/2016 Osteopenia 04/12/2012 Scoliosis deformity of spine 04/12/2012 Allergic rhinitis 11/11/2011 Asthma 11/11/2011 Gastroesophageal reflux disease 11/11/2011 In Office Testing Blood Glucose 228mg/dL Plan of care: Provider evaluation: Yes Pt booked for 2:40 PM today. Pt does not appear to be in distress. Lives across the [address]. Daughter states pt lives across the street. Will go relax with her at home for a little bit and will come back for appointment time. Adamaris Alejandre RN [1] Allergies Allergen Reactions Sulfa Antibiotics Other [2] Current Outpatient Medications Medication Sig Dispense Refill acetaminophen (Tylenol 8 [...] 225 g 3 Blood Glucose Monitoring Suppl ([employer] Verio Flex System) w/Device kit TEST BLOOD SUGAR [...] Blood Gluc Sensor (FreeStyle Farzana 2 Sensor) [facility] cyanocobalamin (Vitamin B-12) 1000 MCG tablet Take 1 tablet (1,000 mcg) by mouth Once per day. 90 tablet 0 cyclobenzaprine (Flexeril) 10 MG tablet Take 1 tablet (10 mg) by mouth at bedtime for 10 days. (Patient not taking: Reported on 02/25/2025) 10 tablet 0 Diclofenac Sodium 1 % [...] AFFECTED EYE 3 TIMES A DAY Lancets (ID [employer] AmericaTouch Delica Plus [id number]) [facility] Inject 1 each into the skin before [...] 40 mg by mouth 2 times daily. OneTouch Verio test strip USE DIRECTED TO [...] Once per day. No current facility-administered medications for this visit. documented in this encounter Plan of Treatment Upcoming Encounters Date Type Department Care Team (Late st Contact Info) Description 05/27/2025 11:15 AM EST Office Visit [facility] CH[facility] MED & PEDS [address] [place], [place] [phone] Yajaira Lainez FNP [address] [place] [address] 06/28/2025 1:30 PM EST Office Visit [facility] ADULT DENTAL [address] [place] [address] Francisco J, Aileen [address] [place] [address] documented as of this encounter Visit Diagnoses Not on filedocumented in this encounter Additional Health Concerns Assessment Noted Time PHQ-9 Depression Total Score: 8 02/12/20 10:08 AM EDT documented as of this encounter Care Teams Animal Health Technician Relationship Specialty Start Date End Date Yajaira Lainez FNP [address] [place] [address] PCP - General Family Medicine 12/15/21 Torsten Leahy DPM 175 [facility] [address] [place] [address] Podiatry 02/12/25 Tana Grider NP [address] [facility] [address] [place] [address] Urology 02/12/25 [facility] 04/23/24 documented as of this encounter
--- OUTSIDE RECORDS SUMMARY | 2025-04-02 14:45 | XMS_ITS | Encounter Summary ---
Author Organization [employer] Address [address] [place] [address] Care Team Providers Care Molded Rubber Goods Cutter Name Role Phone Yajaira Lainez MEDIA SENIOR RECRUITER Primary Care Provider [phone] Torsten Leahy DPM Unavailable [phone] Tana Grider DOCK OPERATOR Unavailable Encounter Details Date Type Department Care Team (Late st Contact Info) Description 04/14/2023 Abstract [facility] MEDICINE [address] [place], [place] [phone] Rosi Fernandez Social History Tobacco Use Types [...] [facility] [address] [place], [place] [phone] Yajaira Lainez FNP 505 [place], [place] [phone] 06/28/2025 1:30 PM EST Office Visit [facility] ADULT DENTAL [address] [place] [address] Francisco J Aileen [address] [place] [address] documented as of this encounter Procedures Procedure Name Priority Date/Time Associated Diagnosis Comments COLONOSCOPY Routine 01/17/2019 documented in this encounter Results * Colonoscopy (01/17/2019) Colonoscopy Normal Normal Narrative Rosi Fernandez - 01/17/2019 Repeat in 10 years Historical Provider HEALTH MAINTENANCE Final Result documented in this encounter Visit Diagnoses Not on filedocumented in this encounter Additional Health Concerns Assessment Noted Time PHQ-9 Depression Total Score: 0 01/15/20 23 3:37 PM EDT documented as of this encounter Care Teams Molded Rubber Goods Cutter Relationship Specialty Start Date End Date Yajaira Lainez FNP [address] [place] [address] PCP - General Family Medicine 12/15/21 Torsten Leahy DPM [address] [place] [address] Podiatry 02/12/25 Tana Grider NP [address] [place] [address] Urology 02/12/25 [facility] 04/23/24 documented as of this encounter
--- OUTSIDE RECORDS SUMMARY | 2025-04-02 14:45 | XMS_ITS | Encounter Summary ---
Author Organization [employer] Address [address] [facility] 7t [place] [address] Care Team Providers Care Bolting Machine Operator Name Role Phone Yajaira Lainez Primary Care Provider [phone] Torsten Leahy DPM Unavailable [phone] Tana Grider SOLE SEAMER Unavailable Encounter Details Date Type Department Care Team (Late st Contact Info) Description 11/08/2022 Abstract [facility] MEDICINE [address] [place] [address] Yajaira Lainez FNP [address] [place] [address] Social History Tobacco Use Types Packs/Day Years [...] Description 05/27/2025 11:15 AM EST Office Visit [facility] CH[facility] MED & PEDS [address] [place] [address] Yajaira Lainez FNP 505 [place] [address] 06/28/2025 1:30 PM EST Office Visit [facility] ADULT DENTAL [address] [place] [address] Aileen Marx [address] [place] [address] documented as of this encounter Visit Diagnoses Not on filedocumented in this encounter Care Teams Bolting Machine Operator Relationship Specialty Start Date End Date Yajaira Lainez FNP [address] [place] [address] PCP - General Family Medicine 12/15/21 Torsten Leahy DPM 175 [facility] 250 [place] [address] Podiatry 02/12/25 Tana Grider NP [address] [place] [address] Urology 02/12/25 [facility] 04/23/24 documented as of this encounter
--- OUTSIDE RECORDS SUMMARY | 2025-04-02 14:45 | XMS_ITS | Encounter Summary ---
Author Organization [employer] Address [address] [facility] 7t [place] [address] Care Team Providers Care Apple Picking Supervisor Name Role Phone Yajaira Lainez FRONT END TECHNICIAN Primary Care Provider [phone] Torsten Leahy DPM Unavailable [phone] Tana Grider MANAGER PRINTING Unavailable Encounter Details Date Type Department Care Team ([facility] Contact Info) Description 03/15/2025 Results Follow-Up [facility] MED & PEDS 505 [place], [place] [phone] Yajaira Lainez FNP 505 [place], [place] [phone] Referral to Neurology Social History Tobacco Use [...] Description 05/27/2025 11:15 AM EST Office Visit [facility] CHC MED & PEDS 505 [place] [address] Yajaira Lainez FNP 505 [place] [address] 06/28/2025 1:30 PM EST Office Visit [facility] ADULT DENTAL 230 [place] [address] Francisco J, Aileen 230 [place] [address] documented as of this encounter Visit Diagnoses Not on filedocumented in this encounter Additional Health Concerns Assessment Noted Time PHQ-9 Depression Total Score: 8 02/12/20 25 10:08 AM EDT documented as of this encounter Care Teams Apple Picking Supervisor Relationship Specialty Start Date End Date Yajaira Lainez FNP 230 [place] [address] PCP - General Family Medicine 12/15/21 Torsten Leahy DPM [address] [place] [address] Podiatry 02/12/25 Tana Grider NP [address] [place] [address] Urology 02/12/25 [facility] [place] 04/23/24 documented as of this encounter
--- OUTSIDE RECORDS SUMMARY | 2025-04-02 14:45 | XMS_ITS | Encounter Summary ---
Author Organization [employer] Address [address] [facility] 7t [place] [address] Care Team Providers Care Human Resources Admin Name Role Phone Yajaira Lainez Primary Care Provider [phone] Torsten Leahy DPM Unavailable [phone] Tana Grider CORRECTIONAL SUBSTANCE ABUSE COUNSELOR Unavailable Encounter Details Date Type Department Care Team ([facility] Contact Info) Description 07/29/2022 Orders Only [facility] MEDICINE [address] [place] [address] Yajaira Lainez FNP 505 [place] [address] Social History Tobacco Use Types Packs/Day Years [...] Upcoming Encounters Date Type Department Care Team ([facility] Contact Info) Description 05/27/2025 11:15 AM EST Office Visit [facility] CHC MED & PEDS 505 [place], [place] [phone] Yajaira Lainez FNP [address] [place] [address] 06/28/2025 1:30 PM EST Office Visit [facility] ADULT DENTAL 230 [place] [address] Aileen Marx 230 [place] [address] documented as of this encounter Visit Diagnoses Not on filedocumented in this encounter Care Teams Human Resources Admin Relationship Specialty Start Date End Date Yajaira Lainez FNP 230 [place] [address] PCP - General Family Medicine 12/15/21 Torsten Leahy DPM [address] [place] [address] 250 [place] [address] Podiatry 02/12/25 Tana Grider NP [address] [place] [address] Urology 02/12/25 [facility] 04/23/24 documented as of this encounter
--- OUTSIDE RECORDS SUMMARY | 2025-04-02 14:45 | XMS_ITS | Clinical Summary ---
Author Organization [address] [facility] Address [address] [place] [address] Phone Care Team Providers Care Drupal Architect Name Role Phone Physician, Pcp Unknown Primary [...] 0 Refills, Maintenance, 10/17/24 1:09:00 PM EDT, [facility], Partial fill upon patient request if [...] 10:30 AM EDT Office Visit Orthopedic Surgery [facility] [address] [place] [phone] Torsten Leahy, DPM Xerosis of skin (Primary Dx); Diabetic mononeuropathy simplex ([facility]/HCC V24, CMS/HCC V28); Verruca plantaris from Last [...] age to complete this topic Insurance , [address] [address] [place]ICAID - [place] [facility] Member Subscriber Plan / Payer (Ef fective 2022-Present) Name:JAN STEENANA Relation to Subscriber:Self Name:Celestina Steen Payer ID:[id number] Group ID:[id number] Type:Not on file Address: [address] [place] [phone] [employer] MEDICARE Member Subscriber Plan / Payer (Ef fective 2022-Present) Name:CELESTINA STEEN Relation to Subscriber:Self Name:Celestina Steen Payer ID:[id number] Group ID:[id number] Type:Not on file Address: [address] [place] [id number] Care Teams Drupal Architect Relationship Specialty Start Date End Date Physician, Pcp Unknown PCP - General 12/13/24
--- OUTSIDE RECORDS SUMMARY | 2025-04-02 14:45 | XMS_ITS | Encounter Summary ---
Author Organization [employer] Address [address] [facility] 7t [place] [address] Care Team Providers Care Solar Energy System Installer Helper Name Role Phone Yajaira Lainez LUNCHROOM ATTENDANT Primary Care Provider [phone] Torsten Leahy DPM Unavailable [phone] Tana Grider LINE CONSTRUCTION SUPERINTENDENT Unavailable Encounter Details Date Type Department Care Team (Latest Contact Info) Description 04/01/2025 Travel Social History Tobacco Use Types Packs/Day [...] Description 05/27/2025 11:15 AM EST Office Visit [facility] CHC MED & PEDS 505 [place] [address] Yajaira Lainez FNP 505 [place] [address] 06/28/2025 1:30 PM EST Office Visit [facility] ADULT DENTAL 230 [place] [address] Francisco J, Aileen 230 [place] [address] documented as of this encounter Visit Diagnoses Not on filedocumented in this encounter Additional Health Concerns Assessment Noted Time PHQ-9 Depression Total Score: 8 02/12/20 25 10:08 AM EDT documented as of this encounter Care Teams Solar Energy System Installer Helper Relationship Specialty Start Date End Date Yajaira Lainez FNP 230 [place] [address] PCP - General Family Medicine 12/15/21 Torsten Leahy DPM [address] [address] Podiatry 02/12/25 Tana Grider NP [address] [place] [address] Urology 02/12/25 [facility] [place] 04/23/24 documented as of this encounter
--- OUTSIDE RECORDS SUMMARY | 2025-04-02 14:45 | XMS_ITS | Encounter Summary ---
Author Organization [facility] Address [address] [place] [address] Phone Care Team Providers Care Leadite Worker Name Role Phone Yajaira Lainez HELENA Primary Care Provider [phone] Reason for Visit * Reason Onset Date Comments [facility] Call 01/04/2025 Encounter Details Date Type Department Care Team (Late st Contact Info) Description 01/04/2025 Telephone [facility] [address] [place] [address] [phone] Palomo Granados DO [address] [place] [phone] [email or web address] [facility] Call Social History Tobacco Use Types [...] call back with bs readings. Central Support Community Service Specialist (Please do not reply to this user; this inbox is not monitored.) Thank you. documented in this encounter Plan of Treatment Upcoming Encounters Date Type Department Care Team (Late st Contact Info) Description 06/13/2025 12:10 PM EST Office Visit [facility] [address] [place] [address] Palomo Granados DO [address] [place] [address] [email or web address] documented as of this encounter Visit Diagnoses Not on filedocumented in this encounter Care Teams Leadite Worker Relationship Specialty Start Date End Date Yajaira Lainez FNP [address] [place] [address] PCP - General Nurse Practitioner 08/31/23 documented as of this encounter Additional Source Comments The information contained in this document represents components of the legal health record. It is not the complete legal health record.[facility]
--- OUTSIDE RECORDS SUMMARY | 2025-04-02 14:45 | XMS_ITS | Encounter Summary ---
Author Organization [employer] Address [address] [facility] 7t [place] [address] Care Team Providers Care Auxiliary Plant Operator Name Role Phone Yajaira Lainez Primary Care Provider [phone] Torsten Leahy DPM Unavailable [phone] Tana Grider DIVISION LEADER Unavailable Reason for Visit * Reason Comments Med Refill Encounter Details Date Type Department Care Team ([facility] st Contact Info) Description 12/16/[address] [facility] MEDICINE [address] [place] [address] Yajaira Lainez FNP [address] [place], [place] [phone] Pain Social History Tobacco Use Types Packs/Day [...] Description 05/27/2025 11:15 AM EST Office Visit [facility] CHC MED & PEDS 505 [place] [address] Yajaira Lainez FNP 505 [place] [address] 06/28/2025 1:30 PM EST Office Visit [facility] ADULT DENTAL 230 [place] [address] Francisco J, Aileen 230 [place] [address] documented as of this encounter Visit Diagnoses Diagnosis Pain Generalized pain documented in this encounter Additional Health Concerns Assessment Noted Time PHQ-9 Depression Total Score: 0 01/15/20 23 3:37 PM EDT documented as of this encounter Care Teams Auxiliary Plant Operator Relationship Specialty Start Date End Date Yajaira Lainez FNP 230 [place] [address] PCP - General Family Medicine 12/15/21 Torsten Leahy DPM [address] [address] Podiatry 02/12/25 Tana Grider NP [address] [place] [address] Urology 02/12/25 [facility] 04/23/24 documented as of this encounter
--- OUTSIDE RECORDS SUMMARY | 2025-04-02 14:45 | XMS_ITS | Clinical Summary ---
Author Organization [facility] Address [address] [place] [address] Phone Care Team Providers Care Ore Grader Name Role Phone Yajaira Lainez HELENA Primary Care Provider [phone] Allergies No known active allergies Medications albuterol 90 mcg/actuation inhaler Take 2 puffs by mouth every 4 (four) hours as needed. 023 Active albuterol 2.5 mg /3 mL (0.083 %) nebulizer solution USE 1 VIAL IN NEBULIZER EVERY 4 TO 6 HOURS - and as needed 023 Active verapamiL (CALAN-SR) 120 MG CR tablet [...] dietitian I suggest that she go to [facility] and see registered dietitian Lani Winston. [...] from 2021. She will benefit from seeing hadoop engineer for nutrition counseling for diabetes. We do not have Sri [place]ankan-speaking dietitian in this office. So I asked her to speak to her primary regarding a [place]an-speaking hadoop engineer near her. In the meantime she should continue metformin at the current dose. She should follow in 3 months time. Encounters Date Type Department Care Team Description 03/10/2025 Refill [facility] [address] [place] [address] Palomo Granados DO Medication Refill 01/04/2025 Telephone [facility] [address] [place] [address] Palomo Granados DO [facility] Call from Last [...] 12:10 PM EST Office Visit [facility] [address] [place] [address] Palomo Granados DO 22 [place] [address] [email or web address] Health Maintenance Due Date Last Done Comments [...] current use of insulin COMPREHENSIVE METABOLIC PANEL (CMP) Routine 10/03/2023 2:46 PM EDT Type 2 diabetes mellitus with diabetic polyneuropathy, without long-term current use of insulin from Last 3 Months or Most Recently Relevant to Health Maintenance Results * (ABNORMAL) POCT Hemoglobin A1c (01/04/2024 1:35 PM EDT) Hemoglobin A1c 5.9(A) 4.2 - 5.8 % Other 01/04/2024 1:35 PM EDT Palomo Granados LAB POCT ENTER/EDIT ORDERABLES F inal Result * Comprehensive metabolic panel (10/03/2023 2:46 PM EDT) SODIUM 142 133 - 146 mmol/L [facility] POTASSIUM 4.3 3.3 - 5.1 mmol/L [facility] CHLORIDE 104 96 - 108 mmol/L [facility] CO2 27 21 - 35 mmol/L [facility] BUN 10 6 - 19 mg/dL [facility] CREATININE 0.80 0.5 - 1.5 mg/dL [facility] GLUCOSE 90 70 - 99 mg/dL [facility] ALBUMIN 4.3 3.9 - 4.8 g/dL [facility] TOTAL PROTEIN 7.4 6.5 - 8.0 g/dL [facility] CALCIUM 9.4 8.4 - 10.3 mg/dL [facility] ALKALINE PHOSPHATASE 108 39 - 117 U/L [facility] TOTAL BILIRUBIN <0.2 0.0 - 1.2 mg/dL [facility] AST 36 0 - 37 U/L [facility] ALT 24 0 - 40 U/L [facility] GLOBULIN 3.1 1 - 4.8 g/dL [facility] EGFR 82 >59 mL/min/1.7 3m2 [facility] Comment:Estimated glomerular filtration rate calculated using the CKD-EPI refit equation. ANION GAP 15 10 - 20 mmol/L [facility] Blood 10/03/2023 2:46 PM EDT 10/03/2023 2:50 PM EDT us Palomo Granados DO LAB BLOOD BKR ORDERABLES Final R esult [facility] [address] [place] [address] from Last 3 Months or Most Recently Relevant to Health Maintenance Insurance [facility] MEDICARE REPLACEMENT MEDICARE PART A & B [facility] MEDICARE [facility]PLACEMENT MEDICARE PART A & [place] [address] [address] MEDICARE REPLACEMENT MEDICARE PART A & B MEDICARE PART A & B MEDICARE REPLACEMENT MEDICARE PART A & B [facility] MEDICARE REPLACEMENT MEDICARE PART A & B Care Teams Ore Grader Relationship Specialty Start Date End Date Yajaira Lainez FNP [address] [place] [address] PCP - General Nurse Practitioner 08/31/23 Additional Source Comments The information contained in this document represents components of the legal health record. It is not the complete legal health record.[facility]
--- OUTSIDE RECORDS SUMMARY | 2025-04-02 14:45 | XMS_ITS | Encounter Summary ---
Author Organization [employer] Address [address] [facility] 7t [place] [address] Care Team Providers Care Apparatus Operator Name Role Phone Yajaira Lainez DURAL MECHANIC Primary Care Provider [phone] Torsten Leahy DPM Unavailable [phone] Tana Grider MANAGER CABLE Unavailable Encounter Details Date Type Department Care Team ([facility] Contact Info) Description 03/28/2025 Results Follow-Up [facility] MEDICINE [address] [place] [address] Name, MD Griffin 230 [place] [address] Culture, Urine, Routine Social History Tobacco Use Types Packs/Day Years [...] 11:15 AM EST Office Visit [facility] CHC MED & PEDS 505 [place] [address] Yajaira Lainez FNP 505 [place] [address] 06/28/2025 1:30 PM EST Office Visit [facility] ADULT DENTAL [address] [place] [address] Francisco J, Aileen [address] [place] [address] documented as of this encounter Visit Diagnoses Not on filedocumented in this encounter Additional Health Concerns Assessment Noted Time PHQ-9 Depression Total Score: 8 02/12/20 25 10:08 AM EDT documented as of this encounter Care Teams Apparatus Operator Relationship Specialty Start Date End Date Yajaira Lainez FNP [address] [place] [address] PCP - General Family Medicine 12/15/21 Torsten Leahy DPM [address] [place] [address] Podiatry 02/12/25 Tana Grider NP [address] [place] [address] Urology 02/12/25 [facility] 04/23/24 documented as of this encounter
== END 2025-04-01 00:01 | disposition home or self-care (01) ==
LOC: HO.HHCLNP
PROVIDERS: Visit Provider Internal Medicine
DX: N30.01 Acute cystitis with hematuria (principal)
CPT/HCPCS: 87086

== ENCOUNTER 2025-04-10 18:17 | Outpatient (REF) | payer OTHER, SELFPAY ==
--- OUTSIDE RECORDS SUMMARY | 2025-04-10 11:30 | XMS_ITS | Encounter Summary ---
Author Organization [employer] Address [address] [facility] 7t [place] [address] Care Team Providers Care Church Administrator Name Role Phone Yajaira Lainez DISTRIBUTION AGENT Primary Care Provider [phone] Torsten Leahy DPM Unavailable Tana Grider EIGHT SECTION BLOWER Unavailable Reason for Referral * Medications - Closed Specialty Diagnoses / Procedures Referred By Contac t Referred To Contact Diagnoses Muscle spasm Oxana Dorado MD [address] [place] [address] Phone: tel: fax: Referral ID Status Reason Start Date Expiration Date Visits Re quested Visits Authorized [id number] Closed 1 1 Encounter Details Date Type Department Care Team ([facility] st Contact Info) Description 04/10/2025 11:30 AM EST Office Visit [facility] MEDICINE [address] [place] [address] Oxana Dorado MD [address] [place] [address] [phone] Dysuria (Primary Dx); Encounter for immunization; Type 2 diabetes mellitus with hypoglycemia without coma, without long-term current use of insulin (HCC); Muscle spasm; Type 2 diabetes mellitus treated without insulin (HCC) Social History Tobacco Use Types Packs/Day Years [...] Sign Reading Time Taken Comments Blood Pressure 130/80 04/10/2025 11:56 AM EST Pulse 81 04/10/2025 11:56 AM EST Temperature 36 C (96.8 F) 04/10/2025 11:56 AM EST Respiratory Rate 15 04/10/2025 11:56 AM EST Oxygen Saturation 99% 04/10/2025 11:56 AM EST Inhaled Oxygen Concentration - - Weight 71.4 kg (157 lb 6.4 oz) 04/10/2025 11:56 AM EST Height 147.3 cm (4' 10 ) 04/10/2025 11:56 AM EST Body Mass Index 32.9 04/10/2025 11:56 AM EST documented in this encounter Plan of Treatment Upcoming Encounters Date Type Department Care Team (Late st Contact Info) Description 05/27/2025 11:15 AM EST Office Visit [facility] CHC MED & PEDS 505 [place] [address] Yajaira Lainez, DISTRIBUTION AGENT 505 [place] [address] 06/28/2025 1:30 PM EST Office Visit [facility] ADULT DENTAL 230 [place] [address] Francisco J, Aileen 230 [place] [address] Scheduled Orders Name Type Priority Associated Diagnoses Orde r Schedule Culture, Urine, Routine Microbiology Routine Dysuria Expected: 04/10/2025 (Approximate), Expires: 04/10/2026 documented as of this encounter Goals Goal Patient Goal Type Associated Problems Recent Progress Patient-Stated? Author Help patients manage their type 2 diabetes Care Plan Help patients manage their type 2 diabetes No Andreea Gonzales MA Weekly blood pressure task Care Plan Weekly blood pressure task No Andreea Gonzales MA Help patients manage their type 2 diabetes Care Plan Help patients manage their type 2 diabetes No Andreea Gonzales MA Patient has chronic kidney disease Care Plan Patient has chronic kidney disease No Andreea Gonzales MA Weekly blood pressure task Care Plan Weekly blood pressure task No Andreea Gonzales MA Patient has chronic kidney disease Care Plan Patient has chronic kidney disease No Andreea Gonzales MA Weekly blood pressure task Care Plan Weekly blood pressure task No Ronnie Winston Weekly blood pressure task Care Plan Weekly blood pressure task No Ronnie Winston Patient has chronic kidney disease Care Plan Patient has chronic kidney disease No Ronnie Winston Patient has chronic kidney disease Care Plan Patient has chronic kidney disease No Ronnie Winston documented as of this encounter Procedures Procedure Name Priority Date/Time Associated Diagnosis Comments POCT URINALYSIS DIPSTICK Routine 04/10/2025 12:13 PM EST Encounter for immunization POCT GLUCOSE Routine 04/10/2025 12:12 PM EST Type 2 diabetes mellitus with hypoglycemia without coma, without long-term current use of insulin (HCC) documented in this encounter Results * POCT urinalysis dipstick manually resulted (CPT 62850) (04/10/2025 12:13 PM EST) Color, UA Yellow Clarity, UA Clear Glucose, UA Negative Bilirubin, UA Negative Ketones, UA Negative Spec Grav, UA 1.010 Blood, UA Negative Negative, None Detected pH, UA 5.5 Protein, UA Negative Urobilinogen, UA 0.2 Leukocytes, UA Negative Negative, Rare, Trace Nitrite, UA Negative Negative, None Detected Appearance, UA clear QC Media Lot # [id number] Lot# Expiration Date Urine (Urine, Random) 04/10/2025 12:13 PM EST Oxana Dorado MD POINT OF CARE TEST ENTER/EDIT OR DERABLES Final Result * POCT glucose manually resulted (04/10/2025 12:12 PM EST) Glucose Blood, POC 102 60 - 200 mg/dL QC Media Lot # [id number] Lot# Expiration Date Blood Capillary blood specimen / Unknown 04/10/2025 12:12 PM EST Oxana Dorado MD POINT OF CARE TEST ENTER/EDIT OR DERABLES Final Result documented in this encounter Visit Diagnoses Diagnosis Dysuria- Primary Encounter for immunization Type 2 diabetes mellitus with hypoglycemia without coma, without long-term current use of insulin (HCC) Muscle spasm Spasm of muscle Type 2 diabetes mellitus treated without insulin (HCC) documented in this encounter Additional Health Concerns Active Problems Noted Date Diagnosed Date Help patients manage their type 2 diabetes 04/10 Weekly blood pressure task 04/10/2025 Help patients manage their type 2 diabetes 04/10 Patient has chronic kidney disease 04/10/2025 Weekly blood pressure task 04/10/2025 Patient has chronic kidney disease 04/10/2025 Weekly blood pressure task 04/10/2025 Weekly blood pressure task 04/10/2025 Patient has chronic kidney disease 04/10/2025 Patient has chronic kidney disease 04/10/2025 Assessment Noted Time PHQ-9 Depression Total Score: 8 02/12/20 25 10:08 AM EDT documented as of this encounter Care Teams Church Administrator Relationship Specialty Start Date End Date Yajaira Lainez FNP 230 [place] [address] PCP - General Family Medicine 12/15/21 Torsten Leahy DPM [address] [place] [address] 250 [place] [address] Podiatry 02/12/25 Tana Grider NP [address] [facility] [address] [place] [address] Urology 02/12/25 [facility] 04/23/24 documented as of this encounter
--- OUTSIDE RECORDS SUMMARY | 2025-04-10 19:13 | XMS_ITS | Encounter Summary ---
Author Organization [employer] Address [address] [facility] [address] 7t [place] [address] Care Team Providers Care Change House Attendant Name Role Phone Yajaira Lainez SSAS DEVELOPER Primary Care Provider [phone] Torsten Leahy DPM Unavailable [phone] Tana Grider LYE PEEL OPERATOR Unavailable Encounter Details Date Type Department Care Team (Latest Contact Info) Description 04/10/2025 Travel Social History Tobacco Use Types Packs/Day [...] Description 05/27/2025 11:15 AM EST Office Visit [facility] CHC MED & PEDS 505 [place] [address] Yajaira Lainez, SSAS DEVELOPER 505 [place] [address] 06/28/2025 1:30 PM EST Office Visit [facility] ADULT DENTAL 230 [place] [address] Francisco J, Aileen [address] [place] [address] documented as of this encounter Goals Goal [...] Plan Patient has chronic kidney disease No [place], Ronnie documented as of this encounter Visit Diagnoses Not on filedocumented in this encounter Additional Health Concerns Active [...] documented as of this encounter Care Teams Change House Attendant Relationship Specialty Start Date End Date Yajaira Lainez FNP [address] [place] [address] PCP - General Family Medicine 12/15/21 Torsten Leahy DPM 175 [facility] 250 [place] [address] Podiatry 02/12/25 Tana Grider NP [address] [place] [address] [address] [place] [address] Urology 02/12/25 [facility] 04/23/24 documented as of this encounter
--- OUTSIDE RECORDS SUMMARY | 2025-04-10 19:13 | XMS_ITS | Encounter Summary ---
Author Organization [employer] Address [address] [place] [address] Care Team Providers Care Management Consultant Name Role Phone Yajaira Lainez Primary Care Provider [phone] Torsten Leahy DPM Unavailable [phone] Tana Grider [employer] Unavailable Reason for Visit * Reason Comments Med Refill Encounter Details Date Type Department Care Team (Late st Contact Info) Description 07/28/2023 Refill [facility] MEDIC[facility] [address] [place], [place] [phone] Yajaira Lainez FNP [address] [place], [place] [phone] Social History Tobacco Use Types Packs/Day Years [...] Description 05/27/2025 11:15 AM EST Office Visit [facility] PEDS [address] [place] [address] Yajaira Lainez FNP [address] [place] [address] 06/28/2025 1:30 PM EST Office Visit [facility] ADULT DENTAL [address] [place] [address] Francisco J, Aileen [address] [place] [address] documented as of this encounter Visit Diagnoses Not on filedocumented in this encounter Additional Health Concerns Assessment Noted Time PHQ-9 Depression Total Score: 0 01/15/20 23 3:37 PM EDT documented as of this encounter Care Teams Management Consultant Relationship Specialty Start Date End Date Yajaira Lainez FNP [address] [place] [address] PCP - General Family Medicine 12/15/21 Torsten Leahy DPM [address] [address] Podiatry 02/12/25 Tana Grider NP [address] [place] [address] Urology 02/12/25 [facility] 04/23/24 documented as of this encounter
--- OUTSIDE RECORDS SUMMARY | 2025-04-10 19:13 | XMS_ITS | Clinical Summary ---
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 Skin Protectants, Misc. (eucerin) creamIndicatio ns:Xerosis of skin Use twice daily on dry skin as needed 100 g 1 07/08/19 23 Active Blood Glucose Monitoring Suppl deviceIndicati ons:Type 2 diabetes mellitus without complication, without long-term current use of insulin (HCC) Use as directed to check blood glucose. 1 each 07/09/19 23 Active acetaminophen (Tylenol 8 Hour) 650 MG ER tablet Take 1 tablet by mouth every 8 (eight) hours. 07/23/19 22 Active busPIRone (Buspar) 10 MG tablet Take 10 mg by mouth 2 times daily. 07/05/19 23 Active docusate sodium (Colace) 100 MG capsule [...] Blood Gluc Sensor (FreeStyle Farzana 2 Sensor) mis Active polyvinyl alcohol (Liquifilm Tears) 1.4 % [...] morning with 150mg capsule 09/07/19 23 Active Skin Protectants, Misc. (eucerin) cream [...] 07/26/19 23 Active Lancets (OneTouch Delica Plus [id number]) mis Inject 1 each into the skin before breakfast, before lunch, and before evening meal. 10/03/19 24 Active linaCLOtide (Linzess) 290 MCG capsule Take 1 capsule by mouth in the morning. 09/02/19 24 Active metFORMIN XR (Glucophage-XR ) 500 MG 24 hr tablet Take 500 [...] 24 Active ammonium lactate (Lac-Hydrin) 12 % lotionIndicati ons:Xerosis of skin APPLY 4 GRAMS TOPICALLY TO AFFECTED AREA(S) TWICE DAILY IN THE MORNING AND AT BEDTIME NEEDED DRY SKIN 225 g 3 05/28/20 24 Active loratadine (Claritin) 10 MG tabletIndicati ons:Allergic rhinitis, unspecified seasonality, unspecified trigger TAKE 1 TABLET BY MOUTH ONCE DAILY IN THE MORNING NEEDED FOR ALLERGIES 90 tablet 3 07/13/19 25 Active cyanocobalamin (Vitamin B-12) 1000 MCG tablet Take 1 tablet (1,000 mcg) by mouth Once per day. 90 tablet 01/18/20 25 026 Active meclizine (Antivert) 12.5 MG tablet TAKE 1 TABLET BY MOUTH EVERY 8 HOURS NEEDED FOR DIZZINESS 30 tablet 3 01/26/20 25 Active cyclobenzaprin e (Flexeril) 10 MG tabletIndicati ons:Ear pain, bilateral Take 1 tablet (10 mg) by mouth at bedtime for 10 days. 10 tablet 02/03/20 25 Active nicotine (Nicoderm CQ) 7 MG/24HR patch After completion of 14mg/day patch: Apply 1 patch on the skin (one) time each day at the same time x 8 weeks. 72 patch 02/12/20 25 Active gabapentin (Neurontin) 600 MG tabletIndicati ons:Pain TAKE 1 TABLET BY MOUTH TWICE DAILY 60 tablet 1 02/16/20 25 Active Diclofenac Sodium 1 % gel Apply thin layer by topical route (quantity as directed on package insert) to affected area of pain 3 times daily as needed. 50 g 3 5 2:37 PM EST 04/10/20 25 Active lidocaine (Lidoderm) 5 % patchIndicatio ns:Muscle spasm Apply 1 patch topically Once per day. Remove & discard patch within 12 hours or as directed by . 30 patch 3 04/10/20 Active Blood Glucose Monitoring Suppl ([employer] Systemsuch Verio Flex System) w/Device kitIndications :Type 2 diabetes mellitus treated without insulin ([facility]) Check blood sugar twice daily 1 kit 04/10/20 Active Blood Glucose Monitoring Suppl ([employer] [employer] Systemsuch Verio Flex System) w/Device kitIndications :Type 2 diabetes mellitus treated without insulin ([facility]) TEST BLOOD SUGAR TWICE DAILY 1 kit 07/09/19 23 025 Discontinued(Re order (will not trigger notification to Pharmacy)) lidocaine (Lidoderm) 5 % patchIndicatio ns:Muscle spasm Apply 1 patch topically in the morning. Remove & discard patch within 12 hours or as directed by . 30 patch 3 05/06/20 025 Discontinued(Re order (will not trigger notification to Pharmacy)) Diclofenac Sodium 1 % gel Apply thin layer by topical route (quantity as directed on package insert) to affected area of pain 3 times daily as needed. 50 g 3 02/12/20 25 025 Discontinued(Re order (will not trigger notification to Pharmacy)) cefixime (Suprax) capsule Take 1 capsule (400 mg) by mouth Once per day for 7 days. 7 capsule 03/25/20 25 025 nitrofurantoin , macrocrystal-m onohydrate, (Macrobid) 100 MG capsule Take 1 capsule (100 mg) by mouth 2 times daily for 7 days. 14 capsule 04/01/20 25 025 Active Problems Problem Noted Date Diagnosed Date [...] incontinence, mixed 11/29/2024 Overview (02/12/2025): Following with [facility] - Dr. Jake Fisher, as well as [facility] Continues with Vesicare 10mg daily Assessment & Plan (02/12/2025 10:11 AM EDT): - Upcoming sling procedure scheduled with [facility] on 02/26/25 Assessment & Plan (11/29/2024 9:02 AM EDT): - Cont current therapy (Last consult note September 2024) Primary hypertension 08/30/2024 Overview (11/29/2024): [facility] Topete Amlodipine 5 mg daily Verapamil 120mg [...] BID. Palpitations 05/10/2024 Overview (05/10/2024): [facility] Efrem Ratliff completed approx Jun 2023 - demonstrated rare PACs and PVCs Nuclear stress test and echo WNL 2023 Plan: cont verapamil 120mg ER daily through Cards Assessment & Plan (05/10/2024 5:43 PM EST): Encouraged good hydration, reviewed follow up precautions Healthcare maintenance 10/03/2023 Overview (11/29/2024): Mammo: BIRADS 1 on 11/08/24 Pap: NILM/HPV neg Feb 2019 OPH: TRINO on 06/09/23. [facility] (Ana Levi MD). No evidence of diabetic retinopathy or macular edema. Colonoscopy: 12/21/23 ([facility] - Dr. Wilson). Repeat 5 years d/t tubular adenoma. Cigarette smoker 05/08/2023 Assessment & Plan (02/12/2025 10:28 AM EDT): -Currently smoking 2-3 cigg/day -Age started smokin y.o -Encouraged smoking cessation resources such as pharmacomtherapy, [facility] smoking cessation group, and [facility] pharmacy smoking cessation clinic -Start NRT patches -Eligibility for LDCT: not eligible, less than 20 pack years Assessment & Plan (08/30/2024 7:29 PM EDT): -Currently smoking 3 cigg/day -Encouraged smoking cessation resources such as pharmacomtherapy, [facility] smoking cessation group, and [facility] pharmacy smoking cessation clinic -Start NRT patches -Eligibility for LDCT: discuss next appt Assessment & Plan (05/08/2023 2:23 PM EST): -Currently smoking 6 cigg/day -Encouraged smoking cessation resources such as pharmacomtherapy, [facility] smoking cessation group, and [facility] pharmacy smoking cessation clinic -Start NRT patches Type 2 diabetes mellitus wit h hypoglycemia, without long-term current use of insulin 07/11/2022 Overview (02/12/2025): Lab Results Component Value Date HGBA1C 6.4 (A) 11/28/2024 -Following with [facility] Endo - Dr. Granados - Referred to [facility] Surgical Scheduler - Lani Winston - by Endo in Dec 2023 -Continues with metformin 500mg daily with evening meal -Encourage lifestyle interventions such as routine physical activity and healthy dietary habits -TRINO May 2023 ([facility]) -Statin: due for recheck of lipids. ELECTRICAL TECH/pt to confirm if pt rx statin through [...] cognitive stimulation and daily activities. Referral to [facility] on 02/12/25 Assessment & Plan [...] Overview (06/19/2023): Hearing aid eval 10/03/20 at [facility] - diagnosed with bilateral sensorineural hearing loss and prescription for hearing aids generated Assessment & Plan (06/19/2023 4:56 PM EST): Pt reports that her hearing aids have been misplaced and is in need of re-eval through Audiology for further amplification devices. Referral to [facility] placed 06/17/23 Tendinitis of right rotator cuff 07/07/2022 Hyperlipidemia 01/01/2021 Stage 3 chronic kidney disease (CMS/HCC) 021 Irritable bowel syndrome with constipation 12/16 Overview (05/10/2024): Followed by [facility] - Dr. Wilson Plan: cont linaclotide [...] disease 11/11/2011 Overview (05/10/2024): Followed by [facility] - Dr. Wilson Plan: cont omeprazole [...] Encounters Date Type Department Care Team Description 04/10/2025 11:30 AM EST Office Visit [facility] [address] [place] [address] [phone] Oxana Dorado MD Dysuria (Primary Dx); Encounter for immunization; Type 2 diabetes mellitus with hypoglycemia without coma, without long-term current use of insulin (HCC); Muscle spasm; Type 2 diabetes mellitus treated without insulin (HCC) 04/10/2025 Refill [facility] [address] [place] [address] [phone] Yajiara Lainez FNP Type 2 diabetes mellitus treated without insulin (HCC) 04/10/2025 Travel 04/01/2025 2:40 PM EST Office Visit [facility] [address] [place] [phone] Lisa White MD Acute cystitis with hematuria (Primary Dx) 04/01/2025 Travel 04/01/2025 Telephone [facility] [address] [place] [phone] Hill, Adamaris, RN Nurse Triage 03/28/2025 Results Follow-Up [address] [phone] Griffin Vera MD Culture, Urine, Routine 03/25/2025 1:20 PM EDT Office Visit [facility] [address] [place] [phone] Griffin Vera MD Urinary tract infection with hematuria, site unspecified (Primary Dx); Cough, unspecified type; Chills 03/25/2025 Orders Only [address] [address] Griffin Vera MD 03/25/2025 Travel 03/15/2025 Results Follow-Up [facility] [address] [place] [address] Yajaira Lainez FNP Referral to Neurology 02/25/2025 11:00 AM EDT Office Visit [facility] [address] [place] [phone] Aileen Marx Periodontal disease (Primary Dx); Dental calculus 02/18/2025 11:00 AM EDT Office Visit [facility] [address] [place] [address] Aileen Marx Dental calculus (Primary Dx); Periodontal disease 02/15/[address] [address] Olaf, Kim, TRANSPORTATION ASSISTANT Pain 02/12/2025 Telephone [facility] [address] [place] [address] Yajaira Lainez FNP 02/11/2025 10:00 AM EDT Office Visit [facility] [address] [place] [address] Yajaira Lainez FNP Carpal tunnel syndrome of right wrist (Primary Dx); Type 2 diabetes mellitus with hypoglycemia without coma, without long-term current use of insulin ([facility]); Cubital tunnel syndrome on right; Dietary counseling; Exercise counseling; Urinary incontinence, mixed; Memory impairment; Primary hypertension; Osteopenia, unspecified location; Chronic pain of right ankle; Cigarette smoker 02/11/2025 Travel 02/08/2025 Telephone [facility] [address] [place] [address] Yajaira Lainez FNP Chart Prep 02/02/2025 10:00 AM EDT Office Visit [facility] [address] [place] [phone] Lisa White MD TMJ dysfunction (Primary Dx); Ear pain, bilateral; Contact with and (suspected) exposure to covid-19 02/02/2025 Refill [facility] [address] [place] [phone] Lisa White MD 02/02/2025 Travel 01/25/2025 Refill [facility] [address] [place] [phone] Yajaira Lainez FNP 01/17/2025 Results Follow-Up [facility] [address] [place] [address] Yajaira Lainez FNP Hepatitis C Viral RNA, Quantitative, Real-Time PCR, RPR (Monitor) with Reflex to Titer, HIV-1/2 Antigen and Antibodies, Fourth Generation, with Reflexes, Additional followed-up results: 5 01/10/2025 Refill [facility] [address] [place] [phone] Yajaira Lainez, HELENA Muscle spasm from Last 3 Months Immunizations Immunization Administration Dates Next Due Influenza injectable quadriv alent IIV4 with preservative 02/27/2018,04/11/2017 Influenza injectable quadriv alent preservative free 05/06/2023,02/25/2022,02/26/2021,04/22,03/05/2019,06/01/2016 Influenza, High Dose Seasona l, Preservative Free 04/10/2025 Influenza, IIV3, injectable 03/01/2014, 1 Influenza, Split [...] Mass Index 32.9 04/10/2025 11:56 AM EST Plan of Treatment Upcoming Encounters Date Type Department Care Team (Late st Contact Info) Description 05/27/2025 11:15 AM EST Office Visit [facility] [address] [place], [place] [phone] Yajaira Lainez, TRANSPORTATION ASSISTANT [address] [place], [place] [phone] 06/28/2025 1:30 PM EST Office Visit [facility] [address] [place] [address] Francisco J, Aileen [address] [place] [address] Health Maintenance Due Date Last Done Comments CT Colonography 1959 FIT DNA/Cologuard 1960 FIT 1960 FOBT 1960 Sigmoidoscopy 1960 RSV Patients and Patients Aged 60 years or older (1 - Risk 50-74 years 1-dose series) 2009 Pneumococcal Vaccine: 50+ Years (3 of 3 - PCV20 or PCV21) 01/23/2025 01/24/2020, 07/05/2019, 06/03/2011 COVID-19 Vaccine ( season) 2025 06/02/2021, 08/28/2020, 07/31/2020 Diabetes: Hemoglobin A1C 02/28/2025 07/2 025, 08/29/2024, 05/07/2024, Additional history exists Diabetes: [...] Lipid Panel 01/07/2026 01/07/2025, 07/0 10/2021, 02/16/2021 Depression Screening 02/11/2026 02/11/2025, 02/12/20 Eye Exam 03/13/2026 03/13/2024, 01/28, 02/13/2024, Additional history exists Tobacco Screening 04/10/2026 04/10/2025 DTaP/Tdap/Td Vaccines (2 - Td or Tdap) 06/01/2026 06/01/2016, 02/04/2003 Dental X-Ray: Full Mouth 05/17/2027 024, 03/18/2015, 06/06/2012 Colonoscopy 01/17/2029 01/17/2019 Colorectal Cancer Screening 01/17/2029 Zoster Vaccines Completed 02/05/2022, 07/0 10/2021, 12/15/2018 Hepatitis C Screening Completed 01/07/2025 Influenza Vaccine Completed 04/10/2025, , 05/06/2023, Additional history exists HIB Vaccines Aged Out [...] on patient's age to complete this topic Goals Goal Patient Goal Type Associated Problems [...] has chronic kidney disease No Ronnie Winston Procedures Procedure Name Priority Date/Time Associated Diagnosis Comments POCT URINALYSIS DIPSTICK Routine 04/10/2025 12:13 PM EST Encounter for immunization POCT GLUCOSE Routine 04/10/2025 12:12 PM EST Type 2 diabetes mellitus with hypoglycemia without coma, without long-term current use of insulin (HCC) POCT URINALYSIS DIPSTICK Routine 04/01/2025 3:15 PM EST Acute cystitis with hematuria CULTURE, URINE, ROUTINE Routine 04/01/2025 12:00 AM EST Acute cystitis with hematuria CULTURE, URINE, [...] coma, without long-term current use of insulin ([facility]CC) POCT RAPID COVID ANTIGEN Routine 02/02/2025 9:59 AM EDT Contact with and (suspected) exposure to covid-19 AMB REFERRAL TO NEUROLOGY Routine 02/01/2025 Memory impairment HEPATITIS C VIRAL RNA, QUANTITATIVE, REAL-TIME PCR Routine 01/07/2025 10:43 AM EDT Healthcare maintenance LIPID PANEL, STANDARD Routine 01/07/2025 10:43 AM EDT Mixed hyperlipidemia ALBUMIN, RANDOM URINE W/CREATININE Routine 01/07/2025 10:34 AM EDT Healthcare maintenance Type 2 diabetes mellitus with hypoglycemia without coma, without long-term current use of insulin ([facility]) PROPHYLAXIS - ADULT Routine 12/24/2024 2 :00 PM EDT PERIODIC ORAL EVALUATION - ESTABLISHED PATIENT Routine 12/24/2024 2:00 PM EDT Encounter for dental examination Teeth missing Dental plaque POCT GLYCATED HEMOGLOBIN, TOTAL Routine 11/28/2024 11:52 AM EDT Type 2 diabetes mellitus with hypoglycemia without coma, without long-term current use of insulin ([facility]) BITEWING - SINGLE RADIOGRAPHIC IMAGE Routine 11/27/2024 [...] Relevant to Health Maintenance Results * POCT urinalysis dipstick manually resulted (CPT 48525) (04/10/2025 12:13 PM EST) Only the most recent of3 resultswithin the time period is included. Color, UA Yellow Clarity, UA Clear Glucose, UA Negative Bilirubin, UA Negative Ketones, UA Negative Spec Grav, UA 1.010 Blood, UA Negative Negative, None Detected pH, UA 5.5 Protein, UA Negative Urobilinogen, UA 0.2 Leukocytes, UA Negative Negative, Rare, Trace Nitrite, UA Negative Negative, None Detected Appearance, UA clear QC Media Lot # [id number] Lot# Expiration Date 026 Urine (Urine, Random) 04/10/2025 12:13 PM EST Oxana Dorado MD POINT OF CARE TEST ENTER/EDIT OR DERABLES Final Result * POCT glucose manually resulted (04/10/2025 12:12 PM EST) Only the most recent of2 resultswithin the time period is included. Glucose Blood, POC 102 60 - 200 mg/dL QC Media Lot # [id number] Lot# Expiration Date 3 Blood Capillary blood specimen / Unknown 04/10/2025 12:12 PM EST Oxana Dorado MD POINT OF CARE TEST ENTER/EDIT OR DERABLES Final Result * Culture, Urine, Routine (04/01/2025 12:00 AM EST) Only the most recent of2 resultswithin the time period is included. Urine Urine specimen obtained by clean catch procedure / Unknown 04/01/2025 04/02/2025 11:57 AM EST Comment:[facility] Narrative [facility] - 04/03/2025 12:29 PM EST Urine Culture No growth. Specimen Source: Urine clean catch Lisa White MD LAB MICROBIOLOGY - GENER AL ORDERABLES Final Result [facility] [address] [place] [phone] * POCT Rapid Covid-19 BinaxNOW (03/25/2025 1:50 PM EDT) Only the most recent of2 resultswithin the time period is included. Rapid COVID Ag Negative QC Media Lot # [id number] Lot# Expiration Date [id number] Swab 03/25/2025 1:50 PM EDT us Griffin Vera MD POINT OF CARE TEST ENTER/EDIT OR DERABLES Final Result * POCT Rapid Influenza B CARDENAS ID NOW (03/25/2025 1:31 PM EDT) [facility] Influenza B Negative Negative, Indeterminate [facility] QC Media Lot # [id number] [facility] Lot# Expiration Date [facility] Swab 03/25/2025 1:31 PM EDT Griffin Vera MD POINT OF CARE TEST ENTER/EDIT OR DERABLES Final Result [facility] [address] [place] [phone] * POCT Rapid Influenza A CARDENAS ID NOW (03/25/2025 1:31 PM EDT) [facility] Influenza A Negative Negative, Indeterminate [facility] QC Media Lot # [id number] [facility] Lot# Expiration Date [facility] Swab 03/25/2025 1:31 PM EDT us Griffin Vera MD POINT OF CARE TEST ENTER/EDIT OR DERABLES Final Result [facility] [address] [place] [phone] * POCT Rapid Strep A CARDENAS ID NOW (03/25/2025 1:31 PM EDT) Rapid Strep A Screen Negative Negative, None Detected QC Media Lot # [id number] Lot# Expiration Date Swab 03/25/2025 1:31 PM EDT Griffin Name POINT OF CARE TEST ENTER/EDIT OR DERABLES Final Result * (ABNORMAL) Urinalysis, Complete, with Reflex to Culture (03/25/2025 12:00 AM EDT) Color Urine Yellow [facility] Appearance Urine Turbid [facility] PH 7.0 5.0 - 9.0 [facility] Glucose Urine UA Negative Negative mg/dL [facility] Urine Blood Small (1+)(A) Negative [facility] Specific [place] - Urine 1.010 1.005 - 1.025 [facility] Urine Protein 30 (1+)(A) Neg-Trace mg/dL [facility] Urine Ketones Negative Negative mg/dL [facility] Nitrite Urine Positive(A) Negative [facility] Leukocyte Esterase Urine Large (3+)(A) Negative [facility] RBC Urine 0-2 0 - 2 /HPF [facility] Urine WBC >50(A) 0 - 5 /HPF [facility] WBC CLUMPS, UR Present [facility] Urine Squamous Epithelial Cell 0-2 0 - 2 /HPF [facility] Urine Bacteria 4+ None Seen [facility] Hyaline Casts, Urine 3-5 0 - 2 /LPF [facility] Urine 03/25/2025 03/25/2025 Narrative [facility] - 03/25/2025 8:38 PM EDT Urine, Clean Catch us Griffin Vera MD LAB URINE ORDERABLES Final Resul t [facility] [address] [place] [phone] * Referral to Neurology (02/01/2025) us Yajaira Lainez [facility] OUTPATIENT REFERRAL ORDERABLES Final Result * Hepatitis C Viral RNA, Quantitative, Real-Time PCR (01/07/2025 10:43 AM EDT) Pathologist [facility] Hepatitis C Viral Load <15 NOT DETECTED NOT DETECTED IU/mL [facility] HCV Log PCR <1.18 NOT DETECTED NOT DETECTED Log IU/mL [facility] Comment:For additional infor matyas, please refer [email or web address]/faq/[email or web address](This link is being provided for informational/educational purposes only.)THIS TEST WAS PERFORMED AT:[facility] [place] [phone] SEALS MD Blood 01/07/2025 10:4 3 AM EDT 01/07/2025 10:43 AM EDT Yajaira Lainez [facility] LAB BLOOD ORDERABLES Final Res ult [facility] [address] [place] [phone] * (ABNORMAL) Lipid Panel, Standard (01/07/2025 10:43 AM EDT) Triglycerides 127 <150 mg/dL [facility] Comment:Desirable Triglyceri de: less than 150 mg/dLBorderline High Triglyceride 150-199 mg/dLHigh Triglyceride: 200-499 mg/dLVery High Triglyceride: greater than or equal to 5OO mg/dL Cholesterol 184 <200 mg/dL [facility] Comment:Desirable Cholestero l: less than 200 mg/dLBorderline High Cholesterol: 200-239 mg/dLHigh Cholesterol: greater than 239 mg/dL LDL Cholesterol Calculated 114(H) <100 mg/dL [facility] Comment:Desirable LDL: less than 100 mg/dLNear Optimal/Above Optimal LDL: 110- 129 mg/dLBorderline High LDL: 130-159 mg/dLHigh LDL: 160-189 mg/dLVery High LDL: greater than or equal to 190 mg/dL HDL Cholesterol 45 >40 mg/dL [facility] Comment:Desirable HDL: great er than 40 mg/dL Note: This HDL assay may give artificially low results in patients with liver disease. Blood Venous blood specimen / Unknown 01/07/2025 10:43 AM EDT 01/07/2025 10:43 AM EDT Tyler Ortiz MD LAB BLOOD ORDERABLES Final Result Performing Organization Address [facility] Co de Phone Number [facility] [address] [place] [phone] * Albumin, Random Urine W/Creatinine (01/07/2025 10:34 AM EDT) Creatinine, Urine 61.04 mg/dL [facility] Microalbumin Urine <5.0 mg/L [facility] Microalbum Creatinine Ratio Ur TNP <30 ug/mg cr [facility] Comment:Unable to calculate albumin/creatinine ratio due to lowmicroalbumin or creatinine result. Urine 01/07/2025 10:3 4 AM EDT 01/07/2025 11:24 AM EDT Yajaira MALIK LAB URINE ORDERABLES Final Res ult Performing Organization Address [facility] Co de Phone Number [facility] [address] [place] [phone] * (ABNORMAL) POCT HGB A1C (11/28/2024 11:52 AM EDT) Hemoglobin A1C 6.4(A) 4.0 - 5.7 % QC Media Lot # [id number] Lot# Expiration Date [id number] Blood 11/28/2024 11:5 2 AM EDT us Yajaira Lainez TRANSPORTATION ASSISTANT POINT OF CARE TEST ENTER/EDIT ORDERABLES Final Result * BI US Breast Limited Bilateral (11/08/2024 12:00 PM EDT) Anatomical Region Laterality Modality Breast Bilateral Ultrasound 11/08/2024 12:0 0 PM EDT Narrative 11/08/2024 1:01 PM EDT [address] [place] [address] Ultrasound Report Signed Patient: Celestina Sullivan MR#: [id number] 0 : 1960 Acct:[id number] Age/Sex: 64 / F ADM Date: 11/08/24 Loc: HO.MAMMO Attending Dr: Tyler Ortiz MD Ordering Physician: Tyler Ortiz MD Date of Service: 11/08/24 Procedure(s): US breast BI limited mamm only Accession Number(s): [id number] cc: Tyler Ortiz MD EXAMINATION: MM DIAGNOSTIC [...] density (ACR BI-RADS breast composition Category b). Bouton marker upper inner left breast at site [...] 11/08/24 1258 DD/ 1200 TD/TT: 11/08/24 1222 Automotive Product Engineer: Procedure Note Donotuseinterpreter, Image - 11/08/2024 [facility] [address] [place], [place] [address] Ultrasound Report Signed Patient: Sundeep Sullivan#: [id number] 0 : 9Acct:[id number] Age/Sex: 64 / FADM Date: 11/08/24 Loc: HO.MAMMO Attending Dr: Tyler Ortiz MD Ordering Physician: Tyler Ortiz MD Date of Service: 11/08/24 Procedure(s): US breast BI limited mamm only Accession Number(s): [id number] cc: Tyler Ortiz MD EXAMINATION: MM DIAGNOSTIC [...] density (ACR BI-RADS breast composition Category b). Bouton marker upper inner left breast at site [...] Gabbi Herrmann DO 11/08/2024 12:58 PM EDT RP Workstation: [employer] Dictated By: Gabbi Herrmann DO Signed By: <Electronically signed by Gabbi Herrmann DO in OV> 11/08/24 1258 DD/ 1200 TD/TT: 11/08/24 1222 Automotive Product Engineer: us Tyler Ortiz MD IM US PROCEDURES Edited Re sult - Final * (ABNORMAL) HPV DNA, Low/High Risk (09/04/2024 12:00 AM EDT) HPV High Risk Positive(A) Negative [facility] HPV Genotype 16 Negative Negative [facility] HPV Genotype 18 Negative Negative [facility] Comment:HPV testing performe d at [facility] (CLIA#[id number]), [address] [place] [address].Testing for HPV was performed using the [employer] WeVideo0system. The presence of HPV in the female [...] CNM LAB BLOOD ORDERABLES Melany welsh Result [facility] [address] [place] [phone] * Pap Smear (09/04/2024 12:00 AM EDT) Swab Cervix uteri structure / Unknown 09/04/2024 09/05/2024 6:00 AM EDT Narrative [facility] - 09/09/2024 10:37 AM EDT ----- ------- Name: Celestina Sullivan Age/Sex: 64/F : 1960 Unit#: [id number] Attend Dr: ELISABETH FAN CNM Re09/04/24 Status: DEP REF Location: HO.HHCLNP Disch: ----- ------- SPEC : [id number] RECD: 09/05/24 STATUS: LESLIE OZUNA NUM: [id number] SHAHAB: 09/04/24-[address]: ELISABETH FAN CNM [...] 1037 ----- ------- END OF REPORT Elisabeth ISRAEL LAB CYTOLOGY ORDERABLES F inal Result [facility] [address] [place] [phone] * Referral to Ophthalmology (03/13/2024) Sol Harrell OD OUTPATIENT REFERRAL ORDERABLE S Final Result * Hm Colonoscopy (01/17/2019) Colonoscopy Normal Normal Narrative Rosi Fernandez - 01/17/2019 Repeat in 10 years Historical Provider HEALTH MAINTENANCE Final Result from Last 3 Months or Most Recently Relevant to Health Maintenance Additional Health Concerns Active Problems Noted Date [...] 04/10/2025 Patient has chronic kidney disease 04/10/2025 Insurance [facility] 64 [facility] Advance Directives Documents on File Type Date Recorded 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
--- OUTSIDE RECORDS SUMMARY | 2025-04-10 19:13 | XMS_ITS | Encounter Summary ---
Author Organization [employer] Address [address] [facility] 7t [place] [address] Care Team Providers Care Editor Managing Director Name Role Phone Yajaira Lainez Primary Care Provider Torsten Leahy DPM Unavailable [phone] Tana Grider COMMERCIAL LITIGATION PARALEGAL Unavailable Encounter Details Date Type Department Care Team (Late Contact Info) Description 11/08/2022 Abstract [facility] MEDICINE [address] [place] [address] Yajaira Lainez FNP 505 [place] [address] Social History Tobacco Use Types Packs/Day Years [...] 11:15 AM EST Office Visit [facility] MED & PEDS 505 [place] [address] Yajaira Lainez FNP 505 [place] [address] 06/28/2025 1:30 PM EST Office Visit [facility] ADULT DENTAL [address] [place] [address] Aileen Marx [address] [place] [address] documented as of this encounter Visit Diagnoses Not on filedocumented in this encounter Care Teams Editor Managing Director Relationship Specialty Start Date End Date Yajaira Lainez FNP [address] [place] [address] PCP - General Family Medicine 12/15/21 Torsten Leahy DPM [address] [facility] 250 [place] [address] Podiatry 02/12/25 Tana Grider NP [address] [place] [address] Urology 02/12/25 [facility] 04/23/24 documented as of this encounter
--- OUTSIDE RECORDS SUMMARY | 2025-04-10 19:13 | XMS_ITS | Encounter Summary ---
Author Organization [employer] Address 75 [facility] 7t [place] [address] Care Team Providers Care Electro Plater Name Role Phone Yajaira Lainez Primary Care Provider [phone] Torsten Leahy DPM Unavailable [phone] Tana Grider ELECTRIC SYSTEM OPERATOR Unavailable Encounter Details Date Type Department Care Team ([facility] Contact Info) Description 07/29/2022 Orders Only [facility] MED[facility]INE [address] [place] [address] Yajaira Lainez FNP 505 [place] [address] Social History Tobacco Use Types Packs/Day Years [...] Upcoming Encounters Date Type Department Care Team ([facility] Contact Info) Description 05/27/2025 11:15 AM EST Office Visit [facility] CH[facility] MED & PEDS 505 [place], [place] [phone] Yajaira Lainez FNP [address] [place] [address] 06/28/2025 1:30 PM EST Office Visit [facility] ADULT DENTAL [address] [place] [address] Aileen Marx [address] [place] [address] documented as of this encounter Visit Diagnoses Not on filedocumented in this encounter Care Teams Electro Plater Relationship Specialty Start Date End Date Yajaira Lainez FNP [address] [place] [address] PCP - General Family Medicine 12/15/21 Torsten Leahy DPM [address] [place] [address] 250 [place] [address] Podiatry 02/12/25 Tnaa Grider NP [address] [place] [address] Urology 02/12/25 [facility] 04/23/24 documented as of this encounter
--- OUTSIDE RECORDS SUMMARY | 2025-04-10 19:13 | XMS_ITS | Encounter Summary ---
Author Organization [employer] Address [address] 7t [place] [address] Care Team Providers Care Steelworker Name Role Phone Yajaira Lainez Primary Care Provider [phone] Torsten Leahy DPM Unavailable [phone] Tana Grider BRAKE OPERATOR SHEET METAL Unavailable Encounter Details Date Type Department Care Team ([facility] Contact Info) Description 03/15/2025 Results Follow-Up [facility] MED & PEDS [address] [place], [place] [phone] Yajaira Lainez FNP 505 [place] [address] Referral to Neurology Social History Tobacco Use [...] [facility] [address] [place] [address] Yajaira Lainez FNP 505 [place] [address] 06/28/2025 1:30 PM EST Office Visit [facility] ADULT DENTAL 230 [place] [address] Francisco J, Aileen 230 [place] [address] documented as of this encounter Visit Diagnoses Not on filedocumented in this encounter Additional Health Concerns Assessment Noted Time PHQ-9 Depression Total Score: 8 02/12/20 25 10:08 AM EDT documented as of this encounter Care Teams Steelworker Relationship Specialty Start Date End Date Yajaira Lainez FNP 230 [place] [address] PCP - General Family Medicine 12/15/21 Torsten Leahy DPM [address] [place] [address] Podiatry 02/12/25 Tana Grider NP [address] [place] [address] Urology 02/12/25 [facility] 04/23/24 documented as of this encounter
--- OUTSIDE RECORDS SUMMARY | 2025-04-10 19:13 | XMS_ITS | Encounter Summary ---
Author Organization [facility] Address [address] [place] [address] Phone Care Team Providers Care Creative Project Manager Name Role Phone Yajaira Lainez HELENA Primary Care Provider [phone] Reason for Visit * Reason Onset Date Comments [facility] Call 01/04/2025 Encounter Details Date Type Department Care Team (Late st Contact Info) Description 01/04/2025 Telephone [facility] [address] [place] [address] [phone] Palomo Granados DO [address] [place] [address] [email or web address] Call Social History Tobacco Use Types [...] call back with bs readings. Central Support Machine Operator Packaging (Please do not reply to this user; this inbox is not monitored.) Thank you. documented in this encounter Plan of Treatment Upcoming Encounters Date Type Department Care Team (Late st Contact Info) Description 06/13/2025 12:10 PM EST Office Visit [facility] [address] [place] [address] Palomo Granados DO [address] [place] [address] [email or web address] documented as of this encounter Visit Diagnoses Not on filedocumented in this encounter Care Teams Creative Project Manager Relationship Specialty Start Date End Date Yajaira Lainez FNP [address] [place] [address] PCP - General Nurse Practitioner 08/31/23 documented as of this encounter Additional Source Comments The information contained in this document represents components of the legal health record. It is not the complete legal health record.[facility]
--- OUTSIDE RECORDS SUMMARY | 2025-04-10 19:13 | XMS_ITS | Encounter Summary ---
Author Organization [employer] Address [address] [facility] 7t [place] [address] Care Team Providers Care Product Craftsman Name Role Phone Yajaira Lainez Primary Care Provider Torsten Leahy DPM Unavailable [phone] Tana Grider CARDIOLOGY TECHNOLOGIST Unavailable Reason for Visit * Reason Comments Med Refill Encounter Details Date Type Department Care Team (Late Contact Info) Description 01/01/2023 Refill [facility] [address] [place], [place] [phone] Yajaira Lainze FNP 505 [place], [place] [phone] Social History Tobacco Use Types Packs/Day Years [...] Description 05/27/2025 11:15 AM EST Office Visit [facility] 505 [place], [place] [phone] Yajaira Lainez FNP 505 [place], [place] [phone] 06/28/2025 1:30 PM EST Office Visit [facility] ADULT DENT[facility] 230 [place] [address] Aileen Marx [address] [place] [address] documented as of this encounter Visit Diagnoses Not on filedocumented in this encounter Care Teams Product Craftsman Relationship Specialty Start Date End Date Yajaira Lainez FNP 230 [place] [address] PCP - General Family Medicine 12/15/21 Torsten Leahy DPM [facility] 250 [place] [address] Podiatry 02/12/25 Tana Grider NP [address] [place] [address] Urology 02/12/25 [facility] 04/23/24 documented as of this encounter
--- OUTSIDE RECORDS SUMMARY | 2025-04-10 19:13 | XMS_ITS | Encounter Summary ---
Author Organization [employer] Address [address] 7t [place] [address] Care Team Providers Care Color Depositing Machine Tender Name Role Phone Yajaira Lainez Primary Care Provider [phone] Torsten Leahy DPM Unavailable [phone] Tana Grider REVENUE ENFORCEMENT AGENT Unavailable Reason for Visit * Reason Comments Med Refill Encounter Details Date Type Department Care Team (Late st Contact Info) Description 12/16/2023 Refill [facility] [address] [place], [place] [phone] Yajaira Lainez FNP [address] [place], [place] [phone] Pain Social History Tobacco Use Types Packs/Day [...] 11:15 AM EST Office Visit [facility] MED & PEDS 505 [place] [address] Yajaira Lainez FNP 505 [place] [address] 06/28/2025 1:30 PM EST Office Visit [facility] ADULT DENTAL 230 [place] [address] Francisco J, Aileen [address] [place] [address] documented as of this encounter Visit Diagnoses Diagnosis Pain Generalized pain documented in this encounter Additional Health Concerns Assessment Noted Time PHQ-9 Depression Total Score: 0 01/15/20 23 3:37 PM EDT documented as of this encounter Care Teams Color Depositing Machine Tender Relationship Specialty Start Date End Date Yajaira Lainez FNP 230 [place] [address] PCP - General Family Medicine 12/15/21 Torsten Leahy DPM [address] [address] Podiatry 02/12/25 Tana Grider NP [address] [place] [address] Urology 02/12/25 [facility] 04/23/24 documented as of this encounter
--- OUTSIDE RECORDS SUMMARY | 2025-04-10 19:13 | XMS_ITS | Clinical Summary ---
Author Organization [facility] Address 175 [place] [address] Phone Care Team Providers Care Pals Nurse Name Role Phone Physician, Pcp Unknown Primary [...] 0 Refills, Maintenance, 10/17/24 1:09:00 PM EDT, [facility], Partial fill upon patient request [...] 10:30 AM EDT Office Visit Orthopedic Surgery [facility] [address] [place] [phone] Torsten Leahy, DPM Xerosis of skin (Primary Dx); Diabetic mononeuropathy simplex ([facility]/HCC V24, CMS/HCC V28); Verruca plantaris from Last [...] age to complete this topic Insurance , [address] [address] MEDICAID - [place] [facility] Member Subscriber Plan / Payer (Ef fective 2022-Present) Name:JAN STEENANA Relation to Subscriber:Self Name:Celestina Steen Payer ID:[id number] Group ID:[id number] Type:Not on file Address: [address] [place] [phone] [employer] MEDICARE Member Subscriber Plan / Payer (Ef fective 2022-Present) Name:CELESTINA STEEN Relation to Subscriber:Self Name:Celestina Steen Payer ID:[id number] Group ID:[id number] Type:Not on file Address: [address] [place] [phone] Care Teams Pals Nurse Relationship Specialty Start Date End Date Physician, Pcp Unknown PCP - General 12/13/24
--- OUTSIDE RECORDS SUMMARY | 2025-04-10 19:13 | XMS_ITS | Encounter Summary ---
Author Organization [employer] Address [address] 7t [place] [address] Care Team Providers Care Womens Volleyball Coach Name Role Phone Yajaira Lainez BREASTFEEDING PROGRAM COORDINATOR Primary Care Provider [phone] Torsten Leahy DPM Unavailable Tana Grider POULTRY OFFAL ICER Unavailable Encounter Details Date Type Department Care Team (Late st Contact Info) Description 04/14/2023 Abstract [facility] MED[facility] 230 [place], [place] [phone] Rosi Fernandez Social History Tobacco Use Types [...] Description 05/27/2025 11:15 AM EST Office Visit [facility]C MED & PEDS 505 [place], [place] [phone] Yajaira Lainez FNP 505 [place], [place] [phone] 06/28/2025 1:30 PM EST Office Visit [facility] ADULT DENTAL 230 [place] [address] Francisco J Aileen 230 [place] [address] documented as of this encounter Procedures Procedure [...] documented as of this encounter Care Teams Womens Volleyball Coach Relationship Specialty Start Date End Date Yajaira Lainez FNP 230 [place] [address] PCP - General Family Medicine 12/15/21 Torsten Leahy DPM [address] [place] [address] Podiatry 02/12/25 Tana Grider NP [address] [place] [address] Urology 02/12/25 [facility] 04/23/24 documented as of this encounter
--- OUTSIDE RECORDS SUMMARY | 2025-04-10 19:13 | XMS_ITS | Encounter Summary ---
Author Organization [employer] Address [address] [facility] [address] 7t [place] [address] Care Team Providers Care Family Support Coordinator Name Role Phone Yajaira Lainez Primary Care Provider [phone] Torsten Leahy DPM Unavailable [phone] Tana Grider DECORATING EQUIPMENT SETTER Unavailable Reason for Visit * Reason Onset Date Comments Telephone Call 04/10/2025 Encounter Details Date Type Department Care Team (Late st Contact Info) Description 04/10/2025 Refill [facility] 230 [place] [address] Yajaira Lainez FNP [address] [place], [place] [phone] Type 2 diabetes mellitus treated without insulin [...] as of this encounter Miscellaneous Notes * Addendum Note - Christopher Sue RN - 04/10/2025 3:47 PM ESTAddended by: CHRISTOPHER SUE on: 04/10/2025 03:47 PM Modules accepted: Orders * Telephone Encounter - Ronnie Winston - 04/10/2025 2:16 PM EST Patient walked in requesting a new device to check her sugar levels, she doesn't have her old one and is worried about her levels. documented in this encounter Plan of Treatment Upcoming Encounters Date Type Department Care Team (Late st Contact Info) Description 05/27/2025 11:15 AM EST Office Visit [facility] 505 [place] [address] Yajaira Lainez, HELENA 505 [place] [address] 06/28/2025 1:30 PM EST Office Visit [facility] ADULT DENTAL 230 [place] [address] Aileen Marx 230 [place] [address] documented as of this encounter Goals Goal [...] Ronnie Winston documented as of this encounter Visit Diagnoses Diagnosis Type 2 diabetes mellitus treated without insulin [...] documented as of this encounter Care Teams Family Support Coordinator Relationship Specialty Start Date End Date Yajaira Lainez FNP 230 [place] [address] PCP - General Family Medicine 12/15/21 Torsten Leahy DPM [address] [place] [address] 250 [place] [address] Podiatry 02/12/25 Tana Grider NP [address] [place] [address] [address] [place] [address] Urology 02/12/25 [facility] 04/23/24 documented as of this encounter
--- OUTSIDE RECORDS SUMMARY | 2025-04-10 19:13 | XMS_ITS | Encounter Summary ---
Author Organization [employer] Address [address] [facility] [address] 7t [place] [address] Care Team Providers Care Earth Science Laboratory Technician Name Role Phone Yajaira Lainez HOSPITAL COORDINATOR Primary Care Provider [phone] Torsten Leahy DPM Unavailable [phone] Tana Grider CASE BRIEFER Unavailable Encounter Details Date Type Department Care Team ([facility] Contact Info) Description 03/28/2025 Results Follow-Up [facility] MEDICINE [address] [place] [address] Name, MD Griffin 230 [place] [address] Culture, Urine, Routine Social History Tobacco Use [...] Description 05/27/2025 11:15 AM EST Office Visit [facility] CHC MED & PEDS 505 [place] [address] Yajaira Lainez FNP 505 [place] [address] 06/28/2025 1:30 PM EST Office Visit [facility] ADULT DENTAL 230 [place] [address] Francisco J, Aileen 230 [place] [address] documented as of this encounter Visit Diagnoses Not on filedocumented in this encounter Additional Health Concerns Assessment Noted Time PHQ-9 Depression Total Score: 8 02/12/20 25 10:08 AM EDT documented as of this encounter Care Teams Earth Science Laboratory Technician Relationship Specialty Start Date End Date Yajaira Lainez FNP [address] [place] [address] PCP - General Family Medicine 12/15/21 Torsten Leahy DPM [address] [place] [address] Podiatry 02/12/25 Tana Grider NP [address] [place] [address] Urology 02/12/25 [facility] 04/23/24 documented as of this encounter
--- OUTSIDE RECORDS SUMMARY | 2025-04-10 19:13 | XMS_ITS | Encounter Summary ---
Author Organization [employer] Address [address] [facility] 7t [place] [address] Care Team Providers Care Plumbers And Top Helpers Name Role Phone Yajaira Lainez Primary Care Provider Torsten Leahy DPM Unavailable [phone] Tana Grider HORSE RANCHER Unavailable Encounter Details Date Type Department Care Team (Late st Contact Info) Description 06/16/2022 Orders Only [facility] MED & PEDS 505 [place] [address] Francoise Perez LPN Social History Tobacco Use [...] Description 05/27/2025 11:15 AM EST Office Visit [facility] MED & PEDS 505 [place] [address] Yajaira Lainez FNP 505 [place] [address] 06/28/2025 1:30 PM EST Office Visit [facility] ADULT DENTAL 230 [place] [address] Cale Marxaris 230 [place] [address] documented as of this encounter Visit Diagnoses Not on filedocumented in this encounter Care Teams Plumbers And Top Helpers Relationship Specialty Start Date End Date Yajaira Lainez FNP 230 [place] [address] PCP - General Family Medicine 12/15/21 Torsten Leahy DPM 175 [facility] 250 [place] [address] Podiatry 02/12/25 Tana Grider NP [address] [facility] [address] [place] [address] Urology 02/12/25 [facility] 04/23/24 documented as of this encounter
--- OUTSIDE RECORDS SUMMARY | 2025-04-10 19:13 | XMS_ITS | Clinical Summary ---
Author Organization [facility] Address [address] [facility] [address] [place] [address] Phone Care Team Providers Care Online Community Manager Name Role Phone Yajaira Lainez HELENA Primary Care Provider [phone] Allergies No known active allergies Medications albuterol [...] dietitian I suggest that she go to [facility] and see registered dietitian Lani Winston. [...] from 2021. She will benefit from seeing applications tester for nutrition counseling for diabetes. We do not have Italian-speaking dietitian in this office. So I asked her to speak to her primary regarding a Italian-speaking applications tester near her. In the meantime she should continue metformin at the current dose. She should follow in 3 months time. Encounters Date Type Department Care Team Description 03/10/2025 Refill [facility] [address] [place] [address] Palomo Granados DO Medication Refill from Last 3 Months Family History Medical [...] 12:10 PM EST Office Visit [facility] [address] [place] [address] Palomo Granados DO [address] [place] [address] [email or web address] Health [email or web address] Due Date Last Done Comments [...] patient's age to complete this topic IPV VACCINES Aged Out No longer eligi ble [...] EDT) SODIUM 142 133 - 146 mmol/L [facility] POTASSIUM 4.3 3.3 - 5.1 mmol/L [facility] CHLORIDE 104 96 - 108 mmol/L [facility] CO2 27 21 - 35 mmol/L [facility] BUN 10 6 - 19 mg/dL [facility] CREATININE 0.80 0.5 - 1.5 mg/dL [facility] GLUCOSE 90 70 - 99 mg/dL [facility] ALBUMIN 4.3 3.9 - 4.8 g/dL [facility] TOTAL PROTEIN 7.4 6.5 - 8.0 g/dL [facility] CALCIUM 9.4 8.4 - 10.3 mg/dL [facility] ALKALINE PHOSPHATASE 108 39 - 117 U/L [facility] TOTAL BILIRUBIN <0.2 0.0 - 1.2 mg/dL [facility] AST 36 0 - 37 U/L [facility] ALT 24 0 - 40 U/L [facility] GLOBULIN 3.1 1 - 4.8 g/dL [facility] EGFR 82 >59 mL/min/1.7 3m2 [facility] Comment:Estimated glomerular filtration rate calculated using the CKD-EPI refit equation. ANION GAP 15 10 - 20 mmol/L [facility] Blood 10/03/2023 2:46 PM EDT 10/03/2023 2:50 PM EDT us Palomo Granados DO LAB BLOOD BKR ORDERABLES Final R esult [facility] [address] [place] [address] from Last 3 Months or Most Recently Relevant to Health Maintenance Insurance [facility] C[facility] MEDICARE REPLACEMENT MEDICARE PART A & B [facility] MEDICARE REPLACEMENT MEDICARE PART A & [place] [place] [address] ONE CARE MEDICARE REPLACEMENT MEDICARE PART A & [place] [place] [address] ONE CARE MEDICARE REPLACEMENT MEDICARE PART A & B CARE MEDICARE REPLACEMENT MEDICARE PART A & B [facility] ONE CARE MEDICARE REPLACEMENT MEDICARE PART A & B Care Teams Online Community Manager Relationship Specialty Start Date End Date Yajaira Lainez FNP [address] [place] [address] PCP - General Nurse Practitioner 08/31/23 Additional Source Comments The information contained in this document represents components of the legal health record. It is not the complete legal health record.[facility]
== END 2025-04-10 18:18 | disposition home or self-care (01) ==
LOC: HO.HHCLNP 18:17
PROVIDERS: Visit Provider Family Medicine
DX: R30.0 Dysuria (principal)
CPT/HCPCS: 87086

== ENCOUNTER 2025-04-23 17:57 | Emergency (ER) | payer OTHER, SELFPAY ==
--- NOTE | ~2025-04-23 | CT_ITS ---
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 No acute fracture of the cervical spine. 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 Straightening of the cervical lordosis. Mild retrolisthesis at C3-C4. Mild anterolisthesis at C7-T1. Disc osteophyte complexes with mild spinal canal stenosis including C3-C4 to C6-C7. Foraminal narrowing is multifocal including [id number] right at C3-C4 and severe left at C6-C7. Facet arthropathy is multifocal. No paraspinal hematoma. Mild scarring of the imaged lung apices. Mild secretions of the imaged trachea. Metal artifacts noted. IMPRESSION: No acute fracture of the cervical spine. This document has been electronically signed by: Calvin Deluna MD on 04/23/2025 21:27:57
--- NOTE | ~2025-04-23 | XR_ITS ---
CLINICAL HISTORY: Fall 1 view chest x-ray. Comparison: 02/10/2024 Findings: No consolidation or effusion. Cardiac and mediastinal contours appear stable. Bones unremarkable. Impression: 1. No acute pulmonary disease. This document has been electronically signed by: Felix Rousseau MD on 04/23/2025 20:38:03
--- NOTE | ~2025-04-23 | CT_ITS ---
CLINICAL HISTORY: Fall CT head without contrast Comparison: MRI of the brain from 01/07/2025 Findings: No acute intracranial hemorrhage. No midline shift or hydrocephalus. No large arterial territorial infarction by CT. Mild-moderate white matter lesions are redemonstrated, remain nonspecific, and likely related to small-vessel ischemic disease. Right frontal sinuses diminutive. Mucosal thickening includes imaged paranasal sinuses. Imaged mastoid air cells are well aerated. No acute skull fracture. Previous cataract procedure changes. IMPRESSION: 1. No acute intracranial abnormality by CT. This document has been electronically signed by: Calvin Deluna MD on 04/23/2025 21:32:30
--- NOTE | 2025-04-23 18:02 | ECG_ITS ---
Test Reason : CHEST PAIN Blood Pressure : */* mmHG Vent. Rate : 72 BPM Atrial Rate : 72 BPM P-R Int : 146 ms QRS Dur : 74 ms QT Int : 382 ms P-R-T Axes : 24 45 50 degrees QTcB Int : 418 ms Normal sinus rhythm Normal ECG When compared with ECG of 10-Feb-2024 16:35, No significant change was found Referred By: Generic ED Physician Electronically Signed By: Paco Quiros
[2025-04-23 18:14] VITALS: BP 124/80; PULSE 79; RESP 17; TEMP 36.8; O2SAT 97
[2025-04-23 18:16] VITALS: BMI 32.8
[2025-04-23 18:17] VITALS: BP 130/81; PULSE 92; O2SAT 98
--- OUTSIDE RECORDS SUMMARY | 2025-04-23 19:43 | XMS_ITS | Encounter Summary ---
Author Organization [facility] Address [address] [facility] [address] 7t [place] [address] Care Team Providers Care Psychiatric Clinician Name Role Phone Yajaira Lainez Primary Care Provider [phone] Torstne Leahy DPM Unavailable [phone] Tana Grider BRIQUETTE MAKER Unavailable Reason for Visit * Reason Comments Med Refill Encounter Details Date Type Department Care Team (Late st Contact Info) Description 07/28/2023 Refill [facility] MEDICINE [address] [place], [place] [phone] Yajaira Lainez FNP [address] [place], [place] [phone] Social History Tobacco Use Types Packs/Day Years [...] 05/27/2025 11:15 AM EST Office Visit [facility] CHC MED & PEDS [address] [place] [address] Yajaira Lainez FNP 505 [place] [address] 06/28/2025 1:30 PM EST Office Visit [facility] ADULT DENTAL 230 [place] [address] Francisco J, Aileen 230 [place] [address] 07/24/2025 2:00 PM EST Office Visit [facility] OPTOMETRY [address] [place] [address] Julio Cesar, Sol, OD 230 [place] [address] documented as of this encounter Visit Diagnoses Not on filedocumented in this encounter Additional Health Concerns Assessment Noted Time PHQ-9 Depression Total Score: 0 01/15/20 23 3:37 PM EDT documented as of this encounter Care Teams Psychiatric Clinician Relationship Specialty Start Date End Date Yajaira Lainez FNP [address] [place] [address] PCP - General Family Medicine 12/15/21 Torsten Leahy DPM [address] [place] [address] Podiatry 02/12/25 Tana Grider NP [address] [place] [address] Drive [address] [place] [address] Urology 02/12/25 [facility] 04/23/24 documented as of this encounter
--- OUTSIDE RECORDS SUMMARY | 2025-04-23 19:43 | XMS_ITS | Encounter Summary ---
Author Organization [facility] Address [address] [facility] [address] [address] [place] [address] Care Team Providers Care Director Hr Communications Name Role Phone Yajaira Lainez SUPERVISOR OF OPERATIONS Primary Care Provider [phone] Torsten Leahy DPM Unavailable [phone] Tana Grider CIVIL PREPAREDNESS COORDINATOR Unavailable Encounter Details Date Type Department Care Team ([facility] Contact Info) Description 03/28/2025 Results Follow-Up [facility] MEDICINE 230 [place] [address] Name, MD Griffin 230 [place] [address] Culture, Urine, Routine Social History Tobacco Use [...] Description 05/27/2025 11:15 AM EST Office Visit [facility] CHC MED & PEDS 505 [place] [address] Yajaira Lainez FNP 505 [place] [address] 06/28/2025 1:30 PM EST Office Visit [facility] ADULT DENTAL 230 [place] [address] Francisco J, Aileen 230 [place] [address] 07/24/2025 2:00 PM EST Office Visit [facility] OPTOMETRY [address] [place] [address] Julio Cesar, Sol, OD 230 [place] [address] documented as of this encounter Visit Diagnoses Not on filedocumented in this encounter Additional Health Concerns Assessment Noted Time PHQ-9 Depression Total Score: 8 02/12/20 25 10:08 AM EDT documented as of this encounter Care Teams Director Hr Communications Relationship Specialty Start Date End Date Yajaira Lainez FNP 230 [place] [address] PCP - General Family Medicine 12/15/21 Torsten Leahy DPM [address] [facility] 250 [place] [address] Podiatry 02/12/25 Tana Grider NP [address] [place] [address] [address] [place] [address] Urology 02/12/25 [facility] Care 04/23/24 documented as of this encounter
--- OUTSIDE RECORDS SUMMARY | 2025-04-23 19:43 | XMS_ITS | Encounter Summary ---
Author Organization [facility] Address [address] 7t [place] [address] Care Team Providers Care Veneer Clipper Name Role Phone Yajaira Lainez Primary Care Provider [phone] Torsten Leahy DPM Unavailable [phone] Tana Grider LENS FINISHER Unavailable Encounter Details Date Type Department Care Team ([facility] Contact Info) Description 03/15/2025 Results Follow-Up [facility] MED & PEDS 505 [place], [place] [phone] Yajaira Lainez FNP 505 [place] [address] Referral to Neurology Social History Tobacco Use [...] Description 05/27/2025 11:15 AM EST Office Visit [facility] CHC MED & PEDS 505 [place] [address] Yajaira Lainez FNP 505 [place] [address] 06/28/2025 1:30 PM EST Office Visit [facility] ADULT DENTAL 230 [place] [address] Francisco J, Aileen 230 [place] [address] 07/24/2025 2:00 PM EST Office Visit [facility] OPTOMETRY [address] [place] [address] Julio Cesar, Sol, OD [address] [place] [address] documented as of this encounter Visit Diagnoses Not on filedocumented in this encounter Additional Health Concerns Assessment Noted Time PHQ-9 Depression Total Score: 8 02/12/20 25 10:08 AM EDT documented as of this encounter Care Teams Veneer Clipper Relationship Specialty Start Date End Date Yajaira Lainez FNP 230 [place] [address] PCP - General Family Medicine 12/15/21 Torsten Leahy DPM [address] [place] [address] [address] [place] [address] Podiatry 02/12/25 Tana Grider NP [address] [place] [address] [address] [place] [address] Urology 02/12/25 [facility] 04/23/24 documented as of this encounter
--- OUTSIDE RECORDS SUMMARY | 2025-04-23 19:43 | XMS_ITS | Encounter Summary ---
Author Organization [facility] Address [address] 7t [place] [address] Care Team Providers Care Assistant Oceanographer Name Role Phone Yajaira Lainez OIL RECOVERY UNIT OPERATOR Primary Care Provider [phone] Torsten Leahy DPM Unavailable [phone] Tana Grider HOSPICE DIRECTOR Unavailable Encounter Details Date Type Department Care Team (Late st Contact Info) Description 04/14/2023 Abstract [facility] MEDICINE [address] [place], [place] [phone] Rosi Fernandez Social History Tobacco Use Types [...] 05/27/2025 11:15 AM EST Office Visit [facility] CHC MED & PEDS 505 [place] [address] Yajaira Lainez FNP [address] [place] [address] 06/28/2025 1:30 PM EST Office Visit [facility] ADULT DENTAL 230 [place] [address] Francisco J, Aileen 230 [place] [address] 07/24/2025 2:00 PM EST Office Visit [facility] OPTOMETRY [address] [place] [address] Julio Cesar, Sol, OD 230 [place] [address] documented as of this encounter Procedures Procedure [...] documented as of this encounter Care Teams Assistant Oceanographer Relationship Specialty Start Date End Date Yajaira Lainez FNP 230 [place] [address] PCP - General Family Medicine 12/15/21 Torsten Leahy DPM [address] [place] [address] 250 [place] [address] Podiatry 02/12/25 Tana Grider NP [address] [place] [address] [address] [place] [address] Urology 02/12/25 [facility] 04/23/24 documented as of this encounter
--- OUTSIDE RECORDS SUMMARY | 2025-04-23 19:43 | XMS_ITS | Encounter Summary ---
Author Organization [facility] Address [address] [place] [address] Phone Care Team Providers Care Lobbyist Name Role Phone Yajaira Lainez HELENA Primary Care Provider [phone] Reason for Visit * Reason Onset Date Comments Symptomatic Low Blood Sugar 04/23/2025 Symp tomatic Low Blood Sugar Encounter Details Date Type Department Care Team (Late st Contact Info) Description 04/23/2025 Telephone [facility] [address] [place] [address] Palomo Granados, DO [address] [place] [address] [email or web address] Symptomatic Low Blood Sugar (Symptomatic Low Blood Sugar) Social History Tobacco Use Types Packs/Day Years [...] as of this encounter Progress Notes * Noemí Rousseau LPN - 04/23/2025 4:57 PM EST Call to patient nurse Rachell and she reports patient has had dizziness and BS 70 - 90 for a week . Rachell reports pt was seen by PCP for dizziness this week and was tx'd with antibiotic for resp sx's .Rachell is advised we will relay message to endo provider and she is also advised if pt sx's dizziness or blood sugars go any lower pt needs to go to er. * Lidia Daley - 04/23/2025 3:26 PM EST Rachell, patient's RN, calls to report dropping blood sugars (around 78 to 80) and patient has been complaining about dizziness. She states patient is symptomatic and is asking about Metformin dosage (currently at 500) and if she should decrease to 250? Rachell's call back # is [phone]. documented in this encounter Plan of Treatment Upcoming Encounters Date Type Department Care Team (Late st Contact Info) Description 06/13/2025 12:10 PM EST Office Visit [facility] [address] [place] [address] Palomo Granados DO [address] [place] [address] documented as of this encounter Visit Diagnoses Not on filedocumented in this encounter Care Teams Lobbyist Relationship Specialty Start Date End Date Yajaira Lainez FNP [address] [place] [address] PCP - General Nurse Practitioner 08/31/23 documented as of this encounter Additional Source Comments The information contained in this document represents components of the legal health record. It is not the complete legal health record.[facility]
--- OUTSIDE RECORDS SUMMARY | 2025-04-23 19:43 | XMS_ITS | Encounter Summary ---
Author Organization [employer] [facility] Address [address] [facility] 7t [place] [address] Care Team Providers Care Customer Care Professional Name Role Phone Yajaira Lainez Primary Care Provider Torsten Leahy DPM Unavailable [phone] Tana Grider FABRIC WORKER LEADER Unavailable Encounter Details Date Type Department Care Team (Late Contact Info) Description 11/08/2022 Abstract [facility] MEDICINE 230 [place] [address] Yajaira Lainez FNP 505 [place] [address] Social History Tobacco Use Types Packs/Day Years [...] 11:15 AM EST Office Visit [facility] CHC MED & PEDS 505 [place] [address] Yajaira Lainez FNP 505 [place] [address] 06/28/2025 1:30 PM EST Office Visit [facility] ADULT DENTAL 230 [place] [address] Francisco J Aileen 230 [place] [address] 07/24/2025 2:00 PM EST Office Visit [facility] OPTOMETRY [address] [place] [address] Julio Cesar, Sol, OD 230 [place] [address] documented as of this encounter Visit Diagnoses Not on filedocumented in this encounter Care Teams Customer Care Professional Relationship Specialty Start Date End Date Yajaira Lainez FNP 230 [place] [address] PCP - General Family Medicine 12/15/21 Torsten Leahy DPM [address] [facility] [address] [place] [address] Podiatry 02/12/25 Tana Grider NP [address] [place] [address] Urology 02/12/25 [facility] Home Care 04/23/24 documented as of this encounter
--- OUTSIDE RECORDS SUMMARY | 2025-04-23 19:43 | XMS_ITS | Encounter Summary ---
Author Organization [employer] [facility] Address [address] [facility] 7t [place] [address] Care Team Providers Care Head Mva Reactor Operator Name Role Phone Yajaira Lainez Primary Care Provider [phone] Torsten Leahy DPM Unavailable [phone] Tana Grider FINANCIAL SERVICES REP Unavailable Encounter Details Date Type Department Care Team ([facility] Contact Info) Description 07/29/[address] [facility] MEDICINE [address] [place] [address] Yajaira Lainez FNP 505 [place] [address] Social History Tobacco Use Types Packs/Day Years [...] Upcoming Encounters Date Type Department Care Team ([facility] Contact Info) Description 05/27/2025 11:15 AM EST Office Visit [facility] CHC MED & PEDS 505 [place], [place] [phone] Yajaira Lainez FNP [address] [place] [address] 06/28/2025 1:30 PM EST Office Visit [facility] ADULT DENTAL 230 [place] [address] Francisco J, Aileen 230 [place] [address] 07/24/2025 2:00 PM EST Office Visit [facility] OPTOMETRY [address] [place] [address] Julio Cesar, Sol, OD 230 [place] [address] documented as of this encounter Visit Diagnoses Not on filedocumented in this encounter Care Teams Head Mva Reactor Operator Relationship Specialty Start Date End Date Yajaira Lainez FNP 230 [place] [address] PCP - General Family Medicine 12/15/21 Torsten Leahy DPM [address] [address] Podiatry 02/12/25 Tana Grider NP [address] [place] [address] Urology 02/12/25 [facility] 04/23/24 documented as of this encounter
--- OUTSIDE RECORDS SUMMARY | 2025-04-23 19:43 | XMS_ITS | Clinical Summary ---
Author Organization [facility] Address [address] [address] Care Team Providers Care Procurement Cost Coordinator Name Role Phone Lisa White MD Primary Care Provider [phone] Allergies Active Allergy Reactions Criticality Noted Date [...] Medicaid [place] Medicare Medicaid [place] Care Teams Procurement Cost Coordinator Relationship Specialty Start Date End Date Lisa White MD [address] [place] [address] PCP - General 06/09/20
--- OUTSIDE RECORDS SUMMARY | 2025-04-23 19:43 | XMS_ITS | Clinical Summary ---
Author Organization [facility] Address 175 [place] [address] Phone Care Team Providers Care Merchant Mill Utility Worker Name Role Phone Physician, Pcp Unknown Primary [...] 0 Refills, Maintenance, 10/17/24 1:09:00 PM EDT, [facility], Partial fill upon patient request if [...] 10:30 AM EDT Office Visit Orthopedic Surgery [facility] [address] [place] [phone] Torsten Leahy, DPM Xerosis of skin (Primary Dx); Diabetic mononeuropathy simplex ([facility]/HCC V24, CMS/HCC V28); Verruca plantaris from [...] age to complete this topic Insurance , [address] [address] [place]ICAID - [place] [facility] Member Subscriber Plan / Payer (Ef fective 2022-Present) Name:JAN STEENANA Relation to Subscriber:Self Name:Celestina Steen Payer ID:[id number] Group ID:[id number] Type:Not on file Address: [address] [place] [address] [employer] MEDICARE Member Subscriber Plan / Payer (Ef fective 2022-Present) Name:CELESTINA STEEN Relation to Subscriber:Self Name:Celestina Steen Payer ID:[id number] Group ID:[id number] Type:Not on file Address: [address] [place] [address] Care Teams Merchant Mill Utility Worker Relationship Specialty Start Date End Date Physician, Pcp Unknown PCP - General 12/13/24
--- OUTSIDE RECORDS SUMMARY | 2025-04-23 19:43 | XMS_ITS | Encounter Summary ---
Author Organization [employer] Address [address] 7[address] [place] [address] Care Team Providers Care Parts Washer Name Role Phone Yajaira Lainez Primary Care Provider [phone] Torsten Leahy DPM Unavailable [phone] Tana Grider LAY OUT AND DETAIL DRAFTER Unavailable Reason for Visit * Reason Comments Med Refill Encounter Details Date Type Department Care Team (Late st Contact Info) Description 04/17/2025 Refill [facility] MEDICINE [address] [place] [address] Yajaira Lainez FNP [address] [place], [place] [phone] Pain Social History Tobacco Use Types Packs/Day [...] 11:15 AM EST Office Visit [facility] CHC MED & PEDS 505 [place] [address] Phalen, Yajaira, FOILING MACHINE OPERATOR 505 [place] [address] 06/28/2025 1:30 PM EST Office Visit [facility] ADULT DENTAL 230 [place] [address] Francisco J, Aileen [address] [place] [address] 07/24/2025 2:00 PM EST Office Visit [facility] OPTOMETRY [address] [place] [address] Julio Cesar, Sol, OD 230 [place] [address] documented as of this encounter Goals Goal Patient Goal Type Associated Problems Recent Progress Patient-Stated? Author Help patients manage their type 2 diabetes Care Plan Help patients manage their type 2 diabetes Andreea Sultana [place] Weekly blood pressure task Care Plan [...] has chronic kidney disease No Ronnie Winston Weekly blood pressure task Care Plan Weekly blood pressure task No Oxana Dorado MD Weekly blood pressure task Care Plan Weekly blood pressure task No Oxana Dorado MD Patient has chronic kidney disease Care Plan Patient has chronic kidney disease No Oxana Dorado MD Patient has chronic kidney disease Care Plan Patient has chronic kidney disease No Oxana Dorado MD documented as of this encounter Visit Diagnoses [...] kidney disease 04/10/2025 Weekly blood pressure task 04/12/2025 Weekly blood pressure task 04/12/2025 Patient has chronic kidney disease 04/12/2025 Patient has chronic kidney disease 04/12/2025 Assessment Noted Time PHQ-9 Depression Total Score: 8 02/12/20 25 10:08 AM EDT documented as of this encounter Care Teams Parts Washer Relationship Specialty Start Date End Date Yajaira Lainez FNP [address] [place] [address] PCP - General Family Medicine 12/15/21 Torsten Leahy DPM [address] [facility] [address] [place] [address] Podiatry 02/12/25 Tana Grider NP [address] [place] [address] [address] [place] [address] Urology 02/12/25 [facility] 04/23/24 documented as of this encounter
--- OUTSIDE RECORDS SUMMARY | 2025-04-23 19:43 | XMS_ITS | Encounter Summary ---
Author Organization [employer] Address [address] [facility] 7t [place] [address] Care Team Providers Care Personalized Living Manager Nurse Name Role Phone Yajaira Lainez Primary Care Provider [phone] Torsten Leahy DPM Unavailable [phone] Tana Grider E COMMERCE SOLUTION ARCHITECT Unavailable Encounter Details Date Type Department Care Team (Late st Contact Info) Description 06/16/2022 Orders Only [facility] MED & PEDS 505 [place] [address] Francoise Perez LPN Social History Tobacco Use [...] Description 05/27/2025 11:15 AM EST Office Visit [facility] MED & PEDS 505 [place] [address] Yajaira Lainez FNP 505 [place] [address] 06/28/2025 1:30 PM EST Office Visit [facility] ADULT DENTAL 230 [place] [address] Cale Marxaris [address] [place] [address] 07/24/2025 2:00 PM EST Office Visit [facility] OPTOMETRY [address] [place] [address] Sol Harrell, OD 230 [place] [address] documented as of this encounter Visit Diagnoses Not on filedocumented in this encounter Care Teams Personalized Living Manager Nurse Relationship Specialty Start Date End Date Yajaira Lainez FNP 230 [place] [address] PCP - General Family Medicine 12/15/21 Torsten Leahy DPM 175 [facility] 250 [address] Podiatry 02/12/25 Tana Grider NP [address] [place] [address] Urology 02/12/25 [facility] 04/23/24 documented as of this encounter
--- OUTSIDE RECORDS SUMMARY | 2025-04-23 19:43 | XMS_ITS | Clinical Summary ---
Author Organization [facility] Address [address] [place] [address] Phone Care Team Providers Care Adoption Specialist Name Role Phone Yajaira Lainez HELENA Primary Care Provider [phone] Allergies No known active allergies Medications albuterol [...] 0.5 % ophthalmic solution 08/25/19 25 Active ONETOUCH VERIO Strp stripsIndications: Type 2 diabetes mellitus with diabetic polyneuropathy, without long-term current use of insulin 1 each by Miscellaneous route 3 (three) times a day before meals. 400 strip 3 08/30/19 25 Active metFORMIN (GLUCOPHAGE-XR) 500 MG 24 hr tabletIndications: Type 2 diabetes mellitus with diabetic polyneuropathy, without long-term current use of insulin TAKE 1 TABLET BY MOUTH EVERY DAY WITH DINNER 90 tablet 1 03/13/20 25 Active Active Problems Problem Noted Date Diagnosed [...] dietitian I suggest that she go to [facility] and see registered dietitian Lani Winston. Assessment [...] from 2021. She will benefit from seeing cutting and boning supervisor for nutrition counseling for diabetes. We do not have Croatian-speaking dietitian in this office. So I asked her to speak to her primary regarding a Croatian-speaking cutting and boning supervisor near her. In the meantime she should continue metformin at the current dose. She should follow in 3 months time. Encounters Date Type Department Care Team Description 04/23/2025 Telephone [facility] [address] [place] [address] [place] [address] Palomo Granados DO Symptomatic Low Blood Sugar (Symptomatic Low Blood Sugar) 03/10/2025 Refill [facility] [address] [place] [address] Palomo Granados DO Medication Refill from Last [...] PM EST Office Visit [facility] [address] [place] [address] Palomo Granados DO [address] [place] [id number] [email or web address] Health Maintenance Due Date Last Done Comments [...] EDT) SODIUM 142 133 - 146 mmol/L [facility] POTASSIUM 4.3 3.3 - 5.1 mmol/L [facility] CHLORIDE 104 96 - 108 mmol/L [facility] CO2 27 21 - 35 mmol/L [facility] BUN 10 6 - 19 mg/dL [facility] CREATININE 0.80 0.5 - 1.5 mg/dL [facility] GLUCOSE 90 70 - 99 mg/dL [facility] ALBUMIN 4.3 3.9 - 4.8 g/dL [facility] TOTAL PROTEIN 7.4 6.5 - 8.0 g/dL [facility] CALCIUM 9.4 8.4 - 10.3 mg/dL [facility] ALKALINE PHOSPHATASE 108 39 - 117 U/L [facility] TOTAL BILIRUBIN <0.2 0.0 - 1.2 mg/dL [facility] AST 36 0 - 37 U/L [facility] ALT 24 0 - 40 U/L [facility] GLOBULIN 3.1 1 - 4.8 g/dL [facility] EGFR 82 >59 mL/min/1.7 3m2 [facility] Comment:Estimated glomerular filtration rate calculated using the CKD-EPI refit equation. ANION GAP 15 10 - 20 mmol/L [facility] Blood 10/03/2023 2:4 6 PM EDT 10/03/2023 2:50 PM EDT us Palomo Granados DO LAB BLOOD BKR ORDERABLES Final R esult [facility] [address] [place] [address] from Last 3 Months or Most Recently Relevant to Health Maintenance Insurance [facility] CARE MEDICARE REPLACEMENT MEDICARE PART A & B [facility] CARE MEDICARE [facility]PLACEMENT MEDICARE PART A & B [facility] CARE MEDICARE REPLACEMENT MEDICARE PART A & B [facility] ONE CARE MEDICARE REPLACEMENT MEDICARE PART A & [place] [address] [place] [address] ONE CARE MEDICARE REPLACEMENT MEDICARE PART A & B [facility] ONE CARE MEDICARE REPLACEMENT MEDICARE PART A & B Care Teams Adoption Specialist Relationship Specialty Start Date End Date Yajaira Lainez FNP [address] [place] [id number] PCP - General Nurse Practitioner 08/31/23 Additional Source Comments The information contained in this document represents components of the legal health record. It is not the complete legal health record.[facility]
--- OUTSIDE RECORDS SUMMARY | 2025-04-23 19:43 | XMS_ITS | Encounter Summary ---
Author Organization [employer] Address [address] [place] [address] Care Team Providers Care Rocket Scientist Name Role Phone Yajaira Lainez Primary Care Provider Torsten Leahy DPM Unavailable [phone] Tana Grider CONFERENCE RESERVATIONIST Unavailable Reason for Visit * Reason Comments Med Refill Encounter Details Date Type Department Care Team (Late Contact Info) Description 01/01/2023 Refill [facility] [address], [place] [phone] Yajaira Lainez FNP [address], [place] [phone] Social History Tobacco Use Types Packs/Day Years [...] 11:15 AM EST Office Visit [facility] [address], [place] [phone] Yajaira Lainez FNP [address], [place] [phone] 06/28/2025 1:30 PM EST Office Visit [facility] [address] [place] [address] Francisco J, Aileen [address] [place] [address] 07/24/2025 2:00 PM EST Office Visit [facility] [address] [place] [address] Julio Cesar, Sol, OD [address] [place] [address] documented as of this encounter Visit Diagnoses Not on filedocumented in this encounter Care Teams Rocket Scientist Relationship Specialty Start Date End Date Yajaira Lainez FNP [address] [place] [address] PCP - General Family Medicine 12/15/21 Torsten Leahy DPM [address] [facility] [address] [place] [address] Podiatry 02/12/25 Tana Grider NP [address] [place] [address] Urology 02/12/25 [facility] Care 04/23/24 documented as of this encounter
--- OUTSIDE RECORDS SUMMARY | 2025-04-23 19:43 | XMS_ITS | Encounter Summary ---
Author Organization [employer] Address [address] [place] [address] Care Team Providers Care Gas Plant Operator Name Role Phone Yajaira Lainez Primary Care Provider [phone] Torsten Leahy DPM Unavailable [phone] Tana Grider ORGANIZATIONAL CONSULTANT Unavailable Reason for Visit * Reason Comments Med Refill Encounter Details Date Type Department Care Team (Late st Contact Info) Description 12/16/2023 Refill [facility] [address] [place], [place] [phone] Yajaira Lainez FNP [address] [place], [place] [phone] Pain Social History Tobacco Use Types Packs/Day [...] 05/27/2025 11:15 AM EST Office Visit [facility] [address] [place] [address] Yajaira Lainez FNP [address] [place] [address] 06/28/2025 1:30 PM EST Office Visit [facility] [address] [place] [address] Francisco J, Aileen [address] [place] [address] 07/24/2025 2:00 PM EST Office Visit [facility] [address] [place] [address] Julio Cesar, Sol, OD [address] [place] [address] documented as of this encounter Visit Diagnoses Diagnosis Pain Generalized pain documented in this encounter Additional Health Concerns Assessment Noted Time PHQ-9 Depression Total Score: 0 01/15/20 23 3:37 PM EDT documented as of this encounter Care Teams Gas Plant Operator Relationship Specialty Start Date End Date Yajaira Lainez FNP [address] [place] [address] PCP - General Family Medicine 12/15/21 Torsten Leahy DPM [address] [place] [address] Podiatry 02/12/25 Tana Grider NP [address] [place] [address] Drive [address] [place] [address] Urology 02/12/25 [facility] 04/23/24 documented as of this encounter
--- OUTSIDE RECORDS SUMMARY | 2025-04-23 19:43 | XMS_ITS | Clinical Summary ---
Author Organization [employer] Address [address] [facility] [address] [place] [address] Care Team Providers Care Cheese Processor Name Role Phone Yajaira Lainez CAREER DEVELOPMENT MANAGER Primary Care Provider Torsten Leahy DPM Unavailable [phone] Tana Grider PLANT OPERATIONS WORKER Unavailable Allergies Active Allergy Reactions Criticality Noted [...] 07/26/19 23 Active Lancets (OneTouch Delica Plus [id number]) mis Inject 1 each into the skin [...] NEEDED FOR DIZZINESS 30 tablet 3 5 2:57 PM EST 01/26/20 25 Active cyclobenzaprin e (Flexeril) 10 MG tabletIndicati ons:Ear pain, bilateral Take 1 tablet (10 mg) by mouth at bedtime for 10 days. 10 tablet 02/03/20 25 Active nicotine (Nicoderm CQ) 7 MG/24HR patch After completion of 14mg/day patch: Apply 1 patch on the skin (one) time each day at the same time x 8 weeks. 72 patch 02/12/20 25 Active Diclofenac Sodium 1 % gel [...] directed by . 30 patch 3 04/10/20 25 Active glucose blood (OneTouch Ultra) test strip Use to test blood sugar 2 times daily 100 each 11 5 1:19 PM EST 04/11/20 25 026 Active Accu-Chek Softclix Lancets lancets Use as instructed 100 each 12 5 1:19 PM EST 04/11/20 25 026 Active Alcohol Swabs 70 % pads Use to test blood sugar 2 times daily 100 each 11 5 1:19 PM EST 04/11/20 25 Active Blood Glucose Monitoring Suppl (ONE TOUCH ULTRA 2) w/Device kit Use to test blood sugar 2 times daily 1 kit 04/11/20 25 Active Blood Glucose Monitoring Suppl (OneTouch Verio Flex System) w/Device kitIndications :Type 2 diabetes mellitus treated without insulin ([facility]) Check blood sugar twice daily 1 kit 5 1:19 PM EST 04/10/20 25 Active gabapentin (Neurontin) 600 MG tabletIndicati ons:Pain TAKE 1 TABLET BY MOUTH TWICE DAILY 60 tablet 1 04/19/20 25 Active Blood Glucose Monitoring Suppl (OneTouch Verio Flex System) w/Device kitIndications :Type 2 diabetes mellitus treated without insulin ([facility]) TEST BLOOD SUGAR TWICE DAILY 1 kit 07/09/19 23 025 Discontinued(Re order (will not trigger notification to Pharmacy)) lidocaine (Lidoderm) 5 % patchIndicatio ns:Muscle spasm Apply 1 patch topically in the morning. Remove & discard patch within 12 hours or as directed by . 30 patch 3 05/06/20 23 025 Discontinued(Re order (will not trigger notification to Pharmacy)) Diclofenac Sodium 1 % gel Apply thin layer by topical route (quantity as directed on package insert) to affected area of pain 3 times daily as needed. 50 g 3 02/12/20 25 025 Discontinued(Re order (will not trigger notification to Pharmacy)) gabapentin (Neurontin) 600 MG tabletIndicati ons:Pain TAKE 1 TABLET BY MOUTH TWICE DAILY 60 tablet 1 02/16/20 25 025 Discontinued cefixime (Suprax) capsule Take 1 capsule (400 mg) by mouth Once per day for 7 days. 7 capsule 03/25/20 025 nitrofurantoin , macrocrystal-m onohydrate, (Macrobid) 100 MG capsule Take 1 capsule (100 mg) by mouth 2 times daily for 7 days. 14 capsule 04/01/20 025 Active Problems Problem Noted Date Diagnosed [...] incontinence, mixed 11/29/2024 Overview (02/12/2025): Following with [facility] Urology - Dr. Jake Fisher, as well as [facility] Uro-TELEPHONE MAINTENANCE MECHANIC Continues with Vesicare 10mg daily Assessment & Plan (02/12/2025 10:11 AM EDT): - Upcoming sling procedure scheduled with [facility] Uro-TELEPHONE MAINTENANCE MECHANIC on 02/26/25 Assessment & Plan (11/29/2024 9:02 AM EDT): - Cont current therapy (Last consult note September 2024) Primary hypertension 08/30/2024 Overview (11/29/2024): [facility] Amlodipine 5 mg daily Verapamil 120mg [...] BID. Palpitations 05/10/2024 Overview (05/10/2024): [facility] Efrem Ratliff completed approx Jun 2023 - demonstrated rare PACs and PVCs Nuclear stress test and echo WNL 2023 Plan: cont verapamil 120mg ER daily through Cards Assessment & Plan (05/10/2024 5:43 PM EST): Encouraged good hydration, reviewed follow up precautions Healthcare maintenance 10/03/2023 Overview (11/29/2024): Mammo: BIRADS 1 on 11/08/24 Pap: NILM/HPV neg Feb 2019 OPH: TRINO on 06/09/23. [facility] (Ana Levi MD). No evidence of diabetic retinopathy or macular edema. Colonoscopy: 12/21/23 ([facility] GI - Dr. Wilson). Repeat 5 years d/t tubular adenoma. Cigarette smoker 05/08/2023 Assessment & Plan (02/12/2025 10:28 AM EDT): -Currently smoking 2-3 cigg/day -Age started smokin y.o -Encouraged smoking cessation resources such as pharmacomtherapy, [facility] smoking cessation group, and [facility] pharmacy smoking cessation clinic -Start NRT patches -Eligibility for LDCT: not eligible, less than 20 pack years Assessment & Plan (08/30/2024 7:29 PM EDT): -Currently smoking 3 cigg/day -Encouraged smoking cessation resources such as pharmacomtherapy, [facility] smoking cessation group, and [facility] pharmacy smoking cessation clinic -Start NRT patches -Eligibility for LDCT: discuss next appt Assessment & Plan (05/08/2023 2:23 PM EST): -Currently smoking 6 cigg/day -Encouraged smoking cessation resources such as pharmacomtherapy, [facility] smoking cessation group, and [facility] pharmacy smoking cessation clinic -Start NRT patches Type 2 diabetes mellitus wit h hypoglycemia, without long-term current use of insulin 07/11/2022 Overview (02/12/2025): Lab Results Component Value Date HGBA1C 6.4 (A) 11/28/2024 -Following with [facility] Endo - Dr. Granados - Referred to [facility] Cub Reporter - Lani Winston - by Kenji in Dec 2023 -Continues with metformin 500mg daily with evening meal -Encourage lifestyle interventions such as routine physical activity and healthy dietary habits -TRINO May 2023 ([facility]) -Statin: due for recheck of lipids. HUMAN RESOURCES EXECUTIVE/pt to confirm if pt rx statin through [...] cognitive stimulation and daily activities. Referral to [facility] on 02/12/25 Assessment & [...] Overview (06/19/2023): Hearing aid eval 10/03/20 at [facility] Audiology - diagnosed with bilateral sensorineural hearing loss and prescription for hearing aids generated Assessment & Plan (06/19/2023 4:56 PM EST): Pt reports that her hearing aids have been misplaced and is in need of re-eval through Audiology for further amplification devices. Referral to [facility] Audiology placed 06/17/23 Tendinitis of right rotator cuff 07/07/2022 Hyperlipidemia 01/01/2021 Stage 3 chronic kidney disease (CMS/HCC) 021 Irritable bowel syndrome with constipation 12/16 Overview (05/10/2024): Followed by [facility] GI - Dr. Wilson [...] reflux disease 11/11/2011 Overview (05/10/2024): Followed by [facility] GI - Dr. Wilson [...] Encounters Date Type Department Care Team Description 04/17/2025 Refill [facility] [address] [place] [address] Yajaira Lainez, CAREER DEVELOPMENT MANAGER Pain 04/12/2025 Results Follow-Up [address] [address] Oxana Dorado MD POCT urinalysis dipstick manually resulted (CPT 89178), POCT glucose manually resulted, Culture, Urine, Routine 04/10/2025 11:30 AM EST Office Visit [address] [address] Oxana Dorado MD Dysuria (Primary Dx); Encounter for immunization; Type 2 diabetes mellitus with hypoglycemia without coma, without long-term current use of insulin ([facility]); Muscle spasm; Type 2 diabetes mellitus treated without insulin ([facility]); Primary hypertension; Urinary incontinence, mixed; Chronic bilateral low back pain, unspecified whether sciatica present 04/10/[address] [address] Yajaira Lainez FNP Type 2 diabetes mellitus treated without insulin ([facility]) 04/10/2025 Travel 04/01/2025 2:40 PM EST Office Visit [facility] [address] [address] Lisa White MD Acute cystitis with hematuria (Primary Dx) 04/01/2025 Travel 04/01/[address] [address] Adamaris Alejandre, RN Nurse Triage 03/28/2025 Results Follow-Up [address] [address] Griffin Vera MD Culture, Urine, Routine 03/25/2025 1:20 PM EDT Office Visit [facility] [address] [address] Griffin Vera MD Urinary tract infection with hematuria, site unspecified (Primary Dx); Cough, unspecified type; Chills 03/25/2025 Orders Only [address] [address] Griffin Vera MD 03/25/2025 Travel 03/15/2025 Results Follow-Up [facility] [address] [place] [address] Yajaira Lainez FNP Referral to Neurology 02/25/2025 11:00 AM EDT Office Visit [facility] [address] [place] [address] Aileen Marx Periodontal disease (Primary Dx); Dental calculus 02/18/2025 11:00 AM EDT Office Visit [facility] [address] [place] [address] Francisco JAileen tinajero Dental calculus (Primary Dx); Periodontal disease 02/15/2025 Refill [facility] [address] [place] [address] Kim Babin FNP Pain 02/12/2025 Telephone [facility] [address] [place] [address] Yajaira Lainez FNP 02/11/2025 10:00 AM EDT Office Visit [facility] [address] [place] [address] Yajaira Lainez FNP Carpal tunnel syndrome of right wrist (Primary Dx); Type 2 diabetes mellitus with hypoglycemia without coma, without long-term current use of insulin ([facility]); Cubital tunnel syndrome on right; Dietary counseling; Exercise counseling; Urinary incontinence, mixed; Memory impairment; Primary hypertension; Osteopenia, unspecified location; Chronic pain of right ankle; Cigarette smoker 02/11/2025 Travel 02/08/2025 Telephone [facility] [address] [place] [address] Yajaira Lainez FNP Chart Prep 02/02/2025 10:00 AM EDT Office Visit [facility] [address] [place] [address] Lisa White MD TMJ dysfunction (Primary Dx); Ear pain, bilateral; Contact with and (suspected) exposure to covid-19 02/02/2025 Refill [facility] [address] [place] [address] Lisa White MD 02/02/2025 Travel 01/25/2025 Refill [facility] [address] [place] [address] Yajaira Lainez FNP from Last 3 Months [...] Description 05/27/2025 11:15 AM EST Office Visit [facility] [address] [place] [address] Yajaira Lainez FNP [address] [place] [address] 06/28/2025 1:30 PM EST Office Visit [facility] [address] [place] [address] Aileen Marx [address] [place] [address] 07/24/2025 2:00 PM EST Office Visit [facility] [address] [place] [address] Sol Harrell, OD [address] [place] [address] Health Maintenance Due Date Last Done Comments CT Colonography 1960 FIT DNA/Cologuard 1960 FIT 1960 FOBT 1960 Sigmoidoscopy 1960 RSV Patients and Patients Aged 60 years or older (1 - Risk 50-74 years 1-dose series) 2009 Pneumococcal Vaccine: 50+ Years (3 of 3 - PCV20 or PCV21) 01/23/2025 01/24/2020, 07/05/2019, 06/03/2011 COVID-19 Vaccine ( season) 2025 06/02/2021, 08/28/2020, 07/31/2020 Diabetes: Hemoglobin A1C 02/28/2025 025, 08/29/2024, 05/07/2024, [...] 01/28, 02/13/2024, Additional history exists Tobacco Screening 04/11/2026 04/11/2025 DTaP/Tdap/Td Vaccines (2 - Td or Tdap) 06/01/2026 06/01/2016, 02/04/2003 Dental X-Ray: Full Mouth 05/17/2027 024, 03/18/2015, 06/06/2012 Colonoscopy 01/17/2029 01/17/2019 Colorectal Cancer Screening 01/17/2029 Zoster Vaccines Completed 02/05/2022, 0 10/2021, 12/15/2018 Hepatitis C Screening Completed 01/07/2025 [...] task Care Plan Weekly blood pressure task Andreea Sultana MA Help patients manage their type 2 [...] chronic kidney disease No Oxana Dorado MD Procedures Procedure Name Priority Date/Time Associated Diagnosis Comments CULTURE, URINE, ROUTINE Routine 04/10/2025 3:51 PM EST Dysuria POCT URINALYSIS DIPSTICK Routine 04/10/2025 12:13 PM [...] coma, without long-term current use of insulin ([facility]) POCT RAPID COVID ANTIGEN Routine 02/02/2025 9:59 [...] coma, without long-term current use of insulin ([facility]) PROPHYLAXIS - ADULT Routine 12/24/2024 2 :00 PM EDT PERIODIC ORAL EVALUATION - ESTABLISHED PATIENT Routine 12/24/2024 2:00 PM EDT Encounter for dental examination Teeth missing Dental plaque POCT GLYCATED HEMOGLOBIN, TOTAL Routine 11/28/2024 11:52 AM EDT Type 2 diabetes mellitus with hypoglycemia without coma, without long-term current use of insulin ([facility]) BITEWING - SINGLE RADIOGRAPHIC IMAGE Routine 11/27/2024 [...] Recently Relevant to Health Maintenance Results * Culture, Urine, Routine (04/10/2025 3:51 PM EST) Only the most recent of3 resultswithin the time period is included. Urine Urine specimen obtained by clean catch procedure / Unknown 04/10/2025 3:51 PM EST 04/10/2025 6:17 PM EST Comment:[facility] - 04/12/2025 8:39 AM EST Urine Culture No growth. Specimen Source: Urine clean catch Oxana Dorado MD LAB MICROBIOLOGY - GENERAL ORDER WILFREDO Final Result [facility] [address] [place] [phone] * POCT urinalysis dipstick manually resulted (CPT 91797) (04/10/2025 12:13 PM EST) Only the most [...] Media Lot # [id number] Lot# Expiration Date 6,026 Urine (Urine, Random) 04/10/2025 12:13 PM EST Oxana Dorado MD POINT OF CARE TEST ENTER/EDIT OR DERABLES Final Result * POCT glucose manually resulted (04/10/2025 12:12 PM EST) Only the most recent of2 resultswithin the time period is included. Glucose Blood, POC 102 60 - 200 mg/dL QC Media Lot # [id number] Lot# Expiration Date 3,026 Blood Capillary blood specimen / Unknown 04/10/2025 12:12 PM EST Oxana Dorado MD POINT OF CARE TEST ENTER/EDIT OR DERABLES Final Result * POCT Rapid Covid-19 BinaxNOW (03/25/2025 1:50 PM EDT) Only the most recent of2 resultswithin the time period is included. Rapid COVID Ag Negative QC Media Lot # [id number] Lot# Expiration Date 82,426 Swab 03/25/2025 1:50 PM EDT us Griffin Vera MD POINT OF CARE TEST ENTER/EDIT OR DERABLES Final Result * POCT Rapid Influenza B CARDENAS ID NOW (03/25/2025 1:31 PM EDT) Influenza B Negative Negative, Indeterminate [facility] QC Media Lot # [id number] [facility] Lot# Expiration Date [facility] Swab 03/25/2025 1:31 PM EDT us Griffin Vera MD POINT OF CARE TEST ENTER/EDIT OR DERABLES Final Result Performing Organization Address [facility] Co de Phone Number [facility] [address] [place] [phone] * POCT Rapid Influenza A CARDENAS ID NOW (03/25/2025 1:31 PM EDT) Influenza A Negative Negative, Indeterminate [facility] QC Media Lot # [id number] [facility] Lot# Expiration Date [facility] Swab 03/25/2025 1:31 PM EDT us Griffin Vera MD POINT OF CARE TEST ENTER/EDIT OR DERABLES Final Result Performing Organization Address [facility] Co de Phone Number [facility] [address] [place] [phone] * POCT Rapid Strep A CARDENAS ID NOW (03/25/2025 1:31 PM EDT) Rapid Strep A Screen Negative Negative, None Detected QC Media Lot # [id number] Lot# Expiration Date Swab 03/25/2025 1:31 PM EDT us Griffin Vera MD POINT OF CARE TEST ENTER/EDIT OR DERABLES Final Result * (ABNORMAL) Urinalysis, Complete, with Reflex to Culture (03/25/2025 12:00 AM EDT) Color Urine Yellow [facility] Appearance Urine Turbid [facility] PH 7.0 5.0 - 9.0 [facility] Glucose Urine UA Negative Negative mg/dL [facility] Urine Blood Small (1+)(A) Negative [facility] Specific [place] - Urine 1.010 1.005 - 1.025 [facility] Urine Protein 30 (1+)(A) Neg-Trace mg/dL [facility] Urine Ketones Negative Negative mg/dL [facility] Nitrite Urine Positive(A) Negative [facility] Leukocyte Esterase Urine Large (3+)(A) Negative [facility] RBC Urine 0-2 0 - 2 /HPF [facility] Urine WBC >50(A) 0 - 5 /HPF [facility] WBC CLUMPS, UR Present [facility] Urine Squamous Epithelial Cell 0-2 0 - 2 /HPF [facility] Urine Bacteria 4+ None Seen [facility] Hyaline Casts, Urine 3-5 0 - 2 /LPF [facility] Urine 03/25/2025 03/25/2025 Narrative [facility] - 03/25/2025 8:38 PM EDT Urine, Clean Catch us Griffin Vera MD LAB URINE ORDERABLES Final Resul t [facility] [address] [place] [phone] * Referral to Neurology (02/01/2025) us Yajaira Lainez [facility] OUTPATIENT REFERRAL ORDERABLES Final Result * Hepatitis C Viral RNA, Quantitative, Real-Time PCR (01/07/2025 10:43 AM EDT) Pathologist [facility] Hepatitis C Viral Load <15 NOT DETECTED NOT DETECTED IU/mL [facility] HCV Log PCR <1.18 NOT DETECTED NOT DETECTED Log IU/mL [facility] Comment:For additional infor yarely, please refer tohttp://education.CivilisedMoney/faq/ESE49p3(This link is being provided for informational/educational purposes only.)THIS TEST WAS PERFORMED AT:[employer] [place] [phone] SEALS MD Blood 01/07/2025 10:4 3 AM EDT 01/07/2025 10:43 AM EDT us Yajaira Lainez CAREER DEVELOPMENT MANAGER LAB BLOOD ORDERABLES Final Res ult [facility] [address] [place] [phone] * (ABNORMAL) Lipid Panel, Standard (01/07/2025 10:43 AM EDT) Triglycerides 127 <150 mg/dL [facility] Comment:Desirable Triglyceri de: less than 150 mg/dLBorderline High Triglyceride 150-199 mg/dLHigh Triglyceride: 200-499 mg/dLVery High Triglyceride: greater than or equal to 5OO mg/dL Cholesterol 184 <200 mg/dL [facility] Comment:Desirable Cholestero l: less than 200 mg/dLBorderline High Cholesterol: 200-239 mg/dLHigh Cholesterol: greater than 239 mg/dL LDL Cholesterol Calculated 114(H) <100 mg/dL [facility] Comment:Desirable LDL: less than 100 mg/dLNear Optimal/Above Optimal LDL: 110- 129 mg/dLBorderline High LDL: 130-159 mg/dLHigh LDL: 160-189 mg/dLVery High LDL: greater than or equal to 190 mg/dL HDL Cholesterol 45 >40 mg/dL [facility] Comment:Desirable HDL: great er than 40 mg/dL Note: This HDL assay may give artificially low results in patients with liver disease. Blood Venous blood specimen / Unknown 01/07/2025 10:43 AM EDT 01/07/2025 10:43 AM EDT us Tyler Ortiz MD LAB BLOOD ORDERABLES Final Result Performing Organization Address [facility] Co de Phone Number [facility] [address] [place] [phone] * Albumin, Random Urine W/Creatinine (01/07/2025 10:34 AM EDT) Creatinine, Urine 61.04 mg/dL [facility] Microalbumin Urine <5.0 mg/L [facility] Microalbum Creatinine Ratio Ur TNP <30 ug/mg cr [facility] Comment:Unable to calculate albumin/creatinine ratio due to lowmicroalbumin or creatinine result. Urine 01/07/2025 10:3 4 AM EDT 01/07/2025 11:24 AM EDT us Yajaira SMITHP LAB URINE ORDERABLES Final Res ult Performing Organization Address [facility] Co de Phone Number [facility] [address] [place] [phone] * (ABNORMAL) POCT HGB A1C (11/28/2024 11:52 AM EDT) Hemoglobin A1C 6.4(A) 4.0 - 5.7 % QC Media Lot # [id number] Lot# Expiration Date ,189 Blood 11/28/2024 11:5 2 AM EDT us Yajaira Lainez CAREER DEVELOPMENT MANAGER POINT OF CARE TEST ENTER/EDIT ORDERABLES Final Result * BI US Breast Limited Bilateral (11/08/2024 12:00 PM EDT) Anatomical Region Laterality Modality Breast Bilateral Ultrasound 11/08/2024 12:0 0 PM EDT Narrative 11/08/2024 1:01 PM EDT [facility] [address] [place] [address] Ultrasound Report Signed Patient: Celestina Sullivan MR#: [id number] 0 : 1960 Acct:[id number] Age/Sex: 64 / F ADM Date: 11/08/24 Loc: HO.MAMMO Attending Dr: Tyler Ortiz MD Ordering Physician: Tyler Ortiz MD Date of Service: 11/08/24 Procedure(s): US breast BI limited mamm only Accession Number(s): [id number] cc: Tyler Ortiz MD EXAMINATION: MM DIAGNOSTIC [...] density (ACR BI-RADS breast composition Category b). Todd marker upper inner left breast at site [...] 11/08/24 1258 DD/ 1200 TD/TT: 11/08/24 1222 Social Media Specialist: Procedure Note Donotuseinterpreter, Image - 11/08/2024 [facility] [address] [place] [address] Dr. Strauss, YEHUDA [address] Ultrasound Report Signed Patient: Celestina SullivanMR#: [id number] 0 : 9Acct:[id number] Age/Sex: 64 / FADM Date: 11/08/24 Loc: HO.MAMMO Attending Dr: Tyler Ortiz MD Ordering Physician: Tyler Ortiz MD Date of Service: 11/08/24 Procedure(s): US breast BI limited mamm only Accession Number(s): [id number] cc: Tyler Ortiz MD EXAMINATION: MM DIAGNOSTIC [...] density (ACR BI-RADS breast composition Category b). Todd marker upper inner left breast at site [...] 11/08/24 1258 DD/ 1200 TD/TT: 11/08/24 1222 Social Media Specialist: us Tyler Ortiz MD IM US PROCEDURES Edited Re sult - Final * (ABNORMAL) HPV DNA, Low/High Risk (09/04/2024 12:00 AM EDT) HPV High Risk Positive(A) Negative [facility] HPV Genotype 16 Negative Negative [facility] HPV Genotype 18 Negative Negative [facility] Comment:HPV testing performe d at [facility] (CLIA#[id number]), [address] [place] [address].Testing for HPV was performed using the Josué [...] CNM LAB BLOOD ORDERABLES Melany l Result [facility] [address] [place] [phone] * Pap Smear (09/04/2024 12:00 AM EDT) Swab Cervix uteri structure / Unknown 09/04/2024 09/05/2024 6:00 AM EDT [facility] - 09/09/2024 10:37 AM EDT ----- ------- Name: Celestina Sullivan Age/Sex: 64/F : 1960 Unit#: [id number] Attend Dr: ELISABETH FAN CNM Re09/04/24 Status: [facility]: ----- ------- SPEC : [id number] RECD: 09/05/24 STATUS: LESLIE OZUNA NUM: [id number] SHAHAB: 09/04/24-[address]: ELISABETH FAN CNM ENTERED: 09/05/24 SP TYPE: Pap Smr [facility] DR: ORDERED: Pap Smear, PAP path review [...] ----- ------- END OF REPORT Elisabeth Fan [facility] CYTOLOGY ORDERABLES F inal Result [facility] [address] [place] [phone] * Referral to Ophthalmology (03/13/2024) Sol Harrell [...] 04/12/2025 Patient has chronic kidney disease 04/12/2025 Insurance [facility] < 65 [facility] Advance Directives Documents on File Type Date Recorded Patient Brace End [employer] Former Expl anation Advance Directives and Livin g Will 04/05/2024 3:00 PM HCP Care Teams Cheese Processor Relationship Specialty Start Date End Date Yajaira Lainez FNP [address] [place] [address] PCP - General Family Medicine 12/15/21 Torsten Leahy DPM [address] [facility] [address] [place] [address] Podiatry 02/12/25 Tana Grider NP [address] [place] [address] Urology 02/12/25 [facility] 04/23/24
[2025-04-23 20:10] VITALS: BP 123/64; PULSE 72; RESP 15; TEMP 36.8; O2SAT 97
[2025-04-23 20:42] LABS: MANUAL DIFF FLAG NO
[2025-04-23 20:43] LABS: Hematocrit 36.8 % (37.0-47.0); Hemoglobin 11.8 g/dl (12.0-16.0); Imm Gran Abs Auto 0.01 X10*3/uL (0.00-0.03); Imm Gran Pct Auto 0.1 % (0.0-0.4); Lymphocytes Absolute Auto 2.3 X10*3/uL (1.2-4.9); Mean Corpuscular HGB Conc 32.1 g/dl (31.0-35.0); Mean Corpuscular Hemoglobin 30.8 pg (27.0-33.0); Mean Corpuscular Volume 96.1 fL (80.0-98.0); NRBC Abs Auto 0.000 X10*3/uL (0.0-0.012); NRBC Pct Auto 0.0 /100WBC (0.0-0.2); Platelet Count 201 X10*3/uL (160-400); Red Blood Count 3.83 X10*6/uL (4.20-5.50); White Blood Count 6.9 X10*3/uL (4.8-10.8)
--- NOTE | 2025-04-23 20:44 | ED_ITS ---
HPI - Chest Pain General Chief Complaint: Chest Pain Stated Complaint: Chest pain Time Seen by Provider: 04/23/25 19:16 History of Present Illness ED Provider: Kinjal Woodruff HPI narrative: 64-year-old primarily Citizen [place]-speaking female with a medical history that is significant for osteoarthritis, overactive bladder with stress urinary incontinence, GERD, asthma presents to the ED from her assisted living facility via EMS for evaluation of dizziness and chest discomfort. Patient initially reported that she felt dizzy and fell, could not recall the entirety of the events. She is not on anticoagulants. Denies any neck pain. Upon my assessment, she further reports that staff members from the assisted living facility found her on the floor unconscious. Therefore, HPI is limited/unclear. It sounds as though the patient had a near syncopal or syncopal event, and is now presenting to the ED complaining of right-sided chest discomfort, described as intermittent stabbing. Denies any shortness of breath, palpitations. No abdominal pain, nausea or vomiting, diarrhea, constipation. No fever, chills. Otherwise has been feeling in her usual state of health. Related Data Home Medications ?Medication ?Instructions ?Recorded ?Confirmed buspirone 10 mg tablet 10 mg PO BID 02/06/21 blood sugar diagnostic ([facility] ea 10/23/2101/03 Verio test strips) blood-glucose meter (OneTouch #1 ea 10/23/21 01/03/25 Verio Flex Meter) fluticasone propionate 110 2 puff PO BID 10/23/2112/21 mcg/actuation HFA aerosol inhaler (Flovent HFA) lancets 33 gauge (OneTouch [facility] #100 ea 10/23/2112/21 Plus Lancet) simethicone 125 mg capsule (Gas 125 mg PO DAILY 01/03/25 Relief Extra Strength) loratadine 10 mg tablet 10 mg PO DAILY 11/06/2112/21 gabapentin 600 mg tablet 600 mg PO BID 12/07/2101/03 metformin 500 mg tablet 500 mg PO DAILY 04/05/2212/21 albuterol sulfate 90 mcg/actuation 90 mcg inhalation Q 4H PRN 06/21/22 01/03/25 aerosol inhaler Shortness Of Breath Or Wheez ing risperidone 0.5 mg tablet 0.5 mg PO BEDTIME 07/01/23 0 01/03/25 trazodone 100 mg tablet 200 mg PO BEDTIME PRN Insomn ia 07/01/23 01/03/25 venlafaxine 75 mg capsule,extended 75 mg PO QAM 01/03/25 release 24 hr verapamil 120 mg tablet,extended 120 mg PO DAILY 12/0101/03/25 release Previous Rx's ?Medication ?Instructions ?Recorded solifenacin 10 mg tablet 10 mg PO DAILY #90 tabs 11/21 plecanatide 3 mg tablet (Trulance) 3 mg PO DAILY #30 t abs 12/28/24 omeprazole 40 mg capsule,delayed 40 mg PO BID #90 caps 02/19/25 release Allergies Allergy/AdvReac Type Severity Reaction Status Date / Time Sulfa (Sulfonamide Allergy Unknown Unknown Verified 04/23/25 18:18 Antibiotics) (SULFA (SULFONAMIDE ANTIBIOTICS)) Review of Systems 2 Review of Systems: ROS is otherwise negative unless mentioned in HPI. [facility] Past Medical History Medical History Migraines IBS (irritable bowel syndrome) Chronic renal insufficiency PTSD (post-traumatic stress disorder) Anxiety Depression Asthma Type 2 diabetes mellitus Osteoarthritis GERD (gastroesophageal reflux disease) Urinary incontinence Urge incontinence Surgical History Hx of arthroscopic knee surgery Hx of cholecystectomy Hx of hemorrhoidectomy History of esophagogastroduodenoscopy (EGD) H/O colonoscopy Family History Family History Father History of intestinal surgery Colon cancer Paternal Uncle Diabetes Paternal Uncle Diabetes Social History Social History Household Members: None Unable to assess alcohol history related to: Unknown Alcohol intake: never Patient Tobacco Use Status: Current everyday Tobacco user Cigarettes Per Day: 5 Use of substances other than those prescribed or required for medical reasons: Unknown Advance Directives: No Advance Directives Information Provided: No Current occupational status: disabled 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 Constitutional: Well-appearing, NAD. Alert. Oriented X3. Eyes: Pupils equal, round and reactive to light. ENT: Pharynx normal. Neck: Normal inspection. Neck supple. CVS: Normal heart rate and rhythm. Pulses normal. Respiratory: No respiratory distress. Breath sounds normal. Abdomen: Soft and nontender. +BSx4. Skin: Skin warm and dry. Normal skin color. Extremities: No lower extremity edema. Neuro: Oriented X 3. No motor deficit. Vital Signs: Vital Signs: Last Vital Signs Temp 97.8 F 04/23/25 22:13 Pulse 66 04/23/25 22:13 Resp 22 H 04/23/25 22:13 BP 115/70 04/23/25 22:13 Pulse Ox 94 04/23/25 22:13 O2 Del Method Room Air 04/23/25 22:13 BMI result Body Mass Index 32.8 Medications Administered Discontinued Medications Generic Name Dose Route Start Last Admin Trade Name Freq PRN Reason Stop Dose Admin Lidocaine 1 patch 04/23/25 22:16 04/23/25 22:23 Lidocaine 4 % Patch Adh..Patch TRANSDERMA 04/23/25 22:17 1 patch ONCE ONE Administration Protocol Medical Decision Making Medical Decision Making MDM Narrative: Upon initial assessment, the story remains unclear. It sounds like syncope versus near-syncope, however there was an obvious fall involved, with unclear head strike. She has no midline cervical spinal tenderness on exam, is fully alert and oriented, answering all my questions appropriately. She is complaining of stabbing chest pain on the right, but is worse with my palpation. Less likely ACS, mi. more likely costochondritis, musculoskeletal chest pain. Plan to obtain troponins, EKG, chest x-ray, CT of the head, C-spine given the unclear syncope and fall, urinalysis, viral panel and reassess. 2234-- upon reassessment, she reports feeling significantly improved. Two flat troponins while in the ED. It appears her assisted living facility activated EMS d/t chest pain complaint. Less likely a true syncopal event. Pain appears to be MSK, not cardiac in nature. Lidoderm patch with good effect. CT of the head, C-spine shows no acute abnormalities, x-ray of the chest with no acute pneumonia. Urinalysis does not show evidence of any active urinary tract infection. Negative viral panel. I did consider admission for this patient for additional syncope workup, as true syncope is unclear. However, she has declined at this time, and reports that she has adequate outpatient follow up. I do recommend that she follows up outpatient with her primary care provider within the next 48 hours. Her daughter is coming to the ED to pick her up to bring her back to her assisted living facility. She is agreeable to plan of care. Provided strict return precautions to the ED. Differential Diagnosis Differential Diagnoses: The differential diagnosis associated with the presentation includes Syncope, near-syncope have a mechanical fall, ACS, mi, costochondritis, musculoskeletal chest pain, underlying infection Admission/Observation Consideration of admission/observation: Escalation of care including admission/observation considered (Recommended and considered, declined by patient. Engaged in shared decision-making for discharge plan.) Lab Data MDM Lab Attestation statement: I reviewed the patient's lab results. (Overall reassuring.) 04/23/25 20:36 04/23/25 20:36 Labs: Lab Results 04/23/25 04/23/25 04/23/25 Range/Units 20:36 21:27 22:03 WBC 6.9 (4.8-10.8) X10*3/uL RBC 3.83 L (4.20-5.50) X10*6/uL Hgb 11.8 L (12.0-16.0) g/dl Hct 36.8 L (37.0-47.0) % MCV 96.1 (80.0-98.0) fL MCH 30.8 (27.0-33.0) pg MCHC 32.1 (31.0-35.0) g/dl RDW 13.4 (11.0-16.0) % Plt Count 201 (160-400) X10*3/uL MPV 10.8 (9.4-12.3) fL Immature Gran % (Auto) 0.1 (0.0-0.4) % Neut % (Auto) 50.4 (45-73) % Lymph % (Auto) 33.8 (20-40) % [place] % (Auto) 8.0 (2-11) % Eos % (Auto) 7.3 H (0-4) % Baso % (Auto) 0.4 (0-2) % Lymph # (Auto) 2.3 (1.2-4.9) X10*3/uL [place] # (Auto) 0.6 (0.1-1.2) X10*3/uL Eos # (Auto) 0.5 H (0.0-0.4) X10*3/uL Baso # (Auto) 0.0 (0.0-0.2) X10*3/uL Abs Immat Gran (auto) 0.01 (0.00-0.03) X10*3/uL Absolute Neuts (auto) 3.5 (2.0-8.3) x10*3/uL Absolute Nucleated RBC 0.000 (0.0-0.012) X10*3/uL Nucleated RBC % (auto) 0.0 (0.0-0.2) /100WBC APTT 29.3 (26.7-34.1) SEC Sodium 142 (135-145) mmol/L Potassium 4.0 (3.3-5.1) mmol/L Chloride 109 H (96-108) mmol/L Carbon Dioxide 28 (22-29) mmol/L Anion Gap 9 L (12-20) BUN 17 H (9-16) mg/dL Creatinine 0.89 (0.5-1.4) mg/dL Estim Creat Clear Calc 52.7 Estimated GFR > 60 Random Glucose 77 (60-115) mg/dL Calcium 9.2 (8.4-10.2) mg/dL Magnesium 2.3 (1.6-2.6) mg/dL Troponin I High Sens < 2.7 < 2.7 (<3.5-17.0) ng/L NT-Pro-B Natriuret Pep 27.0 (<300) pg/mL TSH 0.97 (0.32-4.0) uIU/mL Urine Color Yellow Urine Appearance Clear Urine pH 6.0 (5.0-9.0) Ur Specific [place] <= 1.005 (1.005-1.025) Urine Protein Negative (Neg-Trace) mg/dL Urine Glucose (UA) Negative (Negative) mg/dL Urine Ketones Negative (Negative) mg/dL Urine Blood Negative (Negative) Urine Nitrite Negative (Negative) Ur Leukocyte Esterase Negative (Negative) Influenza Type A (PCR) NEGATIVE (Negative) Influenza Type B (PCR) NEGATIVE (Negative) RSV RNA Qual (PCR) NEGATIVE (Negative) SARS-CoV-2 RNA (RT-PCR) NEGATIVE (Negative) Independent Interpretation I performed an independent interpretation of an: EKG Interpretation: Rate: 72 Rhythm: NSR Whick: 24/45/50 Normal P waves. Normal AMEE. Normal QRS complex. ST T wave : no dep, elev qTC: 418 prior studies: similar The study has been interpreted contemporaneously by me. Radiology Impression Discussion of test interpretation with radiology: I have reviewed the radiologist's reading. Radiologist Impression: Chest X-Ray Impression: 1. No acute pulmonary disease. CT Head WO: IMPRESSION: 1. No acute intracranial abnormality by CT. CT C-Spine WO: IMPRESSION: No acute fracture of the cervical spine. Independent Historian Clinical information obtained from an independent historian. History obtained from or confirmed by: EMS External Record Review External record reviewed: Outpatient record (office visits) and Other (prior ED visit) Chronic Conditions Patient?s care impacted by: Diabetes Social Determinants Patient?s care significantly limited by Social Determinants of Health including: Problems related to primary support group Discharge Plan Discharge Clinical Impression: Right-sided chest wall pain Syncope Qualifiers: Syncope type: unspecified Qualified Code(s): R55 - Syncope and collapse Patient Disposition: Home, Self-Care Instructions: Near Syncope (ED), Chest Wall Pain (ED) Additional Instructions: As we discussed, you had an extensive workup in the emergency department today. Your imaging, lab work, etc was overall very reassuring. We would like for you to follow-up with your PCP within 1 week. It appears that your chest discomfort is less likely cardiac in nature, and more likely musculoskeletal. We gave you Lidoderm patch in the ED, which you may use outpatient as well. These are to be applied on your skin for 12 hours, then removed for 12 hours. You may also use Tylenol. Please return to the ED for reassessment at any time with any worsening or new complaints. Prescriptions: No Action Trulance 3 mg tablet 3 mg PO DAILY Qty: 30 3RF omeprazole 40 mg capsule,delayed release(DR/EC) 40 mg PO BID Qty: 90 3RF venlafaxine 75 mg capsule,extended release 24hr 75 mg PO QAM buspirone 10 mg tablet 10 mg PO BID loratadine 10 mg tablet 10 mg PO DAILY Flovent HFA 110 mcg/actuation HFA aerosol inhaler 2 puff PO BID (DME) lancets [OneTouch [employer] Plus Lancet] 33 gauge misc See Rx Instructions Not Applicable BID Qty: 100 Rx Instructions: As directed (DME) OneTouch Verio test strips Strip See Rx Instructions Not Applicable BID Qty: 10 Rx Instructions: As directed (DME) blood-glucose meter [OneTouch Verio Flex meter] Misc See Rx Instructions Not Applicable BID Qty: 1 Rx Instructions: As directed simethicone [Gas Relief Extra Strength] 125 mg capsule 125 mg PO DAILY gabapentin 600 mg tablet 600 mg PO BID metformin 500 mg tablet 500 mg PO DAILY albuterol sulfate 90 mcg/actuation HFA aerosol inhaler 90 mcg inhalation Q4H PRN (Reason: Shortness Of Breath Or Wheezing) trazodone 100 mg tablet 200 mg PO BEDTIME PRN (Reason: Insomnia) risperidone 0.5 mg tablet 0.5 mg PO BEDTIME solifenacin 10 mg tablet 10 mg PO DAILY Qty: 90 3RF verapamil 120 mg tablet extended release 120 mg PO DAILY Referrals: Yajaira Lainez FNP [Primary Care Provider, Family Practice] Print Language: [place]
[2025-04-23 20:51] LABS: Partial Thromboplastin Time 29.3 SEC (26.7-34.1)
[2025-04-23 20:56] LABS: Anion Gap 9 (12-20); Blood Urea Nitrogen 17 mg/dL (9-16); Calcium 9.2 mg/dL (8.4-10.2); Carbon Dioxide 28 mmol/L (22-29); Chloride 109 mmol/L (96-108); Creatinine Clr Calc Pharmacy 52.7; Estimated Glomerular Filt Rate > 60; Magnesium 2.3 mg/dL (1.6-2.6); Potassium 4.0 mmol/L (3.3-5.1); Sodium 142 mmol/L (135-145)
[2025-04-23 21:01] LABS: NT Pro B Type Natriuretic Pept 27.0 pg/mL (<300)
[2025-04-23 21:08] LABS: Troponin-I High Sensitivity < 2.7 ng/L (<3.5-17.0)
[2025-04-23 21:18] LABS: Resp Syncy Virus RNA Qual PCR NEGATIVE (Negative); SARS COV2 PCR INHOUSE NEGATIVE (Negative)
[2025-04-23 21:32] LABS: Appearance Urine Clear; Glucose Urine UA Negative (Negative); PH 6.0 (5.0-9.0); Specific Gravity - Urine <= 1.005 (1.005-1.025)
[2025-04-23 22:13] VITALS: BP 115/70; PULSE 66; RESP 22; TEMP 36.6; O2SAT 94
[2025-04-23] MEDS: Lidocaine 4 % Patch ADH..PATCH 1 PATCH TRANSDERMA (22:23)
[2025-04-23 22:28] LABS: Troponin-I High Sensitivity < 2.7 ng/L (<3.5-17.0)
[2025-04-23 23:00] VITALS: BP 130/60; PULSE 68; RESP 16; TEMP 37.1; O2SAT 95
== END 2025-04-23 23:01 | disposition home or self-care (01) ==
PROVIDERS: Nurse Practitioner; Emergency Provider Student in an Organized Health Care Education/Training Program; PCP Registered Nurse
DX: R55 Syncope and collapse (principal); R07.9 Chest pain, unspecified; E11.9 Type 2 diabetes mellitus without complications; Z03.818 Encounter for observation for suspected exposure to other biological agents ruled out; Z79.899 Other long term (current) drug therapy
CPT/HCPCS: 36415; 70450; 71045; 72125; 80048; 81003; 83735; 83880; 84443; 84484; 85025; 85730; 87637; 93005; 99284; 99285

== ENCOUNTER → 2025-04-23 18:02 | Outpatient (BNV) | payer OTHER, SELFPAY | PROVIDERS: Emergency Provider Student in an Organized Health Care Education/Training Program; PCP Registered Nurse; Visit Provider Internal Medicine Cardiovascular Disease | DX: R07.9 Chest pain, unspecified (principal) | CPT/HCPCS: 93010 ==

== ENCOUNTER → 2025-04-23 20:11 | Outpatient (BNV) | payer OTHER, SELFPAY | PROVIDERS: PCP Registered Nurse; Visit Provider Radiology Diagnostic Radiology | DX: Z04.3 Encounter for examination and observation following other accident (principal) | CPT/HCPCS: 70450; 71045; 72125 ==